=== PATIENT | male | born 1935 | race Caucasian/White ===

== ENCOUNTER 2017-04-05 11:41 | Inpatient (IN) ==
[2017-04-05] MEDS ORDERED: SODIUM CHLORIDE 0.9% 500 ML IV STA (12:10)
--- NOTE | 2017-04-05 12:34 | Emergency Department Note ---
Ruma Quintanilla Hilary, am scribing for, and in the presence of, Chavo Washington MD 12: 21. Padmini Quintanilla James D, MD, personally performed the services described in this documentation, ascribed by Davina Hendrix in my presence, and it is both accurate and complete 232 . Arrival - Arrival Chief Complaint: Weakness Stated Complaint: weakness ED Nursing Triage Note: Brought in per EMS from home with c/o generalized weakness onset this am. +nausea/voimiting. Vomiting x 3 this am. +productive cough with clear sputum. Denies pain. Mode of Arrival: Stretcher Limitations: No Limitations Source: Patient, Significant other (), RN Notes Reviewed Time Seen by Provider: 04/05/17 12:02 - History of Present Illness HPI Narrative: Pt is a 82 y/o white male brought into the ED via EMS with c/o weakness which onset this AM. Pts reports that he woke up in the morning around 0200 with chills and vomiting and when he woke up for the day he felt severely weak and hot. Pt confirms SOB and weakness but denies dysuria. No other complaints or problems stated in the ED. Onset (ago): hour(s) Consistency: constant Severity: severe Severity scale (1-10): 3 Allergies/Adverse Reactions: Allergies Allergy/AdvReac Type Severity Reaction Status Date / Time morphine Allergy Severe Nausea Verified 04/05/17 12:15 pseudoephedrine Allergy Severe RASH Verified 04/05/17 12:15 [From Sudafed] loratadine [From Claritin] Allergy Unknown/Unable Verified 04/05/17 12:15 to obtain sulfur dioxide Allergy Unknown/Unable Verified 04/05/17 12:15 to obtain Home Medications: Home Medications Medication Instructions Recorded Confirmed Type Acetaminophen Tab [Tylenol Tab] 325 mg PO BEDTIME 04/21/15 03/06/17 History Insulin Regular [HumuLIN R] 0 unit SUBCUT DIRECTED PRN 04/21/15 03/06/17 History Magnesium Oxide 400 mg PO DAILY 04/21/15 03/06/17 History Montelukast Tab [Singulair Tab] 10 mg PO BEDTIME 04/21/15 03/06/17 History Multivitamin [Multivitamins] 1 each PO DAILY W/LUNCH 04/21/15 03/06/17 History Polyethylene Glycol 3350 17 gm PO AC BREAKFAST 04/21/15 03/06/17 History Rosuvastatin [Crestor] 20 mg PO PC SUPPER 04/21/15 03/06/17 History Thyroid,Pork [[place] Thyroid] 90 mg PO AC BREAKFAST 04/21/15 03/06/17 History Lubiprostone [Amitiza] 8 mcg PO BID 05/28/15 03/06/17 History Ondansetron Tab [Zofran Tab] 4 mg PO BID PRN #60 tablet 09/24/15 03/06/17 Rx Diclofenac 1% Gel [Voltaren 1% Gel] 1 unit TOP QID PRN #1 gel 10/18/15 03/06/17 Rx Spironolactone [Aldactone] 50 mg PO DAILY tablet 10/18/15 03/06/17 Rx Aspirin EC Tab 81 mg PO PC SUPPER tablet 07/29/16 03/06/17 Rx Calcium (Carbonate) [Caltrate 600] 600 mg PO DAILY W/LUNCH tablet 07/29/1604/17 Rx Carvedilol [Coreg] 12.5 mg PO BID tablet 07/29/16 03/06/17 Rx Fludrocortisone [Florinef] 0.2 mg PO BID tablet 07/29/16 03/06/17 Rx Gabapentin Cap/Tab [Neurontin 200 mg PO TID capsule 07/29/16 03/06/17 Rx Cap/Tab] Imipramine [Tofranil] 10 mg PO BEDTIME tablet 07/29/16 03/06/17 Rx Lisinopril [Prinivil] 5 mg PO DAILY tablet 07/29/16 03/06/17 Rx Metformin HCl 250 mg PO BID 02/05/17 03/06/17 History Sitagliptin Phosphate [Januvia] 50 mg PO DAILY 02/05/17 03/06/17 History Alendronate Sodium 35 mg PO Q7D 02/08/17 03/06/17 History Amiodarone Tab [Cordarone Tab] 200 mg PO BID #70 tablet 02/09/17 03/06/17 Rx Digoxin Tab [Lanoxin Tab] 0.0625 mg PO DAILY@1300 #30 tablet 02/09/17 03/06/17 Rx Methenamine Hippurate [Hiprex] 1 gm PO BID 02/11/17 03/06/17 History Acetaminophen with Codeine 1 each PO Q6H PRN 03/06/17 03/06/17 History [Acetaminophen-Cod #3 Tablet] Albuterol Inhaler [Proventil 2 puff INH Q4H PRN 03/06/17 03/06/17 History Inhaler] Budesonide/Formoterol 80-4.5 2 puff INH BID PRN 03/06/17 03/06/17 History [Symbicort 80-4.5] Cholecalciferol (Vitamin D3) 2,000 unit PO DAILY 03/06/17 03/06/17 History [Vitamin D3] Cyanocobalamin (Vitamin B-12) 3 ml IJ Q7D 03/06/17 03/06/17 History [Cyanocobalamin Injection] Fexofenadine [Bibi] 180 mg PO BEDTIME PRN 03/06/17 03/06/17 History Fluticasone 50 Mcg Nasal [place] 1 spray BOTH NARES BID PRN 03/06/17 03/06/17 History [Flonase Nasal [place]] Folic Acid Tab 1 mg PO DAILY 03/06/17 03/06/17 History Furosemide Tab [Lasix Tab] 40 mg PO DAILY PRN 03/06/17 03/06/17 History Ipratropium 0.06% Nasal [place] 2 spray BOTH NARES TID PRN 03/06/17 03/06/17 History [Atrovent 0.06% Nasal [place]] LORazepam TAB [Ativan Tab] 0.5 mg PO DAILY PRN 03/06/17 03/06/17 History Mexiletine [Mexitil] 200 mg PO BID PRN 03/06/17 03/06/17 History Mupirocin Calcium [Bactroban 2% 1 applic TOP TID PRN 03/06/17 03/06/17 History Cream] [place]-3 Fatty Acids [Maxepa] 1,000 mg PO DAILY 03/06/17 03/06/17 History Omeprazole 20 mg PO DAILY 03/06/17 03/06/17 History Potassium Chloride 10 meq PO BID 03/06/17 03/06/17 History Simethicone [Phazyme] 180 mg PO DAILY PRN 03/06/17 03/06/17 History Sodium Chl/Potassium Chl Tab 2 tablet PO BID 03/06/17 03/06/17 History [Thermotabs] metOLazone [Zaroxolyn] 2.5 mg PO DAILY PRN 03/06/17 03/06/17 History Review of System - Review of System 12 point system: reviewed and no additional remarkable complaints except as stated - Review of System Constitutional: Present: chills, fever, weakness Respiratory: Present: respiratory distress (SOB) Gastrointestinal: Present: nausea, vomiting Genitourinary male: Absent: dysuria 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), Vertigo No history of: Brain Aneurysm, Cerebral Hemorrhage, Cerebrovascular Accident , Cerebral Palsy, Dementia, Migraine, Seizures, TIA HEENT: No history of: Ear Problem, Eye Problem, Dental Problems, Glaucoma, Oral Cancer, HEENT Problems Endocrine: History of: Diabetes Mellitus (IDDM), Diabetes Mellitus (NIDDM), Dyslipidemia, Thyroid Disorder Rheumatology: History of;: Rheumatoid Arthritis No history of;: Fibromyalgia, Psoriasis, Sjogrens, Systemic Lupus Erythematosus Respiratory: History of: COPD, Obstructive Sleep Apnea, Pneumonia (Aug 2015), Respiratory Problems No history of: Asthma, Bronchitis, Pulmonary Embolism, Pulmonary Hypertension Renal: History of: Renal Failure (Chronic renal insufficiency), Renal Problems ( cyst on left kidney followed by Dr. Bob Nunez) Genitourinary: History of: Bladder Problem (residual (I&O cath 2x daily)), Prostate Problems (History of prostate cancer, this was surgically treated.) Gastrointestinal: History of: GERD, GI Problems ("ilia colon", burgess's esophagus, dysphagia) No history of: Bowel Obstruction, Gastrointestinal Bleed Musculoskeletal: History of: Back/Neck Problems (chronic back pain) No history of: Amputation Hematology: No history of: Blood Transfusion Reaction Other: History of: Cancer (prostate) No history of: Anesthesia Reactions, Malignant Hyperthermia, MRSA, Vancomycin -Resistant Enterococci, Skin Problems, Miscellaneous Medical Problems - Surgical History Cardiac Surgeries: Sugical HX of: Cardiac Catheterization (January 2070), Cardiac Surgery (pacemaker/aicd), Internal Defibrillator Thoracic Surgeries: Patient denies;: Organ Transplant, Lobectomy Neurologic Surgeries: Patient denies: Brain Aneurysm, Cerebral Hemorrhage, Neurologic Surgery HEENT Surgeries: Surgical HX of: Eye Surgery (cataracts, eyelids lifted) Patient denies: Tonsilectomy & Adenoidectomy Abdominal Surgeries: Surgical HX of: Abdominal Surgery, Appendectomy, Cholecystectomy (03/2014), Colonoscopy, EGD (Burgess's) Reproductive Surgeries: Surgical HX of;: Prostate Surgery (cryo "freezing" of prostate-2012) Orthopedic Surgeries: Surgical HX of;: Orthopedic Surgery (ORIF Left ankle, right ankle), Total Knee Replacement (left) - Family History Family History: Reports;: Family Cancer (father-colon, brother-colon, sister- colon), Family Heart Disease, Family Hypertension, Family Stroke - Social History Smoking Status: Unknown if ever smoked Frequency of Alcohol Use: None Type of Drug Use: None Exam Physical Examination: GENERAL: This is a well-nourished, well-developed in no apparent distress. VITAL SIGNS: Temperature: 99.1 Pulse: 80 Respiratory: 18 Blood Pressure : 113/55 O2Sat: 96 HEENT: Head is normocephalic and atraumatic. Pupils are equally round and reactive to light. Extraocular movement are intact. Oropharynx is benign with moist mucous membranes. NECK: Neck is soft and supple without tenderness. There are no masses. There is no lymphadenopathy. LUNGS: Lungs are clear to auscultation bilaterally. Chest rises symmetrically. There is no chest wall tenderness. CV: Heart is regular rate and rhythm without rubs, or gallops. 2/6 LULI LSB ABDOMEN: Abdomen is soft, epigastric tenderness to palpation. There are no abnormal masses palpated. There is no organomegaly. Bowel sounds are present and active. SKIN: Skin is warm and dry. No rash. EXTREMITIES: Patient has full range of motion without tenderness. There is 1+ pedal edema. NEUROLOGIC: Awake, alert, and oriented x4. Cranial nerves II through XII are grossly intact. There are no motorsensory deficits. PSYCHIATRIC: Normal affect. Normal mood. Vital Signs: Vital Signs Temperature 99.1 F 04/05/17 11:41 Pulse Rate 80 04/05/17 11:41 Respiratory Rate 18 04/05/17 11:41 Blood Pressure 113/55 04/05/17 11:41 O2 Sat by Pulse Oximetry 96 04/05/17 11:41 Course - Consultations Consultation #1: Discussed with hospitalist. Patient will be admitted to their service. Time: 14:06 Results - Labs CBC & BMP: 04/05/17 13:10 Lab Results: I have reviewed the patients labs - Diagnostic Findings Procedure: Chest x-ray: image reviewed by me (Increased pulmonary markings bilaterally.) Disposition Clinical Impression: Fever, Chronic inflammatory demyelinating polyneuropathy, Pneumonia Case discussed with: patient, patient's family Disposition: Still a Patient Condition: Guarded Time of Disposition: 13:22
--- NOTE | 2017-04-05 12:46 | XRay Report ---
XR chest 1V portable Indication: SOB/fever Comparison: Chest x-ray dated February 11, 2017 Technique: Single frontal view of the chest. Findings: Continued cardiomegaly. Cardiac pacemaker apparatus again noted. There is mild left basilar atelectasis/consolidation suspicious for pneumonia. There is mild elevation of the left hemidiaphragm. Chronic change of the lungs present. Visualized osseous and surrounding soft tissue structures appear grossly unchanged. IMPRESSION: As above. PROCEDURE INTERPRETED AT [facility] DEPARTMENT OF RADIOLOGY Final Report Signed by: Dr Vamshi Pascual
[2017-04-05] MEDS ORDERED: PIPERACILLIN/TAZOBACTAM 3,375 MG in SODIUM CHLORIDE 0.9% 100 ML IV STA (13:26)
[2017-04-05] MEDS ORDERED: ACETAMINOPHEN 500 MG TABLET ONE (13:32)
[2017-04-05] MEDS ORDERED: ACETAMINOPHEN 500 MG TABLET PO STA (13:33)
[2017-04-05 13:36] LABS: Basophils % 0.1 % (0.0-0.8); Hematocrit 39.2 VOL% (42.0-52.0); Hemoglobin 12.6 GM/DL (14.0-18.0); Immature Granulocytes % 0.7 %; Immature Granulocytes Absolute 0.16 #; Lymphocytes # 0.3 10*3/uL (1.4-4.0); Lymphocytes % 1.2 % (21.2-54.2); Mean Corpuscular HGB Conc 32.1 GM/DL (32-36); Mean Corpuscular Hemoglobin 31 PG (27-34); Mean Corpuscular Volume 97.5 FL (87-102); Monocytes # 0.9 10*3/uL (0.11-0.8); Neutrophils # 21.7 10*3/uL (1.4-7.4); Platelet Count 220 T/CUMM (130-400); Red Blood Count 4.02 MC/CUMM (3.8-5.5); Red Cell Distribution Width 13.8 % (9.3-17.3); White Blood Count 23.1 T/CUMM (4-12)
[2017-04-05] MEDS ORDERED: PIPERACILLIN/TAZOBACTAM 3,375 MG VIAL IV ONE (13:39)
[2017-04-05 13:46] LABS: INR 1.1; PT Patient Result 11.9 SECS
[2017-04-05 13:58] LABS: Band Neutrophils 3 % (0-10); Platelet Estimate Normal; Segmented Neutrophils 94 % (50-85); Total Cells Counted 100
[2017-04-05 14:13] LABS: Albumin 3.3 G/DL (3.4-5.0); Bilirubin,Total 0.6 MG/DL (0.2-1.0); Osmolality,Calculated 278.8 MOS/KG (273-304); Potassium 4.9 MMOL/L (3.5-5.1); Total Protein 6.7 G/DL (6.4-8.3)
[2017-04-05 14:18] LABS: Apearance,Urine Slightly Hazy (Clear); Bilirubin,Urine Negative (Negative); Blood, Urine Negative (Negative); Glucose,Urine (UA) Negative (Negative); Hyaline Casts,Urine 1 /LPF (0-3); Ketones,Urine Negative (Negative); Mucus,Urine Occasional /LPF (Occasional); Nitrite,Urine Negative (Negative); Protein,Urine 30 MG/DL; RBC,Urine 1 /HPF (0-4); Urine Color Yellow (Yellow); Urine Specific Gravity 1.012 (1.001-1.035); Urine Urobilinogen < 2.0 EU/DL (0.2-1.0); WBC,Urine 57 /HPF (0-6)
[2017-04-05] MEDS ORDERED: SODIUM CHLORIDE 0.9% 1,000 ML IV STA (15:05)
--- NOTE | 2017-04-05 15:53 | Hospitalist History & Physical ---
Assessment and Plan - Time spent with patient Time spent with patient: Greater than 30 minutes (1) Pneumonia Status: Acute Assessment and plan: Chest x-ray reveals mild left basilar atelectasis/consolidation suspicious for pneumonia. He does have mild elevation of the left hemidiaphragm with chronic change of the lungs present. White blood count is 23.1. Patient has been started on Zosyn in ED. We will continue this upon transfer to the floor. We will also add duo nebs. Current Visit: Yes (2) Cardiomyopathy Status: Acute Assessment and plan: Patient is followed by Dr. Petar Engle, cardiology. Cardiology consultation may be warranted during his stay. Current Visit: No (3) Dyslipidemia Status: Chronic Current Visit: No (4) Fever Status: Acute Assessment and plan: Patient had a temp of 101 on admission. Temperature is since decreased to below 100 with Tylenol. Current Visit: Yes (5) Chronic inflammatory demyelinating polyneuropathy Status: Acute Current Visit: Yes History of Present Illness Chief complaint: Shortness of breath, weakness History of present illness: Mr. Ahumada is a 82 year old male with a past medical history significant for congestive heart failure, atrial fibrillation, hypertension, chronic inflammatory demyelinating polyneuropathy who presents to the ED with complaints of increasing shortness of breath and weakness for the past 3 days. Patient's is at bedside and provided much of the history. notes that patient has been wheezing and complaining of shortness of breath with associated cough productive of white frothy sputum the last 3 days. Patient is followed by Dr. Kamara and his nurse practitioner VENKAT Matthew last seen in the office on Wednesday. Patient notes he was given steroids in the office with the hope that the wheezing was improved. On admission, patient has fever with temperature 101, is dyspneic, and weak. He admits headache and blurry vision, nausea and vomiting, however he denies chest pain, abdominal pain, syncopal episodes. Lab work on admission reveals white count of 23.1 hemoglobin 12.6 hematocrit 39.2 sodium 137 potassium 4.9 chloride 97 BUN 24 creatinine 1.70 glucose 133 AST 80 ALT 111. Urinalysis does reveal large leukocytes. Patient is followed by Dr. Engle for his congestive heart failure and atrial fibrillation. He is listed as a full code. Case has been discussed with Dr. Ede Franklin the patient will be admitted to hospital medicine service for further evaluation and treatment. Home Medications Medication Instructions Recorded Confirmed Type Acetaminophen Tab [Tylenol Tab] 325 mg PO DAILY PRN 04/21/15 04/05/17 History Insulin Regular [HumuLIN R] See Protocol SUBCUT DIRECTED PRN 04/21/15 History Magnesium Oxide 400 mg PO DAILY 04/21/15 04/05/17 History Montelukast Tab [Singulair Tab] 10 mg PO DAILY 04/21/15 04/05/17 History Multivitamin [Multivitamins] 1 each PO DAILY W/LUNCH 04/21/15 04/05/17 History Rosuvastatin [Crestor] 20 mg PO DAILY 04/21/15 04/05/17 History Lubiprostone [Amitiza] 8 mcg PO BID 05/28/15 04/05/17 History Diclofenac 1% Gel [Voltaren 1% Gel] 1 unit TOP QID PRN #1 gel 10/18/15 04/05/17 Rx Spironolactone [Aldactone] 50 mg PO DAILY tablet 10/18/15 04/05/17 Rx Fludrocortisone [Florinef] 0.2 mg PO BID tablet 07/29/16 04/05/17 Rx Imipramine [Tofranil] 10 mg PO BEDTIME tablet 07/29/16 04/05/17 Rx Lisinopril [Prinivil] 5 mg PO DAILY tablet 07/29/16 04/05/17 Rx Sitagliptin Phosphate [Januvia] 50 mg PO DAILY 02/05/17 04/05/17 History Alendronate Sodium 35 mg PO SA 02/08/17 04/05/17 History Methenamine Hippurate [Hiprex] 1 gm PO BID 02/11/17 04/05/17 History Albuterol Inhaler [Proventil 2 puff INH Q4H PRN 03/06/17 04/05/17 History Inhaler] Budesonide/Formoterol 80-4.5 2 puff INH BID PRN 03/06/17 04/05/17 History [Symbicort 80-4.5] Cholecalciferol (Vitamin D3) 2,000 unit PO DAILY 03/06/17 04/05/17 History [Vitamin D3] Cyanocobalamin (Vitamin B-12) 3 ml IJ SA 03/06/17 04/05/17 History [Cyanocobalamin Injection] Fexofenadine [Bibi] 180 mg PO DAILY PRN 03/06/17 04/05/17 History Fluticasone 50 Mcg Nasal [place] 1 spray BOTH NARES BID PRN 03/06/17 04/05/17 History [Flonase Nasal [place]] Folic Acid Tab 1 mg PO DAILY 03/06/17 04/05/17 History LORazepam TAB [Ativan Tab] 0.5 mg PO DAILY 03/06/17 04/05/17 History Mexiletine [Mexitil] 200 mg PO BID 03/06/17 04/05/17 History [place]-3 Fatty Acids [Maxepa] 1,000 mg PO DAILY 03/06/17 04/05/17 History Omeprazole 20 mg PO DAILY 03/06/17 04/05/17 History Potassium Chloride 10 meq PO BID 03/06/17 04/05/17 History Simethicone [Phazyme] 180 mg PO DAILY PRN 03/06/17 04/05/17 History metOLazone [Zaroxolyn] 2.5 mg PO DAILY PRN 03/06/17 04/05/17 History Amiodarone Tab [Cordarone Tab] 200 mg PO DAILY 04/05/17 04/05/17 History Aspirin EC Tab 81 mg PO DAILY 04/05/17 04/05/17 History Calcium (Carbonate) [Caltrate 600] 600 mg PO DAILY 04/05/17 04/05/17 History Carvedilol [Coreg] 6.25 mg PO BID 04/05/17 04/05/17 History Digoxin Tab [Lanoxin Tab] 0.0625 mg PO DAILY 04/05/17 04/05/17 History Gabapentin Cap/Tab [Neurontin 200 mg PO BID 04/05/17 04/05/17 History Cap/Tab] Polyethylene Glycol Powder 17 gm PO DAILY 04/05/17 04/05/17 History [Miralax] Sodium Chl/Potassium Chl Tab 2 tablet PO BID 04/05/17 04/05/17 History [Thermotabs] Thyroid,Pork [[place] Thyroid] 90 mg PO DAILY 04/05/17 04/05/17 History cycloSPORINE OPH EMUL [Restasis] 0.05 drop BOTH EYES BID 04/05/17 04/05/17 History Allergies Allergy/AdvReac Type Severity Reaction Status Date / Time morphine Allergy Severe Nausea Verified 04/05/17 12:15 pseudoephedrine Allergy Severe RASH Verified 04/05/17 12:15 [From Sudafed] loratadine [From Claritin] Allergy Unknown/Unable Verified 04/05/17 12:15 to obtain sulfur dioxide Allergy Unknown/Unable Verified 04/05/17 12:15 to obtain 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), Vertigo No history of: Brain Aneurysm, Cerebral Hemorrhage, Cerebrovascular Accident , Cerebral Palsy, Dementia, Migraine, Seizures, TIA HEENT: No history of: Ear Problem, Eye Problem, Dental Problems, Glaucoma, Oral Cancer, HEENT Problems Endocrine: History of: Diabetes Mellitus (IDDM), Diabetes Mellitus (NIDDM), Dyslipidemia, Thyroid Disorder Rheumatology: History of;: Rheumatoid Arthritis No history of;: Fibromyalgia, Psoriasis, Sjogrens, Systemic Lupus Erythematosus Respiratory: History of: COPD, Obstructive Sleep Apnea, Pneumonia (Aug 2015), Respiratory Problems No history of: Asthma, Bronchitis, Pulmonary Embolism, Pulmonary Hypertension Renal: History of: Renal Failure (Chronic renal insufficiency), Renal Problems ( cyst on left kidney followed by Dr. Bob Nunez) Genitourinary: History of: Bladder Problem (residual (I&O cath 2x daily)), Prostate Problems (History of prostate cancer, this was surgically treated.) Gastrointestinal: History of: GERD, GI Problems ("ilia colon", burgess's esophagus, dysphagia) No history of: Bowel Obstruction, Gastrointestinal Bleed Musculoskeletal: History of: Back/Neck Problems (chronic back pain) No history of: Amputation Hematology: No history of: Blood Transfusion Reaction Other: History of: Cancer (prostate) No history of: Anesthesia Reactions, Malignant Hyperthermia, MRSA, Vancomycin -Resistant Enterococci, Skin Problems, Miscellaneous Medical Problems - Surgical History Cardiac Surgeries: Sugical HX of: Cardiac Catheterization (January 2070), Cardiac Surgery (pacemaker/aicd), Internal Defibrillator Thoracic Surgeries: Patient denies;: Organ Transplant, Lobectomy Neurologic Surgeries: Patient denies: Brain Aneurysm, Cerebral Hemorrhage, Neurologic Surgery HEENT Surgeries: Surgical HX of: Eye Surgery (cataracts, eyelids lifted) Patient denies: Tonsilectomy & Adenoidectomy Abdominal Surgeries: Surgical HX of: Abdominal Surgery, Appendectomy, Cholecystectomy (03/2014), Colonoscopy, EGD (B[facility]ess's) Reproductive Surgeries: Surgical HX of;: Prostate Surgery (cryo "freezing" of prostate-2012) Orthopedic Surgeries: Surgical HX of;: Orthopedic Surgery (ORIF Left ankle, right ankle), Total Knee Replacement (left) - Family History Family History: Reports;: Family Cancer (father-colon, brother-colon, sister- colon), Family Heart Disease, Family Hypertension, Family Stroke - Social History Smoking Status: Unknown if ever smoked Frequency of Alcohol Use: None Type of Drug Use: None Marital Status: Lives With:: Spouse Functional capacity: uses cane/walker - Constitutional Constitutional: Present: fever(s), headache(s), weakness. Absent: frequent falls - EENT Eyes: Present: blurry vision. Absent: loss of vision Nose, mouth and throat: Absent: neck pain, vertigo - Cardiovascular Cardiovascular: Present: dyspnea, dyspnea on exertion. Absent: chest pain at rest, edema, radiating jaw, neck or arm pain - Respiratory Respiratory: Present: cough, dyspnea, wheezing - Gastrointestinal Gastrointestinal: Present: nausea, vomiting. Absent: cramping, diarrhea - Genitourinary Genitourinary: Absent: dysuria, hematuria - Neurological Neurological: Absent: abnormal gait, abnormal speech, confusion, syncope - Psychiatric Psychiatric: Absent: anxiety, depression - Endocrine Endocrine: Present: cold intolerance, fatigue. Absent: heat intolerance - Hematologic/Lymphatic Hematologic/Lymphatic: Absent: easy bleeding, easy bruising Exam - Constitutional Vitals: Period Temp Pulse Resp BP Sys/[place] Pulse Ox Last 24 Hr 99.1 F-99.1 F 80-80 18-18 113-113/55-55 96 General appearance: normal weight, no acute distress - Head Head exam: Present: normal inspection, normocephalic, atraumatic - Eye Eye exam: Present: EOMI Pupils: Present: CAMELIA - ENT ENT exam: Present: normal exam, normal external ear exam - Neck Neck exam: Absent: lymphadenopathy, meningismus, tenderness - Respiratory Respiratory exam: Present: decreased breath sounds - Cardiovascular Cardiovascular exam: Present: regular rate and rhythm. Absent: carotid bruit, gallop, rubs - GI/Abdominal GI/Abdominal exam: Present: soft. Absent: ascites, distended, guarding - Neurological Exam Neurological exam: Present: alert, oriented X3, CN II-XII intact - Psychiatric Psychiatric exam: Present: normal affect, normal mood - Skin Skin exam: Present: normal color, warm, dry. Absent: erythema Results - Labs CBC & BMP: 04/05/17 13:10 04/05/17 13:10 Lab Results: I have reviewed the past 24 hour labs - Diagnostic Findings Procedure: Chest x-ray: image reviewed by me, report reviewed by me
[2017-04-05] MEDS ORDERED: ONDANSETRON 4 MG/2 ML VIAL IV PRN (16:49)
[2017-04-05] MEDS ORDERED: ALBUTEROL/IPRATROPIUM 3 ML NEB RESP TX PRN (16:49)
[2017-04-05] MEDS ORDERED: LACTULOSE 20 GM/30 ML UDCUP PO PRN (16:49)
[2017-04-05] MEDS ORDERED: ZALEPLON 5 MG CAPSULE PO PRN (20:38)
[2017-04-05] MEDS ORDERED: GLUCAGON 1 MG VIAL IM PRN (20:38)
[2017-04-05] MEDS ORDERED: DEXTROSE 50% 25 GM/50 ML VIAL IV PRN (20:38)
[2017-04-05] MEDS ORDERED: FLUTICASONE 50 MCG NASAL SPRAY 16 GM BOTTLE BOTH NARES PRN (21:14)
[2017-04-05] MEDS ORDERED: ACETAMINOPHEN 325 MG TABLET PO PRN (21:14)
[2017-04-05] MEDS ORDERED: DICLOFENAC 1% GEL 100 GM TUBE TOP PRN (21:14)
[2017-04-05] MEDS: PIPERACILLIN/TAZOBACTAM 3,375 MG in SODIUM CHLORIDE 0.9% 100 ML IV SCH (22:56)
[2017-04-05] MEDS: ENOXAPARIN 40 MG/0.4 ML SYRINGE SUBCUT SCH (22:56)
[2017-04-05] MEDS: guaiFENesin/DM ER 600-30 MG TABLET PO PRN (22:57)
[2017-04-05] MEDS: SODIUM CHLORIDE 0.9% 1,000 ML IV SCH (22:57)
[2017-04-06] MEDS: ACETAMINOPHEN 325 MG TABLET PO PRN ×3 (01:21→21:53)
[2017-04-06] MEDS: PIPERACILLIN/TAZOBACTAM 3,375 MG in SODIUM CHLORIDE 0.9% 100 ML IV SCH ×3 (05:00→21:44)
[2017-04-06 06:12] LABS: Basophils % 0.2 % (0.0-0.8); Eosinophils # 0.1 10*3/uL (0.0-0.87); Eosinophils % 0.7 % (0.00-10.9); Hematocrit 33.5 VOL% (42.0-52.0); Immature Granulocytes % 0.5 %; Immature Granulocytes Absolute 0.05 #; Lymphocytes # 0.3 10*3/uL (1.4-4.0); Lymphocytes % 2.8 % (21.2-54.2); Mean Corpuscular HGB Conc 31.6 GM/DL (32-36); Mean Corpuscular Hemoglobin 31 PG (27-34); Mean Corpuscular Volume 97.4 FL (87-102); Mean Platelet Volume 10.6 FL (9.6-12.0); Monocytes # 0.5 10*3/uL (0.11-0.8); Monocytes % 4.6 % (1.7-12.7); Neutrophils # 9.6 10*3/uL (1.4-7.4); Neutrophils % 91.2 % (38.7-73.9); Platelet Count 181 T/CUMM (130-400); Red Blood Count 3.44 MC/CUMM (3.8-5.5); Red Cell Distribution Width 13.9 % (9.3-17.3)
[2017-04-06 06:30] LABS: Hemoglobin 10.6 GM/DL (14.0-18.0); White Blood Count 10.6 T/CUMM (4-12)
[2017-04-06 06:38] LABS: Band Neutrophils 1 % (0-10); Hypochromasia 1+; Lymphocytes 4 % (20-55); Platelet Estimate Normal; Segmented Neutrophils 93 % (50-85); Total Cells Counted 100
[2017-04-06 06:39] LABS: Giant Platelets Few; Ovalocytes Slight
--- NOTE | 2017-04-06 07:11 | Hospitalist Progress Note ---
Assessment and Plan (1) Hypotonic neurogenic bladder Status: Chronic Assessment and plan: History of treated prostate cancer with requirement for and out bladder catheterization probable active urinary tract infection as source for fever. Current Visit: No (2) Cardiomyopathy Status: Chronic Assessment and plan: Nonischemic cardiomyopathy associated with ventricular arrhythmias and atrial fibrillation with intact pacing device and ICD. Coronary angiography repeated in January without development of epicardial coronary disease. Recent requirement for reduction medication due to decreased systolic blood pressure. Some indication of persisting volume contraction at this admission apparent use of corticosteriods previously. Current Visit: No (3) Adrenal insufficiency Status: Chronic Assessment and plan: Records suggest that this was associated with use of corticosteriod therapy for chronic inflammatory demyelinating neuropathy-possible source for recent volume related problems. Current Visit: No Hospitalist: Subjective Interval history: 82-year-old male with history of nonischemic cardiomyopathy, with cardiac catheterization done for pleomorphic ventricular tachycardia in January confirming reduced LVEF and non-critical coronary artery lesions. He has a chronic pacemaker with defibrillator in place with underlying complex ventricular arrhythmias actively treated with amiodarone and mexiletine (January 2017). He has recently been having difficulty with volume contraction with active treatment with reduction in medical therapy as both an outpatient and inpatient. Late last year he had been hospitalized with problems with volume deficits. He also has a history of a chronic inflammatory demyelinating neuropathy and previous prostate cancer with neurogenic bladder requiring in and out bladder catheterizations. He apparently had developed some adrenal suppression while on steriods and records indicate that he is using Fluonef. He presented with acute febrile illness with elevated white blood cell count, pyuria and a rise in his creatinine to 1.7 from a level of 1.1 in March of this year. With introduction of antibiotic therapy the patient has defervesced and current white count has fallen to normal range. Systolic systolic blood pressure continues low however his perfusion is excellent. It appears that was on prednisolone in July. Exam - Constitutional Vitals: Period Temp Pulse Resp BP Sys/Marroquin Pulse Ox Last 24 Hr 98.4 F-100.6 F 60-80 16-22 83-114/39-61 96-99 General appearance: over weight - Respiratory Respiratory exam: Present: clear to auscultation bilaterally. Absent: rales, rhonchi, wheezes - Cardiovascular Cardiovascular exam: Present: regular rate and rhythm, systolic murmur (2/6 LLSB ) - GI/Abdominal GI/Abdominal exam: Present: normal bowel sounds. Absent: organomegaly, tenderness - Extremities Exam Extremities exam: Absent: edema - Neurological Exam Neurological exam: Present: alert, oriented X3 Results - Labs CBC & BMP: 04/06/17 04:56 04/06/17 04:56 - Impressions Monitor strips show regular rhythm consistent with pacemaker brief periods of wide-complex intrinsic rhythm is present. - Diagnostic Findings Procedure: Chest x-ray: image reviewed by me (Pacing device with ICD in place elevated left hemidiaphragm prominent hilum bilaterally)
[2017-04-06 07:36] LABS: Osmolality,Calculated 282.8 MOS/KG (273-304); Potassium 4.4 MMOL/L (3.5-5.1)
--- NOTE | 2017-04-06 07:54 | XRay Report ---
XR chest 2V Indication: SOB Comparison: Chest x-ray dated April 05, 2017 Technique: Frontal and lateral views of the chest. Findings: Continued cardiomegaly. Cardiac pacemaker apparatus again noted Interval development of patchy opacification within the lateral aspect of the mid lung bilaterally suspicious for pneumonia. Visualized osseous and surrounding soft tissue structures appear grossly unchanged. Compression deformity of a lower thoracic vertebral body with vertebroplasty change. IMPRESSION: As above. PROCEDURE INTERPRETED AT [facility] DEPARTMENT OF RADIOLOGY Final Report Signed by: Dr Vamshi Pascual
[2017-04-06] MEDS: CHOLECALCIFEROL 1,000 UNIT TABLET PO SCH (08:26)
[2017-04-06] MEDS: FLUDROCORTISONE 0.1 MG TABLET PO SCH ×2 (08:26→21:47)
[2017-04-06] MEDS: METHENAMINE HIPPURATE 1 GM TABLET PO SCH ×2 (08:27→21:47)
[2017-04-06] MEDS: ROSUVASTATIN 20 MG TABLET PO SCH (08:27)
[2017-04-06] MEDS: CARVEDILOL 6.25 MG TABLET PO SCH ×2 (08:28→21:47)
[2017-04-06] MEDS: CALCIUM (CARBONATE) 600 MG TABLET PO SCH (08:28)
[2017-04-06] MEDS: FOLIC ACID 1 MG TABLET PO SCH (08:28)
[2017-04-06] MEDS: OMEGA 3 ACID ETHYL ESTERS 1 GM CAPSULE PO SCH (08:29)
[2017-04-06] MEDS: AMIODARONE 200 MG TABLET PO SCH (08:29)
[2017-04-06] MEDS: LORazepam 0.5 MG TABLET PO SCH (08:29)
[2017-04-06] MEDS: FEXOFENADINE 180 MG TABLET PO PRN (08:29)
[2017-04-06] MEDS: MONTELUKAST 10 MG TABLET PO SCH (08:29)
[2017-04-06] MEDS: MAGNESIUM OXIDE 400 MG TABLET PO SCH (08:30)
[2017-04-06] MEDS: PANTOPRAZOLE 40 MG TABLET PO SCH (08:30)
[2017-04-06] MEDS: MEXILETINE 200 MG CAPSULE PO SCH ×2 (08:30→21:48)
[2017-04-06] MEDS: ASPIRIN EC 81 MG TABLET PO SCH (08:30)
[2017-04-06] MEDS: guaiFENesin/DM ER 600-30 MG TABLET PO PRN (08:30)
[2017-04-06] MEDS: POTASSIUM CHLORIDE 10 MEQ TABLET PO SCH ×2 (08:30→21:47)
[2017-04-06] MEDS: POLYETHYLENE GLYCOL POWDER 17 GM PACK PO SCH (08:31)
[2017-04-06] MEDS: DOCUSATE SODIUM 100 MG CAPSULE PO PRN (08:31)
[2017-04-06] MEDS: MUPIROCIN 2% OINT 22 GM TUBE TOP SCH ×3 (08:32→21:46)
[2017-04-06] MEDS: cycloSPORINE OPH EMUL 1 VIAL BOTH EYES SCH ×2 (08:32→21:46)
[2017-04-06] MEDS ORDERED: PANTOPRAZOLE 40 MG TABLET PO SCH (09:00)
[2017-04-06] MEDS: INSULIN REGULAR 100 UNIT/ML SUBCUT SCH ×2 (10:35→18:48)
--- NOTE | 2017-04-06 11:02 | Pulmonology Consult Note ---
History of Present Illness Chief complaint: Pneumonia History of present illness: Norbert Olivas, ANP-BC, GNP-BC, acting as scribe for Dr. Christian Lino Mr. Ahumada is an 82-year-old white male from [place], [place] who we've been asked to see in pulmonary consultation for evaluation and treatment. The request for consultation was made by Dr. Franklin. He presented to [facility] yesterday with complaints of generalized weakness that began yesterday morning, nausea/vomiting, cough with clear sputum, and chills. On evaluation, the patient was found to have an acute pneumonia and was admitted to the hospitalist service for further evaluation and treatment. Patient was seen today along with his . The patient was in his usual state of health until early Wednesday morning. On Wednesday he had been to [place] for checkup with Dr. Margie Mendesicks was in his usual state of health at that time. Throughout the evening he began having hard chills per his . Over the course of the next several hours patient developed nausea and vomiting with fever. He denies any significant increased shortness of breath, and reports that his sputum has remained clear and "frothy". He denies any cardiac angina or palpitations. There is no reported solid dysphagia or reflux. No TIA symptoms or syncope. No bleeding from any site. No change in bowel or bladder habits. All other systems were reviewed and were noncontributory. Allergies: Claritin-D. Morphine makes him "sick". Medications: See list. Past medical history: [facility] hospitalization 02/11/2017 through 02/13/2017 under the care of the pocket creaser. He was discharged home in good condition, but for the course of the day or so he developed acute dehydration. This was corrected with fluids and he was discharged home improved. [facility] hospitalization for 02/04/2017 through 02/09/2017 under the care of the cardiologists. He had been receiving outpatient [facility] when he "blacked out". He was found to have polymorphic ventricular tachycardia requiring ICD shocks multiplications. Cardiac cath during that admission by Dr. Reddy showed moderately severe cardiomyopathy , LVEF 25-30%, 3+ LV enlargement, intermediate disease of the diagonal, mild disease in the other vessels, and moderate elevation of LVEDP at 20 mmHG. [facility] hospitalization 07/28/2016 through 07/29/2016 under the care of the hospitalist. During that admission he was admitted with tachycardia and an acute urinary tract infection. [facility] hospitalization 10/12/15 through 10/18/15 under the care of Dr. Lino. He was treated for acute severe low back pain that had been refractory to OP tx, severe hyponatremia that had been refractory to OP tx, severe hypokalemia that had been refractory to OP tx, and systolic CHF. [facility] hospitalization 09/17/15 through 09/24/15 under the care of Dr. Lino. During that admission he was treated for acute hyponatremia secondary to a newly diagnosed relative adrenal insufficiency, hypokalemia and hypomagnesemia. [facility] hospitalization 08/30/15 through 09/09/15 under the care of Dr. Lino. During that hospitalization he was treated for acute, severe hyponatremia felt most likely secondary to over-diuresis, an acute UTI secondary to Enterococcus faecalis, acute on chronic systolic CHF, and hypomagnesemia. [facility] hospitalization 06/25/2015 through 2014 under the care of the hospitalist for shortness or breath and WHITE. Coronary arteriogram was performed and there was no evidence of acute stenosis. His shortness of breath improved over the course of 2 days. He was hospitalized at [facility] 03/11/2013 through 03/16/2013 for acute cholecystitis requiring laparoscopic cholecystectomy with intraoperative cholangiogram. The patient also had acute pyelonephritis secondary to Citrobacter. He had acute renal failure which resolved. He had cardiac arrhythmia treated with amiodarone. He has history of hypothyroidism, degenerative joint disease. He was hospitalized at [facility] 06/23/2012 through 07/08/2012 with acute pyelonephritis with symptoms of sepsis secondary to methicillin-resistant staph aureus. Recent Cryosurgery of the prostate. Hyponatremia. Acute ventricular tachycardia. History of cardiomyopathy. Diabetes mellitus. Nonischemic cardiomyopathy. Hyperlipidemia. Obstructive sleep apnea. History of demyelinating polyneuropathy (CIDP). Burgess's esophagitis. Gastric esophageal reflux disease. COPD. Neck: Followed by Dr. Brandt Cueva. Allergic sinusitis. Cardiac arrhythmia treated with Pacerone in the past. Dr. 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 Prior to that he was treated by Dr. Iván Parsons Junior and more recently by Dr. Abernathy in [place], [place]. 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 He was originally diagnosed by Dr. Harris at [facility]. He was originally treated with immunoglobulin but over time he became allergic to it and Dr. Harris told him he would need to be treated with steroids from that point on. The patient has a history of cardiopathy with no obstructive coronary artery disease. This followed Dr. Dilshad Engle. The summer of 2010 he had pacemaker wires removed by Dr. Ledezma at the [facility] and at that time leads were replaced and a new defibrillator was put in. He said the surgery required 6 hours. He has followed up with Dr. Ledezma and he is planning to have this defibrillator followed here. In either 2009 are 2010 the patient had a thoracic compression fracture treated by Dr. Kaiden Mckenna with kyphoplasty and he has done well since that time. The patient had a hospitalization 06/25/2015 for dyspnea on exertion and shortness of breath which responded to vigorous diuresis. Family history: Father, brother, and sister had diabetes. Brother had a heart attack and required heart surgery. Father and brother had colon cancer. Social history: The patient is . His is present. He denies alcohol and tobacco. He has a BS 4 year college degree. He is retired from retail management. Surgical history: Laparoscopic cholecystectomy [address] Mckinnon, III. carpal tunnel surgery 1995. Knee replacement 2004. First defibrillator was placed in December 2002. Surgery in 2010 at [facility] for lead wires to be replaced in the defibrillator put in. Past procedures: Cardiac catheterization for [address] Red[address]. See above. EGD by Dr. Cueva showed specialized columnar epithelium of Burgess's esophagitis without dysplasia. Mammogram doen 03/18/16 fow right breast tenderness and suspected gynecomastia was a [id number] 2. There was a mild degree of right unilateral gynecomastia. This will be repeated in one year. E scope done 04/09/[address] Cueva showed hiatal hernia, Burgess's esophagus, and esophageal stricture. 2-D echocardiogram done 12/01/[address] Engle showed mildly reduced left ventricular systolic function. Mild concentric left the jugular hypertrophy with diastolic dysfunction. Mild left atrial enlargement. Mild aortic sclerosis with mild aortic insufficiency. Mild mitral regurgitation. Trace tricuspid regurgitation. Echocardiogram done 05/13/2012 showed left ventricular ejection fraction 40% with mild concentric left ventricular hypertrophy with diastolic dysfunction. There is mild left atrial enlargement, mild aortic valve sclerosis, and mild aortic valve insufficiency with mild mitral regurgitation and a trace of tricuspid regurgitation. Pulmonary function test on 09/13/[address] Lino showed #1 pulse ox 96% on room air #2 no obstructive disease #3 small positive response to inhaled bronchodilators number for mild restrictive disease #5 moderate decrease in maximum voluntary ventilation #6 DLCO 71%, DLCO/ VA 109, FVC 08/12/2012 was 2.51 L and on 09/13/2014 was 3.09 L. Chest x-ray. 04/05/2017. My interpretation. Cardiomegaly. There is dense calcification of the right hilum which is stable. There are increased markings of the bilateral bases which is stable on comparison to films done at [facility]. There is a probable acute pneumonia in the lateral aspect of the right midlung. Laboratory: White count admission was 23,100 but is fallen to 10,600 with 91.2% segs, 2.8% lymphs, 4.6% monos; H&H 10.6/33.5 with low to low normal indices and normal red blood cell distribution with; platelet count 191,000; INR 1.1; creatinine has improved to 1.60, BUN 28, sodium 137, potassium 4.4, lactic acid 1.6; calcium 8.0, albumin 3.3, total protein 6.7, globulins 3.4; liver function tests show an AST of 80, ALT 111, and alkaline phosphate 78; urinalysis shows large leukocytes with 57 WBCs per high-power field. Urine cultures pending. Home Medications Medication Instructions Recorded Confirmed Type Acetaminophen Tab [Tylenol Tab] 325 mg PO DAILY PRN 04/21/15 04/05/17 History Insulin Regular [HumuLIN R] See Protocol SUBCUT DIRECTED PRN 04/21/15 History Magnesium Oxide 400 mg PO DAILY 04/21/15 04/05/17 History Montelukast Tab [Singulair Tab] 10 mg PO DAILY 04/21/15 04/05/17 History Multivitamin [Multivitamins] 1 each PO DAILY W/LUNCH 04/21/15 04/05/17 History Rosuvastatin [Crestor] 20 mg PO DAILY 04/21/15 04/05/17 History Lubiprostone [Amitiza] 8 mcg PO BID 05/28/15 04/05/17 History Diclofenac 1% Gel [Voltaren 1% Gel] 1 unit TOP QID PRN #1 gel 10/18/15 04/05/17 Rx Spironolactone [Aldactone] 50 mg PO DAILY tablet 10/18/15 04/05/17 Rx Fludrocortisone [Florinef] 0.2 mg PO BID tablet 07/29/16 04/05/17 Rx Imipramine [Tofranil] 10 mg PO BEDTIME tablet 07/29/16 04/05/17 Rx Lisinopril [Prinivil] 5 mg PO DAILY tablet 07/29/16 04/05/17 Rx Sitagliptin Phosphate [Januvia] 50 mg PO DAILY 02/05/17 04/05/17 History Alendronate Sodium 35 mg PO SA 02/08/17 04/05/17 History Methenamine Hippurate [Hiprex] 1 gm PO BID 02/11/17 04/05/17 History Albuterol Inhaler [Proventil 2 puff INH Q4H PRN 03/06/17 04/05/17 History Inhaler] Budesonide/Formoterol 80-4.5 2 puff INH BID PRN 03/06/17 04/05/17 History [Symbicort 80-4.5] Cholecalciferol (Vitamin D3) 2,000 unit PO DAILY 03/06/17 04/05/17 History [Vitamin D3] Cyanocobalamin (Vitamin B-12) 3 ml IJ SA 03/06/17 04/05/17 History [Cyanocobalamin Injection] Fexofenadine [Bibi] 180 mg PO DAILY PRN 03/06/17 04/05/17 History Fluticasone 50 Mcg Nasal Rawlings 1 spray BOTH NARES BID PRN 03/06/17 04/05/17 History [Flonase Nasal Rawlings] Folic Acid Tab 1 mg PO DAILY 03/06/17 04/05/17 History LORazepam TAB [Ativan Tab] 0.5 mg PO DAILY 03/06/17 04/05/17 History Mexiletine [Mexitil] 200 mg PO BID 03/06/17 04/05/17 History Talent-3 Fatty Acids [Maxepa] 1,000 mg PO DAILY 03/06/17 04/05/17 History Omeprazole 20 mg PO DAILY 03/06/17 04/05/17 History Potassium Chloride 10 meq PO BID 03/06/17 04/05/17 History Simethicone [Phazyme] 180 mg PO DAILY PRN 03/06/17 04/05/17 History metOLazone [Zaroxolyn] 2.5 mg PO DAILY PRN 03/06/17 04/05/17 History Amiodarone Tab [Cordarone Tab] 200 mg PO DAILY 04/05/17 04/05/17 History Aspirin EC Tab 81 mg PO DAILY 04/05/17 04/05/17 History Calcium (Carbonate) [Caltrate 600] 600 mg PO DAILY 04/05/17 04/05/17 History Carvedilol [Coreg] 6.25 mg PO BID 04/05/17 04/05/17 History Digoxin Tab [Lanoxin Tab] 0.0625 mg PO DAILY 04/05/17 04/05/17 History Furosemide Tab [Lasix Tab] 40 mg PO DAILY PRN 04/05/17 04/05/17 History Gabapentin Cap/Tab [Neurontin 200 mg PO TID 04/05/17 04/05/17 History Cap/Tab] Insulin Regular [HumuLIN R] See Protocol SUBCUT ACHS PRN 04/05/17 04/05/17 History Mupirocin Calcium [Bactroban 2% 1 applic TOP TID 04/05/17 04/05/17 History Cream] Polyethylene Glycol Powder 17 gm PO DAILY 04/05/17 04/05/17 History [Miralax] Sodium Chl/Potassium Chl Tab 2 tablet PO BID 04/05/17 04/05/17 History [Thermotabs] Thyroid,Pork [[place] Thyroid] 90 mg PO DAILY 04/05/17 04/05/17 History cycloSPORINE OPH EMUL [Restasis] 0.05 drop BOTH EYES BID 04/05/17 04/05/17 History Allergies Allergy/AdvReac Type Severity Reaction Status Date / Time morphine Allergy Severe Nausea Verified 04/05/17 12:15 pseudoephedrine Allergy Severe RASH Verified 04/05/17 12:15 [From Sudafed] loratadine [From Claritin] Allergy Unknown/Unable Verified 04/05/17 12:15 to obtain sulfur dioxide Allergy Unknown/Unable Verified 04/05/17 12:15 to obtain Exam (Pulmonay) H&P - Constitutional Vitals: Period Temp Pulse Resp BP Sys/Marroquin Pulse Ox Last 24 Hr 96.7 F-100.6 F 60-80 16-22 83-114/39-61 94-99 Exam: Psych: Oriented x 3; a pleasant and cooperative patient who is acutely and chronically ill-appearing HEENT: Pupils, irises, sclera, conjunctiva, and eyelids are normal. The face is symmetrical without rash or masses. Lips, tongue, buccal mucosa, soft and hard palates, and pharynx are WNL; ears and external auditory canals are normal Neck: Symmetrical, slightly kyphotic with no masses. Thyroid was not palpated. Lymphatics: No submandibular, cervical, or supraclavicular adenopathy Chest: Symmetrical without appreciable wheeze, rhonchi or rales CV: Regular without murmur, rub, or gallop Arterial: Carotids are slightly decreased and traverse behind the sternocleidomastoid muscle. I hear no bruit. Upper extremity pulses are palpable. Posterior tibial pulses are faintly palpable. Venous: Exam of the neck and upper extremities is normal. The patient has some evidence of chronic venous insufficiency in his lower extremities. Abd: Abdomen is obese with no appreciable organomegaly, masses, tenderness, or bruit; Bowel sounds are positive x 4; The aorta could not be palpated /Rectal: Deferred Extremities: No clubbing, cyanosis, edema, or obvious DVT Skin: No cancerous or infectious lesions of the exposed, examined skin; the perineal area was not examined M/S: Age appropriate loss of the normal curvature of the cervical, thoracic, and lumbar spine Neurological: Cranial nerves are intact with some decreased hearing acuity bilaterally, Long tract motor function is intact; Sensory exam was not done; gait was not tested. The remainder of the exam was noncontributory. Impression: #1: Probable acute right middle lung infiltrate compatible with pneumonia #2: Acute urinary tract infection #3: Chronic renal failure; under the care of Dr. Franklin. Note, the patient has been on fluid restriction since October [address] Franklin and done very well. #4: COPD. Asthma. #5: Insulin dependent diabetes mellitus. #6: History of demyelinating polyneuropathy (CIDP); now under the care of Dr. Margie Madera #7: Obstructive sleep apnea #8: Hyperlipidemia #9: Burgess's esophagitis #10: Gastro-esophageal reflux disease #11: June 2015 hospitalization secondary to nonischemic cardiomyopathy and acute on chronic systolic congestive heart failure #12: History of prostate cancer #13: History of ischemic cardiomyopathy; under the care of Dr. Dilshad Engle #14: History of cardiac arrhythmias including acute ventricular tachycardia during June-July 2012 hospitalization and more recently January 2017 hospitalization #15: History of megacolon followed by Dr. Brandt Cueva #16: Cardiac pacemaker #17: See past history Plan: #1: Agree with Zosyn, but will add Levaquin 250 mg daily #2: Sputum for Gram stain, culture and sensitivity #3: Check cold agglutinins and Legionella #4: Follow-up urine culture when available #5: See orders We appreciate this consult and will follow along with you. 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), Vertigo No history of: Brain Aneurysm, Cerebral Hemorrhage, Cerebrovascular Accident , Cerebral Palsy, Dementia, Migraine, Seizures, TIA HEENT: No history of: Ear Problem, Eye Problem, Dental Problems, Glaucoma, Oral Cancer, HEENT Problems Endocrine: History of: Diabetes Mellitus (IDDM), Diabetes Mellitus (NIDDM), Dyslipidemia, Thyroid Disorder Rheumatology: History of;: Rheumatoid Arthritis No history of;: Fibromyalgia, Psoriasis, Sjogrens, Systemic Lupus Erythematosus Respiratory: History of: COPD, Obstructive Sleep Apnea, Pneumonia (Aug 2015), Respiratory Problems No history of: Asthma, Bronchitis, Pulmonary Embolism, Pulmonary Hypertension Renal: History of: Renal Failure (Chronic renal insufficiency), Renal Problems ( cyst on left kidney followed by Dr. Bob Nunez) Genitourinary: History of: Bladder Problem (residual (I&O cath 2x daily)), Prostate Problems (History of prostate cancer, this was surgically treated.) Gastrointestinal: History of: GERD, GI Problems ("ilia colon", burgess's esophagus, dysphagia) No history of: Bowel Obstruction, Gastrointestinal Bleed Musculoskeletal: History of: Back/Neck Problems (chronic back pain) No history of: Amputation Hematology: No history of: Blood Transfusion Reaction Other: History of: Cancer (prostate) No history of: Anesthesia Reactions, Malignant Hyperthermia, MRSA, Vancomycin -Resistant Enterococci, Skin Problems, Miscellaneous Medical Problems - Surgical History Cardiac Surgeries: Sugical HX of: Cardiac Catheterization (January 2070), Cardiac Surgery (pacemaker/aicd), Internal Defibrillator Thoracic Surgeries: Patient denies;: Organ Transplant, Lobectomy Neurologic Surgeries: Patient denies: Brain Aneurysm, Cerebral Hemorrhage, Neurologic Surgery HEENT Surgeries: Surgical HX of: Eye Surgery (cataracts, eyelids lifted) Patient denies: Tonsilectomy & Adenoidectomy Abdominal Surgeries: Surgical HX of: Abdominal Surgery, Appendectomy, Cholecystectomy (03/2014), Colonoscopy, EGD (Burgess's) Reproductive Surgeries: Surgical HX of;: Prostate Surgery (cryo "freezing" of prostate-2012) Orthopedic Surgeries: Surgical HX of;: Orthopedic Surgery (ORIF Left ankle, right ankle), Total Knee Replacement (left) - Family History Family History: Reports;: Family Cancer (father-colon, brother-colon, sister- colon), Family Heart Disease, Family Hypertension, Family Stroke - Social History Smoking Status: Unknown if ever smoked Frequency of Alcohol Use: None Type of Drug Use: None Results - Labs CBC & BMP: 04/06/17 04:56 04/06/17 04:56
[2017-04-06] MEDS: SODIUM CHLORIDE 0.9% 1,000 ML IV SCH ×2 (11:31→18:48)
[2017-04-06] MEDS: LEVOFLOXACIN INJ 250 MG in PREMIX 1 EACH IV SCH (11:32)
[2017-04-06] MEDS: HYDROCORTISONE 100 MG VIAL IV SCH ×2 (11:33→21:32)
[2017-04-06] MEDS: DIGOXIN 0.125 MG TABLET PO SCH (13:05)
[2017-04-06] MEDS: MULTIVITAMIN (CENTRUM) TABLET PO SCH (13:05)
[2017-04-06] MEDS: ENOXAPARIN 40 MG/0.4 ML SYRINGE SUBCUT SCH (21:52)
[2017-04-07] MEDS: SODIUM CHLORIDE 0.9% 1,000 ML IV SCH (04:20)
[2017-04-07] MEDS: HYDROCORTISONE 100 MG VIAL IV SCH (04:22)
[2017-04-07] MEDS: PIPERACILLIN/TAZOBACTAM 3,375 MG in SODIUM CHLORIDE 0.9% 100 ML IV SCH ×3 (06:20→22:18)
--- NOTE | 2017-04-07 07:00 | Hospitalist Progress Note ---
Assessment and Plan (1) Hypotonic neurogenic bladder Status: Chronic Assessment and plan: History of treated prostate cancer with requirement for and out bladder catheterization probable active urinary tract infection as source for fever with culture of urine blood positive for gram-negative judith Current Visit: No (2) Cardiomyopathy Status: Chronic Assessment and plan: Nonischemic cardiomyopathy associated with ventricular arrhythmias and atrial fibrillation with intact pacing device and ICD. Coronary angiography repeated in January without development of epicardial coronary disease. Recent requirement for reduction medication due to decreased systolic blood pressure. Some indication of persisting volume contraction at this admission. Current Visit: No (3) Adrenal insufficiency Status: Chronic Assessment and plan: Records suggest that this was associated with use of corticosteriod therapy for chronic inflammatory demyelinating neuropathy-possible source for recent volume related problems. Current Visit: No Hospitalist: Subjective Interval history: 82-year-old male with history of nonischemic cardiomyopathy confirmed by cardiac catheterization performed after an episode of pleomorphic ventricular tachycardia in January showing continued reduced ejection fraction noncritical coronary artery disease. He has chronic pacemaker with defibrillator in place on amiodarone and mexiletine for control of complex ventricular arrhythmias. The patient has a history of chronic inflammatory demyelinating neuropathy for which she was treated for corticosteroids. It is unclear from the record and the patient's exactly when he came off of this medication. She does describe electrolyte problems that led to initiation of Florinef late last year. He is socially had to have his medications reduced progressively due to hypotension. He has a history of prostate cancer and has a hypotonic neurogenic bladder with twice daily in and out bladder catheterization performed at home. He presented with an acute febrile illness associated with pyuria and a rise in his creatinine level. He is currently growing a gram-negative judith in his urine and in his bloodstream. He is received IV fluids but also yesterday was placed on hydrocortisone for possible stress associated renal insufficiency. Blood pressure has responded. He is remained afebrile. Exam - Constitutional Vitals: Period Temp Pulse Resp BP Sys/Marroquin Pulse Ox Last 24 Hr 97.6 F-98.6 F 69-93 18-20 98-112/56-64 90-94 General appearance: over weight - Respiratory Respiratory exam: Present: clear to auscultation bilaterally. Absent: rales, rhonchi, wheezes - Cardiovascular Cardiovascular exam: Present: regular rate and rhythm - GI/Abdominal GI/Abdominal exam: Present: normal bowel sounds. Absent: distended, tenderness - Extremities Exam Extremities exam: Absent: edema - Neurological Exam Neurological exam: Present: alert, oriented X3 Results - Labs CBC & BMP: 04/06/17 04:56 04/06/17 04:56 - Impressions Monitor strips show alternating paced and intrinsic activity. He appears to have underlying atrial fibrillation with interventricular conduction delay. - Diagnostic Findings Procedure: Chest x-ray: image reviewed by me (Repeat chest x-ray continues to show bilateral hilar enlargement cardiomegaly coarsening of lung markings. Left hemidiaphragm is more clearly delineated than previous)
[2017-04-07 07:32] LABS: Calcium 7.9 MG/DL (8.5-10.1); Osmolality,Calculated 284.5 MOS/KG (273-304); Potassium 4.1 MMOL/L (3.5-5.1)
--- NOTE | 2017-04-07 07:42 | XRay Report ---
Referring Physician: Norbert Olivas Exam: XR chest 1V portable Date: April 07, 2017 at 5:03 AM Reason: Pneumonia Comparison: Chest 2 views April 06, 2017 Findings: The cardiac silhouette is again enlarged, and a cardiac pacing device is in place. The interstitial markings are slightly prominent bilaterally, and there may be mild opacities within the peripheral aspect of the left midlung zone. This could represent mild pulmonary edema or pneumonia. No pneumothorax is identified. The osseous structures appear stable. Impression: The interstitial markings are slightly prominent bilaterally, and there may be mild opacities within the peripheral aspect of the left midlung zone. There is improved aeration of the right lung since the previous study. This could represent mild pulmonary edema or pneumonia. PROCEDURE INTERPRETED AT [facility] DEPARTMENT OF RADIOLOGY Final Report Signed by: Dr. Sadie Rodriguez
[2017-04-07] MEDS: INSULIN REGULAR 100 UNIT/ML SUBCUT SCH ×2 (07:46→16:10)
[2017-04-07] MEDS: MUPIROCIN 2% OINT 22 GM TUBE TOP SCH ×3 (08:34→20:49)
[2017-04-07] MEDS: MAGNESIUM OXIDE 400 MG TABLET PO SCH (08:35)
[2017-04-07] MEDS: LORazepam 0.5 MG TABLET PO SCH (08:35)
[2017-04-07] MEDS: FEXOFENADINE 180 MG TABLET PO PRN (08:35)
[2017-04-07] MEDS: CALCIUM (CARBONATE) 600 MG TABLET PO SCH (08:35)
[2017-04-07] MEDS: MONTELUKAST 10 MG TABLET PO SCH (08:35)
[2017-04-07] MEDS: CHOLECALCIFEROL 1,000 UNIT TABLET PO SCH (08:36)
[2017-04-07] MEDS: OMEGA 3 ACID ETHYL ESTERS 1 GM CAPSULE PO SCH (08:36)
[2017-04-07] MEDS: PANTOPRAZOLE 40 MG TABLET PO SCH (08:36)
[2017-04-07] MEDS: POTASSIUM CHLORIDE 10 MEQ TABLET PO SCH (08:36)
[2017-04-07] MEDS: AMIODARONE 200 MG TABLET PO SCH (08:36)
[2017-04-07] MEDS: MEXILETINE 200 MG CAPSULE PO SCH ×2 (08:36→20:40)
[2017-04-07] MEDS: guaiFENesin/DM ER 600-30 MG TABLET PO PRN (08:36)
[2017-04-07] MEDS: ROSUVASTATIN 20 MG TABLET PO SCH (08:36)
[2017-04-07] MEDS: FLUDROCORTISONE 0.1 MG TABLET PO SCH ×2 (08:36→20:40)
[2017-04-07] MEDS: ASPIRIN EC 81 MG TABLET PO SCH (08:36)
[2017-04-07] MEDS: METHENAMINE HIPPURATE 1 GM TABLET PO SCH ×2 (08:36→20:40)
[2017-04-07] MEDS: FOLIC ACID 1 MG TABLET PO SCH (08:36)
[2017-04-07] MEDS: CARVEDILOL 6.25 MG TABLET PO SCH ×2 (08:36→20:40)
[2017-04-07] MEDS: cycloSPORINE OPH EMUL 1 VIAL BOTH EYES SCH ×2 (08:42→20:41)
[2017-04-07] MEDS: POLYETHYLENE GLYCOL POWDER 17 GM PACK PO SCH (08:42)
[2017-04-07] MEDS: HYDROCORTISONE 10 MG TABLET PO SCH ×2 (08:47→20:40)
[2017-04-07] MEDS ORDERED: SIMETHICONE CHEW 80 MG TABLET PO PRN (10:24)
[2017-04-07] MEDS: THYROID 60 MG TABLET PO SCH (10:39)
[2017-04-07] MEDS: LUBIPROSTONE 8 MCG CAPSULE PO SCH ×2 (10:39→20:40)
[2017-04-07] MEDS: LISINOPRIL 5 MG TABLET PO SCH (10:39)
[2017-04-07] MEDS: LEVOFLOXACIN INJ 250 MG in PREMIX 1 EACH IV SCH (10:40)
--- NOTE | 2017-04-07 11:03 | Pulmonology Progress Note ---
Pulmonary - PN: Subj Interval history: This is a 82-year-old white male. He is been a patient of mine for several years. I saw him in pulmonary consultation on 04/06/2017. My impressions were. #1: Probable acute right middle lung infiltrate compatible with pneumonia #2: Acute urinary tract infection #3: Chronic renal failure; under the care of Dr. Franklin. Note, the patient has been on fluid restriction since October [address] Franklin and done very well. #4: COPD. Asthma. #5: Insulin dependent diabetes mellitus. #6: History of demyelinating polyneuropathy (CIDP); now under the care of Dr. Margie Madera #7: Obstructive sleep apnea #8: Hyperlipidemia #9: Cheung's esophagitis #10: Gastro-esophageal reflux disease #11: June 2015 hospitalization secondary to nonischemic cardiomyopathy and acute on chronic systolic congestive heart failure #12: History of prostate cancer #13: History of ischemic cardiomyopathy; under the care of Dr. Dilshad Engle #14: History of cardiac arrhythmias including acute ventricular tachycardia during June-July 2012 hospitalization and more recently January 2017 hospitalization #15: History of megacolon followed by Dr. Brandt Cueva #16: Cardiac pacemaker #17: See past history 04/07/2017. Patient had a cough and his sputum was mainly clear. His chest x- ray showed changes in the right perihilar area which appear to be improved today. As far as his chest x-ray is concerned this was probable pneumonia. His urine cultures and his blood cultures have grown E. coli. He appears to have had pyelonephritis with sepsis. White blood cell count is dropped from 23, 000 10,600. Electrolytes are normal. Creatinine is dropped from 1.70-1.20 with a BUN of 25. Clinically the patient is markedly better. He was seen along with his . Some of his home medicines were not restarted and these have been reviewed and restarted today.. Presently the following medicines are on hold, Prinivil, Lasix, Aldactone. These are managed by Dr. Ede Cortes who is the patient's sled maker. Physical exam. Vital signs. See below Psychiatric oriented 3 Neurologic. Cranial nerves are intact long track motor functions intact Face. Symmetrical. Lips and tongue are normal. Neck. Symmetrical no meningismus. Lymphatics. No submandibular cervical supraclavicular or epitrochlear adenopathy. Chest. Loose large airway congestion Heart. No gallop Abdomen. Nontender. Positive bowel sounds Lower extremities. Nothing to suggest deep venous thrombophlebitis The remainder the physical exam is noncontributory and negative. Plan: 04/06/2017 #1: Agree with Zosyn, but will add Levaquin 250 mg daily #2: Sputum for Gram stain, culture and sensitivity #3: Check cold agglutinins and Legionella #4: Follow-up urine culture when available #5: See orders 04/07/2017. 1. See today's note above Exam (Progress Note) - Constitutional Vitals: Period Temp Pulse Resp BP Sys/Marroquin Pulse Ox Last 24 Hr 97.1 F-98.6 F 69-93 18-20 98-137/56-80 90-94 Results - Labs CBC & BMP: 04/06/17 04:56 04/07/17 06:36
[2017-04-07] MEDS: MULTIVITAMIN (CENTRUM) TABLET PO SCH (12:30)
[2017-04-07] MEDS: DIGOXIN 0.125 MG TABLET PO SCH (12:31)
[2017-04-07] MEDS ORDERED: SPIRONOLACTONE/HCTZ 25-25 MG TABLET PO SCH (16:00)
[2017-04-07] MEDS: hydroCHLOROthiazide 25 MG TABLET PO SCH (16:10)
[2017-04-07] MEDS: SPIRONOLACTONE 25 MG TABLET PO SCH (16:10)
[2017-04-07] MEDS: ENOXAPARIN 40 MG/0.4 ML SYRINGE SUBCUT SCH (20:40)
[2017-04-08] MEDS: PIPERACILLIN/TAZOBACTAM 3,375 MG in SODIUM CHLORIDE 0.9% 100 ML IV SCH ×3 (06:13→22:07)
--- NOTE | 2017-04-08 06:47 | Hospitalist Progress Note ---
Assessment and Plan (1) Hypotonic neurogenic bladder Status: Chronic Assessment and plan: History of treated prostate cancer with requirement for and out bladder catheterization presentation with bacteremic E. coli urinary tract infection broadly sensitive to antibiotics. Current Visit: No (2) Cardiomyopathy Status: Chronic Assessment and plan: Nonischemic cardiomyopathy associated with ventricular arrhythmias and atrial fibrillation with intact pacing device and ICD. Coronary angiography repeated in January without development of epicardial coronary disease. Recent requirement for reduction medication due to decreased systolic blood pressure. Some indication of persisting volume contraction at this admission which has resolved with reduction in medications and course of IV fluids. Current Visit: No (3) Adrenal insufficiency Status: Chronic Assessment and plan: Records suggest that this was associated with use of corticosteriod therapy for chronic inflammatory demyelinating neuropathy-possible source for recent volume related problems. He has been converted to oral corticosteroids and he said he moves further out from his acute presentation this may be able to be gradually tapered to discontinuance. Current Visit: No Hospitalist: Subjective Interval history: 82-year-old white male with cath documented (January) long-standing nonischemic cardiomyopathy with complex ventricular arrhythmias atrial fibrillation with ICD pacing unit in place, had presented with an acute febrile illness. Subsequent blood cultures have returned positive for gram-negative judith with urine showing E. coli broadly sensitive. Today is his third day of IV antibiotics. Patient recently has had increasing difficulties associated with medications for his heart disease and hypotension. Of concern is a history of chronic inflammatory demyelinating polyneuropathy with history of treatment with corticosteroids. Last year to support his blood pressure he was placed on Florinef. In addition to antibiotic coverage on admission the patient received IV fluids and stress dose corticosteroids. His creatinine level normalized blood pressure has been progressively rise and we have begun cautious reintroduction of diuretics. He continues to be afebrile. He is seen by pulmonary with a history of obstructive sleep apnea on active CPAP treatment. We will need to consider the possibility of converting to an oral antibiotic to complete a 10-14 day course for bacteremic urinary tract infection. Exam - Constitutional Vitals: Period Temp Pulse Resp BP Sys/Marroquin Pulse Ox Last 24 Hr 97.1 F-98.0 F 20-74 18-20 103-137/58-80 89-95 General appearance: over weight - Respiratory Respiratory exam: Present: clear to auscultation bilaterally. Absent: rales, rhonchi, wheezes - Cardiovascular Cardiovascular exam: Present: irregular rhythm (Isolated ventricular premature depolarizations) - GI/Abdominal GI/Abdominal exam: Present: normal bowel sounds. Absent: tenderness - Extremities Exam Extremities exam: Absent: edema - Neurological Exam Neurological exam: Present: alert, oriented X3 Results - Labs CBC & BMP: 04/06/17 04:56 04/08/17 06:35 Labs: Digoxin 0.7
[2017-04-08] MEDS: INSULIN REGULAR 100 UNIT/ML SUBCUT SCH ×2 (07:43→15:31)
[2017-04-08 08:02] LABS: Calcium 8.2 MG/DL (8.5-10.1); Osmolality,Calculated 282.5 MOS/KG (273-304); Potassium 3.5 MMOL/L (3.5-5.1)
[2017-04-08] MEDS: METHENAMINE HIPPURATE 1 GM TABLET PO SCH ×2 (08:20→21:14)
[2017-04-08] MEDS: hydroCHLOROthiazide 25 MG TABLET PO SCH ×2 (08:20→15:32)
[2017-04-08] MEDS: FEXOFENADINE 180 MG TABLET PO PRN (08:20)
[2017-04-08] MEDS: MONTELUKAST 10 MG TABLET PO SCH (08:20)
[2017-04-08] MEDS: OMEGA 3 ACID ETHYL ESTERS 1 GM CAPSULE PO SCH (08:20)
[2017-04-08] MEDS: THYROID 60 MG TABLET PO SCH (08:20)
[2017-04-08] MEDS: guaiFENesin/DM ER 600-30 MG TABLET PO PRN (08:20)
[2017-04-08] MEDS: MAGNESIUM OXIDE 400 MG TABLET PO SCH (08:20)
[2017-04-08] MEDS: PANTOPRAZOLE 40 MG TABLET PO SCH (08:20)
[2017-04-08] MEDS: ASPIRIN EC 81 MG TABLET PO SCH (08:21)
[2017-04-08] MEDS: LISINOPRIL 5 MG TABLET PO SCH (08:21)
[2017-04-08] MEDS: HYDROCORTISONE 10 MG TABLET PO SCH ×2 (08:21→21:15)
[2017-04-08] MEDS: LUBIPROSTONE 8 MCG CAPSULE PO SCH ×2 (08:21→22:08)
[2017-04-08] MEDS: CARVEDILOL 6.25 MG TABLET PO SCH ×2 (08:21→21:15)
[2017-04-08] MEDS: ROSUVASTATIN 20 MG TABLET PO SCH (08:21)
[2017-04-08] MEDS: SPIRONOLACTONE 25 MG TABLET PO SCH ×2 (08:21→15:32)
[2017-04-08] MEDS: FOLIC ACID 1 MG TABLET PO SCH (08:21)
[2017-04-08] MEDS: CHOLECALCIFEROL 1,000 UNIT TABLET PO SCH (08:21)
[2017-04-08] MEDS: MEXILETINE 200 MG CAPSULE PO SCH ×2 (08:21→21:14)
[2017-04-08] MEDS: MUPIROCIN 2% OINT 22 GM TUBE TOP SCH ×3 (08:22→21:15)
[2017-04-08] MEDS: FLUDROCORTISONE 0.1 MG TABLET PO SCH ×2 (08:22→21:15)
[2017-04-08] MEDS: CALCIUM (CARBONATE) 600 MG TABLET PO SCH (08:22)
[2017-04-08] MEDS: AMIODARONE 200 MG TABLET PO SCH (08:22)
[2017-04-08] MEDS: LORazepam 0.5 MG TABLET PO SCH (08:22)
[2017-04-08] MEDS: cycloSPORINE OPH EMUL 1 VIAL BOTH EYES SCH ×2 (08:22→21:15)
[2017-04-08] MEDS: POLYETHYLENE GLYCOL POWDER 17 GM PACK PO SCH (08:23)
--- NOTE | 2017-04-08 10:16 | Pulmonology Progress Note ---
Pulmonary - PN: Subj Interval history: This is a 82-year-old white male. He is been a patient of mine for several years. I saw him in pulmonary consultation on 04/06/2017. My impressions were. #1: Probable acute right middle lung infiltrate compatible with pneumonia #2: Acute urinary tract infection #3: Chronic renal failure; under the care of Dr. Franklin. Note, the patient has been on fluid restriction since October [address] Franklin and done very well. #4: COPD. Asthma. #5: Insulin dependent diabetes mellitus. #6: History of demyelinating polyneuropathy (CIDP); now under the care of Dr. Margie Madera #7: Obstructive sleep apnea #8: Hyperlipidemia #9: Cheung's esophagitis #10: Gastro-esophageal reflux disease #11: June 2015 hospitalization secondary to nonischemic cardiomyopathy and acute on chronic systolic congestive heart failure #12: History of prostate cancer #13: History of ischemic cardiomyopathy; under the care of Dr. Dilshad Engle #14: History of cardiac arrhythmias including acute ventricular tachycardia during June-July 2012 hospitalization and more recently January 2017 hospitalization #15: History of megacolon followed by Dr. Brandt Cueva #16: Cardiac pacemaker #17: See past history 04/07/2017. Patient had a cough and his sputum was mainly clear. His chest x- ray showed changes in the right perihilar area which appear to be improved today. As far as his chest x-ray is concerned this was probable pneumonia. His urine cultures and his blood cultures have grown E. coli. He appears to have had pyelonephritis with sepsis. White blood cell count is dropped from 23, 000 10,600. Electrolytes are normal. Creatinine is dropped from 1.70-1.20 with a BUN of 25. Clinically the patient is markedly better. He was seen along with his . Some of his home medicines were not restarted and these have been reviewed and restarted today.. Presently the following medicines are on hold, Prinivil, Lasix, Aldactone. These are managed by Dr. Ede Cortes who is the patient's resident care technician. 04/08/2017. Patient's chest is clear. He had what appeared to be a right perihilar infiltrate at the time of admission. His cultures did not grow grow. His sputum was clear. This area has resolved and could have been secondary to retention of his secretions. Patient had pyelonephritis with E. coli sepsis and he was profoundly ill at the time of admission. He is beginning to feel better. Sensitivities are noted so they will be medicines she can go home on such as Cipro or Levaquin. He should be able to take a full dose his creatinine is fallen from 1.7-1.1. I would recommend that he be treated for at least 7 days after discharge. Infection came from his skin. He has to catheterize himself. I have discussed the medicines with the patient and his and I have told him to continue his home medicines. He has a follow-up visit in my office. Physical exam. Vital signs. See below Psychiatric oriented 3 Neurologic. Cranial nerves are intact long track motor functions intact Face. Symmetrical. Lips and tongue are normal. Neck. Symmetrical no meningismus. Lymphatics. No submandibular cervical supraclavicular or epitrochlear adenopathy. Chest. Loose large airway congestion Heart. No gallop Abdomen. Nontender. Positive bowel sounds Lower extremities. Nothing to suggest deep venous thrombophlebitis The remainder the physical exam is noncontributory and negative. Plan: 04/06/2017 #1: Agree with Zosyn, but will add Levaquin 250 mg daily #2: Sputum for Gram stain, culture and sensitivity #3: Check cold agglutinins and Legionella #4: Follow-up urine culture when available #5: See orders 04/07/2017. 1. See today's note above 04/08/2017. 1. See today's note above. 2. Significantly improved and could be ready for discharge tomorrow or the next day. Continue IV antibiotics until the time of discharge Exam (Progress Note) - Constitutional Vitals: Period Temp Pulse Resp BP Sys/Marroquin Pulse Ox Last 24 Hr 97.3 F-98.0 F 20-74 18-20 103-131/58-74 89-95 Results - Labs CBC & BMP: 04/06/17 04:56 04/08/17 06:35
[2017-04-08] MEDS: LEVOFLOXACIN INJ 250 MG in PREMIX 1 EACH IV SCH (11:07)
[2017-04-08] MEDS: MULTIVITAMIN (CENTRUM) TABLET PO SCH (11:07)
[2017-04-08] MEDS: DIGOXIN 0.125 MG TABLET PO SCH (13:06)
[2017-04-08] MEDS: ENOXAPARIN 40 MG/0.4 ML SYRINGE SUBCUT SCH (21:14)
[2017-04-09] MEDS: PIPERACILLIN/TAZOBACTAM 3,375 MG in SODIUM CHLORIDE 0.9% 100 ML IV SCH ×2 (06:06→14:06)
[2017-04-09] MEDS: ASPIRIN EC 81 MG TABLET PO SCH (09:32)
[2017-04-09] MEDS: HYDROCORTISONE 10 MG TABLET PO SCH (09:33)
[2017-04-09] MEDS: hydroCHLOROthiazide 25 MG TABLET PO SCH (09:34)
[2017-04-09] MEDS: SPIRONOLACTONE 25 MG TABLET PO SCH (09:34)
[2017-04-09] MEDS: MEXILETINE 200 MG CAPSULE PO SCH (09:34)
[2017-04-09] MEDS: LISINOPRIL 5 MG TABLET PO SCH (09:34)
[2017-04-09] MEDS: CALCIUM (CARBONATE) 600 MG TABLET PO SCH (09:34)
[2017-04-09] MEDS: OMEGA 3 ACID ETHYL ESTERS 1 GM CAPSULE PO SCH (09:34)
[2017-04-09] MEDS: DOCUSATE SODIUM 100 MG CAPSULE PO PRN (09:35)
[2017-04-09] MEDS: ROSUVASTATIN 20 MG TABLET PO SCH (09:35)
[2017-04-09] MEDS: AMIODARONE 200 MG TABLET PO SCH (09:35)
[2017-04-09] MEDS: METHENAMINE HIPPURATE 1 GM TABLET PO SCH (09:35)
[2017-04-09] MEDS: MONTELUKAST 10 MG TABLET PO SCH (09:35)
[2017-04-09] MEDS: MAGNESIUM OXIDE 400 MG TABLET PO SCH (09:35)
[2017-04-09] MEDS: LORazepam 0.5 MG TABLET PO SCH (09:35)
[2017-04-09] MEDS: FEXOFENADINE 180 MG TABLET PO PRN (09:36)
[2017-04-09] MEDS: MUPIROCIN 2% OINT 22 GM TUBE TOP SCH (09:36)
[2017-04-09] MEDS: THYROID 60 MG TABLET PO SCH (09:42)
[2017-04-09] MEDS: CHOLECALCIFEROL 1,000 UNIT TABLET PO SCH (09:43)
[2017-04-09] MEDS: FLUDROCORTISONE 0.1 MG TABLET PO SCH (09:43)
[2017-04-09] MEDS: CARVEDILOL 6.25 MG TABLET PO SCH (09:43)
[2017-04-09] MEDS: PANTOPRAZOLE 40 MG TABLET PO SCH (09:43)
[2017-04-09] MEDS: FOLIC ACID 1 MG TABLET PO SCH (09:43)
--- NOTE | 2017-04-09 11:29 | Pulmonology Progress Note ---
Pulmonary - PN: Subj Interval history: Norbert Olivas, ANP-BC, GNP-BC, acting as scribe for Dr. Christian Lino This is a 82-year-old white male. He is been a patient of Dr. Lino for several years. We saw him in initial pulmonary consultation on 04/06/2017. At that time, our impressions were: #1: Probable acute right middle lung infiltrate compatible with pneumonia #2: Acute urinary tract infection #3: Chronic renal failure; under the care of Dr. Franklin. Note, the patient has been on fluid restriction since October [address] Franklin and done very well. #4: COPD. Asthma. #5: Insulin dependent diabetes mellitus. #6: History of demyelinating polyneuropathy (CIDP); now under the care of Dr. Margie Madera #7: Obstructive sleep apnea #8: Hyperlipidemia #9: Cheung's esophagitis #10: Gastro-esophageal reflux disease #11: June 2015 hospitalization secondary to nonischemic cardiomyopathy and acute on chronic systolic congestive heart failure #12: History of prostate cancer #13: History of ischemic cardiomyopathy; under the care of Dr. Dilshad Engle #14: History of cardiac arrhythmias including acute ventricular tachycardia during June-July 2012 hospitalization and more recently January 2017 hospitalization #15: History of megacolon followed by Dr. Brandt Cueva #16: Cardiac pacemaker #17: See past history 04/07/2017. Patient had a cough and his sputum was mainly clear. His chest x- ray showed changes in the right perihilar area which appear to be improved today. As far as his chest x-ray is concerned this was probable pneumonia. His urine cultures and his blood cultures have grown E. coli. He appears to have had pyelonephritis with sepsis. White blood cell count is dropped from 23, 000 10,600. Electrolytes are normal. Creatinine is dropped from 1.70-1.20 with a BUN of 25. Clinically the patient is markedly better. He was seen along with his . Some of his home medicines were not restarted and these have been reviewed and restarted today.. Presently the following medicines are on hold: Prinivil, Lasix, Aldactone. These are managed by Dr. Ede Franklin who is the patient's chemistry technical officer. 04/08/2017. Patient's chest is clear. He had what appeared to be a right perihilar infiltrate at the time of admission. His cultures did not grow grow. His sputum was clear. This area has resolved and could have been secondary to retention of his secretions. Patient had pyelonephritis with E. coli sepsis and he was profoundly ill at the time of admission. He is beginning to feel better. Sensitivities are noted so they will be medicines she can go home on such as Cipro or Levaquin. He should be able to take a full dose his creatinine is fallen from 1.7-1.1. I would recommend that he be treated for at least 7 days after discharge. Infection came from his skin. He has to catheterize himself. I have discussed the medicines with the patient and his and I have told him to continue his home medicines. He has a follow-up visit in my office. 04/09/2017. Patient was seen today along with his and Linda Hillman RN. Patient is doing very well today. He certainly appears back to his baseline. He is hopeful for discharge home today. Blood cultures and urine cultures grew E. coli. Please see the 04/08/2017 note regarding recommended home antibiotics. Medications have been reviewed. We made no changes today. Labs been reviewed. No new labs were drawn today. Exam (Progress Note) - Constitutional Vitals: Period Temp Pulse Resp BP Sys/Marroquin Pulse Ox Last 24 Hr 96.2 F-98.1 F 69-76 18-21 106-126/63-78 92-95 Exam: Chest is clear Heart no gallop Abdomen is obese but nontender and nondistended; bowel sounds are positive 4 Extremities with nothing to suggest acute deep venous thrombus phlebitis Psychiatric oriented 3 Neurologic long-term motor function is intact Plan: Patient appears back to his baseline and is hopeful for discharge today. We will sign off. Please reconsult as needed. Results - Labs CBC & BMP: 04/06/17 04:56 04/08/17 06:35
[2017-04-09] MEDS: INSULIN REGULAR 100 UNIT/ML SUBCUT SCH (11:43)
[2017-04-09] MEDS: POLYETHYLENE GLYCOL POWDER 17 GM PACK PO SCH (11:44)
[2017-04-09] MEDS: cycloSPORINE OPH EMUL 1 VIAL BOTH EYES SCH (11:44)
[2017-04-09] MEDS: LUBIPROSTONE 8 MCG CAPSULE PO SCH (11:48)
[2017-04-09 12:25] VITALS: BP 119/70
[2017-04-09] MEDS ORDERED: LEVOFLOXACIN 750 MG TABLET PO SCH (13:30)
[2017-04-09] MEDS: MULTIVITAMIN (CENTRUM) TABLET PO SCH (14:06)
[2017-04-09] MEDS: DIGOXIN 0.125 MG TABLET PO SCH (14:06)
--- NOTE | 2017-04-09 14:46 | Discharge Summary ---
Hospital Course - Hospital Course Hospital Course: 82-year-old white male with cath documented (January) long-standing nonischemic cardiomyopathy with complex ventricular arrhythmias atrial fibrillation with ICD pacing unit in place, had presented with an acute febrile illness. Subsequent blood cultures have returned positive for gram-negative judith with urine showing E. coli broadly sensitive. Today is his fourh day of IV antibiotics. In addition to antibiotic coverage on admission the patient received IV fluids and stress dose corticosteroids. His creatinine level normalized blood pressure has been progressively rise and we have begun cautious reintroduction of diuretics. He continues to be afebrile. He is seen by pulmonary with a history of obstructive sleep apnea on active CPAP treatment. Pulmonary followed him while inpatient. He is now very eager to go home. He has reached maximal benefit of inpatient stay and will be discharged home on po antibiotics. - Time spent with patient Time with patient DS: Less than 30 minutes (25 min) Diagnosis - Discharge Diagnosis (1) COPD (chronic obstructive pulmonary disease) Status: Chronic (2) UTI (urinary tract infection) Status: Resolved (3) Pneumonia Status: Resolved Specialty Discharge - Follow Up or Referrals Discharge Plan - Discharge Data Disposition: Disch To Home/Self Care Condition at Discharge: Stable Discharge Diet: advance to your usual diet Activity: increase activity as tolerated Hygiene: no restrictions Weight Bearing at Discharge: weight bear as tolerated Driving: no restrictions Contact your physician if you experience:: fever over 101, Shortness of breath - Discharge Medications New Levofloxacin Tab [Levaquin Tab] 750 mg PO Q24H #10 tablet hydroCHLOROthiazide [Hydrochlorothiazide] 25 mg PO BID DIURETIC #30 tablet Continue Acetaminophen Tab [Tylenol Tab] 325 mg PO DAILY PRN PRN Reason: Pain Montelukast Tab [Singulair Tab] 10 mg PO DAILY Multivitamin [Multivitamins] 1 each PO DAILY W/LUNCH Magnesium Oxide 400 mg PO DAILY Insulin Regular [HumuLIN R] See Protocol SUBCUT DIRECTED PRN PRN Reason: STEROID USE Rosuvastatin [Crestor] 20 mg PO DAILY Lubiprostone [Amitiza] 8 mcg PO BID Spironolactone [Aldactone] 50 mg PO DAILY tablet Diclofenac 1% Gel [Voltaren 1% Gel] 1 unit TOP QID PRN #1 gel PRN Reason: pain Fludrocortisone [Florinef] 0.2 mg PO BID tablet Imipramine [Tofranil] 10 mg PO BEDTIME tablet Lisinopril [Prinivil] 5 mg PO DAILY tablet Albuterol Inhaler [Proventil Inhaler] 2 puff INH Q4H PRN PRN Reason: Shortness Of Breath/Wheezing Budesonide/Formoterol 80-4.5 [Symbicort 80-4.5] 2 puff INH BID PRN PRN Reason: Shortness Of Breath/Wheezing Cholecalciferol (Vitamin D3) [Vitamin D3] 2,000 unit PO DAILY Cyanocobalamin (Vitamin B-12) [Cyanocobalamin Injection] 3 ml IJ SA Fluticasone 50 Mcg Nasal [place] [Flonase Nasal [place]] 1 spray BOTH NARES BID PRN PRN Reason: Allergy Symptoms Folic Acid Tab 1 mg PO DAILY LORazepam TAB [Ativan Tab] 0.5 mg PO DAILY Mexiletine [Mexitil] 200 mg PO BID Omeprazole 20 mg PO DAILY Potassium Chloride 10 meq PO BID Simethicone [Phazyme] 180 mg PO DAILY PRN PRN Reason: FLATULENCE Polyethylene Glycol Powder [Miralax] 17 gm PO DAILY Gabapentin Cap/Tab [Neurontin Cap/Tab] 200 mg PO TID Thyroid,Pork [[place] Thyroid] 90 mg PO DAILY Carvedilol [Coreg] 6.25 mg PO BID Calcium (Carbonate) [Caltrate 600] 600 mg PO DAILY Aspirin EC Tab 81 mg PO DAILY Amiodarone Tab [Cordarone Tab] 200 mg PO DAILY Mupirocin Calcium [Bactroban 2% Cream] 1 applic TOP TID Sitagliptin Phosphate [Januvia] 50 mg PO DAILY Alendronate Sodium 35 mg PO SA Methenamine Hippurate [Hiprex] 1 gm PO BID Fexofenadine [Bibi] 180 mg PO DAILY PRN PRN Reason: Sinus Symptoms [place]-3 Fatty Acids [Maxepa] 1,000 mg PO DAILY Sodium Chl/Potassium Chl Tab [Thermotabs] 2 tablet PO BID cycloSPORINE OPH EMUL [Restasis] 0.05 drop BOTH EYES BID Digoxin Tab [Lanoxin Tab] 0.0625 mg PO DAILY Insulin Regular [HumuLIN R] See Protocol SUBCUT ACHS PRN PRN Reason: Glucose Management Discontinued Furosemide Tab [Lasix Tab] 40 mg PO DAILY PRN PRN Reason: Edema metOLazone [Zaroxolyn] 2.5 mg PO DAILY PRN PRN Reason: Edema - Follow Up or Referral - Forms/Instructions Instructions: Urinary Tract Infection in Men (DC), Sepsis (DC), Bacterial Pneumonia (DC) Exam - Constitutional Vitals: Period Temp Pulse Resp BP Sys/Marroquin Pulse Ox Last 24 Hr 96.2 F-98.1 F 69-75 18-21 106-126/63-78 93-95 General appearance: over weight - Head Head exam: Present: normocephalic, atraumatic - Eye Eye exam: Present: EOMI Pupils: Present: CAMELIA - ENT ENT exam: Present: normal exam - Neck Neck exam: Present: normal inspection - Respiratory Respiratory exam: Present: clear to auscultation bilaterally. Absent: wheezes - Cardiovascular Cardiovascular exam: Present: regular rate and rhythm - GI/Abdominal GI/Abdominal exam: Present: normal bowel sounds, soft. Absent: tenderness, rebound - Extremities Exam Extremities exam: Present: normal inspection - Back Exam Back exam: Present: normal inspection - Neurological Exam Neurological exam: Present: alert, oriented X3 - Psychiatric Psychiatric exam: Present: normal affect, normal mood - Skin Skin exam: Present: warm, intact Discharge Results Procedures and tests throughout hospitalization: Pending Orders 04/06/17 11:00 Legionella Ag, Urine Routine Sputum Culture and Gram Stain Routine 04/06/17 17:33 Blood Culture Routine Labs on day of discharge: Labs from last 24 hours 04/09/17 04/09/17 04/08/17 11:58 07:24 19:45 POC Glucose 181 H 120 H 153 H 04/08/17 16:09 POC Glucose 182 H Preliminary micro results at discharge 04/06/17 11:40 Blood Culture - Preliminary Blood No growth at 3 days 04/06/17 11:40 Blood Culture - Preliminary Blood No growth at 3 days 04/06/17 17:33 Blood Culture - Preliminary Blood No growth at 1 day DS: Provider Date of admission: 04/05/17 14:24 Primary care physician: . No PCP Attending physician on admission: Ede Franklin Jr., MD Consults: 04/05/17 20:41 Consult to Physical Therapy [CONS] Routine Reason for Physical Therapy: Weakness 04/05/17 20:48 Consult to Physician [CONS] Routine Comment: Pneumonia Consulting Provider: Christian Lino When should Consulting Provider be notified: In am Person Notified: Belinda Date Notified: 04/06/17 Time Notified: 09:49 Discharging clinician: Sae Dao MD
[2017-04-10] MEDS ORDERED: CYANOCOBALAMIN 1000 MCG/1 ML VIAL SUBCUT SCH (09:00)
--- NOTE | 2017-04-13 15:52 | Physician Query Form ---
CLICK EDIT DOCUMENT TO SELECT QUERY ANSWER --> OK --> SIGN Tish Mallory RN Clinical Plate Painter W) [phone] (f) [phone] [email or web address] PROVIDERS: Make your selection(s) from the choices in EACH section by typing an "x" and enter comments in the comment section. Please use your independent medical judgment in providing your response. This request does not imply that any particular answer is desired or expected. CLINICAL INDICATORS: (Providers should not edit this section) Pt. admitted with UTI. Based on documentation of "neurogenic bladder requiring in and out bladder catheterizations". Based on the above, could you clarify the appropriate diagnosis, if significant , that supports the above abnormalities and additional evaluation, monitoring, and/or treatment rendered: ( x) UTI due to in and out bladder catheterizations ( ) UTI not due to in and out bladder catheterizations ( ) Other, please specify: ( ) Clinically unable to determine COMMENTS: PLEASE ALSO DOCUMENT RESPONSE IN PROGRESS NOTES AND/OR DISCHARGE SUMMARY Use of terms such as suspected, likely, or probable (associated with a specific diagnosis that is being evaluated, monitored, or treated as if it exists) are acceptable and can be restated in the discharge summary if not ruled out. MTDD
== END 2017-04-09 16:00 | disposition home or self-care (01) | DRG 698 ==
LOC: EDBD → EDUNIT# → N.ED 11:41 → N.EDINP 14:21 → SUATTDRO 14:24 → N.5E 15:45
PROVIDERS: ADMIT Internal Medicine Nephrology; ATTEND Internal Medicine

== ENCOUNTER 2017-05-23 19:07 | Inpatient (IN) ==
[2017-05-23 20:00] LABS: Basophils % 0.2 % (0.0-0.8); Eosinophils # 0.2 10*3/uL (0.0-0.87); Eosinophils % 1.7 % (0.00-10.9); Hematocrit 39.6 VOL% (42.0-52.0); Hemoglobin 12.8 GM/DL (14.0-18.0); Immature Granulocytes % 0.4 %; Immature Granulocytes Absolute 0.04 #; Lymphocytes # 0.7 10*3/uL (1.4-4.0); Lymphocytes % 5.8 % (21.2-54.2); Mean Corpuscular HGB Conc 32.3 GM/DL (32-36); Mean Corpuscular Hemoglobin 30 PG (27-34); Mean Corpuscular Volume 91.9 FL (87-102); Mean Platelet Volume 10.7 FL (9.6-12.0); Monocytes # 1.2 10*3/uL (0.11-0.8); Neutrophils % 80.9 % (38.7-73.9); Platelet Count 256 T/CUMM (130-400); Red Blood Count 4.31 MC/CUMM (3.8-5.5); Red Cell Distribution Width 14.4 % (9.3-17.3); White Blood Count 11.2 T/CUMM (4-12)
[2017-05-23 20:08] LABS: INR 1.1; PT Patient Result 12.2 SECS; Partial Thromboplastin Time 30.2 SECS (0-40)
[2017-05-23 20:18] LABS: Alanine Aminotransferase 69 U/L (16-61); Albumin 3.1 G/DL (3.4-5.0); Alkaline Phosphatase 87 U/L (45-117); Amylase 41 U/L (25-115); Aspartate Amino Transferase 79 U/L (0-37); Blood Urea Nitrogen 25 MG/DL (7-18); Calcium 8.9 MG/DL (8.5-10.1); Glucose 145 MG/DL (74-106); Potassium 5.4 MMOL/L (3.5-5.1); Sodium 136 MMOL/L (136-145); Total Protein 6.5 G/DL (6.4-8.3); Troponin I Only < 0.015 NG/ML (0.00-0.045)
--- NOTE | 2017-05-23 20:27 | XRay Report ---
XR KUB Indication: Abdominal pain , decreased bowel movements Comparison: 28 May 2015 Findings: No free fluid or free air seen. Loops of large and small bowel are present with suggestion of colon redundancy. No abnormal calcifications are present. No other abnormality is identified. Impression: Prominent loops of large and small bowel with suggestion of a redundant colon. No other evidence of acute findings. PROCEDURE INTERPRETED AT [facility] DEPARTMENT OF RADIOLOGY Final Report Signed by: Dr. Asher Carbone
--- NOTE | 2017-05-23 20:30 | XRay Report ---
XR ribs BI w pa chest Indication: Pain after injury Findings: No evidence of fracture seen. No subpleural hematoma or pneumothorax is present. Impression: No evidence of rib abnormality demonstrated. PROCEDURE INTERPRETED AT [facility] DEPARTMENT OF RADIOLOGY Final Report Signed by: Dr. Asher Carbone
[2017-05-23] MEDS ORDERED: PROMETHAZINE 25 MG/1 ML VIAL IM STA (22:12)
[2017-05-23 22:19] LABS: Apearance,Urine Slightly Hazy (Clear); Bacteria,Urine Occasional /HPF (Few); Bilirubin,Urine Negative (Negative); Blood, Urine Negative (Negative); Glucose,Urine (UA) Negative (Negative); Ketones,Urine Negative (Negative); Mucus,Urine Occasional /LPF (Occasional); Nitrite,Urine Negative (Negative); Protein,Urine 30 MG/DL; RBC,Urine 6 /HPF (0-4); Squamous Epithelial Cell,Urine Occasional /HPF (0-10); Transitional Epi Cells,Urine Occasional /HPF (<1); Urine Color Yellow (Yellow); Urine Specific Gravity 1.017 (1.001-1.035); Urine Urobilinogen < 2.0 EU/DL (0.2-1.0); WBC,Urine 67 /HPF (0-6)
[2017-05-23] MEDS ORDERED: PROMETHAZINE 25 MG/1 ML VIAL ONE (22:40)
--- NOTE | 2017-05-24 00:47 | Emergency Department Note ---
Arrival - Arrival Chief Complaint: Abdominal / Flank Pain Stated Complaint: Nausea and vomiting ED Nursing Triage Note: Patient stated that he noticed three days ago that he is abdomen was hurting and his abdomen was becoming distended. The patient stated that he made an appointment with his primary care, but he began to have severe nausea and vomiting, and was not able to wait until tomorrow to see his PCP. Mode of Arrival: Stretcher Limitations: No Limitations Source: Patient, RN Notes Reviewed Time Seen by Provider: 05/23/17 19:27 - History of Present Illness HPI Narrative: The patient complains of nausea, vomiting and abdominal distention since yesterday. He has had some mild diffuse abdominal pain and mild coughing with clear sputum. He may have had some subjective fever. He has been in the hospital recently both for pneumonia and for UTI. He has a history of megacolon and problems with constipation. He has not been constipated recently and has had no diarrhea. He denies any dysuria. Allergies/Adverse Reactions: Allergies Allergy/AdvReac Type Severity Reaction Status Date / Time morphine Allergy Severe Nausea Verified 04/05/17 12:15 pseudoephedrine Allergy Severe RASH Verified 04/05/17 12:15 [From Sudafed] loratadine [From Claritin] Allergy Unknown/Unable Verified 04/05/17 12:15 to obtain sulfur dioxide Allergy Unknown/Unable Verified 04/05/17 12:15 to obtain Home Medications: Home Medications Medication Instructions Recorded Confirmed Type Acetaminophen Tab [Tylenol Tab] 325 mg PO DAILY PRN 04/21/15 05/23/17 History Magnesium Oxide 400 mg PO DAILY 04/21/15 05/23/17 History Montelukast Tab [Singulair Tab] 10 mg PO BEDTIME 04/21/15 05/23/17 History Multivitamin [Multivitamins] 1 each PO DAILY 04/21/15 05/23/17 History Rosuvastatin [Crestor] 20 mg PO BEDTIME 04/21/15 05/23/17 History Lubiprostone [Amitiza] 8 mcg PO BID 05/28/15 05/23/17 History Diclofenac 1% Gel [Voltaren 1% Gel] 1 unit TOP QID PRN #1 gel 10/18/15 05/23/17 Rx Spironolactone [Aldactone] 50 mg PO DAILY tablet 10/18/15 05/23/17 Rx Fludrocortisone [Florinef] 0.2 mg PO BID tablet 07/29/16 05/23/17 Rx Lisinopril [Prinivil] 5 mg PO DAILY tablet 07/29/16 05/23/17 Rx Sitagliptin Phosphate [Januvia] 50 mg PO DAILY 02/05/17 05/23/17 History Alendronate Sodium 35 mg PO SA 02/08/17 05/23/17 History Methenamine Hippurate [Hiprex] 1 gm PO BID 02/11/17 05/23/17 History Albuterol Inhaler [Proventil 2 puff INH Q4H PRN 03/06/17 05/23/17 History Inhaler] Budesonide/Formoterol 80-4.5 2 puff INH BID PRN 03/06/17 05/23/17 History [Symbicort 80-4.5] Cholecalciferol (Vitamin D3) 2,000 unit PO DAILY 03/06/17 05/23/17 History [Vitamin D3] Cyanocobalamin (Vitamin B-12) 3 ml IJ 03/06/17 05/23/17 History [Cyanocobalamin Injection] Fluticasone 50 Mcg Nasal [place] 1 spray BOTH NARES BID PRN 03/06/17 05/23/17 History [Flonase Nasal [place]] Folic Acid Tab 1 mg PO DAILY 03/06/17 05/23/17 History LORazepam TAB [Ativan Tab] 0.5 mg PO DAILY PRN 03/06/17 05/23/17 History Mexiletine [Mexitil] 200 mg PO BID 03/06/17 05/23/17 History [place]-3 Fatty Acids [Maxepa] 1,000 mg PO DAILY 03/06/17 05/23/17 History Omeprazole 20 mg PO DAILY 03/06/17 05/23/17 History Potassium Chloride 10 meq PO BID 03/06/17 05/23/17 History Simethicone [Phazyme] 180 mg PO DAILY PRN 03/06/17 05/23/17 History Amiodarone Tab [Cordarone Tab] 200 mg PO DAILY 04/05/17 05/23/17 History Calcium (Carbonate) [Caltrate 600] 1,500 mg PO DAILY 04/05/17 05/23/17 History Carvedilol [Coreg] 6.25 mg PO BID 04/05/17 05/23/17 History Digoxin Tab [Lanoxin Tab] 0.0625 mg PO DAILY 04/05/17 05/23/17 History Gabapentin Cap/Tab [Neurontin 200 mg PO TID 04/05/17 05/23/17 History Cap/Tab] Insulin Regular [HumuLIN R] See Protocol SUBCUT TID 04/05/17 05/23/17 History Mupirocin Calcium [Bactroban 2% 1 applic TOP TID 04/05/17 05/23/17 History Cream] Sodium Chl/Potassium Chl Tab 2 tablet PO BID 04/05/17 05/23/17 History [Thermotabs] Thyroid,Pork [[place] Thyroid] 90 mg PO DAILY 04/05/17 05/23/17 History cycloSPORINE OPH EMUL [Restasis] 0.05 drop BOTH EYES BID 04/05/17 05/23/17 History Aspirin Chew Tab 81 mg PO DAILY 05/23/17 05/23/17 History Fexofenadine [Bibi] 180 mg PO DAILY 05/23/17 05/23/17 History Imipramine [Tofranil] 10 mg PO DAILY 05/23/17 05/23/17 History Ipratropium 0.03% Nasal [place] 1 spray BOTH NARES DAILY PRN 05/23/17 05/23/17 History [Atrovent 0.03% Nasal [place]] Ondansetron Tab [Zofran Tab] 4 mg PO BID PRN 05/23/17 05/23/17 History Polyethylene Glycol Powder 15 gm PO DAILY 05/23/17 05/23/17 History [Miralax] metFORMIN [Glucophage] 250 mg PO BID 05/23/17 05/23/17 History metOLazone [Metolazone] 2.5 mg PO DAILY 05/23/17 05/23/17 History Review of System - Review of System 12 point system: reviewed and no additional remarkable complaints except as stated - Review of System Constitutional: Present: fever (Subjective), weakness Head/Ears/Nose/Throat: Absent: nasal drainage, sore throat Respiratory: Present: cough. Absent: respiratory distress Cardiovascular: Present: chest pain (With movement) Gastrointestinal: Present: abdominal pain, nausea, vomiting. 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), Vertigo No history of: Brain Aneurysm, Cerebral Hemorrhage, Cerebrovascular Accident , Cerebral Palsy, Dementia, Migraine, Seizures, TIA HEENT: No history of: Ear Problem, Eye Problem, Dental Problems, Glaucoma, Oral Cancer, HEENT Problems Endocrine: History of: Diabetes Mellitus (IDDM), Diabetes Mellitus (NIDDM), Dyslipidemia, Thyroid Disorder Rheumatology: History of;: Rheumatoid Arthritis No history of;: Fibromyalgia, Psoriasis, Sjogrens, Systemic Lupus Erythematosus Respiratory: History of: COPD, Obstructive Sleep Apnea, Pneumonia (Aug 2015), Respiratory Problems No history of: Asthma, Bronchitis, Pulmonary Embolism, Pulmonary Hypertension Renal: History of: Renal Failure (Chronic renal insufficiency), Renal Problems ( cyst on left kidney followed by Dr. Bob Nunez) Genitourinary: History of: Bladder Problem (residual (I&O cath 2x daily)), Prostate Problems (History of prostate cancer, this was surgically treated.) Gastrointestinal: History of: GERD, GI Problems ("ilia colon", burgess's esophagus, dysphagia) No history of: Bowel Obstruction, Gastrointestinal Bleed Musculoskeletal: History of: Back/Neck Problems (chronic back pain) No history of: Amputation Hematology: No history of: Blood Transfusion Reaction Other: History of: Cancer (prostate) No history of: Anesthesia Reactions, Malignant Hyperthermia, MRSA, Vancomycin -Resistant Enterococci, Skin Problems, Miscellaneous Medical Problems - Surgical History Cardiac Surgeries: Sugical HX of: Cardiac Catheterization (January 2070), Cardiac Surgery (pacemaker/aicd), Internal Defibrillator Thoracic Surgeries: Patient denies;: Organ Transplant, Lobectomy Neurologic Surgeries: Patient denies: Brain Aneurysm, Cerebral Hemorrhage, Neurologic Surgery HEENT Surgeries: Surgical HX of: Eye Surgery (cataracts, eyelids lifted) Patient denies: Tonsilectomy & Adenoidectomy Abdominal Surgeries: Surgical HX of: Abdominal Surgery, Appendectomy, Cholecystectomy (03/2014), Colonoscopy, EGD (Burgess's) Reproductive Surgeries: Surgical HX of;: Prostate Surgery (cryo "freezing" of prostate-2013) Orthopedic Surgeries: Surgical HX of;: Orthopedic Surgery (ORIF Left ankle, right ankle), Total Knee Replacement (left) - Family History Family History: Reports;: Family Cancer (father-colon, brother-colon, sister- colon), Family Heart Disease, Family Hypertension, Family Stroke - Social History Smoking Status: Unknown if ever smoked Exam Physical Examination: GENERAL: Alert. No acute distress. HEENT: Normocephalic and atraumatic. There is no nasal drainage. No pharyngeal erythema or exudate. NECK: Normal inspection. Supple. No lymphadenopathy or meningismus. LUNGS: No respiratory distress. Few rales bilaterally. HEART: Regular rate and rhythm. ABDOMEN: Obese, soft, moderately distended. Normal bowel sounds. Nontender. BACK: Normal inspection. SKIN: Color normal. Warm and dry. EXTREMITIES: Nontender. Normal range of motion. No pedal edema. NEUROLOGICAL/PSYCHIATRIC: Alert and oriented -3 with normal mood and affect. Cranial nerves normal. No motor or sensory deficit. Vital Signs: Vital Signs Temperature 97.8 F 05/23/17 19:16 Pulse Rate 74 05/23/17 19:16 Respiratory Rate 16 05/23/17 19:16 Blood Pressure 113/73 05/23/17 19:16 O2 Sat by Pulse Oximetry 88 L 05/23/17 19:11 Course Course Narrative: Note: The multiple negatives in the past medical history were not marked by me. They are the result of the triage process, past medical records or other unknown causes. Due to time constraints, these were not all reviewed with the patient and the backslashes were not removed from the chart. They should be ignored. - Reevaluation(s) Reevaluation #1: Patient has remained stable in the ER. He does not appear acutely uncomfortable. His oxygen saturation has remained 96% on 2 L. He is not coughing and does not appear to be short of breath. His CT of the abdomen showed a T9 fracture. He has fallen several times in the past months but he is really having no back pain at present and I do not believe that this fracture is very acute. Patient's urine does show a UTI and given his age and comorbidities I think it best to admit him. I have discussed the patient with the hospitalist who will see him and admit.. Time: 00:55 Results - Labs CBC & BMP: 05/23/17 19:13 05/23/17 19:13 Lab Results: I have reviewed the patients labs Labs: Laboratory Tests 05/23/17 05/23/17 05/23/17 19:13 19:13 21:58 INR 1.1 AST 79 H ALT 69 H Alkaline Phosphatase 87 Total Creatine Kinase 79 CK-MB (CK-2) 2.1 Troponin I < 0.015 Amylase 41 Lipase 156.0 Urine Leukocytes Large H Urine RBC 6 Urine WBC 67 Urine WBC Clumps Occasional Urine Bacteria Occasional Ur Culture Indicated? Results to follow - Impressions X-ray of the chest and ribs showed no acute fracture. KUB shows large loops of small and large bowel. No definite obstruction. CT of the abdomen shows findings compatible with constipation. Mild CHF. Enlargement of a splenic lesion and acute appearing T9 vertebral fracture it also shows mild nonspecific bilateral perinephric stranding. Disposition Clinical Impression: UTI (urinary tract infection), Megacolon, Elevated liver enzymes, Constipation , Vomiting Case discussed with: patient, patient's family Disposition: Still a Patient Condition: Stable Time of Disposition: 00:49
[2017-05-24] MEDS ORDERED: LACTULOSE 20 GM/30 ML UDCUP PO PRN (03:43)
[2017-05-24] MEDS ORDERED: BISACODYL 5 MG TABLET PO PRN (03:43)
[2017-05-24] MEDS ORDERED: traZODone 50 MG TABLET PO PRN (03:43)
[2017-05-24] MEDS ORDERED: ONDANSETRON 4 MG/2 ML VIAL IV PRN (03:43)
[2017-05-24] MEDS ORDERED: DEXTROSE 50% 25 GM/50 ML VIAL IV PRN (03:43)
[2017-05-24] MEDS ORDERED: PROMETHAZINE 25 MG TABLET PO PRN (03:43)
[2017-05-24] MEDS ORDERED: ACETAMINOPHEN 325 MG TABLET PO PRN (03:43)
[2017-05-24] MEDS ORDERED: guaiFENesin/DM ER 600-30 MG TABLET PO PRN (03:43)
[2017-05-24] MEDS ORDERED: GLUCAGON 1 MG VIAL IM PRN (03:43)
[2017-05-24] MEDS ORDERED: PROMETHAZINE 25 MG/1 ML VIAL IM PRN (03:43)
[2017-05-24] MEDS ORDERED: HYDROmorphone 2 MG/1 ML VIAL IV PRN (03:49)
[2017-05-24] MEDS ORDERED: FLUTICASONE 50 MCG NASAL SPRAY 16 GM BOTTLE BOTH NARES PRN (03:50)
[2017-05-24] MEDS ORDERED: ONDANSETRON 4 MG TABLET PO PRN (03:50)
[2017-05-24] MEDS ORDERED: DICLOFENAC 1% GEL 100 GM TUBE TOP PRN (03:50)
[2017-05-24] MEDS ORDERED: IPRATROPIUM 0.03% NASAL SPRAY 30 ML BOTTLE BOTH NARES PRN (03:50)
[2017-05-24] MEDS ORDERED: LORazepam 0.5 MG TABLET PO PRN (03:50)
[2017-05-24] MEDS ORDERED: SIMETHICONE CHEW 80 MG TABLET PO PRN (03:50)
--- NOTE | 2017-05-24 04:05 | Hospitalist History & Physical ---
Assessment and Plan (1) T9 vertebral fracture Status: Acute Assessment and plan: - likely due to recent fall - pain control - consult pain management in the AM for possible repair - will monitor Current Visit: Yes (2) Constipation Status: Acute Assessment and plan: - history of megacolon - Laxative ordered - will monitor Current Visit: Yes (3) Elevated liver enzymes Status: Acute Assessment and plan: - Chronic - will monitor Current Visit: Yes (4) UTI (urinary tract infection) Status: Acute Assessment and plan: - IV Levaquin - urine culture pending - will monitor Current Visit: Yes (5) Hypoxia Status: Acute Assessment and plan: - may be multifactorial including COPD and not taking deep breaths due to pain from fracture - oxygen - incentive spirometry - nebulizer treatments - Consult Dr. Lino (pulmonary) - will monitor Current Visit: Yes History of Present Illness Chief complaint: abdominal pain/distension History of present illness: Mr. Ahumada is a 82 year old male with a history of coronary artery disease, CHF , hypertension, pacemaker, diabetes, COPD, GERD, and hypothyroidism that presented to the ER for abdominal pain and distention. Patient reports the symptoms have been going on for about 3 days. Patient reports his last bowel movement was one day ago. Patient reports nausea vomiting unable to keep anything down. Patient reports that he fell 3 days ago and feels that that may have worsened his symptoms. Patient reports that it is difficult to turn or band with his back. Patient also reports a productive cough with clear sputum. Per patient, patient's skin has been sweaty and clammy. He denies chest pain in all the symptoms. Patient does not use home oxygen but he does use a CPAP. Patient's neurologist Dr. Kamara. Patient does have history of megacolon and constipation and sees Dr. Cueva for this. ER workup showed UTI, constipation, mild hyperkalemia and acute fracture of T9. Patient was also hypoxic in the ER in the upper 80's. Patient be admitted to hospitalist service for further management. Home Medications Medication Instructions Recorded Confirmed Type Acetaminophen Tab [Tylenol Tab] 325 mg PO DAILY PRN 04/21/15 05/23/17 History Magnesium Oxide 400 mg PO DAILY 04/21/15 05/23/17 History Montelukast Tab [Singulair Tab] 10 mg PO BEDTIME 04/21/15 05/23/17 History Multivitamin [Multivitamins] 1 each PO DAILY 04/21/15 05/23/17 History Rosuvastatin [Crestor] 20 mg PO BEDTIME 04/21/15 05/23/17 History Lubiprostone [Amitiza] 8 mcg PO BID 05/28/15 05/23/17 History Diclofenac 1% Gel [Voltaren 1% Gel] 1 unit TOP QID PRN #1 gel 10/18/15 05/23/17 Rx Spironolactone [Aldactone] 50 mg PO DAILY tablet 10/18/15 05/23/17 Rx Fludrocortisone [Florinef] 0.2 mg PO BID tablet 07/29/16 05/23/17 Rx Lisinopril [Prinivil] 5 mg PO DAILY tablet 07/29/16 05/23/17 Rx Sitagliptin Phosphate [Januvia] 50 mg PO DAILY 02/05/17 05/23/17 History Alendronate Sodium 35 mg PO SA 02/08/17 05/23/17 History Methenamine Hippurate [Hiprex] 1 gm PO BID 02/11/17 05/23/17 History Albuterol Inhaler [Proventil 2 puff INH Q4H PRN 03/06/17 05/23/17 History Inhaler] Budesonide/Formoterol 80-4.5 2 puff INH BID PRN 03/06/17 05/23/17 History [Symbicort 80-4.5] Cholecalciferol (Vitamin D3) 2,000 unit PO DAILY 03/06/17 05/23/17 History [Vitamin D3] Cyanocobalamin (Vitamin B-12) 3 ml IJ SA 03/06/17 05/23/17 History [Cyanocobalamin Injection] Fluticasone 50 Mcg Nasal [place] 1 spray BOTH NARES BID PRN 03/06/17 05/23/17 History [Flonase Nasal [place]] Folic Acid Tab 1 mg PO DAILY 03/06/17 05/23/17 History LORazepam TAB [Ativan Tab] 0.5 mg PO DAILY PRN 03/06/17 05/23/17 History Mexiletine [Mexitil] 200 mg PO BID 03/06/17 05/23/17 History Hugo-3 Fatty Acids [Maxepa] 1,000 mg PO DAILY 03/06/17 05/23/17 History Omeprazole 20 mg PO DAILY 03/06/17 05/23/17 History Potassium Chloride 10 meq PO BID 03/06/17 05/23/17 History Simethicone [Phazyme] 180 mg PO DAILY PRN 03/06/17 05/23/17 History Amiodarone Tab [Cordarone Tab] 200 mg PO DAILY 04/05/17 05/23/17 History Calcium (Carbonate) [Caltrate 600] 1,500 mg PO DAILY 04/05/17 05/23/17 History Carvedilol [Coreg] 6.25 mg PO BID 04/05/17 05/23/17 History Digoxin Tab [Lanoxin Tab] 0.0625 mg PO DAILY 04/05/17 05/23/17 History Gabapentin Cap/Tab [Neurontin 200 mg PO TID 04/05/17 05/23/17 History Cap/Tab] Insulin Regular [HumuLIN R] See Protocol SUBCUT TID 04/05/17 05/23/17 History Mupirocin Calcium [Bactroban 2% 1 applic TOP TID 04/05/17 05/23/17 History Cream] Sodium Chl/Potassium Chl Tab 2 tablet PO BID 04/05/17 05/23/17 History [Thermotabs] Thyroid,Pork [[place] Thyroid] 90 mg PO DAILY 04/05/17 05/23/17 History cycloSPORINE OPH EMUL [Restasis] 0.05 drop BOTH EYES BID 04/05/17 05/23/17 History Aspirin Chew Tab 81 mg PO DAILY 05/23/17 05/23/17 History Fexofenadine [Bibi] 180 mg PO DAILY 05/23/17 05/23/17 History Imipramine [Tofranil] 10 mg PO DAILY 05/23/17 05/23/17 History Ipratropium 0.03% Nasal [place] 1 spray BOTH NARES DAILY PRN 05/23/17 05/23/17 History [Atrovent 0.03% Nasal [place]] Ondansetron Tab [Zofran Tab] 4 mg PO BID PRN 05/23/17 05/23/17 History Polyethylene Glycol Powder 15 gm PO DAILY 05/23/17 05/23/17 History [Miralax] metFORMIN [Glucophage] 250 mg PO BID 05/23/17 05/23/17 History metOLazone [Metolazone] 2.5 mg PO DAILY 05/23/17 05/23/17 History Allergies Allergy/AdvReac Type Severity Reaction Status Date / Time morphine Allergy Severe Nausea Verified 04/05/17 12:15 pseudoephedrine Allergy Severe RASH Verified 04/05/17 12:15 [From Sudafed] loratadine [From Claritin] Allergy Unknown/Unable Verified 04/05/17 12:15 to obtain sulfur dioxide Allergy Unknown/Unable Verified 04/05/17 12:15 to obtain 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), Vertigo No history of: Brain Aneurysm, Cerebral Hemorrhage, Cerebrovascular Accident , Cerebral Palsy, Dementia, Migraine, Seizures, TIA HEENT: No history of: Ear Problem, Eye Problem, Dental Problems, Glaucoma, Oral Cancer, HEENT Problems Endocrine: History of: Diabetes Mellitus (IDDM), Diabetes Mellitus (NIDDM), Dyslipidemia, Thyroid Disorder Rheumatology: History of;: Rheumatoid Arthritis No history of;: Fibromyalgia, Psoriasis, Sjogrens, Systemic Lupus Erythematosus Respiratory: History of: COPD, Obstructive Sleep Apnea, Pneumonia (Aug 2015), Respiratory Problems No history of: Asthma, Bronchitis, Pulmonary Embolism, Pulmonary Hypertension Renal: History of: Renal Failure (Chronic renal insufficiency), Renal Problems ( cyst on left kidney followed by Dr. Bob Nnuez) Genitourinary: History of: Bladder Problem (residual (I&O cath 2x daily)), Prostate Problems (History of prostate cancer, this was surgically treated.) Gastrointestinal: History of: GERD, GI Problems ("ilia colon", burgess's esophagus, dysphagia) No history of: Bowel Obstruction, Gastrointestinal Bleed Musculoskeletal: History of: Back/Neck Problems (chronic back pain) No history of: Amputation Hematology: No history of: Blood Transfusion Reaction Other: History of: Cancer (prostate) No history of: Anesthesia Reactions, Malignant Hyperthermia, MRSA, Vancomycin -Resistant Enterococci, Skin Problems, Miscellaneous Medical Problems - Surgical History Cardiac Surgeries: Sugical HX of: Cardiac Catheterization (January 2070), Cardiac Surgery (pacemaker/aicd), Internal Defibrillator Thoracic Surgeries: Patient denies;: Organ Transplant, Lobectomy Neurologic Surgeries: Patient denies: Brain Aneurysm, Cerebral Hemorrhage, Neurologic Surgery HEENT Surgeries: Surgical HX of: Eye Surgery (cataracts, eyelids lifted) Patient denies: Tonsilectomy & Adenoidectomy Abdominal Surgeries: Surgical HX of: Abdominal Surgery, Appendectomy, Cholecystectomy (03/2014), Colonoscopy, EGD (Burgess's) Reproductive Surgeries: Surgical HX of;: Prostate Surgery (cryo "freezing" of prostate-2012) Orthopedic Surgeries: Surgical HX of;: Orthopedic Surgery (ORIF Left ankle, right ankle), Total Knee Replacement (left) - Family History Family History: Reports;: Family Cancer (father-colon, brother-colon, sister- colon), Family Heart Disease, Family Hypertension, Family Stroke - Social History Smoking Status: Unknown if ever smoked 12 point system: reviewed and no additional remarkable complaints except as stated Exam - Constitutional Vitals: Period Temp Pulse Resp BP Sys/Marroquin Pulse Ox Last 24 Hr 97.8 F-97.8 F 74-74 16-16 113-113/73-73 88-89 General appearance: no acute distress, over weight - Head Head exam: Present: normal inspection - Eye Eye exam: Present: EOMI - ENT ENT exam: Present: other (mild dry mucous membranes) - Neck Neck exam: Present: normal inspection - Respiratory Respiratory exam: Present: other (coarse breath sounds throughout) - Cardiovascular Cardiovascular exam: Present: regular rate and rhythm - GI/Abdominal GI/Abdominal exam: Present: distended (moderate), hypoactive bowel sounds, tenderness (mild diffuse tenderness) - Back Exam Back exam: Present: other (unable to evaluate; patient was in too much pain to sit up ) - Neurological Exam Neurological exam: Present: alert, oriented X3 - Psychiatric Psychiatric exam: Present: normal affect, normal mood - Skin Skin exam: Present: normal color, warm Results - Labs CBC & BMP: 05/23/17 19:13 05/23/17 19:13 - Diagnostic Findings Procedure: CT Abdomen and Pelvis: pending
[2017-05-24] MEDS ORDERED: BISACODYL 10 MG SUPP RECTAL PRN (04:17)
[2017-05-24] MEDS: SODIUM CHLORIDE 0.9% 1,000 ML IV SCH (04:37)
[2017-05-24] MEDS: LEVOFLOXACIN INJ 750 MG in PREMIX 1 EACH IV SCH (04:37)
[2017-05-24] MEDS: ALBUTEROL/IPRATROPIUM 3 ML NEB RESP TX SCH ×3 (07:05→19:19)
[2017-05-24] MEDS: INSULIN LISPRO 100 UNIT/ML SUBCUT SCH ×4 (07:52→21:03)
[2017-05-24] MEDS: MUPIROCIN 2% OINT 22 GM TUBE TOP SCH ×3 (08:14→21:01)
[2017-05-24] MEDS: FLUDROCORTISONE 0.1 MG TABLET PO SCH ×2 (08:16→21:00)
[2017-05-24] MEDS: THYROID 60 MG TABLET PO SCH (08:17)
[2017-05-24] MEDS: PANTOPRAZOLE 40 MG TABLET PO SCH (08:17)
[2017-05-24] MEDS: CARVEDILOL 6.25 MG TABLET PO SCH ×2 (08:17→21:01)
[2017-05-24] MEDS: AMIODARONE 200 MG TABLET PO SCH (08:18)
[2017-05-24] MEDS: DIGOXIN 0.125 MG TABLET PO SCH (08:18)
[2017-05-24] MEDS ORDERED: SPIRONOLACTONE 50 MG TABLET PO SCH (09:00)
[2017-05-24] MEDS ORDERED: NON-FORMULARY MEDICATION (Omeprazole [Omeprazole] 20 MG) PO SCH (09:00)
[2017-05-24] MEDS: FEXOFENADINE 180 MG TABLET PO SCH (09:04)
[2017-05-24] MEDS: ASPIRIN CHEW 81 MG TABLET PO SCH (09:04)
[2017-05-24] MEDS: CALCIUM (CARBONATE) 600 MG TABLET PO SCH (09:04)
[2017-05-24] MEDS: LUBIPROSTONE 8 MCG CAPSULE PO SCH ×2 (09:04→21:00)
[2017-05-24] MEDS: MULTIVITAMIN (CENTRUM) TABLET PO SCH (09:04)
[2017-05-24] MEDS: FOLIC ACID 1 MG TABLET PO SCH (09:05)
[2017-05-24] MEDS: MEXILETINE 200 MG CAPSULE PO SCH ×2 (09:05→21:01)
[2017-05-24] MEDS: OMEGA 3 ACID ETHYL ESTERS 1 GM CAPSULE PO SCH (09:05)
[2017-05-24] MEDS: METHENAMINE HIPPURATE 1 GM TABLET PO SCH ×2 (09:05→21:00)
[2017-05-24] MEDS: MAGNESIUM OXIDE 400 MG TABLET PO SCH (09:05)
[2017-05-24] MEDS: sitaGLIPtin 25 MG TABLET PO SCH (09:05)
[2017-05-24] MEDS: metFORMIN 500 MG TABLET PO SCH ×2 (09:05→21:02)
[2017-05-24] MEDS: metOLazone 2.5 MG TABLET PO SCH (09:06)
[2017-05-24] MEDS: GABAPENTIN 100 MG CAPSULE PO SCH ×3 (09:06→21:00)
[2017-05-24] MEDS: cycloSPORINE OPH EMUL 1 VIAL BOTH EYES SCH ×2 (09:06→21:05)
[2017-05-24] MEDS: POLYETHYLENE GLYCOL POWDER 17 GM PACK PO SCH (09:06)
[2017-05-24] MEDS: CHOLECALCIFEROL 1,000 UNIT TABLET PO SCH (09:06)
[2017-05-24] MEDS: IMIPRAMINE 10 MG TABLET PO SCH (09:06)
--- NOTE | 2017-05-24 09:21 | CT Report ---
CT abdomen pelvis w con Indication: Constipation, abdominal pain, abdominal distention, nausea vomiting Comparison: Abdomen radiograph 05/23/2017 CT abdomen pelvis 09/22/2012. Technique: CT of the abdomen and pelvis was performed following administration of intravenous contrast. Coronal and sagittal reformatted images were additionally created and submitted for review. The total DLP is 1353 mGy*cm. Dose reduction: This CT exam was performed using one or more of the following dose reduction techniques: Automated exposure control, automated adjustment of the mA and/or KV according to patient size, or use of iterative reconstruction technique. Findings: Multifocal posterior basilar dependent atelectatic changes are noted bilaterally. Lung bases are otherwise clear. There is no pleural or pericardial effusion. ABDOMEN: Liver/Gallbladder: No abnormal enhancing hepatic lesions. Cholecystectomy clips are noted. There is no significant intrahepatic biliary ductal dilatation. Common bile duct measures 8 mm, which is upper limits of normal. Portal vein is patent. Spleen: 6 cm hypodense lesion noted within the spleen is indeterminate but central density measurements are not definitely water density. Additionally, this lesion has increased from 1.3 cm on the 2012 study. Pancreas: No acute findings. Adrenals: Within normal limits in appearance. Kidneys: Both kidneys demonstrate multifocal primarily exophytic hypodense lesions. The largest lesion measures 4.2 cm at the lower pole left kidney, which is most compatible with a cyst and is essentially unchanged from prior. Delayed images demonstrate excretion of contrast from both kidneys, as expected. Bowel/mesentery: Small bowel is minimally dilated and diffusely fluid-filled suggesting a diffuse ileus, partial obstruction or small bowel infectious/inflammatory enteritis process. There is also diffuse stool throughout the colon which is mildly dilated suggesting fecal stasis/constipation. Appendix is normal. There is no mesenteric adenopathy. There is no free fluid/air. Retroperitoneum: No evidence of aortic aneurysm or significant retroperitoneal adenopathy. PELVIS: No free fluid. Bladder is mildly distended but otherwise within normal limits. Prostate is not enlarged. There is no adenopathy. BONES: Multilevel degenerative changes and generalized decreased trabeculation, consistent with osteopenia/osteoporosis. There are also vertebroplasty cement changes at L1 and T8. Acute fracture of the T9 vertebral body is also noted. Minimal displacement of fracture fragments is evident.. IMPRESSION: 1. No acute abnormality within the abdomen or pelvis to explain patient's symptoms. 2. Diffuse enlargement of the colon filled with stool suggesting fecal stasis/constipation. 3. Mild diffuse small bowel prominence which may represent ileus or partial obstruction versus infectious/inflammatory enteritis changes. 4. Hypodense lesion within the spleen now measures up to 6 cm and is indeterminate but may represent an enlarging cyst containing hemorrhagic or proteinaceous contents. Consider MRI imaging of the abdomen without and with contrast for further evaluation. 5. Acute fracture of T9 vertebral body. Preliminary report by virtual radiologic. 05/24/2017 8:28 AM PROCEDURE INTERPRETED AT [facility] DEPARTMENT OF RADIOLOGY Final Report Signed by: Kody Bashir
--- NOTE | 2017-05-24 10:10 | Pulmonology Consult Note ---
History of Present Illness Chief complaint: UTI, abd pain/distention, N/V History of present illness: Norbert Olivas, ANP-BC, GNP-BC, acting as scribe for Dr. Christian Lino Mr. Ahumada is an 82-year-old white male from [place], [place] who we've been asked to see in pulmonary consultation for evaluation and treatment. The request for consultation was made by Dr. Mcconnell. He presented to [place] [facility] late last night with complaints of nausea, vomiting , and abdominal distention. Upon evaluation, the patient was found to have an acute urinary tract infection and a T9 compression fracture. Given his advanced age, multiple comorbidities, and acute illness, it was felt in his best interest to hospitalize him for further evaluation and care. Patient was seen today along with his and Courtney Cueva RN. The patient was in his usual state of health until or Wednesday. There were apparently at their hairdressers and the patient fell. His reports that he fell backwards onto "a rock covered parking lot". Over the next day or so he developed acute nausea, vomiting, and abdominal distention. He complains of significant pain in the bilateral ribs and back. He can only lie flat. Whenever he turns from side to side his pain markedly increases. He denies flatus the past 2 days. He has had no bowel movement. He denies any significant increased shortness of breath. He denies any cardiac angina or palpitations. There is no reported solid dysphagia or reflux. No TIA symptoms or syncope. No bleeding from any site. No change in bowel or bladder habits other than as noted above. All other systems were reviewed and were noncontributory. Allergies: Claritin-D. Morphine makes him "sick". Medications: See list. Past medical history: [place] [facility] 04/05/2017 3 04/09/2017 under the care of the hospitalists. During that admission, he was treated for acute pyelonephritis sepsis secondary to E. coli. [facility] 2016 through 02/13/2017 under the care of the title officer. He was discharged home in good condition, but for the course of the day or so he developed acute dehydration. This was corrected with fluids and he was discharged home improved. [facility] hospitalization for 02/04/2017 through 02/09/2017 under the care of the cardiologists. He had been receiving outpatient [facility] when he "blacked out". He was found to have polymorphic ventricular tachycardia requiring ICD shocks multiplications. Cardiac cath during that admission by Dr. Reddy showed moderately severe cardiomyopathy, LVEF 25-30%, 3+ LV enlargement, intermediate disease of the diagonal, mild disease in the other vessels, and moderate elevation of LVEDP at 20 mmHG. [facility] 07/28/2016 through 07/29/2016 under the care of the hospitalist. During that admission he was admitted with tachycardia and an acute urinary tract infection. [facility] 10/12/15 through 10/18/15 under the care of Dr. Lino. He was treated for acute severe low back pain that had been refractory to OP tx, severe hyponatremia that had been refractory to OP tx, severe hypokalemia that had been refractory to OP tx, and systolic CHF. [facility] 09/17/15 through 09/24/15 under the care of Dr. Lino. During that admission he was treated for acute hyponatremia secondary to a newly diagnosed relative adrenal insufficiency, hypokalemia and hypomagnesemia. [facility] 08/30/15 through 09/09/15 under the care of Dr. Lino. During that hospitalization he was treated for acute, severe hyponatremia felt most likely secondary to over-diuresis, an acute UTI secondary to Enterococcus faecalis, acute on chronic systolic CHF, and hypomagnesemia. [facility] 06/25/2015 through 2014 under the care of the hospitalist for shortness or breath and WHITE. Coronary arteriogram was performed and there was no evidence of acute stenosis. His shortness of breath improved over the course of 2 days. He was hospitalized at [facility] 03/11/2013 through 03/16/2013 for acute cholecystitis requiring laparoscopic cholecystectomy with intraoperative cholangiogram. The patient also had acute pyelonephritis secondary to Citrobacter. He had acute renal failure which resolved. He had cardiac arrhythmia treated with amiodarone. He has history of hypothyroidism, degenerative joint disease. He was hospitalized at [facility] 06/23/2012 through 07/08/2012 with acute pyelonephritis with symptoms of sepsis secondary to methicillin-resistant staph aureus. Recent Cryosurgery of the prostate. Hyponatremia. Acute ventricular tachycardia. History of cardiomyopathy. Diabetes mellitus. Nonischemic cardiomyopathy. Hyperlipidemia. Obstructive sleep apnea. History of demyelinating polyneuropathy (CIDP). Burgess's esophagitis. Gastric esophageal reflux disease. COPD. Neck: Followed by Dr. Brandt Cueva. Allergic sinusitis. Cardiac arrhythmia treated with Pacerone in the past. Dr. 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 Prior to that he was treated by Dr. Iván Parsons Junior and more recently by Dr. Abernathy in [place], [place]. 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 He was originally diagnosed by Dr. Harris at [facility]. He was originally treated with immunoglobulin but over time he became allergic to it and Dr. Harris told him he would need to be treated with steroids from that point on. The patient has a history of cardiopathy with no obstructive coronary artery disease. This followed Dr. Dilshad Engle. The summer of 2010 he had pacemaker wires removed by Dr. Ledezma at the [facility] and at that time leads were replaced and a new defibrillator was put in. He said the surgery required 6 hours. He has followed up with Dr. Ledezma and he is planning to have this defibrillator followed here. In either 2009 are 2010 the patient had a thoracic compression fracture treated by Dr. Kaiden Mckenna with kyphoplasty and he has done well since that time. The patient had a hospitalization 06/25/2015 for dyspnea on exertion and shortness of breath which responded to vigorous diuresis. Family history: Father, brother, and sister had diabetes. Brother had a heart attack and required heart surgery. Father and brother had colon cancer. Social history: The patient is . His is present. He denies alcohol and tobacco. He has a BS 4 year college degree. He is retired from retail management. Surgical history: Laparoscopic cholecystectomy [address] Mckinnon, III. carpal tunnel surgery 1995. Knee replacement 2004. First defibrillator was placed in December 2002. Surgery in 2010 at [facility] for lead wires to be replaced in the defibrillator put in. Past procedures: Cardiac catheterization for [address] Red[address]. See above. EGD by Dr. Cueva showed specialized columnar epithelium of Burgess's esophagitis without dysplasia. Mammogram doen 03/18/16 fow right breast tenderness and suspected gynecomastia was a [id number] 2. There was a mild degree of right unilateral gynecomastia. This will be repeated in one year. E scope done 04/09/[address] Cueva showed hiatal hernia, Burgess's esophagus, and esophageal stricture. 2-D echocardiogram done 12/01/[address] Engle showed mildly reduced left ventricular systolic function. Mild concentric left the jugular hypertrophy with diastolic dysfunction. Mild left atrial enlargement. Mild aortic sclerosis with mild aortic insufficiency. Mild mitral regurgitation. Trace tricuspid regurgitation. Echocardiogram done 05/13/2012 showed left ventricular ejection fraction 40% with mild concentric left ventricular hypertrophy with diastolic dysfunction. There is mild left atrial enlargement, mild aortic valve sclerosis, and mild aortic valve insufficiency with mild mitral regurgitation and a trace of tricuspid regurgitation. Pulmonary function test on 09/13/[address] Lino showed #1 pulse ox 96% on room air #2 no obstructive disease #3 small positive response to inhaled bronchodilators number for mild restrictive disease #5 moderate decrease in maximum voluntary ventilation #6 DLCO 71%, DLCO/ VA 109, FVC 08/12/2012 was 2.51 L and on 09/13/2014 was 3.09 L. Chest x-ray. Done 05/23/2017. My interpretation. Cardiomegaly. There is dense calcification of the right hilum which is stable. There are increased markings of the bilateral bases which is stable on comparison to films done at [facility]. No rib abnormalities. KUB done 05/23/2017 showed prominent loops of large and small bowel with suggestion of a redundant colon. No other acute findings were noted. CT the abdomen and pelvis with contrast done 05/23/2017 showed no acute abnormality within the abdomen or pelvis. There is diffuse enlargement of the colon filled with stool suggesting fecal stasis/constipation. Mild diffuse small bowel prominence which was noted could represent ileus or partial obstruction versus infectious/inflammatory enteritis. Hypodense lesion within the spleen now measuring up to 6 cm and was indeterminate but could represent enlarging cysts containing hemorrhagic or proteinaceous contents. There is also an acute fracture of T9. Laboratory: On 05/23/2015, white count is 11,200 with 80.9% segs, 5.8% lymphs, 11.0% monos; H&H 12.8/39.6 with normal indices and normal red blood cell distribution with; platelet count 256,000; creatinine 1.00, BUN 25, sodium 136, potassium 5.4; calcium 8.9, albumin 3.1, total protein 6.5; total bilirubin 0.60 , AST 79, ALT 69, alkaline phosphatase 87; troponin less than 0.015; amylase and lipase are normal at 41 and 156.0 respectively; TSH 0.658; INR 1.1; urinalysis showed large leukocytes with 67 WBCs per high-power field and occasional bacteria. Urine cultures pending. Home Medications Medication Instructions Recorded Confirmed Type Acetaminophen Tab [Tylenol Tab] 325 mg PO DAILY PRN 04/21/15 05/24/17 History Magnesium Oxide 400 mg PO DAILY 04/21/15 05/24/17 History Montelukast Tab [Singulair Tab] 10 mg PO BEDTIME 04/21/15 05/24/17 History Multivitamin [Multivitamins] 1 each PO DAILY 04/21/15 05/24/17 History Rosuvastatin [Crestor] 20 mg PO BEDTIME 04/21/15 05/24/17 History Lubiprostone [Amitiza] 8 mcg PO BID PRN 05/28/15 05/23/17 History Diclofenac 1% Gel [Voltaren 1% Gel] 1 unit TOP QID PRN #1 gel 10/18/15 05/24/17 Rx Spironolactone [Aldactone] 50 mg PO DAILY tablet 10/18/15 05/24/17 Rx Fludrocortisone [Florinef] 0.2 mg PO BID tablet 07/29/16 05/24/17 Rx Lisinopril [Prinivil] 5 mg PO DAILY tablet 07/29/16 05/24/17 Rx Sitagliptin Phosphate [Januvia] 50 mg PO DAILY 02/05/17 05/24/17 History Alendronate Sodium 35 mg PO SA 02/08/17 05/24/17 History Methenamine Hippurate [Hiprex] 1 gm PO BID 02/11/17 05/24/17 History Albuterol Inhaler [Proventil 2 puff INH Q4H PRN 03/06/17 05/24/17 History Inhaler] Budesonide/Formoterol 80-4.5 2 puff INH BID PRN 03/06/17 05/24/17 History [Symbicort 80-4.5] Cholecalciferol (Vitamin D3) 2,000 unit PO DAILY 03/06/17 05/24/17 History [Vitamin D3] Cyanocobalamin (Vitamin B-12) 3 ml IJ SA 03/06/17 05/24/17 History [Cyanocobalamin Injection] Fluticasone 50 Mcg Nasal [place] 1 spray BOTH NARES BID PRN 03/06/17 05/24/17 History [Flonase Nasal [place]] Folic Acid Tab 1 mg PO DAILY 03/06/17 05/24/17 History LORazepam TAB [Ativan Tab] 0.5 mg PO DAILY PRN 03/06/17 05/24/17 History Mexiletine [Mexitil] 200 mg PO BID 03/06/17 05/23/17 History [place]-3 Fatty Acids [Maxepa] 1,000 mg PO DAILY 03/06/17 05/24/17 History Omeprazole 20 mg PO DAILY 03/06/17 05/24/17 History Potassium Chloride 10 meq PO BID 03/06/17 05/23/17 History Simethicone [Phazyme] 180 mg PO DAILY PRN 03/06/17 05/24/17 History Amiodarone Tab [Cordarone Tab] 200 mg PO DAILY 04/05/17 05/24/17 History Calcium (Carbonate) [Caltrate 600] 1,500 mg PO DAILY 04/05/17 05/24/17 History Carvedilol [Coreg] 6.25 mg PO BID 04/05/17 05/24/17 History Digoxin Tab [Lanoxin Tab] 0.0625 mg PO DAILY 04/05/17 05/24/17 History Gabapentin Cap/Tab [Neurontin 200 mg PO TID 04/05/17 05/24/17 History Cap/Tab] Insulin Regular [HumuLIN R] See Protocol SUBCUT TID 04/05/17 05/24/17 History Mupirocin Calcium [Bactroban 2% 1 applic TOP TID 04/05/17 05/24/17 History Cream] Sodium Chl/Potassium Chl Tab 2 tablet PO BID 04/05/17 05/24/17 History [Thermotabs] Thyroid,Pork [[place] Thyroid] 90 mg PO DAILY 04/05/17 05/24/17 History cycloSPORINE OPH EMUL [Restasis] 0.05 drop BOTH EYES BID 04/05/17 05/24/17 History Aspirin Chew Tab 81 mg PO DAILY 05/23/17 05/24/17 History Fexofenadine [Bibi] 180 mg PO DAILY 05/23/17 05/24/17 History Imipramine [Tofranil] 10 mg PO DAILY 05/23/17 05/24/17 History Ipratropium 0.03% Nasal [place] 1 spray BOTH NARES DAILY PRN 05/23/17 05/24/17 History [Atrovent 0.03% Nasal [place]] Ondansetron Tab [Zofran Tab] 4 mg PO BID PRN 05/23/17 05/24/17 History Polyethylene Glycol Powder 15 gm PO DAILY 05/23/17 05/24/17 History [Miralax] metFORMIN [Glucophage] 250 mg PO BID 05/23/17 05/24/17 History metOLazone [Metolazone] 2.5 mg PO DAILY 05/23/17 05/24/17 History cycloSPORINE OPH EMUL [Restasis] 1 drop BOTH EYES BID 05/24/17 05/24/17 History Allergies Allergy/AdvReac Type Severity Reaction Status Date / Time morphine Allergy Severe Nausea Verified 04/05/17 12:15 pseudoephedrine Allergy Severe RASH Verified 04/05/17 12:15 [From Sudafed] loratadine [From Claritin] Allergy Unknown/Unable Verified 04/05/17 12:15 to obtain sulfur dioxide Allergy Unknown/Unable Verified 04/05/17 12:15 to obtain Exam (Pulmon) H&P - Constitutional Vitals: Period Temp Pulse Resp BP Sys/Marroquin Pulse Ox Last 24 Hr 97.8 F-97.8 F 70-82 16-20 113-129/72-80 88-99 Exam: Psych: Oriented x 3; a pleasant and cooperative patient who is acutely and chronically ill-appearing HEENT: Pupils, irises, sclera, conjunctiva, and eyelids are normal. The face is symmetrical without rash or masses. Lips, tongue, buccal mucosa, soft and hard palates, and pharynx are WNL Neck: Symmetrical, slightly kyphotic with no masses. Thyroid was not palpated. Lymphatics: No submandibular, cervical, or supraclavicular adenopathy Chest: Symmetrical without appreciable wheeze, rhonchi or rales; there is significant tenderness with palpation of the short ribs bilaterally consistent with costochondritis CV: Regular without murmur, rub, or gallop Arterial: Carotids are slightly decreased and traverse behind the sternocleidomastoid muscle. I hear no bruit. Upper extremity pulses are palpable. Posterior tibial pulses are faintly palpable. Venous: Exam of the neck and upper extremities is normal. The patient has some evidence of chronic venous insufficiency in his lower extremities. Abd: Abdomen is obese with no appreciable organomegaly, masses, or bruit; Bowel sounds are decreased and rare; The aorta could not be palpated; there is significant tenderness with palpation over the abdomen; abdominal distention noted /Rectal: Deferred Extremities: No clubbing, cyanosis, edema, or obvious DVT Skin: No cancerous or infectious lesions of the exposed, examined skin; the perineal area was not examined M/S: Age appropriate loss of the normal curvature of the cervical, thoracic, and lumbar spine; acute T9 fracture noted on CT Neurological: Cranial nerves are intact with some decreased hearing acuity bilaterally, Long tract motor function is intact; Sensory exam was not done; gait was not tested. The remainder of the exam was noncontributory. Impression: #1: Acute T9 compression fracture status post fall #2: Acute urinary tract infection #3: Probable acute ileus. KUB pending. #4: Costochondritis #5: Chronic renal failure; under the care of Dr. Franklin. Note, the patient has been on fluid restriction since October [address] Franklin and done very well. #6: COPD. Asthma. #7: Insulin dependent diabetes mellitus. #8: History of demyelinating polyneuropathy (CIDP); now under the care of Dr. Margie Madera #9: Obstructive sleep apnea #10: Hyperlipidemia #11: Burgess's esophagitis #12: Gastro-esophageal reflux disease #13: June 2015 hospitalization secondary to nonischemic cardiomyopathy and acute on chronic systolic congestive heart failure #14: History of prostate cancer #15: History of ischemic cardiomyopathy; under the care of Dr. Dilshad Engle #16: History of cardiac arrhythmias including acute ventricular tachycardia during June-July 2012 hospitalization and more recently January 2017 hospitalization #17: History of megacolon followed by Dr. Brandt Cueva #18: Cardiac pacemaker #19: See past history Plan: #1: Agree with Levaquin, but will most likely require dose reduction secondary to history of CRF and recent contrasted CT. BMP/Mg+ today pending. #2: Portable KUB #3: Consult Dr. Mckenna for evaluation and treatment #4: Follow-up urine culture when available #5: Solumedrol 40mg IV Q12H #6: See orders We appreciate this consult and will follow along with you. 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), Vertigo No history of: Brain Aneurysm, Cerebral Hemorrhage, Cerebrovascular Accident , Cerebral Palsy, Dementia, Migraine, Seizures, TIA HEENT: No history of: Ear Problem, Eye Problem, Dental Problems, Glaucoma, Oral Cancer, HEENT Problems Endocrine: History of: Diabetes Mellitus (IDDM), Diabetes Mellitus (NIDDM), Dyslipidemia, Thyroid Disorder Rheumatology: History of;: Rheumatoid Arthritis No history of;: Fibromyalgia, Psoriasis, Sjogrens, Systemic Lupus Erythematosus Respiratory: History of: COPD, Obstructive Sleep Apnea, Pneumonia (Aug 2015), Respiratory Problems No history of: Asthma, Bronchitis, Pulmonary Embolism, Pulmonary Hypertension Renal: History of: Renal Failure (Chronic renal insufficiency), Renal Problems ( cyst on left kidney followed by Dr. Bob Nunez) Genitourinary: History of: Bladder Problem (residual (I&O cath 2x daily)), Prostate Problems (History of prostate cancer, this was surgically treated.) Gastrointestinal: History of: GERD, GI Problems ("ilia colon", burgess's esophagus, dysphagia) No history of: Bowel Obstruction, Gastrointestinal Bleed Musculoskeletal: History of: Back/Neck Problems (chronic back pain) No history of: Amputation Hematology: No history of: Blood Transfusion Reaction Other: History of: Cancer (prostate) No history of: Anesthesia Reactions, Malignant Hyperthermia, MRSA, Vancomycin -Resistant Enterococci, Skin Problems, Miscellaneous Medical Problems - Surgical History Cardiac Surgeries: Sugical HX of: Cardiac Catheterization (January 2070), Cardiac Surgery (pacemaker/aicd), Internal Defibrillator Thoracic Surgeries: Patient denies;: Organ Transplant, Lobectomy Neurologic Surgeries: Patient denies: Brain Aneurysm, Cerebral Hemorrhage, Neurologic Surgery HEENT Surgeries: Surgical HX of: Eye Surgery (cataracts, eyelids lifted) Patient denies: Tonsilectomy & Adenoidectomy Abdominal Surgeries: Surgical HX of: Abdominal Surgery, Appendectomy, Cholecystectomy (03/2014), Colonoscopy, EGD (Burgess's) Reproductive Surgeries: Surgical HX of;: Prostate Surgery (cryo "freezing" of prostate-2012) Orthopedic Surgeries: Surgical HX of;: Orthopedic Surgery (ORIF Left ankle, right ankle), Total Knee Replacement (left) - Family History Family History: Reports;: Family Cancer (father-colon, brother-colon, sister- colon), Family Heart Disease, Family Hypertension, Family Stroke - Social History Smoking Status: Unknown if ever smoked Results - Labs CBC & BMP: 05/23/17 19:13 05/23/17 19:13
[2017-05-24] MEDS ORDERED: KETOROLAC 15 MG/1 ML VIAL IV ONE (10:27)
[2017-05-24] MEDS: methylPREDNISolone SOD SUC 40 MG/1 ML VIAL IV SCH ×2 (10:46→22:24)
[2017-05-24 11:43] LABS: Calcium 8.9 MG/DL (8.5-10.1); Magnesium 2.1 MG/DL (1.8-2.4); Potassium 4.9 MMOL/L (3.5-5.1)
--- NOTE | 2017-05-24 11:47 | XRay Report ---
XR KUB Indication: Abdominal pain and distention Comparison: 23 May 2017 Findings: No free fluid or free air seen. Retained contrast is seen in the bladder and bowel. The colon does not appear as distended as yesterday. No abnormal calcifications are present. No other abnormality is identified. Impression: Improvement in colonic distention. No other significant changes. PROCEDURE INTERPRETED AT [facility] DEPARTMENT OF RADIOLOGY Final Report Signed by: Dr. Asher Carbone
[2017-05-24] MEDS: KETOROLAC 15 MG/1 ML VIAL IV SCH ×2 (14:15→21:12)
[2017-05-24] MEDS: DESITIN 4OZ/NYSTATIN 15 GRAM MIXTURE PASTE TOP SCH ×2 (14:24→21:11)
[2017-05-24] MEDS ORDERED: ceFAZolin 2,000 MG in PREMIX 1 EACH IV ONE (14:30)
--- NOTE | 2017-05-24 14:34 | Pain Management Consult Note ---
Assessment and Plan (1) Compression fracture of thoracic vertebra with delayed healing Problem details: Fall 3 days ago with T9 fracture Status: Acute Assessment and plan: 05/24/2017. The patient fell 3 days ago and now has a new T9 fracture on his studies. This is new to him. He has had a previous T8 kyphoplasty. He did extremely well with this procedure. Given the severity of his pain and inability to get out of bed or care for himself he is now candidate for kyphoplasty due to severity of his pain and loss of ability to perform basic activities of daily living. Every day that he does not move or ambulate he gets weaker and loses an opportunity to remain independent. We will plan on kyphoplasty tomorrow with MAC anesthesia. y Current Visit: No History of Present Illness Chief complaint: Mid back pain History of present illness: Mr. Ahumada is a 82 year old male with mid back pain that wraps on his torso. The pains that started after a fall 3 days ago. He fell backwards trying to get into a truck. The pain is severe and at this point cannot get out of bed without screaming in pain. His activities of daily living have diminished to not being able to care for himself at all. The pain is a throbbing stabbing discomfort much worse with movement. Home Medications Medication Instructions Recorded Confirmed Type Acetaminophen Tab [Tylenol Tab] 325 mg PO DAILY PRN 04/21/15 05/24/17 History Magnesium Oxide 400 mg PO DAILY 04/21/15 05/24/17 History Montelukast Tab [Singulair Tab] 10 mg PO BEDTIME 04/21/15 05/24/17 History Multivitamin [Multivitamins] 1 each PO DAILY 04/21/15 05/24/17 History Rosuvastatin [Crestor] 20 mg PO BEDTIME 04/21/15 05/24/17 History Lubiprostone [Amitiza] 8 mcg PO BID PRN 05/28/15 05/23/17 History Diclofenac 1% Gel [Voltaren 1% Gel] 1 unit TOP QID PRN #1 gel 10/18/15 05/24/17 Rx Spironolactone [Aldactone] 50 mg PO DAILY tablet 10/18/15 05/24/17 Rx Fludrocortisone [Florinef] 0.2 mg PO BID tablet 07/29/16 05/24/17 Rx Lisinopril [Prinivil] 5 mg PO DAILY tablet 07/29/16 05/24/17 Rx Sitagliptin Phosphate [Januvia] 50 mg PO DAILY 02/05/17 05/24/17 History Alendronate Sodium 35 mg PO SA 02/08/17 05/24/17 History Methenamine Hippurate [Hiprex] 1 gm PO BID 02/11/17 05/24/17 History Albuterol Inhaler [Proventil 2 puff INH Q4H PRN 03/06/17 05/24/17 History Inhaler] Budesonide/Formoterol 80-4.5 2 puff INH BID PRN 03/06/17 05/24/17 History [Symbicort 80-4.5] Cholecalciferol (Vitamin D3) 2,000 unit PO DAILY 03/06/17 05/24/17 History [Vitamin D3] Cyanocobalamin (Vitamin B-12) 3 ml IJ SA 03/06/17 05/24/17 History [Cyanocobalamin Injection] Fluticasone 50 Mcg Nasal [place] 1 spray BOTH NARES BID PRN 03/06/17 05/24/17 History [Flonase Nasal [place]] Folic Acid Tab 1 mg PO DAILY 03/06/17 05/24/17 History LORazepam TAB [Ativan Tab] 0.5 mg PO DAILY PRN 03/06/17 05/24/17 History Mexiletine [Mexitil] 200 mg PO BID 03/06/17 05/23/17 History [place]-3 Fatty Acids [Maxepa] 1,000 mg PO DAILY 03/06/17 05/24/17 History Omeprazole 20 mg PO DAILY 03/06/17 05/24/17 History Potassium Chloride 10 meq PO BID 03/06/17 05/23/17 History Simethicone [Phazyme] 180 mg PO DAILY PRN 03/06/17 05/24/17 History Amiodarone Tab [Cordarone Tab] 200 mg PO DAILY 04/05/17 05/24/17 History Calcium (Carbonate) [Caltrate 600] 1,500 mg PO DAILY 04/05/17 05/24/17 History Carvedilol [Coreg] 6.25 mg PO BID 04/05/17 05/24/17 History Digoxin Tab [Lanoxin Tab] 0.0625 mg PO DAILY 04/05/17 05/24/17 History Gabapentin Cap/Tab [Neurontin 200 mg PO TID 04/05/17 05/24/17 History Cap/Tab] Insulin Regular [HumuLIN R] See Protocol SUBCUT TID 04/05/17 05/24/17 History Mupirocin Calcium [Bactroban 2% 1 applic TOP TID 04/05/17 05/24/17 History Cream] Sodium Chl/Potassium Chl Tab 2 tablet PO BID 04/05/17 05/24/17 History [Thermotabs] Thyroid,Pork [[place] Thyroid] 90 mg PO DAILY 04/05/17 05/24/17 History cycloSPORINE OPH EMUL [Restasis] 0.05 drop BOTH EYES BID 04/05/17 05/24/17 History Aspirin Chew Tab 81 mg PO DAILY 05/23/17 05/24/17 History Fexofenadine [Bibi] 180 mg PO DAILY 05/23/17 05/24/17 History Imipramine [Tofranil] 10 mg PO DAILY 05/23/17 05/24/17 History Ipratropium 0.03% Nasal [place] 1 spray BOTH NARES DAILY PRN 05/23/17 05/24/17 History [Atrovent 0.03% Nasal [place]] Ondansetron Tab [Zofran Tab] 4 mg PO BID PRN 05/23/17 05/24/17 History Polyethylene Glycol Powder 15 gm PO DAILY 05/23/17 05/24/17 History [Miralax] metFORMIN [Glucophage] 250 mg PO BID 05/23/17 05/24/17 History metOLazone [Metolazone] 2.5 mg PO DAILY 05/23/17 05/24/17 History cycloSPORINE OPH EMUL [Restasis] 1 drop BOTH EYES BID 05/24/17 05/24/17 History Allergies Allergy/AdvReac Type Severity Reaction Status Date / Time morphine Allergy Severe Nausea Verified 04/05/17 12:15 pseudoephedrine Allergy Severe RASH Verified 04/05/17 12:15 [From Sudafed] loratadine [From Claritin] Allergy Unknown/Unable Verified 04/05/17 12:15 to obtain sulfur dioxide Allergy Unknown/Unable Verified 04/05/17 12:15 to obtain 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), Vertigo No history of: Brain Aneurysm, Cerebral Hemorrhage, Cerebrovascular Accident , Cerebral Palsy, Dementia, Migraine, Seizures, TIA HEENT: No history of: Ear Problem, Eye Problem, Dental Problems, Glaucoma, Oral Cancer, HEENT Problems Endocrine: History of: Diabetes Mellitus (IDDM), Diabetes Mellitus (NIDDM), Dyslipidemia, Thyroid Disorder Rheumatology: History of;: Rheumatoid Arthritis No history of;: Fibromyalgia, Psoriasis, Sjogrens, Systemic Lupus Erythematosus Respiratory: History of: COPD, Obstructive Sleep Apnea, Pneumonia (Aug 2015), Respiratory Problems No history of: Asthma, Bronchitis, Pulmonary Embolism, Pulmonary Hypertension Renal: History of: Renal Failure (Chronic renal insufficiency), Renal Problems ( cyst on left kidney followed by Dr. Bob Nunez) Genitourinary: History of: Bladder Problem (residual (I&O cath 2x daily)), Prostate Problems (History of prostate cancer, this was surgically treated.) Gastrointestinal: History of: GERD, GI Problems ("ilia colon", burgess's esophagus, dysphagia) No history of: Bowel Obstruction, Gastrointestinal Bleed Musculoskeletal: History of: Back/Neck Problems (chronic back pain) No history of: Amputation Hematology: No history of: Blood Transfusion Reaction Other: History of: Cancer (prostate) No history of: Anesthesia Reactions, Malignant Hyperthermia, MRSA, Vancomycin -Resistant Enterococci, Skin Problems, Miscellaneous Medical Problems - Surgical History Cardiac Surgeries: Sugical HX of: Cardiac Catheterization (January 2070), Cardiac Surgery (pacemaker/aicd), Internal Defibrillator Thoracic Surgeries: Patient denies;: Organ Transplant, Lobectomy Neurologic Surgeries: Patient denies: Brain Aneurysm, Cerebral Hemorrhage, Neurologic Surgery HEENT Surgeries: Surgical HX of: Eye Surgery (cataracts, eyelids lifted) Patient denies: Tonsilectomy & Adenoidectomy Abdominal Surgeries: Surgical HX of: Abdominal Surgery, Appendectomy, Cholecystectomy (03/2014), Colonoscopy, EGD (Burgess's) Reproductive Surgeries: Surgical HX of;: Prostate Surgery (cryo "freezing" of prostate-2013) Orthopedic Surgeries: Surgical HX of;: Orthopedic Surgery (ORIF Left ankle, right ankle), Total Knee Replacement (left) - Family History Family History: Reports;: Family Cancer (father-colon, brother-colon, sister- colon), Family Heart Disease, Family Hypertension, Family Stroke - Social History Smoking Status: Unknown if ever smoked - Constitutional Constitutional: Present: fatigue, weakness - Cardiovascular Cardiovascular: Present: dyspnea on exertion - Gastrointestinal Gastrointestinal: Present: constipation - Musculoskeletal Musculoskeletal: Present: back pain, muscle cramps Exam - Constitutional Vitals: Period Temp Pulse Resp BP Sys/Marroquin Pulse Ox Last 24 Hr 97.8 F-98.1 F 69-84 16-20 113-142/72-80 88-99 General appearance: mild distress, over weight - Neck Neck exam: Present: normal inspection - Respiratory Respiratory exam: Present: clear to auscultation bilaterally - Cardiovascular Cardiovascular exam: Present: irregular rhythm - GI/Abdominal GI/Abdominal exam: Present: normal bowel sounds - Back Exam Back exam: Present: vertebral tenderness - Neurological Exam Neurological exam: Present: alert, oriented X3 Results - Labs CBC & BMP: 05/23/17 19:13 05/24/17 06:29
--- NOTE | 2017-05-24 15:20 | General Surgery Consult Note ---
Assessment and Plan - Time spent with patient Time spent with patient: Greater than 30 minutes (1) Megacolon Status: Chronic Assessment and plan: I think that there is likely an element of ileus related to his vertebral compression fracture which he is certainly predisposed to with his history of previous colonic pseudoobstruction and chronic megacolon. I would manage this conservatively. I do not see evidence of intra-abdominal trauma or acute abdomen. Current Visit: Yes (2) Cyst of spleen Status: Acute Assessment and plan: The etiology of this is unclear. It has a benign appearance on CT scan and certainly does not appear to be traumatic. That is enlarged over time. I would not deal with this acutely. But it may need to be addressed in the future. He is not a good surgical candidate for splenectomy. Current Visit: Yes History of Present Illness Chief complaint: Compression fracture History of present illness: Mr. Ahumada is a 82 year old male Who fell about 3 days ago falling backwards and landing on his backside. He immediately had pain in his mid back as well as pain in his chest and abdomen and lower extremities. Since that time he says that he has had some increased abdominal distention and vague abdominal pain but this is not really worsened. He has had nausea. He has had some small bowel movements but feels like he is constipated. He has a long history of previous constipation and megacolon. He has been seen by Dr. Cueva for this. He does not know of any aggravating or alleviating factors. He had a CT scan showing large amount of stool filled colon as well as a cystic mass on his spleen which is enlarged in size. It does not appear acute. Home Medications Medication Instructions Recorded Confirmed Type Acetaminophen Tab [Tylenol Tab] 325 mg PO DAILY PRN 04/21/15 05/24/17 History Magnesium Oxide 400 mg PO DAILY 04/21/15 05/24/17 History Montelukast Tab [Singulair Tab] 10 mg PO BEDTIME 04/21/15 05/24/17 History Multivitamin [Multivitamins] 1 each PO DAILY 04/21/15 05/24/17 History Rosuvastatin [Crestor] 20 mg PO BEDTIME 04/21/15 05/24/17 History Lubiprostone [Amitiza] 8 mcg PO BID PRN 05/28/15 05/23/17 History Diclofenac 1% Gel [Voltaren 1% Gel] 1 unit TOP QID PRN #1 gel 10/18/15 05/24/17 Rx Spironolactone [Aldactone] 50 mg PO DAILY tablet 10/18/15 05/24/17 Rx Fludrocortisone [Florinef] 0.2 mg PO BID tablet 07/29/16 05/24/17 Rx Lisinopril [Prinivil] 5 mg PO DAILY tablet 07/29/16 05/24/17 Rx Sitagliptin Phosphate [Januvia] 50 mg PO DAILY 02/05/17 05/24/17 History Alendronate Sodium 35 mg PO SA 02/08/17 05/24/17 History Methenamine Hippurate [Hiprex] 1 gm PO BID 02/11/17 05/24/17 History Albuterol Inhaler [Proventil 2 puff INH Q4H PRN 03/06/17 05/24/17 History Inhaler] Budesonide/Formoterol 80-4.5 2 puff INH BID PRN 03/06/17 05/24/17 History [Symbicort 80-4.5] Cholecalciferol (Vitamin D3) 2,000 unit PO DAILY 03/06/17 05/24/17 History [Vitamin D3] Cyanocobalamin (Vitamin B-12) 3 ml IJ SA 03/06/17 05/24/17 History [Cyanocobalamin Injection] Fluticasone 50 Mcg Nasal [place] 1 spray BOTH NARES BID PRN 03/06/17 05/24/17 History [Flonase Nasal [place]] Folic Acid Tab 1 mg PO DAILY 03/06/17 05/24/17 History LORazepam TAB [Ativan Tab] 0.5 mg PO DAILY PRN 03/06/17 05/24/17 History Mexiletine [Mexitil] 200 mg PO BID 03/06/17 05/23/17 History [place]-3 Fatty Acids [Maxepa] 1,000 mg PO DAILY 03/06/17 05/24/17 History Omeprazole 20 mg PO DAILY 03/06/17 05/24/17 History Potassium Chloride 10 meq PO BID 03/06/17 05/23/17 History Simethicone [Phazyme] 180 mg PO DAILY PRN 03/06/17 05/24/17 History Amiodarone Tab [Cordarone Tab] 200 mg PO DAILY 04/05/17 05/24/17 History Calcium (Carbonate) [Caltrate 600] 1,500 mg PO DAILY 04/05/17 05/24/17 History Carvedilol [Coreg] 6.25 mg PO BID 04/05/17 05/24/17 History Digoxin Tab [Lanoxin Tab] 0.0625 mg PO DAILY 04/05/17 05/24/17 History Gabapentin Cap/Tab [Neurontin 200 mg PO TID 04/05/17 05/24/17 History Cap/Tab] Insulin Regular [HumuLIN R] See Protocol SUBCUT TID 04/05/17 05/24/17 History Mupirocin Calcium [Bactroban 2% 1 applic TOP TID 04/05/17 05/24/17 History Cream] Sodium Chl/Potassium Chl Tab 2 tablet PO BID 04/05/17 05/24/17 History [Thermotabs] Thyroid,Pork [[place] Thyroid] 90 mg PO DAILY 04/05/17 05/24/17 History cycloSPORINE OPH EMUL [Restasis] 0.05 drop BOTH EYES BID 04/05/17 05/24/17 History Aspirin Chew Tab 81 mg PO DAILY 05/23/17 05/24/17 History Fexofenadine [Bibi] 180 mg PO DAILY 05/23/17 05/24/17 History Imipramine [Tofranil] 10 mg PO DAILY 05/23/17 05/24/17 History Ipratropium 0.03% Nasal [place] 1 spray BOTH NARES DAILY PRN 05/23/17 05/24/17 History [Atrovent 0.03% Nasal [place]] Ondansetron Tab [Zofran Tab] 4 mg PO BID PRN 05/23/17 05/24/17 History Polyethylene Glycol Powder 15 gm PO DAILY 05/23/17 05/24/17 History [Miralax] metFORMIN [Glucophage] 250 mg PO BID 05/23/17 05/24/17 History metOLazone [Metolazone] 2.5 mg PO DAILY 05/23/17 05/24/17 History cycloSPORINE OPH EMUL [Restasis] 1 drop BOTH EYES BID 05/24/17 05/24/17 History Allergies Allergy/AdvReac Type Severity Reaction Status Date / Time morphine Allergy Severe Nausea Verified 04/05/17 12:15 pseudoephedrine Allergy Severe RASH Verified 04/05/17 12:15 [From Sudafed] loratadine [From Claritin] Allergy Unknown/Unable Verified 04/05/17 12:15 to obtain sulfur dioxide Allergy Unknown/Unable Verified 04/05/17 12:15 to obtain 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), Vertigo No history of: Brain Aneurysm, Cerebral Hemorrhage, Cerebrovascular Accident , Cerebral Palsy, Dementia, Migraine, Seizures, TIA HEENT: No history of: Ear Problem, Eye Problem, Dental Problems, Glaucoma, Oral Cancer, HEENT Problems Endocrine: History of: Diabetes Mellitus (IDDM), Diabetes Mellitus (NIDDM), Dyslipidemia, Thyroid Disorder Rheumatology: History of;: Rheumatoid Arthritis No history of;: Fibromyalgia, Psoriasis, Sjogrens, Systemic Lupus Erythematosus Respiratory: History of: COPD, Obstructive Sleep Apnea, Pneumonia (Aug 2015), Respiratory Problems No history of: Asthma, Bronchitis, Pulmonary Embolism, Pulmonary Hypertension Renal: History of: Renal Failure (Chronic renal insufficiency), Renal Problems ( cyst on left kidney followed by Dr. Bob Nunez) Genitourinary: History of: Bladder Problem (residual (I&O cath 2x daily)), Prostate Problems (History of prostate cancer, this was surgically treated.) Gastrointestinal: History of: GERD, GI Problems ("ilia colon", burgess's esophagus, dysphagia) No history of: Bowel Obstruction, Gastrointestinal Bleed Musculoskeletal: History of: Back/Neck Problems (chronic back pain) No history of: Amputation Hematology: No history of: Blood Transfusion Reaction Other: History of: Cancer (prostate) No history of: Anesthesia Reactions, Malignant Hyperthermia, MRSA, Vancomycin -Resistant Enterococci, Skin Problems, Miscellaneous Medical Problems - Surgical History Cardiac Surgeries: Sugical HX of: Cardiac Catheterization (January 2070), Cardiac Surgery (pacemaker/aicd), Internal Defibrillator Thoracic Surgeries: Patient denies;: Organ Transplant, Lobectomy Neurologic Surgeries: Patient denies: Brain Aneurysm, Cerebral Hemorrhage, Neurologic Surgery HEENT Surgeries: Surgical HX of: Eye Surgery (cataracts, eyelids lifted) Patient denies: Tonsilectomy & Adenoidectomy Abdominal Surgeries: Surgical HX of: Abdominal Surgery, Appendectomy, Cholecystectomy (03/2014), Colonoscopy, EGD (Burgess's) Reproductive Surgeries: Surgical HX of;: Prostate Surgery (cryo "freezing" of prostate-2012) Orthopedic Surgeries: Surgical HX of;: Orthopedic Surgery (ORIF Left ankle, right ankle), Total Knee Replacement (left) - Family History Family History: Reports;: Family Cancer (father-colon, brother-colon, sister- colon), Family Heart Disease, Family Hypertension, Family Stroke - Social History Smoking Status: Unknown if ever smoked - Constitutional Constitutional: Absent: anorexia, chills, fever(s) - EENT Nose, mouth and throat: Absent: dysphagia - Cardiovascular Cardiovascular: Present: chest pain at rest. Absent: chest pain with activity, syncope - Respiratory Respiratory: Present: dyspnea. Absent: cough, hemoptysis, dyspnea on exertion - Gastrointestinal Gastrointestinal: Present: abdominal pain, bloating, constipation, nausea. Absent: hematemesis, hematochezia, vomiting, jaundice - Genitourinary Genitourinary: Absent: dysuria, hematuria - Musculoskeletal Musculoskeletal: Present: back pain - Neurological Neurological: Absent: focal weakness, syncope - Endocrine Endocrine: Absent: polyuria Hematologic/Lymphatic: Absent: easy bleeding, easy bruising Exam - Constitutional Vitals: Period Temp Pulse Resp BP Sys/Marroquin Pulse Ox Last 24 Hr 97.8 F-98.1 F 69-84 16-20 113-142/72-80 88-99 General appearance: no acute distress - Head Head exam: Present: normocephalic - Eye Eye exam: Absent: scleral icterus Pupils: Present: CAMELIA - ENT Mouth exam: Present: normal voice - Neck Neck exam: Present: trachea midline. Absent: tenderness - Respiratory Respiratory exam: Present: clear to auscultation bilaterally, chest wall tenderness. Absent: accessory muscle use - Cardiovascular Cardiovascular exam: Present: RRR - GI/Abdominal GI/Abdominal exam: Present: distended, hypoactive bowel sounds, soft. Absent: guarding, mass, tenderness, rebound - Extremities Exam Extremities exam: Absent: edema - Neurological Exam Neurological exam: Present: alert, oriented X3. Absent: motor sensory deficit Speech: Present: normal - Skin Skin exam: Present: normal color Results - Labs CBC & BMP: 05/23/17 19:13 05/24/17 06:29 Lab Results: I have reviewed the past 24 hour labs - Diagnostic Findings Procedure: CT Abdomen and Pelvis: image reviewed by me, report reviewed by me
[2017-05-24] MEDS: MONTELUKAST 10 MG TABLET PO SCH (21:01)
[2017-05-24] MEDS: ROSUVASTATIN 20 MG TABLET PO SCH (21:01)
[2017-05-25] MEDS: ALBUTEROL/IPRATROPIUM 3 ML NEB RESP TX SCH ×4 (00:31→19:06)
[2017-05-25] MEDS: SODIUM CHLORIDE 0.9% 1,000 ML IV SCH ×2 (00:57→21:59)
[2017-05-25] MEDS: LEVOFLOXACIN INJ 750 MG in PREMIX 1 EACH IV SCH (03:32)
[2017-05-25 05:16] LABS: Basophils % 0.2 % (0.0-0.8); Hematocrit 34.6 VOL% (42.0-52.0); Hemoglobin 11.2 GM/DL (14.0-18.0); Immature Granulocytes % 0.7 %; Immature Granulocytes Absolute 0.04 #; Lymphocytes # 0.2 10*3/uL (1.4-4.0); Lymphocytes % 4.3 % (21.2-54.2); Mean Corpuscular HGB Conc 32.4 GM/DL (32-36); Mean Corpuscular Hemoglobin 30 PG (27-34); Mean Corpuscular Volume 91.1 FL (87-102); Mean Platelet Volume 10.4 FL (9.6-12.0); Monocytes # 0.1 10*3/uL (0.11-0.8); Monocytes % 2.2 % (1.7-12.7); Neutrophils # 5.2 10*3/uL (1.4-7.4); Neutrophils % 92.6 % (38.7-73.9); Platelet Count 256 T/CUMM (130-400); Red Cell Distribution Width 14.5 % (9.3-17.3); White Blood Count 5.6 T/CUMM (4-12)
[2017-05-25 05:44] LABS: Hypochromasia Slight; Lymphocytes 3 % (20-55); Ovalocytes Slight; Platelet Estimate Adequate; Segmented Neutrophils 96 % (50-85); Total Cells Counted 100
[2017-05-25 05:45] LABS: Calcium 8.5 MG/DL (8.5-10.1); Magnesium 2.4 MG/DL (1.8-2.4); Potassium 4.8 MMOL/L (3.5-5.1)
[2017-05-25] MEDS ORDERED: ceFAZolin 2,000 MG in PREMIX 1 EACH IV ONE (06:00)
--- NOTE | 2017-05-25 06:29 | EKG Report ---
Stationary ECG Study [facility] Test Date: 05/25/2017 4:21:55 AM Pat Name: JASWINDER DURAN Department: Room: 520 Gender: M Crop Picker: [email or web address] : [phone] Requested by: Kaiden Mckenna Order Number: [id number] Reading MD: LENNIE POST Intervals [place] Rate: 72 P: 999 IA: 0 QRS: 174 QRSD: 232 T: 71 QT: 504 QTc: 528 Interpretive Statements ELECTRONIC VENTRICULAR PACEMAKER ABNORMAL RHYTHM ECG Electronically Signed On 05-25-17 11:41:02 CDT by LENNIE POST [email or web address]
[2017-05-25] MEDS: INSULIN LISPRO 100 UNIT/ML SUBCUT SCH ×3 (07:11→17:13)
--- NOTE | 2017-05-25 07:20 | General Surgery Progress Note ---
Assessment and Plan (1) Megacolon Status: Chronic Assessment and plan: I think that there is likely an element of ileus related to his vertebral compression fracture which he is certainly predisposed to with his history of previous colonic pseudoobstruction and chronic megacolon. I would manage this conservatively. I do not see evidence of intra-abdominal trauma or acute abdomen. 05/25: He is having some flatus and feels better. Feels less distended. His abdomen is completely nontender. He is for treatment of his compression fracture today. Hopefully this will help with his GI function. Current Visit: Yes (2) Cyst of spleen Status: Acute Assessment and plan: The etiology of this is unclear. It has a benign appearance on CT scan and certainly does not appear to be traumatic. That is enlarged over time. I would not deal with this acutely. But it may need to be addressed in the future. He is not a good surgical candidate for splenectomy. Current Visit: Yes Subjective Patient reports: Present: feels better, pain is less, tolerating liquids well, flatus, no bowel movement. Absent: shortness of breath Exam - Constitutional Vitals: Period Temp Pulse Resp BP Sys/Marroquin Pulse Ox Last 24 Hr 97.3 F-98.5 F 69-84 17-20 110-142/61-78 89-99 General appearance: no acute distress - Respiratory Respiratory exam: Absent: accessory muscle use - GI/Abdominal GI/Abdominal exam: Present: soft. Absent: distended, guarding, tenderness, rebound Results - Labs CBC & BMP: 05/25/17 04:40 05/25/17 04:40 Lab Results: I have reviewed the past 24 hour labs
[2017-05-25] MEDS: AMIODARONE 200 MG TABLET PO SCH (08:01)
[2017-05-25] MEDS: CARVEDILOL 6.25 MG TABLET PO SCH ×2 (08:01→21:52)
[2017-05-25] MEDS: DIGOXIN 0.125 MG TABLET PO SCH (08:01)
[2017-05-25] MEDS: ASPIRIN CHEW 81 MG TABLET PO SCH (08:20)
[2017-05-25] MEDS: FEXOFENADINE 180 MG TABLET PO SCH (08:20)
[2017-05-25] MEDS: THYROID 60 MG TABLET PO SCH (08:20)
[2017-05-25] MEDS: LUBIPROSTONE 8 MCG CAPSULE PO SCH ×2 (08:20→21:51)
[2017-05-25] MEDS: GABAPENTIN 100 MG CAPSULE PO SCH ×3 (08:21→21:51)
[2017-05-25] MEDS: MUPIROCIN 2% OINT 22 GM TUBE TOP SCH ×3 (08:21→21:51)
[2017-05-25] MEDS: FLUDROCORTISONE 0.1 MG TABLET PO SCH ×2 (08:21→21:56)
[2017-05-25] MEDS: PANTOPRAZOLE 40 MG TABLET PO SCH (08:21)
[2017-05-25] MEDS: MULTIVITAMIN (CENTRUM) TABLET PO SCH (08:21)
[2017-05-25] MEDS: FOLIC ACID 1 MG TABLET PO SCH (08:21)
[2017-05-25] MEDS: CALCIUM (CARBONATE) 600 MG TABLET PO SCH (08:21)
[2017-05-25] MEDS: MEXILETINE 200 MG CAPSULE PO SCH ×2 (08:21→22:30)
[2017-05-25] MEDS: metFORMIN 500 MG TABLET PO SCH (08:21)
[2017-05-25] MEDS: MAGNESIUM OXIDE 400 MG TABLET PO SCH (08:21)
[2017-05-25] MEDS: OMEGA 3 ACID ETHYL ESTERS 1 GM CAPSULE PO SCH (08:21)
[2017-05-25] MEDS: sitaGLIPtin 25 MG TABLET PO SCH (08:21)
[2017-05-25] MEDS: METHENAMINE HIPPURATE 1 GM TABLET PO SCH ×2 (08:21→21:52)
[2017-05-25] MEDS: POLYETHYLENE GLYCOL POWDER 17 GM PACK PO SCH (08:21)
[2017-05-25] MEDS: CHOLECALCIFEROL 1,000 UNIT TABLET PO SCH (08:22)
[2017-05-25] MEDS: DESITIN 4OZ/NYSTATIN 15 GRAM MIXTURE PASTE TOP SCH ×2 (08:22→21:51)
[2017-05-25] MEDS: KETOROLAC 15 MG/1 ML VIAL IV SCH ×2 (08:22→14:03)
[2017-05-25] MEDS: IMIPRAMINE 10 MG TABLET PO SCH (08:22)
[2017-05-25] MEDS: cycloSPORINE OPH EMUL 1 VIAL BOTH EYES SCH (08:22)
[2017-05-25] MEDS: metOLazone 2.5 MG TABLET PO SCH (08:22)
--- NOTE | 2017-05-25 09:30 | Pulmonology Progress Note ---
Pulmonary - PN: Subj Interval history: Norbert Olivas, [facility] acting as scribe for Dr. Christian Lino Mr. Ahumada is an 82-year-old white male who we saw in initial pulmonary consultation on 05/25/2017. At that time, our impressions were: #1: Acute T9 compression fracture status post fall #2: Acute urinary tract infection #3: Probable acute ileus. KUB pending. #4: Costochondritis #5: Chronic renal failure; under the care of Dr. Franklin. Note, the patient has been on fluid restriction since October [address] Franklin and done very well. #6: COPD. Asthma. #7: Insulin dependent diabetes mellitus. #8: History of demyelinating polyneuropathy (CIDP); now under the care of Dr. 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 Dilshad Engle #16: History of cardiac arrhythmias including acute ventricular tachycardia during June-July 2012 hospitalization and more recently January 2017 hospitalization #17: History of megacolon followed by Dr. Brandt Cueva #18: Cardiac pacemaker #19: See past history 05/25/2017. Patient has been seen in pain management consultation by Dr. Mckenna. He is scheduled for kyphoplasty today. With regard to the slightly enlarged cyst on the patient's spleen, he has been seen in surgical consultation by Dr. Ino PASCUAL. His note has been reviewed and we wholeheartedly agree with his plans. This morning, the patient is obviously feeling better. KUB done yesterday showed gaseous distention. He reports flatus, but no bowel movement. On abdominal exam, the patient is less distended and nontender. Medications have been reviewed. We made no changes today. Labs been reviewed. White count is 5600 with 92.6% segs; H&H 11.2/34.6; platelet count 256,000; creatinine 1.10, BUN 30, electrolytes are normal Microbiology has been reviewed, however, there are no reported results. Urine culture is pending. Exam (Progress Note) - Constitutional Vitals: Period Temp Pulse Resp BP Sys/Marroquin Pulse Ox Last 24 Hr 97 F-98.5 F 69-78 18-20 110-139/61-78 89-99 Exam: Chest is clear Heart no gallop Abdomen... See above Lower extremities with nothing to suggest acute deep venous thrombophlebitis Psychiatric oriented 3 Neurologic long tract motor function is intact Plan: Agree with kyphoplasty today. Agree with Dr. Ino PASCUAL regarding the cyst on the patient's plan. Continue present treatment. See orders. Results - Labs CBC & BMP: 05/25/17 04:40 05/25/17 04:40
[2017-05-25] MEDS: methylPREDNISolone SOD SUC 40 MG/1 ML VIAL IV SCH ×2 (09:33→22:01)
--- NOTE | 2017-05-25 10:02 | Hospitalist Progress Note ---
Assessment and Plan (1) T9 vertebral fracture Status: Acute Assessment and plan: The patient is to have kyphoplasty by Dr. Mckenna today to reduce the pain associated with his compression fracture. This should have a good effect upon bowel function. Current Visit: Yes (2) Constipation Status: Acute Current Visit: Yes Hospitalist: Subjective Interval history: The patient is in improved spirits this morning. He is to have kyphoplasty later today. The patient did pass flatus and has less abdominal discomfort. Exam - Constitutional Vitals: Period Temp Pulse Resp BP Sys/Marroquin Pulse Ox Last 24 Hr 97 F-98.5 F 69-78 18-20 110-139/61-78 89-99 General appearance: mild distress - Respiratory Respiratory exam: Present: clear to auscultation bilaterally - Cardiovascular Cardiovascular exam: Present: regular rate and rhythm - GI/Abdominal GI/Abdominal exam: Present: hypoactive bowel sounds Results - Labs CBC & BMP: 05/25/17 04:40 05/25/17 04:40
[2017-05-25] MEDS ORDERED: ROPIVACAINE 0.5% 30 ML VIAL ONE (13:40)
[2017-05-25] MEDS ORDERED: TISSUE ADHESIVE 1 EACH APPLICATOR TOP ONE (14:22)
--- NOTE | 2017-05-25 14:29 | Operative Note ---
Date of procedure: 05/25/17 Pre-op diagnosis: Osteoporotic thoracic compression fracture Post-op diagnosis: same Procedure: Preoperative diagnosis: #1 chronic thoracic compression fracture acute T9 Postoperative diagnosis: Same Procedure: Kyphoplasty thoracic level T9 Anesthesia: MAC Estimated blood loss: Minimal Complications: None Findings: There is excellent distribution bone cement throughout the vertebral body. History of present illness: The patient fell several days ago and has severe mid back pain. Studies demonstrated acute fracture of T9 approximately 25-30% superior endplate fracture. Due to severity of his pain and inability to get up and walk or perform activities of daily living is a candidate for kyphoplasty at this level. Procedure note: The risk benefits and occasions of the procedure were explained the patient, including the option to do nothing all, he understood these wished to proceed. The patient was placed in the prone position on the fluoroscopy table, all pressure points padded, and his back was prepped with alcohol and ChloraPrep allowed to dry and sterilely draped. T9 was visualized under fluoroscopy and skin was raised above the pedicles of T9 bilaterally. Stab wounds made with 11 blade scalpel through the skin wheals and to the stab wounds were advanced the 11-gauge bone trochars. These were advanced from an oblique point of view under careful fluoroscopic control. These were advanced until they struck the posterior aspect of T9 bilaterally. Then using a bone mallet driven down to the posterior aspect of the pedicle of T9 bilaterally. The tips needles were advanced into the posterior aspect of the T9 vertebral body with special care to avoid the neural foramen pleura and nerve roots. I then advanced the biopsy probe into the body T9 to rule out other pathological causes of the fracture. I then placed the pump bone drill into the vertebral body of T9 this was a hand bone drill and advanced through the body of T9 under careful fluoroscopic control. Was doing this an cement tester assistant mixed the bone cement which was radiopaque methylmethacrylate. After adequate set up time using the bone filler syringe and long needle this was placed into the vertebral body T9 through the bone trochars. Prior to doing this I did place balloon bone tamps into the vertebral body of T9 which were inflated to approximately 100 100s-150 pounds per square inch. Each holding approximately 2 -3 cc of contrasted fluid. There is partial hinduism of the vertebral body height. I then injected the methyl methacrylate under careful fluoroscopic control. The patient received approximately 4-5 cc of the bone cement into the T9 vertebral body. There is excellent distribution throughout the body of T9. I then removed the bone trochars after the stylets have been replaced into them. Skin glue was used on the wounds and the wounds were sterilely dressed, the patient was taken recovery in satisfactory condition. Anesthesia: MAC Surgeon / Physician: Kaiden Mckenna Estimated blood loss: minimal Specimens: none sent Condition: stable Disposition: PACU Results - Labs CBC & BMP: 05/25/17 04:40 05/25/17 04:40 Discharge Plan - Discharge Data Condition at Discharge: Stable Activity: increase activity as tolerated (May walk with assistance) - Discharge Medications No Action Acetaminophen Tab [Tylenol Tab] 325 mg PO DAILY PRN PRN Reason: Pain Montelukast Tab [Singulair Tab] 10 mg PO BEDTIME Multivitamin [Multivitamins] 1 each PO DAILY Magnesium Oxide 400 mg PO DAILY Rosuvastatin [Crestor] 20 mg PO BEDTIME Lubiprostone [Amitiza] 8 mcg PO BID PRN PRN Reason: diabetes Spironolactone [Aldactone] 50 mg PO DAILY tablet Diclofenac 1% Gel [Voltaren 1% Gel] 1 unit TOP QID PRN #1 gel PRN Reason: pain Fludrocortisone [Florinef] 0.2 mg PO BID tablet Lisinopril [Prinivil] 5 mg PO DAILY tablet Albuterol Inhaler [Proventil Inhaler] 2 puff INH Q4H PRN PRN Reason: Shortness Of Breath/Wheezing Budesonide/Formoterol 80-4.5 [Symbicort 80-4.5] 2 puff INH BID PRN PRN Reason: Shortness Of Breath/Wheezing Cholecalciferol (Vitamin D3) [Vitamin D3] 2,000 unit PO DAILY Cyanocobalamin (Vitamin B-12) [Cyanocobalamin Injection] 3 ml IJ SA Fluticasone 50 Mcg Nasal [place] [Flonase Nasal [place]] 1 spray BOTH NARES BID PRN PRN Reason: Allergy Symptoms Folic Acid Tab 1 mg PO DAILY LORazepam TAB [Ativan Tab] 0.5 mg PO DAILY PRN PRN Reason: Anxiety Mexiletine [Mexitil] 200 mg PO BID Omeprazole 20 mg PO DAILY Potassium Chloride 10 meq PO BID Simethicone [Phazyme] 180 mg PO DAILY PRN PRN Reason: FLATULENCE Gabapentin Cap/Tab [Neurontin Cap/Tab] 200 mg PO TID Thyroid,Pork [[place] Thyroid] 90 mg PO DAILY Carvedilol [Coreg] 6.25 mg PO BID Calcium (Carbonate) [Caltrate 600] 1,500 mg PO DAILY Amiodarone Tab [Cordarone Tab] 200 mg PO DAILY Mupirocin Calcium [Bactroban 2% Cream] 1 applic TOP TID Aspirin Chew Tab 81 mg PO DAILY Fexofenadine [Bibi] 180 mg PO DAILY Ipratropium 0.03% Nasal [place] [Atrovent 0.03% Nasal [place]] 1 spray BOTH NARES DAILY PRN PRN Reason: Sinus Symptoms metFORMIN [Glucophage] 250 mg PO BID Polyethylene Glycol Powder [Miralax] 15 gm PO DAILY cycloSPORINE OPH EMUL [Restasis] 1 drop BOTH EYES BID Sitagliptin Phosphate [Januvia] 50 mg PO DAILY Alendronate Sodium 35 mg PO SA Methenamine Hippurate [Hiprex] 1 gm PO BID [place]-3 Fatty Acids [Maxepa] 1,000 mg PO DAILY Sodium Chl/Potassium Chl Tab [Thermotabs] 2 tablet PO BID cycloSPORINE OPH EMUL [Restasis] 0.05 drop BOTH EYES BID Digoxin Tab [Lanoxin Tab] 0.0625 mg PO DAILY Insulin Regular [HumuLIN R] See Protocol SUBCUT TID Imipramine [Tofranil] 10 mg PO DAILY metOLazone [Metolazone] 2.5 mg PO DAILY Ondansetron Tab [Zofran Tab] 4 mg PO BID PRN PRN Reason: Nausea - Follow Up or Referral - Forms/Instructions
--- NOTE | 2017-05-25 14:48 | Anesthesia Post-Op ---
Anesthesia Post OP - Post Ansesthetic Evaluation Patient seen in post op: Yes Resp: within normal limits CV: within normal limits Mental: within normal limits Temp: within normal limits [id number]: within normal limits Nausea and Vomiting: within normal limits Pain: within normal limits
[2017-05-25] MEDS ORDERED: fentaNYL 100 MCG/2 ML VIAL ONE (14:56)
[2017-05-25] MEDS ORDERED: MIDAZOLAM 2 MG/2 ML VIAL ONE (14:56)
[2017-05-25] MEDS ORDERED: KETAMINE 500 MG/10 ML VIAL ONE (14:56)
[2017-05-25] MEDS ORDERED: PROPOFOL 200 MG/20 ML VIAL IV ONE (14:57)
[2017-05-25] MEDS ORDERED: SODIUM CHLORIDE 0.9% 100 ML IV ONE (14:58)
[2017-05-25] MEDS: ROSUVASTATIN 20 MG TABLET PO SCH (21:51)
[2017-05-25] MEDS: DOCUSATE SODIUM 100 MG CAPSULE PO PRN (21:52)
[2017-05-25] MEDS: MONTELUKAST 10 MG TABLET PO SCH (21:52)
[2017-05-26] MEDS: metFORMIN 500 MG TABLET PO SCH ×2 (00:39→08:40)
[2017-05-26] MEDS: INSULIN LISPRO 100 UNIT/ML SUBCUT SCH ×3 (00:39→12:34)
[2017-05-26] MEDS: KETOROLAC 15 MG/1 ML VIAL IV SCH ×2 (00:40→08:45)
[2017-05-26] MEDS: cycloSPORINE OPH EMUL 1 VIAL BOTH EYES SCH ×2 (00:42→08:40)
[2017-05-26] MEDS: LEVOFLOXACIN INJ 750 MG in PREMIX 1 EACH IV SCH (03:57)
[2017-05-26] MEDS: ALBUTEROL/IPRATROPIUM 3 ML NEB RESP TX SCH ×2 (06:56)
[2017-05-26] MEDS ORDERED: MAGNESIUM HYDROXIDE SUSP 30 ML UDCUP PO PRN (08:10)
[2017-05-26] MEDS: THYROID 60 MG TABLET PO SCH (08:36)
[2017-05-26] MEDS: METHENAMINE HIPPURATE 1 GM TABLET PO SCH (08:37)
[2017-05-26] MEDS: IMIPRAMINE 10 MG TABLET PO SCH (08:37)
[2017-05-26] MEDS: CALCIUM (CARBONATE) 600 MG TABLET PO SCH (08:37)
[2017-05-26] MEDS: FLUDROCORTISONE 0.1 MG TABLET PO SCH (08:37)
[2017-05-26] MEDS: FEXOFENADINE 180 MG TABLET PO SCH (08:37)
[2017-05-26] MEDS: CARVEDILOL 6.25 MG TABLET PO SCH (08:38)
[2017-05-26] MEDS: LUBIPROSTONE 8 MCG CAPSULE PO SCH (08:38)
[2017-05-26] MEDS: CHOLECALCIFEROL 1,000 UNIT TABLET PO SCH (08:38)
[2017-05-26] MEDS: PANTOPRAZOLE 40 MG TABLET PO SCH (08:38)
[2017-05-26] MEDS: MULTIVITAMIN (CENTRUM) TABLET PO SCH (08:38)
[2017-05-26] MEDS: GABAPENTIN 100 MG CAPSULE PO SCH (08:38)
[2017-05-26] MEDS: MEXILETINE 200 MG CAPSULE PO SCH (08:39)
[2017-05-26] MEDS: FOLIC ACID 1 MG TABLET PO SCH (08:39)
[2017-05-26] MEDS: sitaGLIPtin 25 MG TABLET PO SCH (08:39)
[2017-05-26] MEDS: MAGNESIUM OXIDE 400 MG TABLET PO SCH (08:39)
[2017-05-26] MEDS: DIGOXIN 0.125 MG TABLET PO SCH (08:39)
[2017-05-26] MEDS: ASPIRIN CHEW 81 MG TABLET PO SCH (08:39)
[2017-05-26] MEDS: DESITIN 4OZ/NYSTATIN 15 GRAM MIXTURE PASTE TOP SCH (08:40)
[2017-05-26] MEDS: OMEGA 3 ACID ETHYL ESTERS 1 GM CAPSULE PO SCH (08:40)
[2017-05-26] MEDS: MUPIROCIN 2% OINT 22 GM TUBE TOP SCH (08:40)
[2017-05-26] MEDS: POLYETHYLENE GLYCOL POWDER 17 GM PACK PO SCH (08:40)
[2017-05-26] MEDS: AMIODARONE 200 MG TABLET PO SCH (08:40)
[2017-05-26] MEDS: metOLazone 2.5 MG TABLET PO SCH (08:45)
[2017-05-26] MEDS: DOCUSATE SODIUM 100 MG CAPSULE PO PRN (08:49)
--- NOTE | 2017-05-26 09:04 | Discharge Summary ---
Hospital Course - Hospital Course Hospital Course: The patient was admitted to the hospital with thoracic back pain with radiation into the abdomen causing abdominal discomfort and ileus. The patient was identified to have T9 compression fracture. The patient has prior T8 compression fracture. Dr. Kaiden Mckenna was consulted and kyphoplasty was performed on May 25. The patient returned to the room with good result and much less pain. The patient's usual bowel regimen was restarted and bowel function is improving. The patient had consultations with spinning bath patroller and general surgeon. The patient has returned to her usual level of function and is ready for discharge home and outpatient follow-up. On the date of discharge, chest is clear and abdomen soft. 32 minutes were required to prepare discharge, examine and evaluate as well as give patient education. MIPS: The patient is a previous smoker. I gave him 4 minutes tobacco avoidance education and encouragement to continue off smoking. - Time spent with patient Time with patient DS: Greater than 30 minutes Diagnosis - Discharge Diagnosis (1) T9 vertebral fracture Status: Resolved (2) Constipation Status: Chronic Discharge Plan - Discharge Data Disposition: Disch To Home/Self Care Condition at Discharge: Stable Discharge Diet: high fiber diet Activity: resume usual activities as tolerated - Discharge Medications Continue Acetaminophen Tab [Tylenol Tab] 325 mg PO DAILY PRN PRN Reason: Pain Montelukast Tab [Singulair Tab] 10 mg PO BEDTIME Multivitamin [Multivitamins] 1 each PO DAILY Magnesium Oxide 400 mg PO DAILY Rosuvastatin [Crestor] 20 mg PO BEDTIME Lubiprostone [Amitiza] 8 mcg PO BID PRN PRN Reason: diabetes Spironolactone [Aldactone] 50 mg PO DAILY tablet Diclofenac 1% Gel [Voltaren 1% Gel] 1 unit TOP QID PRN #1 gel PRN Reason: pain Fludrocortisone [Florinef] 0.2 mg PO BID tablet Lisinopril [Prinivil] 5 mg PO DAILY tablet Albuterol Inhaler [Proventil Inhaler] 2 puff INH Q4H PRN PRN Reason: Shortness Of Breath/Wheezing Budesonide/Formoterol 80-4.5 [Symbicort 80-4.5] 2 puff INH BID PRN PRN Reason: Shortness Of Breath/Wheezing Cholecalciferol (Vitamin D3) [Vitamin D3] 2,000 unit PO DAILY Cyanocobalamin (Vitamin B-12) [Cyanocobalamin Injection] 3 ml IJ SA Fluticasone 50 Mcg Nasal [place] [Flonase Nasal [place]] 1 spray BOTH NARES BID PRN PRN Reason: Allergy Symptoms Folic Acid Tab 1 mg PO DAILY LORazepam TAB [Ativan Tab] 0.5 mg PO DAILY PRN PRN Reason: Anxiety Mexiletine [Mexitil] 200 mg PO BID Omeprazole 20 mg PO DAILY Potassium Chloride 10 meq PO BID Simethicone [Phazyme] 180 mg PO DAILY PRN PRN Reason: FLATULENCE Gabapentin Cap/Tab [Neurontin Cap/Tab] 200 mg PO TID Thyroid,Pork [[place] Thyroid] 90 mg PO DAILY Carvedilol [Coreg] 6.25 mg PO BID Calcium (Carbonate) [Caltrate 600] 1,500 mg PO DAILY Amiodarone Tab [Cordarone Tab] 200 mg PO DAILY Mupirocin Calcium [Bactroban 2% Cream] 1 applic TOP TID Aspirin Chew Tab 81 mg PO DAILY Fexofenadine [Bibi] 180 mg PO DAILY Ipratropium 0.03% Nasal [place] [Atrovent 0.03% Nasal [place]] 1 spray BOTH NARES DAILY PRN PRN Reason: Sinus Symptoms metFORMIN [Glucophage] 250 mg PO BID Polyethylene Glycol Powder [Miralax] 15 gm PO DAILY cycloSPORINE OPH EMUL [Restasis] 1 drop BOTH EYES BID Sitagliptin Phosphate [Januvia] 50 mg PO DAILY Alendronate Sodium 35 mg PO SA Methenamine Hippurate [Hiprex] 1 gm PO BID [place]-3 Fatty Acids [Maxepa] 1,000 mg PO DAILY Sodium Chl/Potassium Chl Tab [Thermotabs] 2 tablet PO BID cycloSPORINE OPH EMUL [Restasis] 0.05 drop BOTH EYES BID Digoxin Tab [Lanoxin Tab] 0.0625 mg PO DAILY Insulin Regular [HumuLIN R] See Protocol SUBCUT TID Imipramine [Tofranil] 10 mg PO DAILY metOLazone [Metolazone] 2.5 mg PO DAILY Ondansetron Tab [Zofran Tab] 4 mg PO BID PRN PRN Reason: Nausea - Follow Up or Referral Follow Up: Christian Lino MD [Physician] - 1 Month - Forms/Instructions Exam - Constitutional Vitals: Period Temp Pulse Resp BP Sys/Marroquin Pulse Ox Last 24 Hr 96.6 F-98.7 F 62-76 16-22 106-126/62-74 90-100 Discharge Results Procedures and tests throughout hospitalization: Pending Orders 05/23/17 Urine Culture Routine Labs on day of discharge: Labs from last 24 hours 05/26/17 05/25/17 05/25/17 06:57 21:04 19:57 POC Glucose 258 H 190 H 200 H 05/25/17 11:29 POC Glucose 177 H Preliminary micro results at discharge 05/23/17 Unknown Urine Culture - Preliminary Urine,Voided Gram Negative Rods DS: Provider Date of admission: 05/24/17 09:44 Primary care physician: . No PCP Attending physician on admission: Ry Mcconnell MD Consults: 05/24/17 03:43 Consult to Physician [CONS] Routine Comment: Consulting Provider: Christian Lino Person Notified: KANDY Date Notified: 05/24/17 Time Notified: 08:53 05/24/17 09:43 Consult to Physician [CONS] Routine Comment: vertebral fx T8 Consulting Provider: Kaiden Mckenna 05/24/17 10:03 Consult to Physician [CONS] Routine Comment: comp. fx post fall; pain Consulting Provider: Kaiden Mckenna Person Notified: FARRAH Date Notified: 05/24/17 Time Notified: 10:13 05/24/17 10:30 Consult to Physician [CONS] Routine Comment: abn spleen on MRI; trauma; please follow along Consulting Provider: James Weiner Person Notified: Hamida Date Notified: 05/24/17 Time Notified: 11:25 05/24/17 14:30 Consult to Anesthesiology [CONS] Routine Consulting Provider: Reason for Anesthesiology: Pre-op Clearance Discharging clinician: Brandon Archer MD
--- NOTE | 2017-05-26 09:11 | General Surgery Progress Note ---
Assessment and Plan (1) Megacolon Status: Chronic Assessment and plan: I think that there is likely an element of ileus related to his vertebral compression fracture which he is certainly predisposed to with his history of previous colonic pseudoobstruction and chronic megacolon. I would manage this conservatively. I do not see evidence of intra-abdominal trauma or acute abdomen. 05/25: He is having some flatus and feels better. Feels less distended. His abdomen is completely nontender. He is for treatment of his compression fracture today. Hopefully this will help with his GI function. 05/26: He feels better. He is passing flatus a little bit of bowel movement. He is going to get back on his regular bowel regimen which consists of warm prune juice and milk of magnesia which they are giving him this morning. He feels better since the kyphoplasty. I do not see any need for acute surgical intervention. I agree with your medical management. I will be available if needed. Current Visit: Yes (2) Cyst of spleen Status: Acute Assessment and plan: The etiology of this is unclear. It has a benign appearance on CT scan and certainly does not appear to be traumatic. That is enlarged over time. I would not deal with this acutely. But it may need to be addressed in the future. He is not a good surgical candidate for splenectomy. Current Visit: Yes Subjective Patient reports: Present: feels better, flatus, bowel movement. Absent: still having pain, nausea, vomiting Exam - Constitutional Vitals: Period Temp Pulse Resp BP Sys/Marroquin Pulse Ox Last 24 Hr 96.6 F-98.7 F 62-76 16-22 106-126/62-74 90-100 General appearance: no acute distress - ENT Mouth exam: Present: normal voice - Respiratory Respiratory exam: Absent: accessory muscle use - GI/Abdominal GI/Abdominal exam: Present: soft. Absent: distended, guarding, tenderness, rebound Results - Labs CBC & BMP: 05/25/17 04:40 05/25/17 04:40 Lab Results: I have reviewed the past 24 hour labs Specialty Discharge - Follow Up or Referrals Follow up with: Christian Lino MD [Physician] - 1 Month
[2017-05-26] MEDS: methylPREDNISolone SOD SUC 40 MG/1 ML VIAL IV SCH (10:13)
--- NOTE | 2017-05-26 10:28 | Pulmonology Progress Note ---
Pulmonary - PN: Subj Interval history: Norbert Olivas, [facility]-, acting as scribe for Dr. Christian Lino Mr. Ahumada is an 82-year-old white male who we saw in initial pulmonary consultation on 05/25/2017. At that time, our impressions were: #1: Acute T9 compression fracture status post fall #2: Acute urinary tract infection #3: Probable acute ileus. KUB pending. #4: Costochondritis #5: Chronic renal failure; under the care of Dr. Franklin. Note, the patient has been on fluid restriction since October [address] Franklin and done very well. #6: COPD. Asthma. #7: Insulin dependent diabetes mellitus. #8: History of demyelinating polyneuropathy (CIDP); now under the care of Dr. 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 Dilshad Engle #16: History of cardiac arrhythmias including acute ventricular tachycardia during June-July 2012 hospitalization and more recently January 2017 hospitalization #17: History of megacolon followed by Dr. Brandt Cueva #18: Cardiac pacemaker #19: See past history 05/25/2017. Patient has been seen in pain management consultation by Dr. Mckenna. He is scheduled for kyphoplasty today. With regard to the slightly enlarged cyst on the patient's spleen, he has been seen in surgical consultation by Dr. Ino PASCUAL. His note has been reviewed and we wholeheartedly agree with his plans. This morning, the patient is obviously feeling better. KUB done yesterday showed gaseous distention. He reports flatus, but no bowel movement. On abdominal exam, the patient is less distended and nontender. 05/26/17. The patient was seen today along with his and Linda Hillman RN. The patient underwent kyphoplasty of T9 by Dr. Mckenna yesterday. There were no complications from this. The patient's back pain is markedly improved. He is passing flatus, but has had difficulty with his bowel movements. At home, he takes warm prune juice and milk of magnesia daily. This is been restarted. The patient has been on Levaquin since admission for an acute urinary tract infection. Urine cultures growing a gram-negative judith, but this is yet to be identified. Plans for discharge are noted, however, we would like for him to have at least one dose of IV Fortaz prior to discharge since the identification has not been reported. Note, he was on Cipro prior to this admission and had been off it for approximately 1 week. He is also on Hiprex prophylactically. Medications have been reviewed. Fortaz was started today. Labs been reviewed. No new labs drawn today. Microbiology has been reviewed, however, there are no reported final results. Urine culture is growing a gram-negative judith. Exam (Progress Note) - Constitutional Vitals: Period Temp Pulse Resp BP Sys/Marroquin Pulse Ox Last 24 Hr 96.6 F-98.7 F 62-76 16-22 106-126/62-74 90-100 Exam: Chest is clear Heart no gallop Abdomen... See above; nontender and nondistended with positive bowel sounds 4 Lower extremities with nothing to suggest acute deep venous thrombophlebitis Psychiatric oriented 3 Neurologic long tract motor function is intact Plan: Fortaz 1 g IV times at least one dose before he leaves. Follow-up urine culture when available. See orders. Results - Labs CBC & BMP: 05/25/17 04:40 05/25/17 04:40 Specialty Discharge - Follow Up or Referrals Follow up with: Kaiden Mckenna MD [Physician] - 1 Week Christian Lino MD [Physician] - 1 Month
[2017-05-26 12:00] VITALS: BP 128/69
--- NOTE | 2017-05-28 11:21 | Pathology Report from [facility] ---
[facility] ACCESSION # : [id number] PATIENT NAME : Jaswinder Duran ORDERING DR : MATTHEW MICHAEL MD CLINICAL HX: FX T9 POST-OP DX: Saem SPECIMEN INFO: T9 BX tissue GROSS DESCRIPTION: Received in formalin labeled JASWINDER DURAN are two light brown fragment of bone and tissue measuring 0.8 x 0.2 cm submitted in one cassette following decalcification. DIAGNOSIS FOR JASWINDER DURAN: T9 BIOPSY TISSUE: Cancellous bone and blood; no tumor seen. COLLECTED DATE: 05/26/2017 [facility] REPORT DATE: 05/27/2017 ELECTRONICALLY SIGNED BY: Isabela Flores M.D. 05/27/2017 - 9:59:13 [facility]
[2017-05-29] MEDS ORDERED: Alendronate Sodium [Alendronate Sodium] 35 MG Tablet PO SCH (03:50)
== END 2017-05-26 13:07 | disposition home or self-care (01) | DRG 478 ==
LOC: N.ED 19:07 → N.EDINP 19:07 → SUATTDRO 05-24 03:03 → N.5E 05-24 03:46
PROVIDERS: ADMIT Family Medicine; ATTEND Internal Medicine

== ENCOUNTER 2017-08-01 06:28 | Inpatient (IN) ==
[2017-08-01] MEDS ORDERED: SUMAtriptan 6 MG/0.5 ML VIAL SUBCUT STA (06:50)
[2017-08-01] MEDS ORDERED: METOCLOPRAMIDE 10 MG/2 ML VIAL IV STA (06:50)
--- NOTE | 2017-08-01 06:55 | Emergency Department Note ---
Arrival - Arrival Chief Complaint: Dizziness Stated Complaint: Near syncopy, chest discomfort ED Nursing Triage Note: C/O Dizziness and headache upon bending over- Pt states that he nearly passed out. Pt reports that when he made it back to the bed he started having chest pain that lasted approx 30 minutes and has since resolved. Pt was given 324mg ASA and 1 SL nitro by EMS. Pt reports that he still has a headache now. Pt reports that this has been going on "for a while" Denies seeking medical attention about dizziness until today. Mode of Arrival: Stretcher Limitations: No Limitations Source: Patient Time Seen by Provider: 08/01/17 06:50 - History of Present Illness HPI Narrative: This 82-year-old white male presents with a history of awakening to go to the bathroom this morning when he became very dizzy and nearly passed out after completing his business. Immediately after this, he had onset of left-sided chest tightness as well as a severe right headache which persists at this time. The patient denies nausea, vomiting, diaphoresis, or shortness of breath in association with this. He did receive an aspirin and nitro per EMS on their arrival at the scene. The patient reports that his chest pain has resolved but he still has persistence of the headache without associated complaints of photophobia, slurred speech, visual changes, or focal deficits. Currently he is alert and oriented 3 in no medical distress. Onset (ago): hour(s) (Patient presents 3 hours post onset of symptoms) Allergies/Adverse Reactions: Allergies Allergy/AdvReac Type Severity Reaction Status Date / Time morphine Allergy Severe Nausea Verified 04/05/17 12:15 pseudoephedrine Allergy Severe RASH Verified 04/05/17 12:15 [From Sudafed] loratadine [From Claritin] Allergy Unknown/Unable Verified 04/05/17 12:15 to obtain sulfur dioxide Allergy Unknown/Unable Verified 04/05/17 12:15 to obtain Home Medications: Home Medications Medication Instructions Recorded Confirmed Type Acetaminophen Tab [Tylenol Tab] 325 mg PO DAILY PRN 04/21/15 05/28/17 History Magnesium Oxide 400 mg PO BID 04/21/15 05/28/17 History Montelukast Tab [Singulair Tab] 10 mg PO BEDTIME 04/21/15 05/28/17 History Multivitamin [Multivitamins] 1 each PO DAILY 04/21/15 05/28/17 History Rosuvastatin [Crestor] 20 mg PO BEDTIME 04/21/15 05/28/17 History Lubiprostone [Amitiza] 8 mcg PO BID 05/28/15 05/28/17 History Diclofenac 1% Gel [Voltaren 1% Gel] 1 unit TOP QID PRN #1 gel 10/18/15 05/28/17 Rx Spironolactone [Aldactone] 50 mg PO DAILY tablet 10/18/15 05/28/17 Rx Lisinopril [Prinivil] 5 mg PO DAILY tablet 07/29/16 05/28/17 Rx Sitagliptin Phosphate [Januvia] 50 mg PO DAILY 02/05/17 05/28/17 History Alendronate Sodium 35 mg PO SA 02/08/17 05/28/17 History Methenamine Hippurate [Hiprex] 1 gm PO BID 02/11/17 05/28/17 History Albuterol Inhaler [Proventil 2 puff INH Q4H PRN 03/06/17 05/28/17 History Inhaler] Budesonide/Formoterol 80-4.5 2 puff INH BID PRN 03/06/17 05/28/17 History [Symbicort 80-4.5] Cholecalciferol (Vitamin D3) 2,000 unit PO DAILY 03/06/17 05/28/17 History [Vitamin D3] Cyanocobalamin (Vitamin B-12) 1 ml IM SA 03/06/17 05/28/17 History [Cyanocobalamin Injection] Fluticasone 50 Mcg Nasal [place] 1 spray BOTH NARES BID PRN 03/06/17 05/28/17 History [Flonase Nasal [place]] Folic Acid Tab 1 mg PO DAILY 03/06/17 05/28/17 History LORazepam TAB [Ativan Tab] 0.5 mg PO TID PRN 03/06/17 05/28/17 History Mexiletine [Mexitil] 200 mg PO BID 03/06/17 05/28/17 History [place]-3 Fatty Acids [Maxepa] 1,000 mg PO DAILY 03/06/17 05/28/17 History Omeprazole 20 mg PO DAILY 03/06/17 05/28/17 History Potassium Chloride 10 meq PO BID 03/06/17 05/28/17 History Simethicone [Phazyme] 180 mg PO DAILY PRN 03/06/17 06/15/17 History Amiodarone Tab [Cordarone Tab] 200 mg PO DAILY 04/05/17 05/28/17 History Calcium (Carbonate) [Caltrate 600] 600 mg PO DAILY 04/05/17 05/28/17 History Carvedilol [Coreg] 6.25 mg PO BID 04/05/17 05/28/17 History Digoxin Tab [Lanoxin Tab] 125 mcg PO DAILY 04/05/17 05/28/17 History Gabapentin Cap/Tab [Neurontin 200 mg PO TID 04/05/17 05/28/17 History Cap/Tab] Insulin Regular [HumuLIN R] See Protocol SUBCUT TID 04/05/17 05/28/17 History Mupirocin Calcium [Bactroban 2% 1 applic TOP TID 04/05/17 05/28/17 History Cream] Sodium Chl/Potassium Chl Tab 2 tablet PO BID 04/05/17 05/28/17 History [Thermotabs] Thyroid,Pork [[place] Thyroid] 90 mg PO DAILY 04/05/17 05/28/17 History Fexofenadine [Bibi] 180 mg PO DAILY 05/23/17 06/15/17 History Imipramine [Tofranil] 10 mg PO DAILY 05/23/17 05/28/17 History Ondansetron Tab [Zofran Tab] 4 mg PO BID PRN 05/23/17 05/28/17 History Polyethylene Glycol Powder 15 gm PO DAILY 05/23/17 05/28/17 History [Miralax] metFORMIN [Glucophage] 250 mg PO BID 05/23/17 05/28/17 History metOLazone [Metolazone] 2.5 mg PO DAILY 05/23/17 05/28/17 History cycloSPORINE OPH EMUL [Restasis] 1 drop BOTH EYES BID 05/24/17 05/28/17 History Acetamin/Codeine 300-30 Tab 1 tablet PO Q6H PRN 05/28/17 05/28/17 History [Tylenol/Codeine #3] Aspirin EC Tab 81 mg PO DAILY 05/28/17 05/28/17 History Fludrocortisone [Florinef] 2 tablet PO BID 05/28/17 05/28/17 History Furosemide Tab [Lasix Tab] 40 mg PO BID DIURETIC PRN 05/28/17 05/28/17 History Ipratropium 0.06% Nasal [place] 2 spray BOTH NARES TID 05/28/17 05/28/17 History [Atrovent 0.06% Nasal [place]] Tramadol HCl [Tramadol Tab] 50 mg PO Q6H PRN 05/28/17 05/28/17 History Review of System - Review of System 12 point system: reviewed and no additional remarkable complaints except as stated - Review of System Constitutional: Present: as per HPI Respiratory: Present: as per HPI Cardiovascular: Present: as per HPI Gastrointestinal: Present: as per HPI Neurological: Present: as per HPI Medical,Surgical,& Family Hx - Medical History Cardio: History of: Cardiac Dysrhythmia, Cerebrovascular Disease, CHF, CAD ( Mild nonobstructive CAD), Hypertension, Pacemaker (and defib), Cardiovascular Problems (gerd) No history of: [place] Psychological: No history of: Anxiety Disorders (ying), ADHD, Behavior Problems, Bipolar Disorder, Depression, Previous Suicide Attempt, Psychiatric/Substance Abuse Tx, Schizophrenia, Violent Behavior, Psychiatric Problems Neurology: History of: 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), Vertigo No history of: Brain Aneurysm, Cerebral Hemorrhage, Cerebrovascular Accident , Cerebral Palsy, Dementia, Migraine, Seizures, TIA HEENT: No history of: Ear Problem, Eye Problem, Dental Problems, Glaucoma, Oral Cancer, HEENT Problems Endocrine: History of: Diabetes Mellitus (IDDM), Diabetes Mellitus (NIDDM), Dyslipidemia, Thyroid Disorder Rheumatology: History of;: Rheumatoid Arthritis No history of;: Fibromyalgia, Psoriasis, Sjogrens, Systemic Lupus Erythematosus Respiratory: History of: COPD, Obstructive Sleep Apnea (uses cpap), Pneumonia ( Aug 2015), Respiratory Problems No history of: Asthma, Bronchitis, Pulmonary Embolism, Pulmonary Hypertension Renal: History of: Renal Failure (Chronic renal insufficiency), Renal Problems ( cyst on left kidney followed by Dr. Bob Nunez) Genitourinary: History of: Bladder Problem (residual (I&O cath 2x daily)), Prostate Problems (History of prostate cancer, this was surgically treated.) Gastrointestinal: History of: GERD, GI Problems ("ilia colon", burgess's esophagus, dysphagia) No history of: Bowel Obstruction, Gastrointestinal Bleed, Hepatitis, Liver Problems Musculoskeletal: History of: Back/Neck Problems (chronic back pain) No history of: Amputation Hematology: No history of: Blood Transfusion Reaction Other: History of: Cancer (prostate) No history of: Anesthesia Reactions, Malignant Hyperthermia, MRSA, Vancomycin -Resistant Enterococci, Skin Problems, Miscellaneous Medical Problems - Surgical History Cardiac Surgeries: Sugical HX of: Cardiac Catheterization (January 2017), Cardiac Surgery (pacemaker/aicd), Internal Defibrillator Patient Denies: Carotid Endarterectomy Thoracic Surgeries: Patient denies;: Organ Transplant, Lobectomy Neurologic Surgeries: Patient denies: Brain Aneurysm, Cerebral Hemorrhage, Neurologic Surgery HEENT Surgeries: Surgical HX of: Eye Surgery (cataracts, eyelids lifted) Patient denies: Carotid Endarterectomy, Tonsilectomy & Adenoidectomy Abdominal Surgeries: Surgical HX of: Abdominal Surgery, Cholecystectomy (03/2014) , Colonoscopy, EGD ([facility]) Patient denies: Appendectomy, Hernia Repair Reproductive Surgeries: Surgical HX of;: Prostate Surgery (cryo "freezing" of prostate-2012) Orthopedic Surgeries: Surgical HX of;: Orthopedic Surgery (ORIF Left ankle, right ankle), Total Knee Replacement (left) - Family History Family History: Reports;: Family Cancer (father-colon, brother-colon, sister- colon), Family Heart Disease, Family Hypertension, Family Stroke - Social History Smoking Status: Never smoker Frequency of Alcohol Use: None Type of Drug Use: None Exam Physical Examination: GENERAL: Well developed, well nourished elderly white male in no acute distress. HEENT: Normocephalic. No trauma. Moist mucous membranes. EOMI. PERRLA. ENT NML NECK: Supple. No adenopathy. CARDIAC: Regular. No murmurs. Heart rate 75 O2 sat 94% CHEST: Clear to auscultation. No respiratory distress. ABDOMEN: Soft. Nontender. Active bowel sounds. EXTREMITIES: No trauma. Normal ROM. No pedal edema. SKIN: No diaphoresis. No rash. NEURO: Alert. Oriented 3. Motor, sensory, vibratory intact. No focal deficits. Vital Signs: Vital Signs Temperature 98.3 F 08/01/17 06:28 Pulse Rate 70 08/01/17 08:15 Respiratory Rate 18 08/01/17 08:15 Blood Pressure 132/82 08/01/17 08:15 O2 Sat by Pulse Oximetry 99 08/01/17 08:15 Course - Reevaluation(s) Reevaluation #1: Discussed with patient need for admission for diuresis given the appearance of early decompensation of congestive failure. I also advised him of the negative results of the CT of his head and at this point time the patient says his headache is let up appreciably. - Consultations Consultation #1: Discussed with hospitalist service who will admit for further evaluation treatment. Results - Labs CBC & BMP: 08/01/17 07:09 08/01/17 07:09 Labs: I have reviewed the laboratory noted the mildly depressed hematocrit and normal cardiac's. I have also noted the greatly elevated BNP. - Impressions EKG: Electronically paced rhythm at 75 no further interpretation possible - Diagnostic Findings Procedure: Chest x-ray: image reviewed by me, report reviewed by me (Pacemaker overlying left chest wall noted. Normal cardiac silhouette with evidence of chronic venous hypertension and questionable left pleural effusion.) Disposition Clinical Impression: Congestive heart failure, Headache Case discussed with: patient, patient's family Disposition: Still a Patient Condition: Stable Time of Disposition: 09:10
[2017-08-01] MEDS ORDERED: SUMAtriptan 6 MG/0.5 ML VIAL SUBCUT ONE (07:09)
[2017-08-01] MEDS ORDERED: METOCLOPRAMIDE 10 MG/2 ML VIAL ONE (07:10)
[2017-08-01 07:20] LABS: Basophils % 0.6 % (0.0-0.8); Eosinophils # 0.2 10*3/uL (0.0-0.87); Eosinophils % 2.6 % (0.00-10.9); Hematocrit 36.5 VOL% (42.0-52.0); Hemoglobin 11.6 GM/DL (14.0-18.0); Immature Granulocytes % 0.1 %; Immature Granulocytes Absolute 0.01 #; Lymphocytes # 0.9 10*3/uL (1.4-4.0); Mean Corpuscular HGB Conc 31.8 GM/DL (32-36); Mean Corpuscular Hemoglobin 29 PG (27-34); Mean Corpuscular Volume 92.2 FL (87-102); Monocytes # 0.8 10*3/uL (0.11-0.8); Monocytes % 12.2 % (1.7-12.7); Neutrophils # 4.9 10*3/uL (1.4-7.4); Neutrophils % 71.5 % (38.7-73.9); Platelet Count 230 T/CUMM (130-400); Red Blood Count 3.96 MC/CUMM (3.8-5.5); Red Cell Distribution Width 15.3 % (9.3-17.3); White Blood Count 6.8 T/CUMM (4-12)
[2017-08-01 07:45] LABS: Alanine Aminotransferase 77 U/L (16-61); Alkaline Phosphatase 81 U/L (45-117); Aspartate Amino Transferase 52 U/L (0-37); Blood Urea Nitrogen 18 MG/DL (7-18); Calcium 9.2 MG/DL (8.5-10.1); Glucose 121 MG/DL (74-106); Osmolality,Calculated 275.8 MOS/KG (273-304); Potassium 4.9 MMOL/L (3.5-5.1); Sodium 137 MMOL/L (136-145); Total Protein 6.6 G/DL (6.4-8.3); Troponin I Only 0.024 NG/ML (0.00-0.045)
[2017-08-01 08:14] LABS: Apearance,Urine CLEAR (Clear); Bilirubin,Urine Negative (Negative); Blood, Urine Negative (Negative); Glucose,Urine (UA) Negative (Negative); Hyaline Casts,Urine 1 /LPF (0-3); Ketones,Urine Negative (Negative); Mucus,Urine Occasional /LPF (Occasional); Nitrite,Urine Negative (Negative); Protein,Urine Negative; Squamous Epithelial Cell,Urine Occasional /HPF (0-10); Urine Color Yellow (Yellow); Urine Specific Gravity 1.009 (1.001-1.035); Urine Urobilinogen < 2.0 EU/DL (0.2-1.0); WBC,Urine <1 /HPF (0-6)
--- NOTE | 2017-08-01 08:20 | CT Report ---
CT brain Indication: Vertigo Comparison: 06 Mar 2017 Technique: Axial CT imaging of the brain is performed without contrast with 3 mm increments. Findings: No evidence of hemorrhage, mass mass effect midline shift or acute infarct seen. There is moderate diffuse cerebral atrophy. There are faint areas of decreased density seen within the white matter likely related to chronic microvascular changes. Otherwise the brain parenchyma attenuation and differentiation appears within normal limits. The ventricles and cisterns are normal in caliber. No cranial or skull base abnormality is identified. Impression: No evidence of acute process or interval change. This CT exam was performed using one or more the following dose reduction techniques: Automated exposure control, adjustment of the MA and/or KV according to patient size, or use of iterative reconstruction technique. PROCEDURE INTERPRETED AT [facility] DEPARTMENT OF RADIOLOGY Final Report Signed by: Dr. Asher Carbone
[2017-08-01 08:21] LABS: INR 1.1
--- NOTE | 2017-08-01 08:59 | XRay Report ---
XR chest 1V portable Indication: Shortness of breath Comparison: 23 May 2017 Findings: The heart and mediastinum are stable in size and configuration. Pacemaker device is unchanged in position. The pulmonary vascularity is slightly increased with bilateral increased interstitial lung density. No other lung infiltrates, effusions, pneumothorax or other abnormality is demonstrated. Impression: Findings suggest mild cardiac decompensation. PROCEDURE INTERPRETED AT [facility] DEPARTMENT OF RADIOLOGY Final Report Signed by: Dr. Asher Carbone
--- NOTE | 2017-08-01 09:45 | Hospitalist History & Physical ---
Assessment and Plan - Time spent with patient Time spent with patient: Greater than 30 minutes (1) Acute on chronic systolic CHF (congestive heart failure) Status: Acute Assessment and plan: Chest x-ray shows mild cardiac decompensation. BNP 687. Patient does have moderate shortness of breath and 1+-2+ pitting edema in bilateral lower extremities. Admit to telemetry for observation and diuresis. Recheck BMP in a.m. Current Visit: No (2) Cardiomyopathy Status: Acute Assessment and plan: History of nonischemic cardiomyopathy. Patient is followed by Dr. Engle, cardiology. Current Visit: No (3) Elevated liver enzymes Status: Acute Assessment and plan: AST 52, ALT 77. This likely secondary to cardiac decompensation. Will diurese Current Visit: No (4) Frailty Status: Chronic Current Visit: No (5) Physical deconditioning Status: Chronic Current Visit: No History of Present Illness Chief complaint: headache, SOB History of present illness: Mr. Ahumada is a 82 year old white male with a past medical history significant for hypertension, cardiomyopathy, congestive heart failure, obstructive sleep apnea who presented to the emergency room this morning with complaints of headache and shortness of breath having onset around 4 AM. Patient reports that after using the restroom this morning he experienced severe headache and a faint feeling with associated lower extremity weakness and "heaviness". Patient called EMS and was transported to the ER. On arrival to ER, the patient still reported headache which was relieved with Imitrex and started on oxygen which aided in the lower extremity weakness resolving. He is resting comfortably in bed and reports he is feeling much better. He still reports some shortness of breath. He denies chest pain, headache, blurry vision, pain with inspiration, abdominal tenderness, nausea or vomiting, numbness or tingling. Lab work is significant for WBC 6.8, hemoglobin 11.6, hematocrit 36.5 , sodium 137, potassium 4.9, BUN 18, creatinine 1.0, serum glucose 121. BNP 687 , AST 52, ALT 77. This case has been discussed with both Dr. Hightower, ER physician, and Dr. Cherry, admitting physician, and the patient will be admitted to the hospital medicine service for further evaluation and treatment. Patient is a full code. Home medications have been reviewed and reconciled. Home Medications Medication Instructions Recorded Confirmed Type Acetaminophen Tab [Tylenol Tab] 325 mg PO DAILY PRN 04/21/15 08/01/17 History Magnesium Oxide 400 mg PO BID 04/21/15 08/01/17 History Montelukast Tab [Singulair Tab] 10 mg PO BEDTIME 04/21/15 08/01/17 History Multivitamin [Multivitamins] 1 each PO DAILY 04/21/15 08/01/17 History Rosuvastatin [Crestor] 20 mg PO BEDTIME 04/21/15 08/01/17 History Lubiprostone [Amitiza] 8 mcg PO BID 05/28/15 08/01/17 History Diclofenac 1% Gel [Voltaren 1% Gel] 1 unit TOP QID PRN #1 gel 10/18/15 08/01/17 Rx Spironolactone [Aldactone] 50 mg PO DAILY tablet 10/18/15 08/01/17 Rx Lisinopril [Prinivil] 5 mg PO DAILY tablet 07/29/16 08/01/17 Rx Sitagliptin Phosphate [Januvia] 50 mg PO DAILY 02/05/17 08/01/17 History Alendronate Sodium 35 mg PO SA 02/08/17 08/01/17 History Methenamine Hippurate [Hiprex] 1 gm PO BID 02/11/17 08/01/17 History Albuterol Inhaler [Proventil 2 puff INH Q4H PRN 03/06/17 08/01/17 History Inhaler] Budesonide/Formoterol 80-4.5 2 puff INH BID PRN 03/06/17 08/01/17 History [Symbicort 80-4.5] Cholecalciferol (Vitamin D3) 2,000 unit PO DAILY 03/06/17 08/01/17 History [Vitamin D3] Cyanocobalamin (Vitamin B-12) 1 ml IM SA 03/06/17 08/01/17 History [Cyanocobalamin Injection] Fluticasone 50 Mcg Nasal [place] 1 spray BOTH NARES BID PRN 03/06/17 08/01/17 History [Flonase Nasal [place]] Folic Acid Tab 1 mg PO DAILY 03/06/17 08/01/17 History LORazepam TAB [Ativan Tab] 0.5 mg PO TID PRN 03/06/17 08/01/17 History Mexiletine [Mexitil] 200 mg PO BID 03/06/17 08/01/17 History [place]-3 Fatty Acids [Maxepa] 1,000 mg PO DAILY 03/06/17 08/01/17 History Omeprazole 20 mg PO DAILY 03/06/17 08/01/17 History Potassium Chloride 10 meq PO BID 03/06/17 08/01/17 History Simethicone [Phazyme] 180 mg PO DAILY PRN 03/06/17 08/01/17 History Amiodarone Tab [Cordarone Tab] 200 mg PO DAILY 04/05/17 08/01/17 History Calcium (Carbonate) [Caltrate 600] 600 mg PO DAILY 04/05/17 08/01/17 History Carvedilol [Coreg] 6.25 mg PO BID 04/05/17 08/01/17 History Digoxin Tab [Lanoxin Tab] 125 mcg PO DAILY 04/05/17 08/01/17 History Gabapentin Cap/Tab [Neurontin 200 mg PO TID 04/05/17 08/01/17 History Cap/Tab] Insulin Regular [HumuLIN R] See Protocol SUBCUT TID 04/05/17 08/01/17 History Mupirocin Calcium [Bactroban 2% 1 applic TOP TID 04/05/17 08/01/17 History Cream] Sodium Chl/Potassium Chl Tab 2 tablet PO BID 04/05/17 08/01/17 History [Thermotabs] Thyroid,Pork [[place] Thyroid] 90 mg PO DAILY 04/05/17 08/01/17 History Fexofenadine [Bibi] 180 mg PO DAILY 05/23/17 08/01/17 History Imipramine [Tofranil] 10 mg PO DAILY 05/23/17 08/01/17 History Ondansetron Tab [Zofran Tab] 4 mg PO BID PRN 05/23/17 08/01/17 History Polyethylene Glycol Powder 15 gm PO DAILY 05/23/17 08/01/17 History [Miralax] metFORMIN [Glucophage] 250 mg PO BID 05/23/17 08/01/17 History metOLazone [Metolazone] 2.5 mg PO DAILY 05/23/17 08/01/17 History cycloSPORINE OPH EMUL [Restasis] 1 drop BOTH EYES BID 05/24/17 08/01/17 History Acetamin/Codeine 300-30 Tab 1 tablet PO Q6H PRN 05/28/17 08/01/17 History [Tylenol/Codeine #3] Aspirin EC Tab 81 mg PO DAILY 05/28/17 08/01/17 History Fludrocortisone [Florinef] 2 tablet PO BID 05/28/17 08/01/17 History Furosemide Tab [Lasix Tab] 40 mg PO BID DIURETIC PRN 05/28/17 08/01/17 History Ipratropium 0.06% Nasal [place] 2 spray BOTH NARES TID 05/28/17 08/01/17 History [Atrovent 0.06% Nasal [place]] Tramadol HCl [Tramadol Tab] 50 mg PO Q6H PRN 05/28/17 08/01/17 History Allergies Allergy/AdvReac Type Severity Reaction Status Date / Time morphine Allergy Severe Nausea Verified 04/05/17 12:15 pseudoephedrine Allergy Severe RASH Verified 04/05/17 12:15 [From Sudafed] loratadine [From Claritin] Allergy Unknown/Unable Verified 04/05/17 12:15 to obtain sulfur dioxide Allergy Unknown/Unable Verified 04/05/17 12:15 to obtain Medical,Surgical,& Family Hx - Medical History Cardio: History of: Cardiac Dysrhythmia, Cerebrovascular Disease, CHF, CAD ( Mild nonobstructive CAD), Hypertension, Pacemaker (and defib), Cardiovascular Problems (gerd) No history of: [place] Psychological: No history of: Anxiety Disorders (ying), ADHD, Behavior Problems, Bipolar Disorder, Depression, Previous Suicide Attempt, Psychiatric/Substance Abuse Tx, Schizophrenia, Violent Behavior, Psychiatric Problems Neurology: History of: 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), Vertigo No history of: Brain Aneurysm, Cerebral Hemorrhage, Cerebrovascular Accident , Cerebral Palsy, Dementia, Migraine, Seizures, TIA HEENT: No history of: Ear Problem, Eye Problem, Dental Problems, Glaucoma, Oral Cancer, HEENT Problems Endocrine: History of: Diabetes Mellitus (IDDM), Diabetes Mellitus (NIDDM), Dyslipidemia, Thyroid Disorder Rheumatology: History of;: Rheumatoid Arthritis No history of;: Fibromyalgia, Psoriasis, Sjogrens, Systemic Lupus Erythematosus Respiratory: History of: COPD, Obstructive Sleep Apnea (uses cpap), Pneumonia ( Aug 2015), Respiratory Problems No history of: Asthma, Bronchitis, Pulmonary Embolism, Pulmonary Hypertension Renal: History of: Renal Failure (Chronic renal insufficiency), Renal Problems ( cyst on left kidney followed by Dr. Bob Nunez) Genitourinary: History of: Bladder Problem (residual (I&O cath 2x daily)), Prostate Problems (History of prostate cancer, this was surgically treated.) Gastrointestinal: History of: GERD, GI Problems ("ilia colon", burgess's esophagus, dysphagia) No history of: Bowel Obstruction, Gastrointestinal Bleed, Hepatitis, Liver Problems Musculoskeletal: History of: Back/Neck Problems (chronic back pain) No history of: Amputation Hematology: No history of: Blood Transfusion Reaction Other: History of: Cancer (prostate) No history of: Anesthesia Reactions, Malignant Hyperthermia, MRSA, Vancomycin -Resistant Enterococci, Skin Problems, Miscellaneous Medical Problems - Surgical History Cardiac Surgeries: Sugical HX of: Cardiac Catheterization (January 2017), Cardiac Surgery (pacemaker/aicd), Internal Defibrillator Patient Denies: Carotid Endarterectomy Thoracic Surgeries: Patient denies;: Organ Transplant, Lobectomy Neurologic Surgeries: Patient denies: Brain Aneurysm, Cerebral Hemorrhage, Neurologic Surgery HEENT Surgeries: Surgical HX of: Eye Surgery (cataracts, eyelids lifted) Patient denies: Carotid Endarterectomy, Tonsilectomy & Adenoidectomy Abdominal Surgeries: Surgical HX of: Abdominal Surgery, Cholecystectomy (03/2014) , Colonoscopy, EGD ([facility]) Patient denies: Appendectomy, Hernia Repair Reproductive Surgeries: Surgical HX of;: Prostate Surgery (cryo "freezing" of prostate-2012) Orthopedic Surgeries: Surgical HX of;: Orthopedic Surgery (ORIF Left ankle, right ankle), Total Knee Replacement (left) - Family History Family History: Reports;: Family Cancer (father-colon, brother-colon, sister- colon), Family Heart Disease, Family Hypertension, Family Stroke - Social History Smoking Status: Never smoker Frequency of Alcohol Use: None Type of Drug Use: None 12 point system: reviewed and no additional remarkable complaints except as stated Exam - Constitutional Vitals: Period Temp Pulse Resp BP Sys/[place] Pulse Ox Last 24 Hr 98.3 F-98.3 F 70-78 16-18 125-135/71-85 94-100 Exam: General appearance: normal weight, no acute distress - Head Head exam: Present: normocephalic, atraumatic - Eye Eye exam: Present: EOMI. Absent: conjunctival injection, nystagmus Pupils: Present: CAMELIA, normal accommodation - ENT ENT exam: Present: normal exam, normal external ear exam - Neck Neck exam: Present: normal inspection. Absent: lymphadenopathy, tenderness, thyromegaly - Respiratory Respiratory exam: Present: decreased breath sounds. Absent: rhonchi, wheezes - Cardiovascular Cardiovascular exam: Present: regular rate and rhythm. Absent: carotid bruit, gallop, rubs - GI/Abdominal GI/Abdominal exam: Present: normal bowel sounds, soft, nontender. Absent: ascites, distended, mass - Extremities Exam Extremities exam: Present: normal inspection, normal capillary refill, trace -1 + pitting edema - Back Exam Back exam: Absent: CVA tenderness (L), CVA tenderness (R) - Neurological Exam Neurological exam: Present: alert, oriented X3, CN II-XII intact, reflexes normal - Psychiatric Psychiatric exam: Present: normal affect, normal mood - Skin Skin exam: Present: normal color, warm, dry Results - Labs CBC & BMP: 08/01/17 07:09 08/01/17 07:09 Lab Results: I have reviewed the past 24 hour labs - EKG EKG results: interpreted by ERMD - Diagnostic Findings Procedure: Chest x-ray: image reviewed by me, report reviewed by me (Cardiac decompensation), CT: image reviewed by me, report reviewed by me (Head: Negative )
[2017-08-01] MEDS ORDERED: LACTULOSE 20 GM/30 ML UDCUP PO PRN (10:01)
[2017-08-01] MEDS ORDERED: MAGNESIUM SULF RIDER 2 GM in PREMIX 1 EACH IV PRN (10:01)
[2017-08-01] MEDS ORDERED: MAGNESIUM SULF RIDER 4 GM in PREMIX 1 EACH IV PRN (10:01)
[2017-08-01] MEDS ORDERED: ONDANSETRON 4 MG/2 ML VIAL IV PRN (10:01)
[2017-08-01] MEDS ORDERED: DOCUSATE SODIUM 100 MG CAPSULE PO PRN (10:01)
[2017-08-01] MEDS ORDERED: POTASSIUM CHLORIDE 20 MEQ TABLET PO PRN (10:01)
[2017-08-01] MEDS ORDERED: SIMETHICONE CHEW 80 MG TABLET PO PRN (10:07)
[2017-08-01] MEDS ORDERED: BUDESONIDE/FORMOTEROL 80-4.5 INHALER 6.9 GM INH PRN (10:07)
[2017-08-01] MEDS ORDERED: ONDANSETRON 4 MG TABLET PO PRN (10:07)
[2017-08-01] MEDS ORDERED: ACETAMINOPHEN/CODEINE 300-30 MG TABLET PO PRN (10:07)
[2017-08-01] MEDS ORDERED: FUROSEMIDE 40 MG TABLET PO PRN (10:07)
[2017-08-01] MEDS ORDERED: ACETAMINOPHEN 325 MG TABLET PO PRN (10:07)
[2017-08-01] MEDS ORDERED: LORazepam 0.5 MG TABLET PO PRN (10:07)
[2017-08-01] MEDS ORDERED: DICLOFENAC 1% GEL 100 GM TUBE TOP PRN (10:07)
[2017-08-01] MEDS ORDERED: traMADol 50 MG TABLET PO PRN (10:07)
[2017-08-01] MEDS ORDERED: POLYETHYLENE GLYCOL POWDER 255 GM BOTTLE PO SCH (10:30)
[2017-08-01] MEDS ORDERED: metFORMIN 500 MG TABLET PO SCH (10:30)
[2017-08-01] MEDS ORDERED: ALBUTEROL 2.5 MG/3 ML NEB RESP TX PRN (11:00)
[2017-08-01] MEDS: ASPIRIN EC 81 MG TABLET PO SCH (13:24)
[2017-08-01] MEDS: LUBIPROSTONE 8 MCG CAPSULE PO SCH ×2 (13:25→21:12)
[2017-08-01] MEDS: THYROID 60 MG TABLET PO SCH (13:25)
[2017-08-01] MEDS: MULTIVITAMIN (CENTRUM) TABLET PO SCH (13:26)
[2017-08-01] MEDS: FLUDROCORTISONE 0.1 MG TABLET PO SCH ×2 (13:26→21:12)
[2017-08-01] MEDS: MEXILETINE 200 MG CAPSULE PO SCH ×2 (13:26→21:12)
[2017-08-01] MEDS: sitaGLIPtin 25 MG TABLET PO SCH (13:27)
[2017-08-01] MEDS: CHOLECALCIFEROL 1,000 UNIT TABLET PO SCH (13:28)
[2017-08-01] MEDS: FEXOFENADINE 180 MG TABLET PO SCH (13:28)
[2017-08-01] MEDS: IMIPRAMINE 10 MG TABLET PO SCH (13:29)
[2017-08-01] MEDS: metOLazone 2.5 MG TABLET PO SCH (13:29)
[2017-08-01] MEDS: DIGOXIN 0.125 MG TABLET PO SCH (13:30)
[2017-08-01] MEDS: AMIODARONE 200 MG TABLET PO SCH (13:30)
[2017-08-01] MEDS: CARVEDILOL 6.25 MG TABLET PO SCH ×2 (13:30→21:13)
[2017-08-01] MEDS: METHENAMINE HIPPURATE 1 GM TABLET PO SCH ×2 (13:30→21:13)
[2017-08-01] MEDS: PANTOPRAZOLE 40 MG TABLET PO SCH (13:32)
[2017-08-01] MEDS: CALCIUM (CARBONATE) 600 MG TABLET PO SCH (13:32)
[2017-08-01] MEDS: FOLIC ACID 1 MG TABLET PO SCH (13:32)
[2017-08-01] MEDS: SPIRONOLACTONE 50 MG TABLET PO SCH (13:32)
[2017-08-01] MEDS: LISINOPRIL 5 MG TABLET PO SCH (13:33)
[2017-08-01] MEDS: cycloSPORINE OPH EMUL 1 VIAL BOTH EYES SCH ×2 (13:34→21:14)
[2017-08-01] MEDS: FLUTICASONE 50 MCG NASAL SPRAY 16 GM BOTTLE BOTH NARES PRN ×2 (13:36→21:13)
[2017-08-01] MEDS: MUPIROCIN 2% OINT 22 GM TUBE TOP SCH ×3 (13:38→21:13)
[2017-08-01] MEDS: POLYETHYLENE GLYCOL POWDER 17 GM PACK PO SCH (13:46)
[2017-08-01] MEDS: IPRATROPIUM 0.06% NASAL SPRAY 15 ML BOTTLE BOTH NARES SCH ×2 (14:30→21:13)
[2017-08-01] MEDS: GABAPENTIN 100 MG CAPSULE PO SCH ×2 (14:34→21:12)
[2017-08-01] MEDS: INSULIN REGULAR 100 UNIT/ML SUBCUT SCH ×2 (14:45→22:08)
[2017-08-01] MEDS ORDERED: FUROSEMIDE 40 MG/4 ML VIAL IV SCH (16:00)
--- NOTE | 2017-08-01 18:03 | Cardiology Consult Note ---
Assessment and Plan (1) Headache Status: Acute Assessment and plan: Etiology is not clear. I think this is the culprit to his present illness. I doubt that it is cardiac. Current Visit: Yes (2) Chest pain Status: Acute Assessment and plan: Probably noncardiac. We will watch his troponins but he had nonocclusive coronary disease earlier this year. Current Visit: No (3) Nonischemic cardiomyopathy Status: Chronic Assessment and plan: The patient does have a little pleural effusion and may be having some mild heart failure with slightly elevated BNP. Will check echocardiogram tomorrow. Current Visit: No (4) AICD (automatic cardioverter/defibrillator) present Status: Chronic Assessment and plan: Patient is 100% time with this. No recent defibrillator treatments. Current Visit: No (5) Physical debility Status: Chronic Assessment and plan: This is a chronic issue for this patient. This certainly exacerbates any other underlying medical issues. Current Visit: Yes History of Present Illness - Data of Consult Patient: new to practice Consult date: 08/01/17 Requesting Physician: Zuri Cherry - Consult Narrative Reason for consult: Cardiomyopathy with AICD and acute weakness History of present illness: Primary cat breeder: Dr. Dilshad Snell Mr. Ahumada is a 82 year old male who states about 4:00 this morning with the bathroom had a bowel movement and urinate. After being done in the bathroom he actually had gotten up and then bent over to garbage pick up man a piece of paper on the floor. On rising up he had a sudden headache and felt weak loss of strength in his legs. He already has weak legs. He used his walker to get him back to bed but he was quite weak in the process. He has sudden onset of a headache with this. He laid down the bed about 20 minutes she woke his because his headache was in crescendoing and was getting tingle all over. She states she checked his blood pressure was 123/67 heart rate was 70. He began tingling Oxycet all over feeling weak. He will a chest heaviness and felt a little short of breath and little nauseous. EMS was summoned and he apparently received aspirin and nitroglycerin in the embolus. This made him feel little better. I am not sure why his blood pressure was at that time. Immediately upon arrival here he states his chest pain essentially resolved and discomfort. He is evaluating the emergency room and admitted for further evaluation therapy. His lower acute left forearm reveals that his CBC is fairly unremarkable, his chemistries are unremarkable as well. His troponin is 0.024 with a BNP of 687. His TSH is slightly diminished at 0.245. CT of the head did not reveal any acute changes. In reviewing his old records his BNP is always elevated some. His chest x-ray this admission revealed some pleural effusion left side and this was not present last chest x-ray acting fine. It should be noted the patient was admitted previously was diuresed aggressively and developed dehydration was very symptomatic from this. The patient's past is significantly has a nonischemic cardiomyopathy. Earlier this year to catheterization with nonobstructive coronary disease. Also has a history of having AICD apparently paces almost all the time onall the time now. He has chronic lower extremity weakness. His general health is been poor deterioration. He has not had headaches like this before. He does still have orthostasis in balance issues that when he bends over and especially stands up he gets dizzy and almost passes out. The parents fallen previously because of this. There is no acute cardiac issues though that I can find in his history or presently. CC: Zuri Cherry MD - Home Medications and Allergies Home Medications: Home Medications Medication Instructions Recorded Confirmed Type Acetaminophen Tab [Tylenol Tab] 325 mg PO DAILY PRN 04/21/15 08/01/17 History Magnesium Oxide 400 mg PO BID 04/21/15 08/01/17 History Montelukast Tab [Singulair Tab] 10 mg PO BEDTIME 04/21/15 08/01/17 History Multivitamin [Multivitamins] 1 each PO DAILY 04/21/15 08/01/17 History Rosuvastatin [Crestor] 20 mg PO BEDTIME 04/21/15 08/01/17 History Lubiprostone [Amitiza] 8 mcg PO BID 05/28/15 08/01/17 History Diclofenac 1% Gel [Voltaren 1% Gel] 1 unit TOP QID PRN #1 gel 10/18/15 08/01/17 Rx Spironolactone [Aldactone] 50 mg PO DAILY tablet 10/18/15 08/01/17 Rx Lisinopril [Prinivil] 5 mg PO DAILY tablet 07/29/16 08/01/17 Rx Sitagliptin Phosphate [Januvia] 50 mg PO DAILY 02/05/17 08/01/17 History Alendronate Sodium 35 mg PO SA 02/08/17 08/01/17 History Methenamine Hippurate [Hiprex] 1 gm PO BID 02/11/17 08/01/17 History Albuterol Inhaler [Proventil 2 puff INH Q4H PRN 03/06/17 08/01/17 History Inhaler] Budesonide/Formoterol 80-4.5 2 puff INH BID PRN 03/06/17 08/01/17 History [Symbicort 80-4.5] Cholecalciferol (Vitamin D3) 2,000 unit PO DAILY 03/06/17 08/01/17 History [Vitamin D3] Cyanocobalamin (Vitamin B-12) 1 ml IM SA 03/06/17 08/01/17 History [Cyanocobalamin Injection] Fluticasone 50 Mcg Nasal [place] 1 spray BOTH NARES BID PRN 03/06/17 08/01/17 History [Flonase Nasal [place]] Folic Acid Tab 1 mg PO DAILY 03/06/17 08/01/17 History LORazepam TAB [Ativan Tab] 0.5 mg PO TID PRN 03/06/17 08/01/17 History Mexiletine [Mexitil] 200 mg PO BID 03/06/17 08/01/17 History [place]-3 Fatty Acids [Maxepa] 1,000 mg PO DAILY 03/06/17 08/01/17 History Omeprazole 20 mg PO DAILY 03/06/17 08/01/17 History Potassium Chloride 10 meq PO BID 03/06/17 08/01/17 History Simethicone [Phazyme] 180 mg PO DAILY PRN 03/06/17 08/01/17 History Amiodarone Tab [Cordarone Tab] 200 mg PO DAILY 04/05/17 08/01/17 History Calcium (Carbonate) [Caltrate 600] 600 mg PO DAILY 04/05/17 08/01/17 History Carvedilol [Coreg] 6.25 mg PO BID 04/05/17 08/01/17 History Digoxin Tab [Lanoxin Tab] 125 mcg PO DAILY 04/05/17 08/01/17 History Gabapentin Cap/Tab [Neurontin 200 mg PO TID 04/05/17 08/01/17 History Cap/Tab] Insulin Regular [HumuLIN R] See Protocol SUBCUT TID 04/05/17 08/01/17 History Mupirocin Calcium [Bactroban 2% 1 applic TOP TID 04/05/17 08/01/17 History Cream] Sodium Chl/Potassium Chl Tab 2 tablet PO BID 04/05/17 08/01/17 History [Thermotabs] Thyroid,Pork [[place] Thyroid] 90 mg PO DAILY 04/05/17 08/01/17 History Fexofenadine [Bibi] 180 mg PO DAILY 05/23/17 08/01/17 History Imipramine [Tofranil] 10 mg PO DAILY 05/23/17 08/01/17 History Ondansetron Tab [Zofran Tab] 4 mg PO BID PRN 05/23/17 08/01/17 History Polyethylene Glycol Powder 15 gm PO DAILY 05/23/17 08/01/17 History [Miralax] metOLazone [Metolazone] 2.5 mg PO DAILY 05/23/17 08/01/17 History cycloSPORINE OPH EMUL [Restasis] 1 drop BOTH EYES BID 05/24/17 08/01/17 History Acetamin/Codeine 300-30 Tab 1 tablet PO Q6H PRN 05/28/17 08/01/17 History [Tylenol/Codeine #3] Aspirin EC Tab 81 mg PO DAILY 05/28/17 08/01/17 History Fludrocortisone [Florinef] 2 tablet PO BID 05/28/17 08/01/17 History Furosemide Tab [Lasix Tab] 40 mg PO BID DIURETIC PRN 05/28/17 08/01/17 History Ipratropium 0.06% Nasal [place] 2 spray BOTH NARES TID 05/28/17 08/01/17 History [Atrovent 0.06% Nasal [place]] Tramadol HCl [Tramadol Tab] 50 mg PO Q6H PRN 05/28/17 08/01/17 History Allergies/Adverse Reactions: Allergies Allergy/AdvReac Type Severity Reaction Status Date / Time morphine Allergy Severe Nausea Verified 04/05/17 12:15 pseudoephedrine Allergy Severe RASH Verified 04/05/17 12:15 [From Sudafed] loratadine [From Claritin] Allergy Unknown/Unable Verified 04/05/17 12:15 to obtain sulfur dioxide Allergy Unknown/Unable Verified 04/05/17 12:15 to obtain Review of systems: Constitutional: Denies anorexia, chills, fatigue, fever, night sweats, weight gain, weight loss; chronically overweight. Eyes: Denies acute visual changes or loss of vision Ears: Denies acute decreased hearing, vertigo Nose, mouth and throat: Denies dysphagia, epistaxis, headaches, neck pain, tongue swelling, Neck: Denies thyromegaly or masses. No stiffness. Cardiovascular: as per HPI Respiratory: Denies cough, dyspnea, hemoptysis, wheezing; he does have some fatigability especially with exertion. Gastrointestinal: Denies abdominal pain, constipation, dyspepsia, dysphagia, hematemesis, hematochezia, melena, nausea, vomiting. 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 Genitourinary: Denies dysuria, hematuria, nocturia Musculoskeletal: Denies joint swelling, muscle weakness, myalgias; does have some arthritic symptomatology lower extremity weakness. Neurological: denies abnormal speech, confusion, convulsions, memory loss, syncope. Patient has had issues with dizziness. He has had headaches previously. Today's headache was quite severe compared to others. Psychiatric: Denies anxiety, confusion, depression Endocrine: Denies cold intolerance, fatigue, heat intolerance Hematologic/Lymphatic: Denies easy bleeding, easy bruising Dermatologic: Denies Rash, itching, shingles Medical,Surgical,& Family Hx - Medical History Cardio: History of: Cardiac Dysrhythmia, CHF, CAD (Mild nonobstructive CAD), Hypertension, Pacemaker (and defib), Cardiovascular Problems (gerd) No history of: Cerebrovascular Disease, Congenital Heart Disease, [place], PVD, Valvular Heart Disease Psychological: No history of: Anxiety Disorders, ADHD, Behavior Problems, Bipolar Disorder, Depression, Previous Suicide Attempt, Psychiatric/Substance Abuse Tx, Schizophrenia, Violent Behavior, Psychiatric Problems Neurology: History of: 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), Vertigo No history of: Brain Aneurysm, Cerebral Hemorrhage, Cerebrovascular Accident , Cerebral Palsy, Dementia, Migraine, Seizures, TIA HEENT: No history of: Ear Problem, Eye Problem, Dental Problems, Glaucoma, Oral Cancer, HEENT Problems Endocrine: History of: Diabetes Mellitus (IDDM), Diabetes Mellitus (NIDDM), Dyslipidemia, Thyroid Disorder Rheumatology: History of;: Rheumatoid Arthritis No history of;: Fibromyalgia, Psoriasis, Sjogrens, Systemic Lupus Erythematosus Respiratory: History of: Obstructive Sleep Apnea (uses cpap), Pneumonia (Aug 2015), Respiratory Problems No history of: Asthma, Bronchitis, COPD, Pulmonary Embolism, Pulmonary Hypertension Renal: History of: Renal Failure (Chronic renal insufficiency), Renal Problems ( cyst on left kidney followed by Dr. Bob Nunez) Genitourinary: History of: Bladder Problem (residual (I&O cath 2x daily)), Prostate Problems (History of prostate cancer, this was surgically treated.) Gastrointestinal: History of: GERD, GI Problems ("ilia colon", burgess's esophagus, dysphagia) No history of: Bowel Obstruction, Clostridium Difficile, Crohn's Disease, Diverticulitis/ Diverticulosis, Esophageal Varices, Gastrointestinal Bleed, Hemorrhoids, Hematochezia, Hepatitis, Liver Problems, Pancreatitis, Polyps, Ulcerative Colitis, Gastrointestinal Cancer Musculoskeletal: History of: Back/Neck Problems (chronic back pain) No history of: Amputation Hematology: No history of: Blood Transfusion Reaction Other: History of: Cancer (prostate) No history of: Anesthesia Reactions, Malignant Hyperthermia, MRSA, Vancomycin -Resistant Enterococci, Skin Problems, Miscellaneous Medical Problems - Surgical History Cardiac Surgeries: Sugical HX of: Cardiac Catheterization (January 2017), Cardiac Surgery (pacemaker/aicd), Internal Defibrillator Patient Denies: Femoral-Popliteal Bypass Graft, Carotid Endarterectomy, Vascular Access Devices Thoracic Surgeries: Patient denies;: Organ Transplant, Lobectomy Neurologic Surgeries: Patient denies: Brain Aneurysm, Cerebral Hemorrhage, Neurologic Surgery HEENT Surgeries: Surgical HX of: Eye Surgery (cataracts, eyelids lifted) Patient denies: Carotid Endarterectomy, Tonsilectomy & Adenoidectomy Abdominal Surgeries: Surgical HX of: Abdominal Surgery, Cholecystectomy (03/2014) , Colonoscopy, EGD (Burgess's) Patient denies: Appendectomy, Hernia Repair, Splenectomy Reproductive Surgeries: Surgical HX of;: Prostate Surgery (cryo "freezing" of prostate-2012) Orthopedic Surgeries: Surgical HX of;: Orthopedic Surgery (ORIF Left ankle, right ankle), Total Knee Replacement (left) - Family History Family History: Reports;: Family Cancer (father-colon, brother-colon, sister- colon), Family Heart Disease, Family Hypertension, Family Stroke - Social History Smoking Status: Never smoker Frequency of Alcohol Use: None Type of Drug Use: None Marital Status: Lives With:: Spouse Functional capacity: uses cane/walker Physical Examination Vital Signs Temp Pulse Resp BP Pulse Ox 98.3 F 72 16 125/71 94 L 08/01/17 06:28 08/01/17 06:28 08/01/17 06:28 08/01/17 06:28 08/01/17 06:28 Exam: General appearance: Obese man lying in bed watching television. He is in no distress. Head exam: normal inspection, atraumatic Eye exam: Pupils are equal and reactive. EOMI. There is no trauma. Ear exam: Anatomically normal. Normal auditory acuity to conversation. Oral exam: No significant oral lesions. Neck exam: normal inspection no JVD. No carotid bruit. Trachea is in midline. Respiratory exam: clear to auscultation bilaterally posteriorly and anteriorly with good air movement. No rales, rhonchi or wheezes. Cardiovascular exam: regular rate and rhythm, no murmur or gallop or rub. No precordial lift. No bruits over the major arteries. Chest wall/torso: Anatomically normal. No tenderness, deformity Peripheral Pulses: Radial pulses 2+ and 1+ foot pulses. GI/Abdominal exam: Obese with normal bowel sounds, soft and nontender, no abdominal bruits or pulsatile masses. Musculoskeletal/Extremities exam: normal inspection with trace ankle edema. No deformities or trauma. Neurological exam: alert, oriented X3. There is no gross neurologic deficits. Psychiatric exam: normal affect, normal mood. Cognitive function is grossly intact. Skin exam: normal color, warm. No rashes or other skin lesions. Result/EKG - Labs CBC & BMP: 08/01/17 07:09 08/01/17 07:09 Lab Results: I have reviewed the past 24 hour labs Labs: Laboratory Results - last 24 hr 08/01/17 08/01/17 08/01/17 07:09 07:09 07:09 WBC 6.8 RBC 3.96 Hgb 11.6 L Hct 36.5 L MCV 92.2 MCH 29 MCHC 31.8 L RDW 15.3 Plt Count 230 MPV 10.0 Neut % (Auto) 71.5 Lymph % (Auto) 13.0 L [place] % (Auto) 12.2 Eos % (Auto) 2.6 Baso % (Auto) 0.6 Neut # (Auto) 4.9 Lymph # (Auto) 0.9 L [place] # (Auto) 0.8 Eos # (Auto) 0.2 Baso # (Auto) 0.0 Immature Gran % 0.1 Nucleated RBC % 0.0 Immature Gran # 0.01 Nucleated RBCs # 0.00 Immature Plt Fraction 0.0 INR 1.1 PT Patient/Control Mix 12.0 Sodium 137 Potassium 4.9 Chloride 103 Carbon Dioxide 30 Anion Gap 8.9 BUN 18 Creatinine 1.10 GFR Calculation 73 BUN/Creatinine Ratio 16.00 Glucose 121 H POC Glucose Hemoglobin A1c Calculated Osmolality 275.8 Calcium 9.2 Total Bilirubin 0.40 AST 52 H ALT 77 H Alkaline Phosphatase 81 Total Creatine Kinase 39 CK-MB (CK-2) 1.5 Troponin I 0.024 B-Natriuretic Peptide Total Protein 6.6 Albumin 3.0 L Globulin 3.6 H Albumin/Globulin Ratio 0.8 L Free T4 TSH 3rd Generation Urine Color Urine Appearance Urine pH Ur Specific [place] Urine Protein Urine Glucose (UA) Urine Ketones Urine Blood Urine Nitrate Urine Bilirubin Urine Urobilinogen Urine Leukocytes Urine WBC Ur Squamous Epith Cells Hyaline Casts Urine Mucus Ur Culture Indicated? 08/01/17 08/01/17 08/01/17 07:09 07:09 07:09 WBC RBC Hgb Hct MCV MCH MCHC RDW Plt Count MPV Neut % (Auto) Lymph % (Auto) [place] % (Auto) Eos % (Auto) Baso % (Auto) Neut # (Auto) Lymph # (Auto) [place] # (Auto) Eos # (Auto) Baso # (Auto) Immature Gran % Nucleated RBC % Immature Gran # Nucleated RBCs # Immature Plt Fraction INR PT Patient/Control Mix Sodium Potassium Chloride Carbon Dioxide Anion Gap BUN Creatinine GFR Calculation BUN/Creatinine Ratio Glucose POC Glucose Hemoglobin A1c Calculated Osmolality Calcium Total Bilirubin AST ALT Alkaline Phosphatase Total Creatine Kinase CK-MB (CK-2) Troponin I B-Natriuretic Peptide 687 H Total Protein Albumin Globulin Albumin/Globulin Ratio Free T4 1.22 TSH 3rd Generation 0.245 L Urine Color Urine Appearance Urine pH Ur Specific [place] Urine Protein Urine Glucose (UA) Urine Ketones Urine Blood Urine Nitrate Urine Bilirubin Urine Urobilinogen Urine Leukocytes Urine WBC Ur Squamous Epith Cells Hyaline Casts Urine Mucus Ur Culture Indicated? 08/01/17 08/01/17 08/01/17 07:44 10:24 14:41 WBC RBC Hgb Hct MCV MCH MCHC RDW Plt Count MPV Neut % (Auto) Lymph % (Auto) [place] % (Auto) Eos % (Auto) Baso % (Auto) Neut # (Auto) Lymph # (Auto) [place] # (Auto) Eos # (Auto) Baso # (Auto) Immature Gran % Nucleated RBC % Immature Gran # Nucleated RBCs # Immature Plt Fraction INR PT Patient/Control Mix Sodium Potassium Chloride Carbon Dioxide Anion Gap BUN Creatinine GFR Calculation BUN/Creatinine Ratio Glucose POC Glucose 110 H Hemoglobin A1c 7.2 H Calculated Osmolality Calcium Total Bilirubin AST ALT Alkaline Phosphatase Total Creatine Kinase CK-MB (CK-2) Troponin I B-Natriuretic Peptide Total Protein Albumin Globulin Albumin/Globulin Ratio Free T4 TSH 3rd Generation Urine Color Yellow Urine Appearance Clear Urine pH 7.0 Ur Specific [place] 1.009 Urine Protein Negative Urine Glucose (UA) Negative Urine Ketones Negative Urine Blood Negative Urine Nitrate Negative Urine Bilirubin Negative Urine Urobilinogen < 2.0 H Urine Leukocytes Negative Urine WBC <1 Ur Squamous Epith Cells Occasional Hyaline Casts 1 Urine Mucus Occasional Ur Culture Indicated? Not indicated - Impressions Impressions: ECG appears to possibly atrial for ablation. I will see much mitral activity. He has electronic ventricular pacing. Compared to prior ECGs this appears about the same.
[2017-08-01] MEDS ORDERED: MONTELUKAST 10 MG TABLET PO SCH (21:00)
[2017-08-01] MEDS ORDERED: ROSUVASTATIN 20 MG TABLET PO SCH (21:00)
[2017-08-01] MEDS: POTASSIUM CHLORIDE 10 MEQ TABLET PO SCH (21:12)
[2017-08-01] MEDS: SODIUM CHLORIDE/POTASSIUM CHLORIDE TABLET PO SCH (21:12)
[2017-08-01] MEDS: MAGNESIUM OXIDE 400 MG TABLET PO SCH (21:12)
[2017-08-02 05:49] LABS: Basophils % 0.6 % (0.0-0.8); Eosinophils # 0.2 10*3/uL (0.0-0.87); Eosinophils % 2.3 % (0.00-10.9); Immature Granulocytes % 0.3 %; Immature Granulocytes Absolute 0.02 #; Lymphocytes # 0.9 10*3/uL (1.4-4.0); Lymphocytes % 12.6 % (21.2-54.2); Mean Corpuscular HGB Conc 31.6 GM/DL (32-36); Mean Corpuscular Hemoglobin 29 PG (27-34); Mean Corpuscular Volume 90.7 FL (87-102); Mean Platelet Volume 10.5 FL (9.6-12.0); Monocytes # 0.8 10*3/uL (0.11-0.8); Monocytes % 11.3 % (1.7-12.7); Neutrophils # 5.1 10*3/uL (1.4-7.4); Neutrophils % 72.9 % (38.7-73.9); Platelet Count 253 T/CUMM (130-400); Red Blood Count 4.19 MC/CUMM (3.8-5.5); Red Cell Distribution Width 15.1 % (9.3-17.3)
[2017-08-02 06:26] LABS: Albumin 2.9 G/DL (3.4-5.0); Bilirubin,Total 0.8 MG/DL (0.2-1.0); Calcium 9.1 MG/DL (8.5-10.1); Osmolality,Calculated 281.7 MOS/KG (273-304); Potassium 3.9 MMOL/L (3.5-5.1); Total Protein 6.1 G/DL (6.4-8.3)
--- NOTE | 2017-08-02 08:15 | XRay Report ---
History: Shortness of breath Date: 08/02/2017 Study: Chest x-ray AP portable Comparison exam: 08/01/2017 There is continued cardiomegaly. The mediastinal contours are unchanged. There is moderate aortic arch calcification. The pulmonary vasculature is not engorged. There is no obvious new or worsening infiltrate. There is some stable platelike scar in the left mid to lower lung. There is no new or worsening infiltrate. A left subclavian multiple lead pacemaker/defibrillator device is generally intact and unchanged. Osseous structures are unchanged. Impression: Cardiomegaly without overt CHF. Otherwise unchanged. No obvious interval worsening PROCEDURE INTERPRETED AT [facility] DEPARTMENT OF RADIOLOGY Final Report Signed by: Dr. Breanna Vincent
[2017-08-02] MEDS ORDERED: OMEGA 3 ACID ETHYL ESTERS 1 GM CAPSULE PO SCH (09:00)
[2017-08-02] MEDS ORDERED: NON-FORMULARY MEDICATION (Omeprazole [Omeprazole] 20 MG) PO SCH (09:00)
--- NOTE | 2017-08-02 09:47 | Discharge Summary ---
Hospital Course - Hospital Course Hospital Course: 82-year-old white male with history of hypertension, nonischemic cardiomyopathy , AICD, CHF, LETICIA admitted by the hospitalist on 08/01/2017 with migraine, headache, and syncope. Patient's migraine resolved with Imitrex. CT the head was negative and Dr. Pittman from cardiology was consulted. Patient had heart cath earlier this year with nonobstructive coronary artery disease and chronic lower extremity weakness. Patient was gently diuresed, he is afebrile and his vital signs are stable. Chest x-ray this morning shows cardiomegaly without CHF. Patient feels much better and he is ready to go home. Patient will need to follow-up with his nurse esthetician Dr. Engle and VENKAT Matthew in 1 week with labs and x-ray. Complete discharge instructions were given to the patient and his in the room. Care coordination, chart review, and completed discharge paperwork took approximately 35 minutes. - Time spent with patient Time with patient DS: Greater than 30 minutes Discharge Plan - Discharge Data Disposition: Disch To Home/Self Care Condition at Discharge: Stable Discharge Diet: heart healthy Activity: resume usual activities as tolerated Contact your physician if you experience:: Shortness of breath - Discharge Medications Continue Acetaminophen Tab [Tylenol Tab] 325 mg PO DAILY PRN PRN Reason: Pain Montelukast Tab [Singulair Tab] 10 mg PO BEDTIME Multivitamin [Multivitamins] 1 each PO DAILY Magnesium Oxide 400 mg PO BID Rosuvastatin [Crestor] 20 mg PO BEDTIME Lubiprostone [Amitiza] 8 mcg PO BID Spironolactone [Aldactone] 50 mg PO DAILY tablet Diclofenac 1% Gel [Voltaren 1% Gel] 1 unit TOP QID PRN #1 gel PRN Reason: pain Lisinopril [Prinivil] 5 mg PO DAILY tablet Albuterol Inhaler [Proventil Inhaler] 2 puff INH Q4H PRN PRN Reason: Shortness Of Breath/Wheezing Budesonide/Formoterol 80-4.5 [Symbicort 80-4.5] 2 puff INH BID PRN PRN Reason: Shortness Of Breath/Wheezing Cholecalciferol (Vitamin D3) [Vitamin D3] 2,000 unit PO DAILY Cyanocobalamin (Vitamin B-12) [Cyanocobalamin Injection] 1 ml IM SA Fluticasone 50 Mcg Nasal [place] [Flonase Nasal [place]] 1 spray BOTH NARES BID PRN PRN Reason: Allergy Symptoms Folic Acid Tab 1 mg PO DAILY LORazepam TAB [Ativan Tab] 0.5 mg PO TID PRN PRN Reason: Anxiety Mexiletine [Mexitil] 200 mg PO BID Omeprazole 20 mg PO DAILY Potassium Chloride 10 meq PO BID Simethicone [Phazyme] 180 mg PO DAILY PRN PRN Reason: FLATULENCE Gabapentin Cap/Tab [Neurontin Cap/Tab] 200 mg PO TID Thyroid,Pork [[place] Thyroid] 90 mg PO DAILY Carvedilol [Coreg] 6.25 mg PO BID Calcium (Carbonate) [Caltrate 600] 600 mg PO DAILY Amiodarone Tab [Cordarone Tab] 200 mg PO DAILY Mupirocin Calcium [Bactroban 2% Cream] 1 applic TOP TID Fexofenadine [Bibi] 180 mg PO DAILY Polyethylene Glycol Powder [Miralax] 15 gm PO DAILY cycloSPORINE OPH EMUL [Restasis] 1 drop BOTH EYES BID Ipratropium 0.06% Nasal [place] [Atrovent 0.06% Nasal [place]] 2 spray BOTH NARES TID Sitagliptin Phosphate [Januvia] 50 mg PO DAILY Alendronate Sodium 35 mg PO SA Methenamine Hippurate [Hiprex] 1 gm PO BID [place]-3 Fatty Acids [Maxepa] 1,000 mg PO DAILY Sodium Chl/Potassium Chl Tab [Thermotabs] 2 tablet PO BID Digoxin Tab [Lanoxin Tab] 125 mcg PO DAILY Insulin Regular [HumuLIN R] See Protocol SUBCUT TID Imipramine [Tofranil] 10 mg PO DAILY metOLazone [Metolazone] 2.5 mg PO DAILY Ondansetron Tab [Zofran Tab] 4 mg PO BID PRN PRN Reason: Nausea Tramadol HCl [Tramadol Tab] 50 mg PO Q6H PRN PRN Reason: Pain Acetamin/Codeine 300-30 Tab [Tylenol/Codeine #3] 1 tablet PO Q6H PRN PRN Reason: Pain Furosemide Tab [Lasix Tab] 40 mg PO BID DIURETIC PRN PRN Reason: Edema Fludrocortisone [Florinef] 2 tablet PO BID Aspirin EC Tab 81 mg PO DAILY - Follow Up or Referral Follow Up: Dilshad Engle MD [Physician] - (Keep follow-up appointment) Norbert Olivas CFNP [Advanced Practice Nurse] - 1 Week (With chest x-ray and BMP , BNP) - Forms/Instructions Exam - Constitutional Vitals: Period Temp Pulse Resp BP Sys/Marroquin Pulse Ox Last 24 Hr 98.1 F-98.6 F 69-88 16-20 100-133/58-79 92-97 Exam: 82-year-old white male, no acute distress, alert and oriented Chest clear CV regular rate and rhythm Abdomen soft and nontender Extremities no edema Discharge Results Procedures and tests throughout hospitalization: Pending Orders 08/03/17 04:00 Comp Blood Count Auto Diff IN AM Comprehensive Metabolic Panel IN AM Labs on day of discharge: Labs from last 24 hours 08/02/17 08/02/17 08/02/17 08:24 04:30 04:30 WBC RBC Hgb Hct MCV MCH MCHC RDW Plt Count MPV Neut % (Auto) Lymph % (Auto) [place] % (Auto) Eos % (Auto) Baso % (Auto) Neut # (Auto) Lymph # (Auto) [place] # (Auto) Eos # (Auto) Baso # (Auto) Immature Gran % Nucleated RBC % Immature Gran # Nucleated RBCs # Immature Plt Fraction Sodium 138 Potassium 3.9 Chloride 97 L Carbon Dioxide 30 Anion Gap 14.9 BUN 23 H Creatinine 1.10 GFR Calculation 73 BUN/Creatinine Ratio 20.00 Glucose 150 H POC Glucose 130 H Hemoglobin A1c Calculated Osmolality 281.7 Calcium 9.1 Total Bilirubin 0.80 AST 56 H ALT 82 H Alkaline Phosphatase 79 B-Natriuretic Peptide 929 H Total Protein 6.1 L Albumin 2.9 L Globulin 3.2 Albumin/Globulin Ratio 0.9 L Free T4 TSH 3rd Generation 08/02/17 08/01/17 08/01/17 04:30 21:53 14:41 WBC 7.0 RBC 4.19 Hgb 12.0 L Hct 38.0 L MCV 90.7 MCH 29 MCHC 31.6 L RDW 15.1 Plt Count 253 MPV 10.5 Neut % (Auto) 72.9 Lymph % (Auto) 12.6 L [place] % (Auto) 11.3 Eos % (Auto) 2.3 Baso % (Auto) 0.6 Neut # (Auto) 5.1 Lymph # (Auto) 0.9 L [place] # (Auto) 0.8 Eos # (Auto) 0.2 Baso # (Auto) 0.0 Immature Gran % 0.3 Nucleated RBC % 0.0 Immature Gran # 0.02 Nucleated RBCs # 0.00 Immature Plt Fraction 0.0 Sodium Potassium Chloride Carbon Dioxide Anion Gap BUN Creatinine GFR Calculation BUN/Creatinine Ratio Glucose POC Glucose 124 H 110 H Hemoglobin A1c Calculated Osmolality Calcium Total Bilirubin AST ALT Alkaline Phosphatase B-Natriuretic Peptide Total Protein Albumin Globulin Albumin/Globulin Ratio Free T4 TSH 3rd Generation 08/01/17 08/01/17 08/01/17 10:24 07:09 07:09 WBC RBC Hgb Hct MCV MCH MCHC RDW Plt Count MPV Neut % (Auto) Lymph % (Auto) [place] % (Auto) Eos % (Auto) Baso % (Auto) Neut # (Auto) Lymph # (Auto) [place] # (Auto) Eos # (Auto) Baso # (Auto) Immature Gran % Nucleated RBC % Immature Gran # Nucleated RBCs # Immature Plt Fraction Sodium Potassium Chloride Carbon Dioxide Anion Gap BUN Creatinine GFR Calculation BUN/Creatinine Ratio Glucose POC Glucose Hemoglobin A1c 7.2 H Calculated Osmolality Calcium Total Bilirubin AST ALT Alkaline Phosphatase B-Natriuretic Peptide Total Protein Albumin Globulin Albumin/Globulin Ratio Free T4 1.22 TSH 3rd Generation 0.245 L DS: Provider Date of admission: 08/01/17 09:10 Primary care physician: Christian Lino MD Attending physician on admission: Zuri Cherry MD Consults: 08/01/17 13:51 Consult to Physician [CONS] Routine Comment: Consulting Provider: Dilshad Engle Consult to Specialist Group: Cardiology When should Consulting Provider be notified: Now Person Notified: Dr. Pittman Date Notified: 08/01/17 Time Notified: 15:05 Discharging clinician: ASIF Aguilar Expected date of discharge: 08/02/17
--- NOTE | 2017-08-02 09:48 | Cardiology Progress Note ---
<Leonora Vasquez E - Last Filed: 08/02/17 09:40> Assessment and Plan - Time spent with patient Time spent with patient: Less than 30 minutes (1) Headache Status: Acute Assessment and plan: See plan of care listed below. (2) Chest pain Status: Acute Assessment and plan: See plan of care listed below. (3) Nonischemic cardiomyopathy Status: Chronic Assessment and plan: See plan of care listed below. (4) Status post implantation of automatic cardioverter/defibrillator (AICD) Status: Chronic Assessment and plan: See plan of care listed below. (5) Physical debility Status: Chronic Assessment and plan: See plan of care listed below. (6) CHF (congestive heart failure) Status: Chronic Assessment and plan: See plan of care listed below. Qualifiers: Congestive heart failure type: combined Congestive heart failure chronicity : acute on chronic Qualified Code(s): I50.43 - Acute on chronic combined systolic (congestive) and diastolic (congestive) heart failure Cardiology - PN: Subj Interval history: Exchange Underwriting Consultant: Dr. Engle SUMMARY: Mr. barber is an 82-year-old WDM who presented to the hospital with complaints of headache. He has a history of nonischemic cardiomyopathy, chronic systolic and diastolic CHF, mild nonobstructive CAD per heart cath earlier this year, hypertension, paroxysmal atrial fibrillation, obstructive sleep apnea AICD placement. He complained of some chest heaviness and shortness of breath and we were consulted to see him. His symptoms resolved prior to arrival. He was noted to have a BNP of 687 and upon review of prior records it always appears to be slightly elevated. AUGUST 02, 2017: Mr. Jones was seen this morning resting in the bed with his at the bedside in no acute distress. He has received IV Lasix for some mild acute CHF and has responded well. Chest x-ray this morning shows cardiomegaly without overt CHF. He has a few bibasilar crackles but is otherwise clear to auscultation. He continues to be Bi-V paced per monitor and storage bin tender. His vital signs and lab workup and stable. We will repeat a set of cardiac biomarkers this morning. He is to have a repeat echocardiogram done this morning. Last ejection fraction 30% in January. From a cardiac standpoint, he may be discharged home to follow-up with Dr. Engle in 2-3 weeks. REVIEW OF SYSTEMS: CARDIAC: Brief episode of chest tightness last night, none this morning. RESPIRATORY: No shortness of breath with O2 present. NEURO: No headache, blurry vision. IMPRESSION/PLAN: 1. HEADACHE: Resolved. Etiology is unclear. 2. CHEST PAIN: Likely noncardiac in nature. Cardiac biomarkers have been negative. Left heart cath for 717 revealed moderate nonobstructive coronary artery disease with ejection fraction 25-30%. 3. NONISCHEMIC CARDIOMYOPATHY: Echocardiogram pending. Last echo in January 2017 revealed EF 30% with grade 3 diastolic dysfunction. He has had a little pleural effusion and may be having some mild heart failure with a slightly elevated BNP. He has received several doses of IV Lasix and has diuresed well. 4. PRESENCE OF AICD: Patient is 100% time with this. No recent defibrillator treatments. No episodes of VT per monitor and storage bin tender. 5. PYSICAL DEBILITY: This is a chronic issue for this patient. This certainly exacerbates any other underlying medical issues. 6. ACUTE ON CHRONIC COMBINED SYSTOLIC AND DIASTOLIC CHF: Patient has a chronically elevated BNP. He has received additional doses of IV Lasix during hospitalization due to chest x-ray showing left pleural effusion on admission. Exam (Progress Note) - Constitutional Vitals: Period Temp Pulse Resp BP Sys/Marroquin Pulse Ox Last 24 Hr 98.1 F-98.6 F 69-88 16-20 100-133/58-79 92-97 Exam: General appearance: Appears well. Pleasant and cooperative. Overweight, no acute distress. Head exam: Present: normal inspection, normocephalic, atraumatic. Absent: hematoma, laceration Eye exam: Present: EOMI. Absent: conjunctival injection, nystagmus, periorbital swelling, scleral icterus, laceration to eyelids, jaundice Pupils: Present: PERRL. Absent: constricted, dilated, fixed, irregular, unequal ENT exam: Present: normal exam, normal external ear exam, mucous membranes moist. Neck exam: Present: normal inspection, midline trachea. Absent: masses, lymphadenopathy, tenderness, thyromegaly, carotid bruit Respiratory exam: Present: Few bibasilar crackles, otherwise clear to auscultation bilaterally. Absent: accessory muscle use, chest wall tenderness, rhonchi, wheezing. Cardiovascular exam: Present: regular rate and rhythm. Absent: gallop, JVD, rubs, murmur GI/Abdominal exam: Present: normal bowel sounds, soft. Absent: distended, firm , hernia, mass, tenderness. Extremities exam: Present: Poor Gait, No Clubbing, No Cyanosis, Upper Extr. Pulses 2+, Lower Extr. Pulses 2+, No edema. Capillary refill less than 3 seconds. Musculoskeletal: Present: No Fluid Collection, No Pain, Normal Range of Motion Back exam: Present: normal inspection. Absent: muscle spasm, vertebral tenderness Neurological exam: Present: awake, alert, oriented X3, Moves all extremities well without hemiparesis or paralysis. Grossly intact without resting or essential tremor Psychiatric exam: Present: normal affect, normal mood Skin exam: Present: normal color, warm, dry, intact. Absent: cyanosis, diaphoretic, rash, urticaria Result/EKG - Labs CBC & BMP: 08/02/17 04:30 08/02/17 04:30 Lab Results: I have reviewed the past 24 hour labs Labs: Laboratory Results - last 24 hr 08/01/17 08/01/17 08/01/17 07:09 07:09 10:24 WBC RBC Hgb Hct MCV MCH MCHC RDW Plt Count MPV Neut % (Auto) Lymph % (Auto) [place] % (Auto) Eos % (Auto) Baso % (Auto) Neut # (Auto) Lymph # (Auto) [place] # (Auto) Eos # (Auto) Baso # (Auto) Immature Gran % Nucleated RBC % Immature Gran # Nucleated RBCs # Immature Plt Fraction Sodium Potassium Chloride Carbon Dioxide Anion Gap BUN Creatinine GFR Calculation BUN/Creatinine Ratio Glucose POC Glucose Hemoglobin A1c 7.2 H Calculated Osmolality Calcium Total Bilirubin AST ALT Alkaline Phosphatase B-Natriuretic Peptide Total Protein Albumin Globulin Albumin/Globulin Ratio Free T4 1.22 TSH 3rd Generation 0.245 L 08/01/17 08/01/17 08/02/17 14:41 21:53 04:30 WBC 7.0 RBC 4.19 Hgb 12.0 L Hct 38.0 L MCV 90.7 MCH 29 MCHC 31.6 L RDW 15.1 Plt Count 253 MPV 10.5 Neut % (Auto) 72.9 Lymph % (Auto) 12.6 L [place] % (Auto) 11.3 Eos % (Auto) 2.3 Baso % (Auto) 0.6 Neut # (Auto) 5.1 Lymph # (Auto) 0.9 L [place] # (Auto) 0.8 Eos # (Auto) 0.2 Baso # (Auto) 0.0 Immature Gran % 0.3 Nucleated RBC % 0.0 Immature Gran # 0.02 Nucleated RBCs # 0.00 Immature Plt Fraction 0.0 Sodium Potassium Chloride Carbon Dioxide Anion Gap BUN Creatinine GFR Calculation BUN/Creatinine Ratio Glucose POC Glucose 110 H 124 H Hemoglobin A1c Calculated Osmolality Calcium Total Bilirubin AST ALT Alkaline Phosphatase B-Natriuretic Peptide Total Protein Albumin Globulin Albumin/Globulin Ratio Free T4 TSH 3rd Generation 08/02/17 08/02/17 08/02/17 04:30 04:30 08:24 WBC RBC Hgb Hct MCV MCH MCHC RDW Plt Count MPV Neut % (Auto) Lymph % (Auto) [place] % (Auto) Eos % (Auto) Baso % (Auto) Neut # (Auto) Lymph # (Auto) [place] # (Auto) Eos # (Auto) Baso # (Auto) Immature Gran % Nucleated RBC % Immature Gran # Nucleated RBCs # Immature Plt Fraction Sodium 138 Potassium 3.9 Chloride 97 L Carbon Dioxide 30 Anion Gap 14.9 BUN 23 H Creatinine 1.10 GFR Calculation 73 BUN/Creatinine Ratio 20.00 Glucose 150 H POC Glucose 130 H Hemoglobin A1c Calculated Osmolality 281.7 Calcium 9.1 Total Bilirubin 0.80 AST 56 H ALT 82 H Alkaline Phosphatase 79 B-Natriuretic Peptide 929 H Total Protein 6.1 L Albumin 2.9 L Globulin 3.2 Albumin/Globulin Ratio 0.9 L Free T4 TSH 3rd Generation - EKG EKG results: interpreted by me (Bi-V pacing) Specialty Discharge - Follow Up or Referrals Follow up with: Norbert Olivas CFNP [Advanced Practice Nurse] - 08/23/17 2:00 pm (With chest x- ray and BMP, BNP) Dilshad Engle MD [Physician] - 08/16/17 8:40 am (Keep follow-up appointment) <Kulwinder Stapleton - Last Filed: 08/02/17 20:07> Exam (Progress Note) - Constitutional Vitals: Period Temp Pulse Resp BP Sys/Marroquin Pulse Ox Last 24 Hr 98.1 F-98.5 F 69-88 16-20 100-129/61-71 92-97 Result/EKG - Labs CBC & BMP: 08/02/17 04:30 08/02/17 04:30 Labs: Laboratory Results - last 24 hr 08/01/17 08/02/17 08/02/17 21:53 04:30 04:30 WBC 7.0 RBC 4.19 Hgb 12.0 L Hct 38.0 L MCV 90.7 MCH 29 MCHC 31.6 L RDW 15.1 Plt Count 253 MPV 10.5 Neut % (Auto) 72.9 Lymph % (Auto) 12.6 L [place] % (Auto) 11.3 Eos % (Auto) 2.3 Baso % (Auto) 0.6 Neut # (Auto) 5.1 Lymph # (Auto) 0.9 L [place] # (Auto) 0.8 Eos # (Auto) 0.2 Baso # (Auto) 0.0 Immature Gran % 0.3 Nucleated RBC % 0.0 Immature Gran # 0.02 Nucleated RBCs # 0.00 Immature Plt Fraction 0.0 Sodium 138 Potassium 3.9 Chloride 97 L Carbon Dioxide 30 Anion Gap 14.9 BUN 23 H Creatinine 1.10 GFR Calculation 73 BUN/Creatinine Ratio 20.00 Glucose 150 H POC Glucose 124 H Calculated Osmolality 281.7 Calcium 9.1 Total Bilirubin 0.80 AST 56 H ALT 82 H Alkaline Phosphatase 79 B-Natriuretic Peptide Total Protein 6.1 L Albumin 2.9 L Globulin 3.2 Albumin/Globulin Ratio 0.9 L 08/02/17 08/02/17 04:30 08:24 WBC RBC Hgb Hct MCV MCH MCHC RDW Plt Count MPV Neut % (Auto) Lymph % (Auto) [place] % (Auto) Eos % (Auto) Baso % (Auto) Neut # (Auto) Lymph # (Auto) [place] # (Auto) Eos # (Auto) Baso # (Auto) Immature Gran % Nucleated RBC % Immature Gran # Nucleated RBCs # Immature Plt Fraction Sodium Potassium Chloride Carbon Dioxide Anion Gap BUN Creatinine GFR Calculation BUN/Creatinine Ratio Glucose POC Glucose 130 H Calculated Osmolality Calcium Total Bilirubin AST ALT Alkaline Phosphatase B-Natriuretic Peptide 929 H Total Protein Albumin Globulin Albumin/Globulin Ratio
[2017-08-02] MEDS: FLUDROCORTISONE 0.1 MG TABLET PO SCH (10:14)
[2017-08-02] MEDS: MULTIVITAMIN (CENTRUM) TABLET PO SCH (10:14)
[2017-08-02] MEDS: SPIRONOLACTONE 50 MG TABLET PO SCH (10:14)
[2017-08-02] MEDS: CHOLECALCIFEROL 1,000 UNIT TABLET PO SCH (10:14)
[2017-08-02] MEDS: DIGOXIN 0.125 MG TABLET PO SCH (10:15)
[2017-08-02] MEDS: ASPIRIN EC 81 MG TABLET PO SCH (10:15)
[2017-08-02] MEDS: IMIPRAMINE 10 MG TABLET PO SCH (10:15)
[2017-08-02] MEDS: CARVEDILOL 6.25 MG TABLET PO SCH (10:15)
[2017-08-02] MEDS: FEXOFENADINE 180 MG TABLET PO SCH (10:15)
[2017-08-02] MEDS: CALCIUM (CARBONATE) 600 MG TABLET PO SCH (10:15)
[2017-08-02] MEDS: GABAPENTIN 100 MG CAPSULE PO SCH (10:16)
[2017-08-02] MEDS: POTASSIUM CHLORIDE 10 MEQ TABLET PO SCH (10:17)
[2017-08-02] MEDS: metOLazone 2.5 MG TABLET PO SCH (10:17)
[2017-08-02] MEDS: AMIODARONE 200 MG TABLET PO SCH (10:17)
[2017-08-02] MEDS: FOLIC ACID 1 MG TABLET PO SCH (10:17)
[2017-08-02] MEDS: METHENAMINE HIPPURATE 1 GM TABLET PO SCH (10:18)
[2017-08-02] MEDS: PANTOPRAZOLE 40 MG TABLET PO SCH (10:18)
[2017-08-02] MEDS: MUPIROCIN 2% OINT 22 GM TUBE TOP SCH (10:27)
[2017-08-02] MEDS: IPRATROPIUM 0.06% NASAL SPRAY 15 ML BOTTLE BOTH NARES SCH (10:27)
[2017-08-02] MEDS: THYROID 60 MG TABLET PO SCH (10:40)
[2017-08-02] MEDS: sitaGLIPtin 25 MG TABLET PO SCH (10:40)
[2017-08-02] MEDS: LUBIPROSTONE 8 MCG CAPSULE PO SCH (10:40)
[2017-08-02] MEDS: POLYETHYLENE GLYCOL POWDER 17 GM PACK PO SCH (10:46)
[2017-08-02] MEDS: INSULIN REGULAR 100 UNIT/ML SUBCUT SCH (10:47)
[2017-08-02] MEDS: MEXILETINE 200 MG CAPSULE PO SCH (11:00)
[2017-08-02] MEDS: MAGNESIUM OXIDE 400 MG TABLET PO SCH (11:00)
[2017-08-02] MEDS: SODIUM CHLORIDE/POTASSIUM CHLORIDE TABLET PO SCH (11:01)
[2017-08-02] MEDS: cycloSPORINE OPH EMUL 1 VIAL BOTH EYES SCH (11:02)
[2017-08-02] MEDS: LISINOPRIL 5 MG TABLET PO SCH (11:02)
[2017-08-02] MEDS ORDERED: INFLUENZA VIRUS VACCINE 0.5 ML SYRINGE IM ONE (11:25)
[2017-08-02 11:51] VITALS: BP 108/67
--- NOTE | 2017-08-02 20:07 | Order Completion Report ---
See report scanned to EMR
--- NOTE | 2017-08-04 20:49 | Order Completion Report ---
See report scanned to EMR
[2017-08-07] MEDS ORDERED: Alendronate Sodium [Alendronate Sodium] 35 MG PO SCH (10:07)
[2017-08-07] MEDS ORDERED: CYANOCOBALAMIN 1000 MCG/1 ML VIAL IM SCH (10:07)
== END 2017-08-02 12:12 | disposition home or self-care (01) | DRG 312 ==
LOC: N.ED 06:28 → N.EDINP 09:10 → N.TELES 09:46
PROVIDERS: ADMIT Hospitalist; ATTEND Hospitalist

== ENCOUNTER 2017-10-30 19:51 | Inpatient (IN) ==
[2017-10-30] MEDS ORDERED: ONDANSETRON 4 MG/2 ML VIAL IV STA (20:29)
[2017-10-30] MEDS ORDERED: FUROSEMIDE 100 MG/10 ML VIAL IV STA (20:29)
[2017-10-30] MEDS ORDERED: SODIUM CHLORIDE 0.9% 500 ML IV STA (20:29)
[2017-10-30] MEDS ORDERED: methylPREDNISolone SOD SUC 125 MG/2 ML VIAL IV STA (20:29)
[2017-10-30] MEDS ORDERED: ALBUTEROL 2.5 MG/3 ML NEB RESP TX SCH (20:30)
[2017-10-30] MEDS ORDERED: FUROSEMIDE 20 MG/2 ML VIAL ONE (21:23)
[2017-10-30] MEDS ORDERED: methylPREDNISolone SOD SUC 125 MG/2 ML VIAL ONE (21:23)
[2017-10-30] MEDS ORDERED: ONDANSETRON 4 MG/2 ML VIAL ONE (21:23)
[2017-10-30] MEDS ORDERED: cefTRIAXone 1,000 MG in SODIUM CHLORIDE 0.9% 100 ML IV STA (21:32)
[2017-10-30 21:36] LABS: Basophils % 0.3 % (0.0-0.8); Eosinophils # 0.1 10*3/uL (0.0-0.87); Eosinophils % 1.6 % (0.00-10.9); Hematocrit 38.4 VOL% (42.0-52.0); Hemoglobin 12.3 GM/DL (14.0-18.0); Immature Granulocytes % 1.3 %; Lymphocytes # 0.8 10*3/uL (1.4-4.0); Lymphocytes % 11.1 % (21.2-54.2); Mean Corpuscular Hemoglobin 30 PG (27-34); Mean Corpuscular Volume 92.1 FL (87-102); Mean Platelet Volume 9.8 FL (9.6-12.0); Monocytes # 0.7 10*3/uL (0.11-0.8); Monocytes % 9.4 % (1.7-12.7); Neutrophils # 5.7 10*3/uL (1.4-7.4); Neutrophils % 76.3 % (38.7-73.9); Platelet Count 271 T/CUMM (130-400); Red Blood Count 4.17 MC/CUMM (3.8-5.5); Red Cell Distribution Width 16.2 % (9.3-17.3); White Blood Count 7.5 T/CUMM (4-12)
[2017-10-30 21:46] LABS: Alanine Aminotransferase 135 U/L (16-61); Alkaline Phosphatase 83 U/L (45-117); Aspartate Amino Transferase 70 U/L (0-37); Bilirubin,Total < 0.39 MG/DL (0.2-1.0); Blood Urea Nitrogen 26 MG/DL (7-18); Calcium 8.7 MG/DL (8.5-10.1); Glucose 115 MG/DL (74-106); Magnesium 2.1 MG/DL (1.8-2.4); Osmolality,Calculated 273.2 MOS/KG (273-304); Potassium 4.7 MMOL/L (3.5-5.1); Sodium 134 MMOL/L (136-145); Total Protein 6.3 G/DL (6.4-8.3); Troponin I Only 0.018 NG/ML (0.00-0.045)
[2017-10-30] MEDS ORDERED: cefTRIAXone 1,000 MG VIAL ONE (21:49)
[2017-10-30 22:25] LABS: Apearance,Urine CLEAR (Clear); Bilirubin,Urine Negative (Negative); Blood, Urine Negative (Negative); Glucose,Urine (UA) Negative (Negative); Granular Casts,Urine 2 /LPF (0-1); Hyaline Casts,Urine 2 /LPF (0-3); Ketones,Urine Negative (Negative); Nitrite,Urine Negative (Negative); Protein,Urine Negative; RBC,Urine 1 /HPF (0-4); Squamous Epithelial Cell,Urine Occasional /HPF (0-10); Urine Color Yellow (Yellow); Urine Specific Gravity 1.011 (1.001-1.035); Urine Urobilinogen < 2.0 EU/DL (0.2-1.0); WBC,Urine 12 /HPF (0-6)
[2017-10-31] MEDS ORDERED: DEXTROSE 50% 25 GM/50 ML VIAL IV PRN (00:26)
[2017-10-31] MEDS ORDERED: GLUCAGON 1 MG VIAL IM PRN (00:26)
[2017-10-31] MEDS ORDERED: ACETAMINOPHEN 325 MG TABLET PO PRN (00:35)
[2017-10-31] MEDS ORDERED: DICLOFENAC 1% GEL 100 GM TUBE TOP PRN (00:35)
[2017-10-31] MEDS ORDERED: BUDESONIDE/FORMOTEROL 80-4.5 INHALER 6.9 GM INH PRN (00:35)
[2017-10-31] MEDS ORDERED: FLUTICASONE 50 MCG NASAL SPRAY 16 GM BOTTLE BOTH NARES PRN (00:35)
[2017-10-31] MEDS ORDERED: IMIPRAMINE 10 MG TABLET PO PRN (00:35)
[2017-10-31] MEDS ORDERED: SIMETHICONE CHEW 80 MG TABLET PO PRN (00:35)
[2017-10-31] MEDS: ALBUTEROL/IPRATROPIUM 3 ML NEB RESP TX SCH ×4 (03:40→20:08)
[2017-10-31 04:59] LABS: Basophils % 0.1 % (0.0-0.8); Hematocrit 40.2 VOL% (42.0-52.0); Hemoglobin 12.7 GM/DL (14.0-18.0); Immature Granulocytes % 1.4 %; Immature Granulocytes Absolute 0.14 #; Lymphocytes # 0.4 10*3/uL (1.4-4.0); Lymphocytes % 4.1 % (21.2-54.2); Mean Corpuscular HGB Conc 31.6 GM/DL (32-36); Mean Corpuscular Hemoglobin 29 PG (27-34); Mean Corpuscular Volume 92.6 FL (87-102); Mean Platelet Volume 9.7 FL (9.6-12.0); Monocytes # 0.1 10*3/uL (0.11-0.8); Monocytes % 0.6 % (1.7-12.7); Neutrophils # 9.1 10*3/uL (1.4-7.4); Neutrophils % 93.8 % (38.7-73.9); Platelet Count 275 T/CUMM (130-400); Red Blood Count 4.34 MC/CUMM (3.8-5.5); Red Cell Distribution Width 16.5 % (9.3-17.3); White Blood Count 9.7 T/CUMM (4-12)
[2017-10-31] MEDS: PIPERACILLIN/TAZOBACTAM 3,375 MG in SODIUM CHLORIDE 0.9% 100 ML IV SCH ×3 (05:00→17:19)
[2017-10-31 05:43] LABS: Hypochromasia 1+; Lymphocytes 3 % (20-55); Segmented Neutrophils 96 % (50-85); Total Cells Counted 100
[2017-10-31 05:44] LABS: Microcytosis 1+; Platelet Estimate Normal
[2017-10-31 06:29] LABS: Calcium 9.2 MG/DL (8.5-10.1); Potassium 5.3 MMOL/L (3.5-5.1); Thyroid Stimulating Hormone 0.141 uIU/ml (0.358-3.74)
[2017-10-31] MEDS: methylPREDNISolone SOD SUC 40 MG/1 ML VIAL IV SCH ×2 (09:53→21:06)
[2017-10-31] MEDS: FUROSEMIDE 40 MG/4 ML VIAL IV SCH (09:54)
[2017-10-31] MEDS: INSULIN LISPRO 100 UNIT/ML SUBCUT SCH ×4 (09:54→21:07)
[2017-10-31] MEDS: MUPIROCIN 2% OINT 22 GM TUBE TOP SCH ×3 (09:55→21:07)
[2017-10-31] MEDS: GABAPENTIN 100 MG CAPSULE PO SCH ×3 (09:55→21:07)
[2017-10-31] MEDS: FLUDROCORTISONE 0.1 MG TABLET PO SCH ×2 (09:56→21:06)
[2017-10-31] MEDS: THYROID 60 MG TABLET PO SCH (09:56)
[2017-10-31] MEDS: guaiFENesin/DM ER 600-30 MG TABLET PO SCH ×2 (09:56→21:07)
[2017-10-31] MEDS: SODIUM CHLORIDE/POTASSIUM CHLORIDE TABLET PO SCH ×2 (09:57→21:06)
[2017-10-31] MEDS: MONTELUKAST 10 MG TABLET PO SCH (09:57)
[2017-10-31] MEDS: SPIRONOLACTONE 50 MG TABLET PO SCH (09:57)
[2017-10-31] MEDS: CARVEDILOL 6.25 MG TABLET PO SCH ×2 (09:57→21:07)
[2017-10-31] MEDS: FEXOFENADINE 180 MG TABLET PO SCH (09:57)
[2017-10-31] MEDS: AMIODARONE 200 MG TABLET PO SCH (09:57)
[2017-10-31] MEDS: MEXILETINE 200 MG CAPSULE PO SCH ×2 (09:57→21:07)
[2017-10-31] MEDS: LISINOPRIL 5 MG TABLET PO SCH (09:58)
[2017-10-31] MEDS: cycloSPORINE OPH EMUL 1 VIAL BOTH EYES SCH ×2 (09:58→21:08)
[2017-10-31] MEDS: MAGNESIUM OXIDE 400 MG TABLET PO SCH (09:58)
[2017-10-31] MEDS: sitaGLIPtin 25 MG TABLET PO SCH (09:58)
[2017-10-31] MEDS: PANTOPRAZOLE 40 MG TABLET PO SCH (09:58)
[2017-10-31] MEDS: DIGOXIN 0.125 MG TABLET PO SCH (09:58)
[2017-10-31] MEDS: MULTIVITAMIN (CENTRUM) TABLET PO SCH (09:58)
[2017-10-31] MEDS: CHOLECALCIFEROL 1,000 UNIT TABLET PO SCH (13:01)
[2017-10-31] MEDS: FOLIC ACID 1 MG TABLET PO SCH (13:02)
[2017-10-31] MEDS: CALCIUM (CARBONATE) 600 MG TABLET PO SCH (13:02)
[2017-10-31] MEDS ORDERED: metOLazone 2.5 MG TABLET PO SCH (21:00)
[2017-10-31] MEDS: ASPIRIN EC 81 MG TABLET PO SCH (21:06)
[2017-10-31] MEDS: OMEGA 3 ACID ETHYL ESTERS 1 GM CAPSULE PO SCH (21:06)
[2017-10-31] MEDS: ROSUVASTATIN 20 MG TABLET PO SCH (21:07)
[2017-11-01] MEDS: ALBUTEROL/IPRATROPIUM 3 ML NEB RESP TX SCH ×4 (01:08→21:12)
[2017-11-01] MEDS: PIPERACILLIN/TAZOBACTAM 3,375 MG in SODIUM CHLORIDE 0.9% 100 ML IV SCH ×3 (05:00→18:10)
[2017-11-01] MEDS: guaiFENesin/DM ER 600-30 MG TABLET PO SCH ×2 (09:21→21:44)
[2017-11-01] MEDS: MEXILETINE 200 MG CAPSULE PO SCH ×2 (09:21→21:44)
[2017-11-01] MEDS: AMIODARONE 200 MG TABLET PO SCH (09:22)
[2017-11-01] MEDS: THYROID 60 MG TABLET PO SCH (09:22)
[2017-11-01] MEDS: sitaGLIPtin 25 MG TABLET PO SCH (09:22)
[2017-11-01] MEDS: GABAPENTIN 100 MG CAPSULE PO SCH ×3 (09:23→21:44)
[2017-11-01] MEDS: MAGNESIUM OXIDE 400 MG TABLET PO SCH (09:25)
[2017-11-01] MEDS: PANTOPRAZOLE 40 MG TABLET PO SCH (09:25)
[2017-11-01] MEDS: FLUDROCORTISONE 0.1 MG TABLET PO SCH ×2 (09:25→21:44)
[2017-11-01] MEDS: MONTELUKAST 10 MG TABLET PO SCH (09:26)
[2017-11-01] MEDS: CARVEDILOL 6.25 MG TABLET PO SCH ×2 (09:26→21:45)
[2017-11-01] MEDS: DIGOXIN 0.125 MG TABLET PO SCH (09:26)
[2017-11-01] MEDS: FEXOFENADINE 180 MG TABLET PO SCH (09:26)
[2017-11-01] MEDS: SODIUM CHLORIDE/POTASSIUM CHLORIDE TABLET PO SCH ×2 (09:26→21:44)
[2017-11-01] MEDS: MULTIVITAMIN (CENTRUM) TABLET PO SCH (09:26)
[2017-11-01] MEDS: FUROSEMIDE 40 MG/4 ML VIAL IV SCH (09:27)
[2017-11-01] MEDS: MUPIROCIN 2% OINT 22 GM TUBE TOP SCH ×3 (09:27→21:46)
[2017-11-01] MEDS: INSULIN LISPRO 100 UNIT/ML SUBCUT SCH ×4 (09:27→21:45)
[2017-11-01] MEDS: LISINOPRIL 5 MG TABLET PO SCH (09:27)
[2017-11-01] MEDS: SPIRONOLACTONE 50 MG TABLET PO SCH (09:27)
[2017-11-01] MEDS: methylPREDNISolone SOD SUC 40 MG/1 ML VIAL IV SCH ×2 (09:30→21:43)
[2017-11-01] MEDS: cycloSPORINE OPH EMUL 1 VIAL BOTH EYES SCH ×2 (09:34→21:45)
[2017-11-01] MEDS: CALCIUM (CARBONATE) 600 MG TABLET PO SCH (11:20)
[2017-11-01] MEDS: CHOLECALCIFEROL 1,000 UNIT TABLET PO SCH (11:20)
[2017-11-01] MEDS: FOLIC ACID 1 MG TABLET PO SCH (11:20)
[2017-11-01] MEDS: LUBIPROSTONE 8 MCG CAPSULE PO SCH ×2 (14:10→21:45)
[2017-11-01] MEDS: POLYETHYLENE GLYCOL POWDER 17 GM PACK PO SCH (14:10)
[2017-11-01] MEDS: ASPIRIN EC 81 MG TABLET PO SCH (21:44)
[2017-11-01] MEDS: OMEGA 3 ACID ETHYL ESTERS 1 GM CAPSULE PO SCH (21:44)
[2017-11-01] MEDS: ROSUVASTATIN 20 MG TABLET PO SCH (21:45)
[2017-11-02] MEDS: ALBUTEROL/IPRATROPIUM 3 ML NEB RESP TX SCH ×4 (01:44→20:47)
[2017-11-02] MEDS: PIPERACILLIN/TAZOBACTAM 3,375 MG in SODIUM CHLORIDE 0.9% 100 ML IV SCH ×3 (02:40→18:33)
[2017-11-02 05:32] LABS: Hematocrit 37.6 VOL% (42.0-52.0); Hemoglobin 12.3 GM/DL (14.0-18.0); Immature Granulocytes % 0.9 %; Immature Granulocytes Absolute 0.11 #; Lymphocytes # 0.4 10*3/uL (1.4-4.0); Mean Corpuscular HGB Conc 32.7 GM/DL (32-36); Mean Corpuscular Hemoglobin 29 PG (27-34); Mean Platelet Volume 9.8 FL (9.6-12.0); Monocytes # 0.3 10*3/uL (0.11-0.8); Monocytes % 2.1 % (1.7-12.7); Neutrophils # 11.4 10*3/uL (1.4-7.4); Platelet Count 292 T/CUMM (130-400); Red Blood Count 4.18 MC/CUMM (3.8-5.5); Red Cell Distribution Width 17.2 % (9.3-17.3); White Blood Count 12.1 T/CUMM (4-12)
[2017-11-02 05:55] LABS: Hypochromasia 1+; Lymphocytes 5 % (20-55); Ovalocytes Slight; Platelet Estimate Adequate; Segmented Neutrophils 94 % (50-85); Total Cells Counted 100
[2017-11-02 05:56] LABS: Giant Platelets Few; Microcytosis 1+
[2017-11-02 06:05] LABS: Calcium 8.7 MG/DL (8.5-10.1); Potassium 3.8 MMOL/L (3.5-5.1)
[2017-11-02] MEDS: POLYETHYLENE GLYCOL POWDER 17 GM PACK PO SCH (09:21)
[2017-11-02] MEDS: methylPREDNISolone SOD SUC 40 MG/1 ML VIAL IV SCH ×2 (09:22→21:50)
[2017-11-02] MEDS: INSULIN LISPRO 100 UNIT/ML SUBCUT SCH ×4 (09:22→21:50)
[2017-11-02] MEDS: THYROID 60 MG TABLET PO SCH (09:24)
[2017-11-02] MEDS: PANTOPRAZOLE 40 MG TABLET PO SCH (09:24)
[2017-11-02] MEDS: SPIRONOLACTONE 25 MG TABLET PO SCH (09:24)
[2017-11-02] MEDS: MAGNESIUM OXIDE 400 MG TABLET PO SCH (09:24)
[2017-11-02] MEDS: LISINOPRIL 2.5 MG TABLET PO SCH (09:25)
[2017-11-02] MEDS: guaiFENesin/DM ER 600-30 MG TABLET PO SCH ×2 (09:25→21:50)
[2017-11-02] MEDS: MONTELUKAST 10 MG TABLET PO SCH (09:26)
[2017-11-02] MEDS: FEXOFENADINE 180 MG TABLET PO SCH (09:26)
[2017-11-02] MEDS: SODIUM CHLORIDE/POTASSIUM CHLORIDE TABLET PO SCH ×2 (09:26→21:49)
[2017-11-02] MEDS: CARVEDILOL 6.25 MG TABLET PO SCH ×2 (09:26→21:50)
[2017-11-02] MEDS: DIGOXIN 0.125 MG TABLET PO SCH (09:26)
[2017-11-02] MEDS: FLUDROCORTISONE 0.1 MG TABLET PO SCH ×2 (09:27→21:50)
[2017-11-02] MEDS: GABAPENTIN 100 MG CAPSULE PO SCH ×3 (09:27→21:49)
[2017-11-02] MEDS: MULTIVITAMIN (CENTRUM) TABLET PO SCH (09:27)
[2017-11-02] MEDS: LUBIPROSTONE 8 MCG CAPSULE PO SCH ×2 (09:28→21:50)
[2017-11-02] MEDS: AMIODARONE 200 MG TABLET PO SCH (09:28)
[2017-11-02] MEDS: cycloSPORINE OPH EMUL 1 VIAL BOTH EYES SCH ×2 (09:28→21:50)
[2017-11-02] MEDS: sitaGLIPtin 25 MG TABLET PO SCH (09:28)
[2017-11-02] MEDS: MEXILETINE 200 MG CAPSULE PO SCH ×2 (09:28→21:49)
[2017-11-02] MEDS: MUPIROCIN 2% OINT 22 GM TUBE TOP SCH ×3 (09:29→21:51)
[2017-11-02] MEDS: FUROSEMIDE 40 MG/4 ML VIAL IV SCH (09:29)
[2017-11-02] MEDS: CALCIUM (CARBONATE) 600 MG TABLET PO SCH (12:11)
[2017-11-02] MEDS: FOLIC ACID 1 MG TABLET PO SCH (12:11)
[2017-11-02] MEDS: CHOLECALCIFEROL 1,000 UNIT TABLET PO SCH (12:11)
[2017-11-02] MEDS ORDERED: AMIODARONE INJ 150 MG in DEXTROSE 5% 100 ML IV ONE (17:20)
[2017-11-02] MEDS ORDERED: AMIODARONE INJ 450 MG in DEXTROSE 5% 241 ML IV SCH (17:30)
[2017-11-02] MEDS: OMEGA 3 ACID ETHYL ESTERS 1 GM CAPSULE PO SCH (21:49)
[2017-11-02] MEDS: ASPIRIN EC 81 MG TABLET PO SCH (21:49)
[2017-11-02] MEDS: APIXABAN 2.5 MG TABLET PO SCH (21:49)
[2017-11-02] MEDS: ROSUVASTATIN 20 MG TABLET PO SCH (21:50)
[2017-11-02] MEDS: AMIODARONE INJ 450 MG in DEXTROSE 5% 241 ML IV SCH (23:35)
[2017-11-03] MEDS: ALBUTEROL/IPRATROPIUM 3 ML NEB RESP TX SCH ×4 (02:00→20:20)
[2017-11-03] MEDS: PIPERACILLIN/TAZOBACTAM 3,375 MG in SODIUM CHLORIDE 0.9% 100 ML IV SCH ×3 (03:15→17:59)
[2017-11-03 05:03] LABS: Basophils % 0.1 % (0.0-0.8); Hematocrit 36.5 VOL% (42.0-52.0); Hemoglobin 12.1 GM/DL (14.0-18.0); Immature Granulocytes % 0.7 %; Immature Granulocytes Absolute 0.08 #; Lymphocytes # 0.3 10*3/uL (1.4-4.0); Lymphocytes % 2.9 % (21.2-54.2); Mean Corpuscular HGB Conc 33.2 GM/DL (32-36); Mean Corpuscular Hemoglobin 30 PG (27-34); Mean Corpuscular Volume 89.7 FL (87-102); Mean Platelet Volume 9.7 FL (9.6-12.0); Monocytes # 0.3 10*3/uL (0.11-0.8); Monocytes % 2.9 % (1.7-12.7); Neutrophils # 10.1 10*3/uL (1.4-7.4); Neutrophils % 93.4 % (38.7-73.9); Platelet Count 278 T/CUMM (130-400); Red Blood Count 4.07 MC/CUMM (3.8-5.5); White Blood Count 10.8 T/CUMM (4-12)
[2017-11-03 05:24] LABS: Calcium 7.9 MG/DL (8.5-10.1); Osmolality,Calculated 292.1 MOS/KG (273-304); Potassium 3.3 MMOL/L (3.5-5.1)
[2017-11-03 05:45] LABS: Lymphocytes 5 % (20-55); Platelet Estimate Adequate; Segmented Neutrophils 92 % (50-85); Total Cells Counted 100
[2017-11-03] MEDS: INSULIN LISPRO 100 UNIT/ML SUBCUT SCH ×4 (10:22→21:33)
[2017-11-03] MEDS: methylPREDNISolone SOD SUC 40 MG/1 ML VIAL IV SCH ×2 (10:23→21:34)
[2017-11-03] MEDS: FUROSEMIDE 40 MG/4 ML VIAL IV SCH (10:23)
[2017-11-03] MEDS: MULTIVITAMIN (CENTRUM) TABLET PO SCH (10:24)
[2017-11-03] MEDS: FEXOFENADINE 180 MG TABLET PO SCH (10:24)
[2017-11-03] MEDS: metOLazone 2.5 MG TABLET PO SCH (10:24)
[2017-11-03] MEDS: SODIUM CHLORIDE/POTASSIUM CHLORIDE TABLET PO SCH ×2 (10:25→21:34)
[2017-11-03] MEDS: THYROID 60 MG TABLET PO SCH (10:25)
[2017-11-03] MEDS: DIGOXIN 0.125 MG TABLET PO SCH (10:25)
[2017-11-03] MEDS: LUBIPROSTONE 8 MCG CAPSULE PO SCH ×2 (10:25→21:35)
[2017-11-03] MEDS: PANTOPRAZOLE 40 MG TABLET PO SCH (10:26)
[2017-11-03] MEDS: FLUDROCORTISONE 0.1 MG TABLET PO SCH ×2 (10:26→21:35)
[2017-11-03] MEDS: GABAPENTIN 100 MG CAPSULE PO SCH ×3 (10:26→21:36)
[2017-11-03] MEDS: guaiFENesin/DM ER 600-30 MG TABLET PO SCH ×2 (10:26→21:35)
[2017-11-03] MEDS: CARVEDILOL 6.25 MG TABLET PO SCH ×2 (10:26→21:35)
[2017-11-03] MEDS: sitaGLIPtin 25 MG TABLET PO SCH (10:26)
[2017-11-03] MEDS: MEXILETINE 200 MG CAPSULE PO SCH ×2 (10:27→21:35)
[2017-11-03] MEDS: SPIRONOLACTONE 25 MG TABLET PO SCH (10:27)
[2017-11-03] MEDS: MAGNESIUM OXIDE 400 MG TABLET PO SCH (10:27)
[2017-11-03] MEDS: LISINOPRIL 2.5 MG TABLET PO SCH (10:27)
[2017-11-03] MEDS: MONTELUKAST 10 MG TABLET PO SCH (10:27)
[2017-11-03] MEDS: APIXABAN 2.5 MG TABLET PO SCH ×2 (10:28→21:35)
[2017-11-03] MEDS: POLYETHYLENE GLYCOL POWDER 17 GM PACK PO SCH (10:28)
[2017-11-03] MEDS: cycloSPORINE OPH EMUL 1 VIAL BOTH EYES SCH ×2 (10:46→21:36)
[2017-11-03] MEDS: MUPIROCIN 2% OINT 22 GM TUBE TOP SCH ×3 (10:48→20:20)
[2017-11-03] MEDS: CHOLECALCIFEROL 1,000 UNIT TABLET PO SCH (12:25)
[2017-11-03] MEDS: CALCIUM (CARBONATE) 600 MG TABLET PO SCH (12:25)
[2017-11-03] MEDS: FOLIC ACID 1 MG TABLET PO SCH (12:25)
[2017-11-03] MEDS: AMIODARONE INJ 450 MG in DEXTROSE 5% 241 ML IV SCH ×2 (18:24→18:40)
[2017-11-03] MEDS: LORazepam 0.5 MG TABLET PO PRN (21:35)
[2017-11-03] MEDS: ROSUVASTATIN 20 MG TABLET PO SCH (21:35)
[2017-11-03] MEDS: ASPIRIN EC 81 MG TABLET PO SCH (21:36)
[2017-11-03] MEDS: OMEGA 3 ACID ETHYL ESTERS 1 GM CAPSULE PO SCH (21:36)
[2017-11-04] MEDS: ALBUTEROL/IPRATROPIUM 3 ML NEB RESP TX SCH ×4 (01:15→21:45)
[2017-11-04] MEDS: PIPERACILLIN/TAZOBACTAM 3,375 MG in SODIUM CHLORIDE 0.9% 100 ML IV SCH ×3 (01:22→17:00)
[2017-11-04] MEDS: AMIODARONE INJ 450 MG in DEXTROSE 5% 241 ML IV SCH ×2 (05:47→14:10)
[2017-11-04] MEDS: methylPREDNISolone SOD SUC 40 MG/1 ML VIAL IV SCH (09:40)
[2017-11-04] MEDS: INSULIN LISPRO 100 UNIT/ML SUBCUT SCH ×4 (09:40→23:07)
[2017-11-04] MEDS: LISINOPRIL 2.5 MG TABLET PO SCH (09:41)
[2017-11-04] MEDS: FUROSEMIDE 40 MG/4 ML VIAL IV SCH (09:41)
[2017-11-04] MEDS: MULTIVITAMIN (CENTRUM) TABLET PO SCH (09:42)
[2017-11-04] MEDS: FEXOFENADINE 180 MG TABLET PO SCH (09:42)
[2017-11-04] MEDS: PANTOPRAZOLE 40 MG TABLET PO SCH (09:42)
[2017-11-04] MEDS: LUBIPROSTONE 8 MCG CAPSULE PO SCH ×2 (09:42→23:07)
[2017-11-04] MEDS: sitaGLIPtin 25 MG TABLET PO SCH (09:42)
[2017-11-04] MEDS: MEXILETINE 200 MG CAPSULE PO SCH ×2 (09:42→23:06)
[2017-11-04] MEDS: guaiFENesin/DM ER 600-30 MG TABLET PO SCH ×2 (09:42→23:05)
[2017-11-04] MEDS: APIXABAN 2.5 MG TABLET PO SCH ×2 (09:42→23:06)
[2017-11-04] MEDS: GABAPENTIN 100 MG CAPSULE PO SCH ×3 (09:42→23:06)
[2017-11-04] MEDS: DIGOXIN 0.125 MG TABLET PO SCH (09:43)
[2017-11-04] MEDS: THYROID 60 MG TABLET PO SCH (09:43)
[2017-11-04] MEDS: MONTELUKAST 10 MG TABLET PO SCH (09:43)
[2017-11-04] MEDS: SODIUM CHLORIDE/POTASSIUM CHLORIDE TABLET PO SCH ×2 (09:43→23:06)
[2017-11-04] MEDS: FLUDROCORTISONE 0.1 MG TABLET PO SCH ×2 (09:43→23:05)
[2017-11-04] MEDS: MAGNESIUM OXIDE 400 MG TABLET PO SCH (09:43)
[2017-11-04] MEDS: SPIRONOLACTONE 25 MG TABLET PO SCH (09:43)
[2017-11-04] MEDS: CARVEDILOL 6.25 MG TABLET PO SCH ×2 (09:44→23:11)
[2017-11-04] MEDS: POLYETHYLENE GLYCOL POWDER 17 GM PACK PO SCH (09:44)
[2017-11-04] MEDS: MUPIROCIN 2% OINT 22 GM TUBE TOP SCH ×3 (09:44→23:11)
[2017-11-04] MEDS: cycloSPORINE OPH EMUL 1 VIAL BOTH EYES SCH ×2 (09:44→23:11)
[2017-11-04] MEDS: CALCIUM (CARBONATE) 600 MG TABLET PO SCH (12:35)
[2017-11-04] MEDS: FOLIC ACID 1 MG TABLET PO SCH (12:36)
[2017-11-04] MEDS: CHOLECALCIFEROL 1,000 UNIT TABLET PO SCH (12:36)
[2017-11-04] MEDS: ASPIRIN EC 81 MG TABLET PO SCH (23:04)
[2017-11-04] MEDS: LORazepam 0.5 MG TABLET PO PRN (23:05)
[2017-11-04] MEDS: ROSUVASTATIN 20 MG TABLET PO SCH (23:06)
[2017-11-04] MEDS: OMEGA 3 ACID ETHYL ESTERS 1 GM CAPSULE PO SCH (23:07)
[2017-11-05] MEDS: ALBUTEROL/IPRATROPIUM 3 ML NEB RESP TX SCH ×4 (01:19→20:40)
[2017-11-05] MEDS: PIPERACILLIN/TAZOBACTAM 3,375 MG in SODIUM CHLORIDE 0.9% 100 ML IV SCH ×3 (04:46→23:06)
[2017-11-05] MEDS: AMIODARONE INJ 450 MG in DEXTROSE 5% 241 ML IV SCH (05:01)
[2017-11-05 05:05] LABS: Calcium 8.5 MG/DL (8.5-10.1); Magnesium 2.5 MG/DL (1.8-2.4); Osmolality,Calculated 292.5 MOS/KG (273-304); Potassium 2.9 MMOL/L (3.5-5.1)
[2017-11-05] MEDS: POTASSIUM CHLORIDE 20 MEQ TABLET PO PRN ×4 (09:03→23:04)
[2017-11-05] MEDS: FUROSEMIDE 40 MG/4 ML VIAL IV SCH (09:03)
[2017-11-05] MEDS: POLYETHYLENE GLYCOL POWDER 17 GM PACK PO SCH (09:03)
[2017-11-05] MEDS: FLUDROCORTISONE 0.1 MG TABLET PO SCH ×2 (09:04→23:05)
[2017-11-05] MEDS: MONTELUKAST 10 MG TABLET PO SCH (09:04)
[2017-11-05] MEDS: GABAPENTIN 100 MG CAPSULE PO SCH ×3 (09:05→23:05)
[2017-11-05] MEDS: FEXOFENADINE 180 MG TABLET PO SCH (09:05)
[2017-11-05] MEDS: SODIUM CHLORIDE/POTASSIUM CHLORIDE TABLET PO SCH ×2 (09:05→23:05)
[2017-11-05] MEDS: methylPREDNISolone 4 MG TABLET PO SCH (09:05)
[2017-11-05] MEDS: sitaGLIPtin 25 MG TABLET PO SCH (09:06)
[2017-11-05] MEDS: THYROID 60 MG TABLET PO SCH (09:06)
[2017-11-05] MEDS: LUBIPROSTONE 8 MCG CAPSULE PO SCH ×2 (09:06→23:06)
[2017-11-05] MEDS: MEXILETINE 200 MG CAPSULE PO SCH ×2 (09:06→23:05)
[2017-11-05] MEDS: APIXABAN 2.5 MG TABLET PO SCH ×2 (09:07→23:05)
[2017-11-05] MEDS: CARVEDILOL 6.25 MG TABLET PO SCH (09:07)
[2017-11-05] MEDS: SPIRONOLACTONE 25 MG TABLET PO SCH (09:07)
[2017-11-05] MEDS: metOLazone 2.5 MG TABLET PO SCH (09:07)
[2017-11-05] MEDS: PANTOPRAZOLE 40 MG TABLET PO SCH (09:07)
[2017-11-05] MEDS: guaiFENesin/DM ER 600-30 MG TABLET PO SCH ×2 (09:08→23:05)
[2017-11-05] MEDS: MULTIVITAMIN (CENTRUM) TABLET PO SCH (09:08)
[2017-11-05] MEDS: DIGOXIN 0.125 MG TABLET PO SCH (09:08)
[2017-11-05] MEDS: MAGNESIUM OXIDE 400 MG TABLET PO SCH (09:08)
[2017-11-05] MEDS: LISINOPRIL 2.5 MG TABLET PO SCH (09:09)
[2017-11-05] MEDS: cycloSPORINE OPH EMUL 1 VIAL BOTH EYES SCH ×2 (09:18→23:07)
[2017-11-05] MEDS: MUPIROCIN 2% OINT 22 GM TUBE TOP SCH ×3 (09:18→23:06)
[2017-11-05 11:46] LABS: Apearance,Urine CLEAR (Clear); Bilirubin,Urine Negative (Negative); Blood, Urine Negative (Negative); Glucose,Urine (UA) Negative (Negative); Ketones,Urine Negative (Negative); Nitrite,Urine Negative (Negative); Protein,Urine Negative; RBC,Urine <1 /HPF (0-4); Urine Color Straw (Yellow); Urine Urobilinogen < 2.0 EU/DL (0.2-1.0); WBC,Urine <1 /HPF (0-6)
[2017-11-05] MEDS: CALCIUM (CARBONATE) 600 MG TABLET PO SCH (12:30)
[2017-11-05] MEDS: CHOLECALCIFEROL 1,000 UNIT TABLET PO SCH (12:30)
[2017-11-05] MEDS: FOLIC ACID 1 MG TABLET PO SCH (12:31)
[2017-11-05] MEDS ORDERED: LEVOFLOXACIN 250 MG TABLET PO SCH (13:30)
[2017-11-05] MEDS: INSULIN LISPRO 100 UNIT/ML SUBCUT SCH ×3 (15:17→21:09)
[2017-11-05] MEDS: ROSUVASTATIN 20 MG TABLET PO SCH (23:05)
[2017-11-05] MEDS: OMEGA 3 ACID ETHYL ESTERS 1 GM CAPSULE PO SCH (23:05)
[2017-11-05] MEDS: LORazepam 0.5 MG TABLET PO PRN (23:05)
[2017-11-05] MEDS: ASPIRIN EC 81 MG TABLET PO SCH (23:05)
[2017-11-06] MEDS: ALBUTEROL/IPRATROPIUM 3 ML NEB RESP TX SCH ×4 (00:25→21:43)
[2017-11-06] MEDS ORDERED: NON-FORMULARY MEDICATION (Alendronate Sodium [Alendronate Sodium] 35 MG) PO SCH (00:35)
[2017-11-06 05:08] LABS: Basophils % 0.1 % (0.0-0.8); Eosinophils % 0.4 % (0.00-10.9); Hematocrit 38.7 VOL% (42.0-52.0); Hemoglobin 12.4 GM/DL (14.0-18.0); Immature Granulocytes % 0.6 %; Immature Granulocytes Absolute 0.06 #; Lymphocytes # 0.5 10*3/uL (1.4-4.0); Mean Corpuscular Hemoglobin 29 PG (27-34); Mean Corpuscular Volume 91.3 FL (87-102); Mean Platelet Volume 9.9 FL (9.6-12.0); Monocytes # 0.8 10*3/uL (0.11-0.8); Neutrophils # 8.8 10*3/uL (1.4-7.4); Neutrophils % 85.9 % (38.7-73.9); Platelet Count 290 T/CUMM (130-400); Red Blood Count 4.24 MC/CUMM (3.8-5.5); Red Cell Distribution Width 16.8 % (9.3-17.3); White Blood Count 10.2 T/CUMM (4-12)
[2017-11-06 05:46] LABS: Calcium 8.7 MG/DL (8.5-10.1); Osmolality,Calculated 288.8 MOS/KG (273-304); Potassium 3.6 MMOL/L (3.5-5.1)
[2017-11-06] MEDS: PIPERACILLIN/TAZOBACTAM 3,375 MG in SODIUM CHLORIDE 0.9% 100 ML IV SCH ×3 (05:55→22:02)
[2017-11-06] MEDS: INSULIN LISPRO 100 UNIT/ML SUBCUT SCH ×4 (09:46→19:59)
[2017-11-06] MEDS: POLYETHYLENE GLYCOL POWDER 17 GM PACK PO SCH (09:46)
[2017-11-06] MEDS: cycloSPORINE OPH EMUL 1 VIAL BOTH EYES SCH ×2 (09:48→22:00)
[2017-11-06] MEDS: PANTOPRAZOLE 40 MG TABLET PO SCH (09:50)
[2017-11-06] MEDS: DIGOXIN 0.125 MG TABLET PO SCH (09:50)
[2017-11-06] MEDS: FLUDROCORTISONE 0.1 MG TABLET PO SCH ×2 (09:50→22:00)
[2017-11-06] MEDS: MONTELUKAST 10 MG TABLET PO SCH (09:50)
[2017-11-06] MEDS: AMIODARONE 200 MG TABLET PO SCH ×2 (09:50→17:52)
[2017-11-06] MEDS: LISINOPRIL 2.5 MG TABLET PO SCH (09:51)
[2017-11-06] MEDS: FEXOFENADINE 180 MG TABLET PO SCH (09:51)
[2017-11-06] MEDS: MEXILETINE 200 MG CAPSULE PO SCH ×2 (09:52→22:01)
[2017-11-06] MEDS: APIXABAN 2.5 MG TABLET PO SCH ×2 (09:52→22:01)
[2017-11-06] MEDS: THYROID 60 MG TABLET PO SCH (09:52)
[2017-11-06] MEDS: methylPREDNISolone 4 MG TABLET PO SCH (09:52)
[2017-11-06] MEDS: SPIRONOLACTONE 25 MG TABLET PO SCH (09:53)
[2017-11-06] MEDS: sitaGLIPtin 25 MG TABLET PO SCH (09:53)
[2017-11-06] MEDS: MULTIVITAMIN (CENTRUM) TABLET PO SCH (09:53)
[2017-11-06] MEDS: LUBIPROSTONE 8 MCG CAPSULE PO SCH ×2 (09:53→22:00)
[2017-11-06] MEDS: guaiFENesin/DM ER 600-30 MG TABLET PO SCH ×2 (09:54→22:01)
[2017-11-06] MEDS: MAGNESIUM OXIDE 400 MG TABLET PO SCH (09:55)
[2017-11-06] MEDS: MUPIROCIN 2% OINT 22 GM TUBE TOP SCH ×3 (09:56→22:02)
[2017-11-06] MEDS: SODIUM CHLORIDE/POTASSIUM CHLORIDE TABLET PO SCH ×2 (09:58→22:01)
[2017-11-06] MEDS: FUROSEMIDE 40 MG/4 ML VIAL IV SCH (10:34)
[2017-11-06] MEDS: GABAPENTIN 100 MG CAPSULE PO SCH ×3 (10:39→22:01)
[2017-11-06] MEDS: CALCIUM (CARBONATE) 600 MG TABLET PO SCH (12:45)
[2017-11-06] MEDS: FOLIC ACID 1 MG TABLET PO SCH (12:45)
[2017-11-06] MEDS: CHOLECALCIFEROL 1,000 UNIT TABLET PO SCH (12:45)
[2017-11-06] MEDS: OMEGA 3 ACID ETHYL ESTERS 1 GM CAPSULE PO SCH (22:01)
[2017-11-06] MEDS: ROSUVASTATIN 20 MG TABLET PO SCH (22:01)
[2017-11-06] MEDS: LORazepam 0.5 MG TABLET PO PRN (22:01)
[2017-11-06] MEDS: ASPIRIN EC 81 MG TABLET PO SCH (22:02)
[2017-11-07] MEDS: ALBUTEROL/IPRATROPIUM 3 ML NEB RESP TX SCH ×4 (00:49→19:41)
[2017-11-07] MEDS: PIPERACILLIN/TAZOBACTAM 3,375 MG in SODIUM CHLORIDE 0.9% 100 ML IV SCH ×3 (05:59→21:14)
[2017-11-07] MEDS: INSULIN LISPRO 100 UNIT/ML SUBCUT SCH ×4 (07:47→21:12)
[2017-11-07] MEDS: FUROSEMIDE 40 MG/4 ML VIAL IV SCH (08:29)
[2017-11-07] MEDS: POLYETHYLENE GLYCOL POWDER 17 GM PACK PO SCH (09:09)
[2017-11-07] MEDS: THYROID 60 MG TABLET PO SCH (09:13)
[2017-11-07] MEDS: PANTOPRAZOLE 40 MG TABLET PO SCH (09:13)
[2017-11-07] MEDS: MULTIVITAMIN (CENTRUM) TABLET PO SCH (09:13)
[2017-11-07] MEDS: LUBIPROSTONE 8 MCG CAPSULE PO SCH ×2 (09:13→21:12)
[2017-11-07] MEDS: LISINOPRIL 2.5 MG TABLET PO SCH (09:13)
[2017-11-07] MEDS: SPIRONOLACTONE 25 MG TABLET PO SCH (09:14)
[2017-11-07] MEDS: sitaGLIPtin 25 MG TABLET PO SCH (09:14)
[2017-11-07] MEDS: AMIODARONE 200 MG TABLET PO SCH ×2 (09:14→16:16)
[2017-11-07] MEDS: guaiFENesin/DM ER 600-30 MG TABLET PO SCH ×2 (09:14→21:12)
[2017-11-07] MEDS: metOLazone 2.5 MG TABLET PO SCH (09:14)
[2017-11-07] MEDS: MAGNESIUM OXIDE 400 MG TABLET PO SCH (09:14)
[2017-11-07] MEDS: MONTELUKAST 10 MG TABLET PO SCH (09:14)
[2017-11-07] MEDS: APIXABAN 2.5 MG TABLET PO SCH ×2 (09:14→21:13)
[2017-11-07] MEDS: GABAPENTIN 100 MG CAPSULE PO SCH ×4 (09:14→21:12)
[2017-11-07] MEDS: methylPREDNISolone 4 MG TABLET PO SCH (09:14)
[2017-11-07] MEDS: MEXILETINE 200 MG CAPSULE PO SCH ×2 (09:14→21:11)
[2017-11-07] MEDS: SODIUM CHLORIDE/POTASSIUM CHLORIDE TABLET PO SCH ×2 (09:15→21:12)
[2017-11-07] MEDS: DIGOXIN 0.125 MG TABLET PO SCH (09:15)
[2017-11-07] MEDS: FLUDROCORTISONE 0.1 MG TABLET PO SCH ×2 (09:15→21:12)
[2017-11-07] MEDS: FEXOFENADINE 180 MG TABLET PO SCH (09:15)
[2017-11-07] MEDS: MUPIROCIN 2% OINT 22 GM TUBE TOP SCH ×4 (09:16→21:13)
[2017-11-07] MEDS: cycloSPORINE OPH EMUL 1 VIAL BOTH EYES SCH ×2 (09:16→21:12)
[2017-11-07] MEDS: CHOLECALCIFEROL 1,000 UNIT TABLET PO SCH (13:18)
[2017-11-07] MEDS: CALCIUM (CARBONATE) 600 MG TABLET PO SCH (13:19)
[2017-11-07] MEDS: FOLIC ACID 1 MG TABLET PO SCH (13:19)
[2017-11-07] MEDS: ROSUVASTATIN 20 MG TABLET PO SCH (21:12)
[2017-11-07] MEDS: OMEGA 3 ACID ETHYL ESTERS 1 GM CAPSULE PO SCH (21:12)
[2017-11-07] MEDS: ASPIRIN EC 81 MG TABLET PO SCH (21:13)
[2017-11-08] MEDS: ALBUTEROL/IPRATROPIUM 3 ML NEB RESP TX SCH ×4 (00:05→20:29)
[2017-11-08] MEDS: PIPERACILLIN/TAZOBACTAM 3,375 MG in SODIUM CHLORIDE 0.9% 100 ML IV SCH ×3 (05:18→22:15)
[2017-11-08] MEDS: INSULIN LISPRO 100 UNIT/ML SUBCUT SCH ×4 (09:16→22:02)
[2017-11-08] MEDS: guaiFENesin/DM ER 600-30 MG TABLET PO SCH ×2 (09:17→22:03)
[2017-11-08] MEDS: FEXOFENADINE 180 MG TABLET PO SCH (09:17)
[2017-11-08] MEDS: THYROID 60 MG TABLET PO SCH (09:17)
[2017-11-08] MEDS: MULTIVITAMIN (CENTRUM) TABLET PO SCH (09:17)
[2017-11-08] MEDS: sitaGLIPtin 25 MG TABLET PO SCH (09:17)
[2017-11-08] MEDS: MEXILETINE 200 MG CAPSULE PO SCH ×2 (09:17→22:04)
[2017-11-08] MEDS: methylPREDNISolone 4 MG TABLET PO SCH (09:18)
[2017-11-08] MEDS: SODIUM CHLORIDE/POTASSIUM CHLORIDE TABLET PO SCH ×2 (09:18→22:03)
[2017-11-08] MEDS: PANTOPRAZOLE 40 MG TABLET PO SCH (09:18)
[2017-11-08] MEDS: DIGOXIN 0.125 MG TABLET PO SCH (09:18)
[2017-11-08] MEDS: MONTELUKAST 10 MG TABLET PO SCH (09:18)
[2017-11-08] MEDS: LUBIPROSTONE 8 MCG CAPSULE PO SCH ×2 (09:18→22:05)
[2017-11-08] MEDS: APIXABAN 2.5 MG TABLET PO SCH ×2 (09:18→22:04)
[2017-11-08] MEDS: MAGNESIUM OXIDE 400 MG TABLET PO SCH (09:18)
[2017-11-08] MEDS: FLUDROCORTISONE 0.1 MG TABLET PO SCH ×2 (09:19→22:03)
[2017-11-08] MEDS: POLYETHYLENE GLYCOL POWDER 17 GM PACK PO SCH (09:19)
[2017-11-08] MEDS: MUPIROCIN 2% OINT 22 GM TUBE TOP SCH ×3 (09:19→22:05)
[2017-11-08] MEDS: FUROSEMIDE 40 MG/4 ML VIAL IV SCH (09:19)
[2017-11-08] MEDS: SPIRONOLACTONE 25 MG TABLET PO SCH (09:19)
[2017-11-08] MEDS: AMIODARONE 200 MG TABLET PO SCH ×2 (09:19→16:23)
[2017-11-08] MEDS: LISINOPRIL 2.5 MG TABLET PO SCH (09:20)
[2017-11-08] MEDS: cycloSPORINE OPH EMUL 1 VIAL BOTH EYES SCH ×2 (09:20→22:04)
[2017-11-08] MEDS: GABAPENTIN 100 MG CAPSULE PO SCH ×3 (09:20→22:04)
[2017-11-08] MEDS: CHOLECALCIFEROL 1,000 UNIT TABLET PO SCH (13:01)
[2017-11-08] MEDS: CALCIUM (CARBONATE) 600 MG TABLET PO SCH (13:01)
[2017-11-08] MEDS: FOLIC ACID 1 MG TABLET PO SCH (13:02)
[2017-11-08] MEDS ORDERED: SKIN HEALING OINT (AQUAPHOR) 50 GM TUBE TOP PRN (16:32)
[2017-11-08] MEDS: ZINC OXIDE PASTE 113 GM TUBE TOP PRN (18:05)
[2017-11-08] MEDS: OMEGA 3 ACID ETHYL ESTERS 1 GM CAPSULE PO SCH (22:03)
[2017-11-08] MEDS: ROSUVASTATIN 20 MG TABLET PO SCH (22:03)
[2017-11-08] MEDS: ASCORBIC ACID 500 MG TABLET PO SCH (22:04)
[2017-11-08] MEDS: ASPIRIN EC 81 MG TABLET PO SCH (22:05)
[2017-11-09] MEDS: ALBUTEROL/IPRATROPIUM 3 ML NEB RESP TX SCH ×4 (01:10→20:03)
[2017-11-09 04:26] LABS: Basophils % 0.2 % (0.0-0.8); Eosinophils # 0.1 10*3/uL (0.0-0.87); Eosinophils % 1.1 % (0.00-10.9); Hematocrit 37.4 VOL% (42.0-52.0); Hemoglobin 12.4 GM/DL (14.0-18.0); Immature Granulocytes Absolute 0.11 #; Lymphocytes # 0.7 10*3/uL (1.4-4.0); Lymphocytes % 6.4 % (21.2-54.2); Mean Corpuscular HGB Conc 33.2 GM/DL (32-36); Mean Corpuscular Hemoglobin 30 PG (27-34); Mean Corpuscular Volume 90.6 FL (87-102); Mean Platelet Volume 10.2 FL (9.6-12.0); Monocytes # 0.9 10*3/uL (0.11-0.8); Monocytes % 7.7 % (1.7-12.7); Neutrophils # 9.4 10*3/uL (1.4-7.4); Neutrophils % 83.6 % (38.7-73.9); Platelet Count 305 T/CUMM (130-400); Red Blood Count 4.13 MC/CUMM (3.8-5.5); Red Cell Distribution Width 16.3 % (9.3-17.3); White Blood Count 11.2 T/CUMM (4-12)
[2017-11-09 04:51] LABS: Calcium 8.9 MG/DL (8.5-10.1); Magnesium 2.2 MG/DL (1.8-2.4); Osmolality,Calculated 291.4 MOS/KG (273-304); Potassium 3.4 MMOL/L (3.5-5.1)
[2017-11-09] MEDS: PIPERACILLIN/TAZOBACTAM 3,375 MG in SODIUM CHLORIDE 0.9% 100 ML IV SCH ×3 (06:44→21:20)
[2017-11-09] MEDS: INSULIN LISPRO 100 UNIT/ML SUBCUT SCH ×4 (08:08→22:09)
[2017-11-09] MEDS: THYROID 60 MG TABLET PO SCH (09:00)
[2017-11-09] MEDS: sitaGLIPtin 25 MG TABLET PO SCH (09:01)
[2017-11-09] MEDS: MAGNESIUM OXIDE 400 MG TABLET PO SCH (09:01)
[2017-11-09] MEDS: FLUDROCORTISONE 0.1 MG TABLET PO SCH ×2 (09:01→21:19)
[2017-11-09] MEDS: methylPREDNISolone 4 MG TABLET PO SCH (09:01)
[2017-11-09] MEDS: guaiFENesin/DM ER 600-30 MG TABLET PO SCH ×2 (09:01→21:18)
[2017-11-09] MEDS: LUBIPROSTONE 8 MCG CAPSULE PO SCH ×2 (09:01→21:20)
[2017-11-09] MEDS: ASCORBIC ACID 500 MG TABLET PO SCH ×2 (09:02→21:20)
[2017-11-09] MEDS: POTASSIUM CHLORIDE 20 MEQ TABLET PO PRN ×3 (09:02→13:32)
[2017-11-09] MEDS: SODIUM CHLORIDE/POTASSIUM CHLORIDE TABLET PO SCH ×2 (09:02→21:19)
[2017-11-09] MEDS: MULTIVITAMIN (CENTRUM) TABLET PO SCH (09:02)
[2017-11-09] MEDS: SPIRONOLACTONE 25 MG TABLET PO SCH (09:02)
[2017-11-09] MEDS: GABAPENTIN 100 MG CAPSULE PO SCH ×3 (09:02→21:19)
[2017-11-09] MEDS: MEXILETINE 200 MG CAPSULE PO SCH ×2 (09:03→21:18)
[2017-11-09] MEDS: MUPIROCIN 2% OINT 22 GM TUBE TOP SCH ×3 (09:03→21:25)
[2017-11-09] MEDS: AMIODARONE 200 MG TABLET PO SCH ×2 (09:03→16:55)
[2017-11-09] MEDS: FEXOFENADINE 180 MG TABLET PO SCH (09:03)
[2017-11-09] MEDS: APIXABAN 2.5 MG TABLET PO SCH ×2 (09:03→21:19)
[2017-11-09] MEDS: PANTOPRAZOLE 40 MG TABLET PO SCH (09:03)
[2017-11-09] MEDS: DIGOXIN 0.125 MG TABLET PO SCH (09:03)
[2017-11-09] MEDS: POLYETHYLENE GLYCOL POWDER 17 GM PACK PO SCH (09:04)
[2017-11-09] MEDS: LISINOPRIL 2.5 MG TABLET PO SCH (09:04)
[2017-11-09] MEDS: MONTELUKAST 10 MG TABLET PO SCH (09:04)
[2017-11-09] MEDS: cycloSPORINE OPH EMUL 1 VIAL BOTH EYES SCH ×2 (09:04→21:20)
[2017-11-09] MEDS: FOLIC ACID 1 MG TABLET PO SCH (11:24)
[2017-11-09] MEDS: CHOLECALCIFEROL 1,000 UNIT TABLET PO SCH (11:24)
[2017-11-09] MEDS: CALCIUM (CARBONATE) 600 MG TABLET PO SCH (11:25)
[2017-11-09] MEDS: ZINC OXIDE PASTE 113 GM TUBE TOP PRN (19:00)
[2017-11-09] MEDS: ROSUVASTATIN 20 MG TABLET PO SCH (21:19)
[2017-11-09] MEDS: OMEGA 3 ACID ETHYL ESTERS 1 GM CAPSULE PO SCH (21:19)
[2017-11-09] MEDS: ASPIRIN EC 81 MG TABLET PO SCH (21:20)
[2017-11-10] MEDS: ALBUTEROL/IPRATROPIUM 3 ML NEB RESP TX SCH ×4 (01:46→20:22)
[2017-11-10] MEDS: PIPERACILLIN/TAZOBACTAM 3,375 MG in SODIUM CHLORIDE 0.9% 100 ML IV SCH ×3 (05:01→21:42)
[2017-11-10] MEDS: INSULIN LISPRO 100 UNIT/ML SUBCUT SCH ×4 (08:28→21:46)
[2017-11-10] MEDS: POLYETHYLENE GLYCOL POWDER 17 GM PACK PO SCH (09:38)
[2017-11-10] MEDS: ASCORBIC ACID 500 MG TABLET PO SCH ×2 (09:38→21:43)
[2017-11-10] MEDS: THYROID 60 MG TABLET PO SCH (09:39)
[2017-11-10] MEDS: FEXOFENADINE 180 MG TABLET PO SCH (09:39)
[2017-11-10] MEDS: MAGNESIUM OXIDE 400 MG TABLET PO SCH (09:39)
[2017-11-10] MEDS: SODIUM CHLORIDE/POTASSIUM CHLORIDE TABLET PO SCH ×2 (09:39→21:43)
[2017-11-10] MEDS: LISINOPRIL 2.5 MG TABLET PO SCH (09:40)
[2017-11-10] MEDS: DIGOXIN 0.125 MG TABLET PO SCH (09:40)
[2017-11-10] MEDS: LUBIPROSTONE 8 MCG CAPSULE PO SCH ×2 (09:40→21:44)
[2017-11-10] MEDS: guaiFENesin/DM ER 600-30 MG TABLET PO SCH ×2 (09:40→21:44)
[2017-11-10] MEDS: FLUDROCORTISONE 0.1 MG TABLET PO SCH ×2 (09:40→21:44)
[2017-11-10] MEDS: SPIRONOLACTONE 25 MG TABLET PO SCH (09:41)
[2017-11-10] MEDS: APIXABAN 2.5 MG TABLET PO SCH ×2 (09:41→21:44)
[2017-11-10] MEDS: MEXILETINE 200 MG CAPSULE PO SCH ×2 (09:41→21:44)
[2017-11-10] MEDS: sitaGLIPtin 25 MG TABLET PO SCH (09:41)
[2017-11-10] MEDS: GABAPENTIN 100 MG CAPSULE PO SCH ×3 (09:41→21:45)
[2017-11-10] MEDS: PANTOPRAZOLE 40 MG TABLET PO SCH (09:42)
[2017-11-10] MEDS: methylPREDNISolone 4 MG TABLET PO SCH (09:42)
[2017-11-10] MEDS: AMIODARONE 200 MG TABLET PO SCH ×2 (09:42→16:44)
[2017-11-10] MEDS: MONTELUKAST 10 MG TABLET PO SCH (09:42)
[2017-11-10] MEDS: MULTIVITAMIN (CENTRUM) TABLET PO SCH (09:42)
[2017-11-10] MEDS: MUPIROCIN 2% OINT 22 GM TUBE TOP SCH ×3 (09:43→21:46)
[2017-11-10] MEDS: cycloSPORINE OPH EMUL 1 VIAL BOTH EYES SCH ×2 (09:43→21:45)
[2017-11-10] MEDS: CHOLECALCIFEROL 1,000 UNIT TABLET PO SCH (12:21)
[2017-11-10] MEDS: CALCIUM (CARBONATE) 600 MG TABLET PO SCH (12:21)
[2017-11-10] MEDS: FOLIC ACID 1 MG TABLET PO SCH (12:21)
[2017-11-10 14:52] LABS: Calcium 8.7 MG/DL (8.5-10.1); Osmolality,Calculated 293.4 MOS/KG (273-304); Potassium 3.8 MMOL/L (3.5-5.1)
[2017-11-10] MEDS: ROSUVASTATIN 20 MG TABLET PO SCH (21:44)
[2017-11-10] MEDS: ASPIRIN EC 81 MG TABLET PO SCH (21:45)
[2017-11-10] MEDS: OMEGA 3 ACID ETHYL ESTERS 1 GM CAPSULE PO SCH (21:45)
[2017-11-11] MEDS: ALBUTEROL/IPRATROPIUM 3 ML NEB RESP TX SCH ×4 (01:43→20:27)
[2017-11-11] MEDS: PIPERACILLIN/TAZOBACTAM 3,375 MG in SODIUM CHLORIDE 0.9% 100 ML IV SCH ×3 (04:40→22:59)
[2017-11-11 06:31] LABS: Calcium 8.8 MG/DL (8.5-10.1); Osmolality,Calculated 286.5 MOS/KG (273-304); Potassium 3.5 MMOL/L (3.5-5.1)
[2017-11-11] MEDS: INSULIN LISPRO 100 UNIT/ML SUBCUT SCH ×4 (07:50→21:15)
[2017-11-11] MEDS: POLYETHYLENE GLYCOL POWDER 17 GM PACK PO SCH (08:45)
[2017-11-11] MEDS: FLUDROCORTISONE 0.1 MG TABLET PO SCH ×2 (08:48→21:15)
[2017-11-11] MEDS: SODIUM CHLORIDE/POTASSIUM CHLORIDE TABLET PO SCH ×2 (08:48→21:12)
[2017-11-11] MEDS: LISINOPRIL 2.5 MG TABLET PO SCH (08:48)
[2017-11-11] MEDS: MAGNESIUM OXIDE 400 MG TABLET PO SCH (08:48)
[2017-11-11] MEDS: SPIRONOLACTONE 25 MG TABLET PO SCH (08:48)
[2017-11-11] MEDS: DIGOXIN 0.125 MG TABLET PO SCH (08:49)
[2017-11-11] MEDS: AMIODARONE 200 MG TABLET PO SCH ×2 (08:49→16:32)
[2017-11-11] MEDS: THYROID 60 MG TABLET PO SCH (08:49)
[2017-11-11] MEDS: MONTELUKAST 10 MG TABLET PO SCH (08:49)
[2017-11-11] MEDS: GABAPENTIN 100 MG CAPSULE PO SCH ×3 (08:49→21:12)
[2017-11-11] MEDS: PANTOPRAZOLE 40 MG TABLET PO SCH (08:49)
[2017-11-11] MEDS: LUBIPROSTONE 8 MCG CAPSULE PO SCH ×2 (08:50→21:16)
[2017-11-11] MEDS: MULTIVITAMIN (CENTRUM) TABLET PO SCH (08:50)
[2017-11-11] MEDS: methylPREDNISolone 4 MG TABLET PO SCH (08:50)
[2017-11-11] MEDS: APIXABAN 2.5 MG TABLET PO SCH ×2 (08:50→21:25)
[2017-11-11] MEDS: sitaGLIPtin 25 MG TABLET PO SCH (08:50)
[2017-11-11] MEDS: FEXOFENADINE 180 MG TABLET PO SCH (08:50)
[2017-11-11] MEDS: ASCORBIC ACID 500 MG TABLET PO SCH ×2 (08:50→21:11)
[2017-11-11] MEDS: MEXILETINE 200 MG CAPSULE PO SCH ×2 (08:50→21:12)
[2017-11-11] MEDS: MUPIROCIN 2% OINT 22 GM TUBE TOP SCH ×3 (08:51→21:25)
[2017-11-11] MEDS: cycloSPORINE OPH EMUL 1 VIAL BOTH EYES SCH ×2 (08:51→21:12)
[2017-11-11] MEDS: guaiFENesin/DM ER 600-30 MG TABLET PO SCH ×2 (09:41→21:12)
[2017-11-11] MEDS: FOLIC ACID 1 MG TABLET PO SCH (11:58)
[2017-11-11] MEDS: CALCIUM (CARBONATE) 600 MG TABLET PO SCH (11:58)
[2017-11-11] MEDS: CHOLECALCIFEROL 1,000 UNIT TABLET PO SCH (11:58)
[2017-11-11] MEDS: OMEGA 3 ACID ETHYL ESTERS 1 GM CAPSULE PO SCH (21:12)
[2017-11-11] MEDS: ASPIRIN EC 81 MG TABLET PO SCH (21:16)
[2017-11-11] MEDS: ROSUVASTATIN 20 MG TABLET PO SCH (21:17)
[2017-11-12] MEDS: ALBUTEROL/IPRATROPIUM 3 ML NEB RESP TX SCH ×2 (01:16→07:45)
[2017-11-12] MEDS: INSULIN LISPRO 100 UNIT/ML SUBCUT SCH ×2 (08:25→12:22)
[2017-11-12 08:56] VITALS: BP 122/63
[2017-11-12] MEDS: FLUDROCORTISONE 0.1 MG TABLET PO SCH (09:23)
[2017-11-12] MEDS: SODIUM CHLORIDE/POTASSIUM CHLORIDE TABLET PO SCH (09:23)
[2017-11-12] MEDS: DIGOXIN 0.125 MG TABLET PO SCH (09:23)
[2017-11-12] MEDS: GABAPENTIN 100 MG CAPSULE PO SCH (09:23)
[2017-11-12] MEDS: MULTIVITAMIN (CENTRUM) TABLET PO SCH (09:23)
[2017-11-12] MEDS: THYROID 60 MG TABLET PO SCH (09:23)
[2017-11-12] MEDS: MONTELUKAST 10 MG TABLET PO SCH (09:23)
[2017-11-12] MEDS: guaiFENesin/DM ER 600-30 MG TABLET PO SCH (09:23)
[2017-11-12] MEDS: LUBIPROSTONE 8 MCG CAPSULE PO SCH (09:24)
[2017-11-12] MEDS: sitaGLIPtin 25 MG TABLET PO SCH (09:24)
[2017-11-12] MEDS: AMIODARONE 200 MG TABLET PO SCH (09:24)
[2017-11-12] MEDS: LISINOPRIL 2.5 MG TABLET PO SCH (09:24)
[2017-11-12] MEDS: ASCORBIC ACID 500 MG TABLET PO SCH (09:24)
[2017-11-12] MEDS: PANTOPRAZOLE 40 MG TABLET PO SCH (09:24)
[2017-11-12] MEDS: MEXILETINE 200 MG CAPSULE PO SCH (09:24)
[2017-11-12] MEDS: FEXOFENADINE 180 MG TABLET PO SCH (09:24)
[2017-11-12] MEDS: MAGNESIUM OXIDE 400 MG TABLET PO SCH (09:24)
[2017-11-12] MEDS: methylPREDNISolone 4 MG TABLET PO SCH (09:24)
[2017-11-12] MEDS: APIXABAN 2.5 MG TABLET PO SCH (09:25)
[2017-11-12] MEDS: MUPIROCIN 2% OINT 22 GM TUBE TOP SCH (09:25)
[2017-11-12] MEDS: POLYETHYLENE GLYCOL POWDER 17 GM PACK PO SCH (09:25)
[2017-11-12] MEDS: PIPERACILLIN/TAZOBACTAM 3,375 MG in SODIUM CHLORIDE 0.9% 100 ML IV SCH (09:25)
[2017-11-12] MEDS: cycloSPORINE OPH EMUL 1 VIAL BOTH EYES SCH (09:25)
[2017-11-12] MEDS: SPIRONOLACTONE 25 MG TABLET PO SCH (09:25)
== END 2017-11-12 12:20 | DRG 193 ==
LOC: EDUNIT# → EDBD → N.ED 19:51 → SUATTDRO 10-31 00:26 → N.EDINP 10-31 00:26 → N.TELEN 10-31 01:16
PROVIDERS: ADMIT Internal Medicine Geriatric Medicine

== ENCOUNTER 2017-11-28 13:27 | Inpatient (IN) ==
[2017-11-28 15:07] LABS: Lactic Acid 1.2 MMOL/L (0.4-2.0)
[2017-11-28 15:22] LABS: Albumin 2.7 G/DL (3.4-5.0); Bilirubin,Total 0.6 MG/DL (0.2-1.0); Calcium 8.8 MG/DL (8.5-10.1); Osmolality,Calculated 267.5 MOS/KG (273-304); Total Protein 5.8 G/DL (6.4-8.3)
[2017-11-28 15:45] LABS: Basophils % 0.3 % (0.0-0.8); Eosinophils % 0.6 % (0.00-10.9); Hematocrit 37.6 VOL% (42.0-52.0); Hemoglobin 12.2 GM/DL (14.0-18.0); Immature Granulocytes % 0.8 %; Immature Granulocytes Absolute 0.05 #; Lymphocytes # 0.5 10*3/uL (1.4-4.0); Lymphocytes % 7.5 % (21.2-54.2); Mean Corpuscular HGB Conc 32.4 GM/DL (32-36); Mean Corpuscular Hemoglobin 30 PG (27-34); Mean Corpuscular Volume 92.8 FL (87-102); Mean Platelet Volume 10.3 FL (9.6-12.0); Monocytes # 0.8 10*3/uL (0.11-0.8); Monocytes % 11.9 % (1.7-12.7); Neutrophils # 5.2 10*3/uL (1.4-7.4); Neutrophils % 78.9 % (38.7-73.9); Platelet Count 226 T/CUMM (130-400); Red Blood Count 4.05 MC/CUMM (3.8-5.5); Red Cell Distribution Width 17.2 % (9.3-17.3); White Blood Count 6.5 T/CUMM (4-12)
[2017-11-28 16:07] LABS: Band Neutrophils 3 % (0-10); Eosinophils 1 % (0-10); Lymphocytes 9 % (20-55); Platelet Estimate Adequate; Segmented Neutrophils 80 % (50-85); Total Cells Counted 100
[2017-11-28 16:09] LABS: Apearance,Urine CLOUDY (Clear); Bacteria,Urine Moderate /HPF (Few); Bilirubin,Urine Negative (Negative); Blood, Urine Small mg/dL (Negative); Glucose,Urine (UA) Negative (Negative); Ketones,Urine Negative (Negative); Mucus,Urine Occasional /LPF (Occasional); Nitrite,Urine Positive (Negative); Protein,Urine 30 MG/DL; RBC,Urine 28 /HPF (0-4); Squamous Epithelial Cell,Urine Occasional /HPF (0-10); Urine Specific Gravity 1.012 (1.001-1.035); WBC,Urine 631 /HPF (0-6)
[2017-11-28 16:12] LABS: Urine Color Dark Orange (Yellow)
[2017-11-28] MEDS ORDERED: cefTRIAXone 1,000 MG in SODIUM CHLORIDE 0.9% 100 ML IV STA (16:54)
[2017-11-28] MEDS ORDERED: cefTRIAXone 1,000 MG VIAL ONE (17:27)
[2017-11-28] MEDS ORDERED: GLUCAGON 1 MG VIAL IM PRN (17:28)
[2017-11-28] MEDS ORDERED: DOCUSATE SODIUM 100 MG CAPSULE PO PRN (17:28)
[2017-11-28] MEDS ORDERED: ONDANSETRON 4 MG/2 ML VIAL IV PRN (17:28)
[2017-11-28] MEDS ORDERED: diphenhydrAMINE CAP 25 MG CAPSULE PO PRN (17:28)
[2017-11-28] MEDS ORDERED: guaiFENesin/DM ER 600-30 MG TABLET PO PRN (17:28)
[2017-11-28] MEDS ORDERED: DEXTROSE 50% 25 GM/50 ML VIAL IV PRN (17:28)
[2017-11-28] MEDS ORDERED: SODIUM CHLORIDE 0.9% 1,000 ML IV SCH (17:30)
[2017-11-28] MEDS ORDERED: ALBUTEROL 2.5 MG/3 ML NEB RESP TX PRN (17:36)
[2017-11-28] MEDS ORDERED: FUROSEMIDE 40 MG/4 ML VIAL IV ONE (19:13)
[2017-11-28] MEDS ORDERED: FUROSEMIDE 40 MG/4 ML VIAL IV SCH (19:30)
[2017-11-28] MEDS ORDERED: LEVOFLOXACIN INJ 750 MG in PREMIX 1 EACH IV SCH (19:30)
[2017-11-28] MEDS: INSULIN LISPRO 100 UNIT/ML SUBCUT SCH (20:04)
[2017-11-28] MEDS: ALBUTEROL/IPRATROPIUM 3 ML NEB RESP TX SCH (20:04)
[2017-11-28] MEDS: AZTREONAM 2,000 MG in SYRINGE 1 EACH IV SCH (20:55)
[2017-11-28] MEDS ORDERED: ENOXAPARIN 40 MG/0.4 ML SYRINGE SUBCUT SCH (21:00)
[2017-11-29] MEDS: ALBUTEROL/IPRATROPIUM 3 ML NEB RESP TX SCH ×4 (01:45→19:45)
[2017-11-29] MEDS: AZTREONAM 2,000 MG in SYRINGE 1 EACH IV SCH ×2 (02:11→08:39)
[2017-11-29 04:47] LABS: Basophils % 0.1 % (0.0-0.8); Eosinophils % 0.1 % (0.00-10.9); Hematocrit 37.5 VOL% (42.0-52.0); Immature Granulocytes % 0.7 %; Immature Granulocytes Absolute 0.05 #; Lymphocytes # 0.6 10*3/uL (1.4-4.0); Lymphocytes % 7.7 % (21.2-54.2); Mean Corpuscular Hemoglobin 30 PG (27-34); Mean Corpuscular Volume 94.7 FL (87-102); Mean Platelet Volume 10.6 FL (9.6-12.0); Monocytes # 0.9 10*3/uL (0.11-0.8); Monocytes % 11.5 % (1.7-12.7); Neutrophils # 5.9 10*3/uL (1.4-7.4); Neutrophils % 79.9 % (38.7-73.9); Platelet Count 217 T/CUMM (130-400); Red Blood Count 3.96 MC/CUMM (3.8-5.5); Red Cell Distribution Width 17.1 % (9.3-17.3); White Blood Count 7.4 T/CUMM (4-12)
[2017-11-29 05:10] LABS: Band Neutrophils 7 % (0-10); Hypochromasia 1+; Lymphocytes 7 % (20-55); Segmented Neutrophils 77 % (50-85); Total Cells Counted 100
[2017-11-29 05:11] LABS: Microcytosis 1+; Ovalocytes Slight
[2017-11-29 05:32] LABS: Albumin 2.5 G/DL (3.4-5.0); Calcium 8.6 MG/DL (8.5-10.1); Magnesium 1.7 MG/DL (1.8-2.4); Osmolality,Calculated 269.5 MOS/KG (273-304); Total Protein 5.5 G/DL (6.4-8.3)
[2017-11-29] MEDS: INSULIN LISPRO 100 UNIT/ML SUBCUT SCH ×2 (08:44→16:53)
[2017-11-29] MEDS: FUROSEMIDE 40 MG/4 ML VIAL IV SCH ×2 (08:45→15:54)
[2017-11-29] MEDS: PANTOPRAZOLE 40 MG TABLET PO SCH (08:45)
[2017-11-29] MEDS ORDERED: LORazepam 0.5 MG TABLET PO PRN (10:53)
[2017-11-29] MEDS ORDERED: ZINC OXIDE PASTE 113 GM TUBE TOP PRN (10:53)
[2017-11-29] MEDS ORDERED: FLUTICASONE 50 MCG NASAL SPRAY 16 GM BOTTLE BOTH NARES PRN (10:53)
[2017-11-29] MEDS ORDERED: IPRATROPIUM 0.06% NASAL SPRAY 15 ML BOTTLE BOTH NARES PRN (10:53)
[2017-11-29] MEDS ORDERED: AZITHROMYCIN INJ 500 MG in SODIUM CHLORIDE 0.9% 250 ML IV SCH (12:00)
[2017-11-29] MEDS: FOLIC ACID 1 MG TABLET PO SCH (12:06)
[2017-11-29] MEDS: MAGNESIUM OXIDE 400 MG TABLET PO SCH (12:06)
[2017-11-29] MEDS: POLYETHYLENE GLYCOL POWDER 17 GM PACK PO SCH (13:17)
[2017-11-29] MEDS: ACETAMINOPHEN 325 MG TABLET PO PRN (13:21)
[2017-11-29] MEDS: MUPIROCIN 2% OINT 22 GM TUBE TOP SCH ×2 (15:50→20:57)
[2017-11-29] MEDS: GABAPENTIN 100 MG CAPSULE PO SCH ×2 (15:51→20:57)
[2017-11-29] MEDS: MEROPENEM 500 MG in SYRINGE 1 EACH IV SCH (17:51)
[2017-11-29] MEDS: IMIPRAMINE 10 MG TABLET PO SCH (20:57)
[2017-11-29] MEDS: ROSUVASTATIN 20 MG TABLET PO SCH (20:57)
[2017-11-29] MEDS: LUBIPROSTONE 8 MCG CAPSULE PO SCH (20:57)
[2017-11-29] MEDS: FLUDROCORTISONE 0.1 MG TABLET PO SCH (20:57)
[2017-11-29] MEDS: cycloSPORINE OPH EMUL 1 VIAL BOTH EYES SCH (20:57)
[2017-11-29] MEDS: APIXABAN 2.5 MG TABLET PO SCH (20:57)
[2017-11-29] MEDS: ASPIRIN EC 81 MG TABLET PO SCH (20:58)
[2017-11-29] MEDS: MEXILETINE 200 MG CAPSULE PO SCH (20:58)
[2017-11-29] MEDS: cefTAZidime 1,000 MG in SYRINGE 1 EACH IV SCH (20:58)
[2017-11-29] MEDS: CARVEDILOL 6.25 MG TABLET PO SCH (20:58)
[2017-11-29] MEDS: OMEGA 3 ACID ETHYL ESTERS 1 GM CAPSULE PO SCH (20:58)
[2017-11-29] MEDS: FEXOFENADINE 180 MG TABLET PO SCH (20:58)
[2017-11-29] MEDS: POTASSIUM CHLORIDE 10 MEQ TABLET PO SCH (20:58)
[2017-11-29] MEDS: SODIUM CHLORIDE/POTASSIUM CHLORIDE TABLET PO SCH (20:58)
[2017-11-29] MEDS: AMIODARONE 200 MG TABLET PO SCH (20:58)
[2017-11-29] MEDS: metOLazone 2.5 MG TABLET PO SCH (20:58)
[2017-11-29] MEDS: guaiFENesin/DM ER 600-30 MG TABLET PO SCH (20:58)
[2017-11-29] MEDS ORDERED: cefTRIAXone 1,000 MG in SYRINGE 1 EACH IV SCH (21:00)
[2017-11-29] MEDS: BUDESONIDE/FORMOTEROL 80-4.5 INHALER 6.9 GM INH PRN (21:08)
[2017-11-30] MEDS: cefTAZidime 1,000 MG in SYRINGE 1 EACH IV SCH ×3 (01:14→17:25)
[2017-11-30] MEDS: ALBUTEROL/IPRATROPIUM 3 ML NEB RESP TX SCH ×4 (01:16→19:36)
[2017-11-30] MEDS: MEROPENEM 500 MG in SYRINGE 1 EACH IV SCH ×3 (01:17→17:20)
[2017-11-30] MEDS: THYROID 60 MG TABLET PO SCH (06:09)
[2017-11-30] MEDS: INSULIN LISPRO 100 UNIT/ML SUBCUT SCH ×2 (09:21→17:08)
[2017-11-30] MEDS: FUROSEMIDE 40 MG/4 ML VIAL IV SCH ×2 (09:22→15:32)
[2017-11-30] MEDS: AMIODARONE 200 MG TABLET PO SCH ×2 (09:30→20:58)
[2017-11-30] MEDS: GABAPENTIN 100 MG CAPSULE PO SCH ×3 (09:30→20:58)
[2017-11-30] MEDS: POLYETHYLENE GLYCOL POWDER 17 GM PACK PO SCH (09:30)
[2017-11-30] MEDS: POTASSIUM CHLORIDE 10 MEQ TABLET PO SCH ×2 (09:30→20:58)
[2017-11-30] MEDS: cycloSPORINE OPH EMUL 1 VIAL BOTH EYES SCH ×2 (09:30→20:59)
[2017-11-30] MEDS: FLUDROCORTISONE 0.1 MG TABLET PO SCH ×2 (09:30→20:57)
[2017-11-30] MEDS: LISINOPRIL 2.5 MG TABLET PO SCH (09:30)
[2017-11-30] MEDS: LUBIPROSTONE 8 MCG CAPSULE PO SCH ×2 (09:31→20:58)
[2017-11-30] MEDS: guaiFENesin/DM ER 600-30 MG TABLET PO SCH ×2 (09:31→20:58)
[2017-11-30] MEDS: SODIUM CHLORIDE/POTASSIUM CHLORIDE TABLET PO SCH ×2 (09:31→20:58)
[2017-11-30] MEDS: MEXILETINE 200 MG CAPSULE PO SCH ×2 (09:31→20:58)
[2017-11-30] MEDS: PANTOPRAZOLE 40 MG TABLET PO SCH (09:32)
[2017-11-30] MEDS: MUPIROCIN 2% OINT 22 GM TUBE TOP SCH ×3 (09:33→20:59)
[2017-11-30] MEDS: BUDESONIDE/FORMOTEROL 80-4.5 INHALER 6.9 GM INH PRN (09:33)
[2017-11-30] MEDS: CARVEDILOL 6.25 MG TABLET PO SCH ×2 (09:33→20:58)
[2017-11-30] MEDS: APIXABAN 2.5 MG TABLET PO SCH ×2 (09:33→20:59)
[2017-11-30] MEDS: DIGOXIN 0.125 MG TABLET PO SCH (09:40)
[2017-11-30] MEDS: sitaGLIPtin 25 MG TABLET PO SCH (09:40)
[2017-11-30] MEDS: MONTELUKAST 10 MG TABLET PO SCH (09:41)
[2017-11-30] MEDS: SPIRONOLACTONE 50 MG TABLET PO SCH (09:41)
[2017-11-30] MEDS ORDERED: SKIN HEALING OINT (AQUAPHOR) 50 GM TUBE TOP PRN (10:42)
[2017-11-30] MEDS: MAGNESIUM OXIDE 400 MG TABLET PO SCH (11:45)
[2017-11-30] MEDS: FOLIC ACID 1 MG TABLET PO SCH (11:45)
[2017-11-30] MEDS: FEXOFENADINE 180 MG TABLET PO SCH (20:58)
[2017-11-30] MEDS: ROSUVASTATIN 20 MG TABLET PO SCH (20:58)
[2017-11-30] MEDS: OMEGA 3 ACID ETHYL ESTERS 1 GM CAPSULE PO SCH (20:58)
[2017-11-30] MEDS: ASPIRIN EC 81 MG TABLET PO SCH (20:59)
[2017-11-30] MEDS: metOLazone 2.5 MG TABLET PO SCH (20:59)
[2017-11-30] MEDS: IMIPRAMINE 10 MG TABLET PO SCH (21:01)
[2017-11-30] MEDS: ACETAMINOPHEN 325 MG TABLET PO PRN (22:16)
[2017-12-01] MEDS: ALBUTEROL/IPRATROPIUM 3 ML NEB RESP TX SCH ×2 (00:25→07:19)
[2017-12-01] MEDS: cefTAZidime 1,000 MG in SYRINGE 1 EACH IV SCH ×2 (02:11→10:28)
[2017-12-01] MEDS: MEROPENEM 500 MG in SYRINGE 1 EACH IV SCH ×2 (02:12→09:39)
[2017-12-01] MEDS: THYROID 60 MG TABLET PO SCH (06:42)
[2017-12-01] MEDS: INSULIN LISPRO 100 UNIT/ML SUBCUT SCH (09:11)
[2017-12-01] MEDS: SPIRONOLACTONE 50 MG TABLET PO SCH (09:36)
[2017-12-01] MEDS: FLUDROCORTISONE 0.1 MG TABLET PO SCH (09:36)
[2017-12-01] MEDS: GABAPENTIN 100 MG CAPSULE PO SCH (09:36)
[2017-12-01] MEDS: MEXILETINE 200 MG CAPSULE PO SCH (09:36)
[2017-12-01] MEDS: DIGOXIN 0.125 MG TABLET PO SCH (09:37)
[2017-12-01] MEDS: guaiFENesin/DM ER 600-30 MG TABLET PO SCH (09:37)
[2017-12-01] MEDS: SODIUM CHLORIDE/POTASSIUM CHLORIDE TABLET PO SCH (09:37)
[2017-12-01] MEDS: PANTOPRAZOLE 40 MG TABLET PO SCH (09:37)
[2017-12-01] MEDS: LISINOPRIL 2.5 MG TABLET PO SCH (09:37)
[2017-12-01] MEDS: sitaGLIPtin 25 MG TABLET PO SCH (09:37)
[2017-12-01] MEDS: CARVEDILOL 6.25 MG TABLET PO SCH (09:38)
[2017-12-01] MEDS: LUBIPROSTONE 8 MCG CAPSULE PO SCH (09:38)
[2017-12-01] MEDS: AMIODARONE 200 MG TABLET PO SCH (09:38)
[2017-12-01] MEDS: POTASSIUM CHLORIDE 10 MEQ TABLET PO SCH (09:38)
[2017-12-01] MEDS: FUROSEMIDE 40 MG/4 ML VIAL IV SCH ×2 (09:38→09:54)
[2017-12-01] MEDS: APIXABAN 2.5 MG TABLET PO SCH (09:38)
[2017-12-01] MEDS: MONTELUKAST 10 MG TABLET PO SCH (09:38)
[2017-12-01] MEDS: POLYETHYLENE GLYCOL POWDER 17 GM PACK PO SCH (09:43)
[2017-12-01] MEDS: cycloSPORINE OPH EMUL 1 VIAL BOTH EYES SCH (09:47)
[2017-12-01] MEDS: MUPIROCIN 2% OINT 22 GM TUBE TOP SCH (10:29)
[2017-12-01 11:47] VITALS: BP 109/52
[2017-12-01] MEDS: MAGNESIUM OXIDE 400 MG TABLET PO SCH (12:31)
[2017-12-01] MEDS: FOLIC ACID 1 MG TABLET PO SCH (12:32)
[2017-12-04] MEDS ORDERED: NON-FORMULARY MEDICATION (Alendronate Sodium [Alendronate Sodium] 35 MG) PO SCH (10:53)
== END 2017-12-01 13:05 | DRG 689 ==
LOC: EDBD → EDUNIT# → N.ED 13:27 → SUATTDRO 16:54 → N.EDINP 16:54 → N.TELEN 18:51
PROVIDERS: ADMIT Internal Medicine Geriatric Medicine; ATTEND Internal Medicine

== ENCOUNTER 2018-03-10 10:57 | Inpatient (IN) ==
[2018-03-10 13:30] LABS: Basophils % 0.2 % (0.0-0.8); Eosinophils # 0.1 10*3/uL (0.0-0.87); Eosinophils % 1.1 % (0.00-10.9); Hematocrit 34.8 VOL% (42.0-52.0); Hemoglobin 11.6 GM/DL (14.0-18.0); Immature Granulocytes % 0.6 %; Immature Granulocytes Absolute 0.05 #; Lymphocytes # 0.8 10*3/uL (1.4-4.0); Lymphocytes % 9.5 % (21.2-54.2); Mean Corpuscular HGB Conc 33.3 GM/DL (32-36); Mean Corpuscular Hemoglobin 31 PG (27-34); Mean Corpuscular Volume 94.1 FL (87-102); Monocytes # 0.7 10*3/uL (0.11-0.8); Monocytes % 7.9 % (1.7-12.7); Neutrophils # 7.1 10*3/uL (1.4-7.4); Neutrophils % 80.7 % (38.7-73.9); Platelet Count 276 T/CUMM (130-400); Red Cell Distribution Width 13.6 % (9.3-17.3); White Blood Count 8.9 T/CUMM (4-12)
[2018-03-10 13:31] LABS: Apearance,Urine CLEAR (Clear); Bilirubin,Urine Negative (Negative); Blood, Urine Negative (Negative); Glucose,Urine (UA) Negative (Negative); Hyaline Casts,Urine 4 /LPF (0-3); Ketones,Urine Negative (Negative); Nitrite,Urine Negative (Negative); Protein,Urine Negative; RBC,Urine 1 /HPF (0-4); Squamous Epithelial Cell,Urine Occasional /HPF (0-10); Urine Color Yellow (Yellow); Urine Specific Gravity 1.011 (1.001-1.035); Urine Urobilinogen < 2.0 EU/DL (0.2-1.0); WBC,Urine 55 /HPF (0-6)
[2018-03-10 13:37] LABS: Alanine Aminotransferase 58 U/L (16-61); Albumin 3.3 G/DL (3.4-5.0); Alkaline Phosphatase 60 U/L (45-117); Aspartate Amino Transferase 30 U/L (0-37); Bilirubin,Total < 0.39 MG/DL (0.2-1.0); Blood Urea Nitrogen 28 MG/DL (7-18); Glucose 150 MG/DL (74-106); Osmolality,Calculated 278.1 MOS/KG (273-304); Potassium 4.3 MMOL/L (3.5-5.1); Sodium 135 MMOL/L (136-145); Total Protein 6.4 G/DL (6.4-8.3)
[2018-03-10] MEDS ORDERED: cefTRIAXone 1,000 MG in SODIUM CHLORIDE 0.9% 100 ML IV STA (15:33)
[2018-03-10] MEDS ORDERED: SODIUM CHLORIDE 0.9% 100 ML IV ONE (15:57)
[2018-03-10] MEDS ORDERED: cefTRIAXone 1,000 MG VIAL ONE (16:03)
[2018-03-10] MEDS ORDERED: ONDANSETRON 4 MG/2 ML VIAL IV PRN (16:14)
[2018-03-10] MEDS ORDERED: IPRATROPIUM 0.03% NASAL SPRAY 30 ML BOTTLE BOTH NARES PRN (17:52)
[2018-03-10] MEDS ORDERED: ALBUTEROL 2.5 MG/3 ML NEB RESP TX PRN (17:52)
[2018-03-10] MEDS ORDERED: metOLazone 2.5 MG TABLET PO PRN (17:52)
[2018-03-10] MEDS: MEROPENEM 1,000 MG in SYRINGE 1 EACH IV SCH (18:19)
[2018-03-10] MEDS: SODIUM CHLORIDE 0.9% 1,000 ML IV SCH (18:19)
[2018-03-10] MEDS ORDERED: LORazepam 0.5 MG TABLET PO PRN (19:00)
[2018-03-10] MEDS: BUDESONIDE/FORMOTEROL 80-4.5 INHALER 6.9 GM INH SCH (22:09)
[2018-03-10] MEDS: GABAPENTIN 100 MG CAPSULE PO SCH (22:09)
[2018-03-10] MEDS: FLUTICASONE 50 MCG NASAL SPRAY 16 GM BOTTLE BOTH NARES SCH (22:09)
[2018-03-10] MEDS: OMEGA 3 ACID ETHYL ESTERS 1 GM CAPSULE PO SCH (22:10)
[2018-03-10] MEDS: MEXILETINE 200 MG CAPSULE PO SCH (22:10)
[2018-03-10] MEDS: IMIPRAMINE 10 MG TABLET PO SCH (22:10)
[2018-03-10] MEDS: SODIUM CHLORIDE/POTASSIUM CHLORIDE TABLET PO SCH (22:10)
[2018-03-10] MEDS: ASPIRIN EC 81 MG TABLET PO SCH (22:11)
[2018-03-10] MEDS: ROSUVASTATIN 20 MG TABLET PO SCH (22:11)
[2018-03-10] MEDS: FLUDROCORTISONE 0.1 MG TABLET PO SCH (22:11)
[2018-03-10] MEDS: APIXABAN 2.5 MG TABLET PO SCH (22:11)
[2018-03-10] MEDS: POTASSIUM CHLORIDE 10 MEQ TABLET PO SCH (22:12)
[2018-03-10] MEDS: cycloSPORINE OPH EMUL 1 VIAL BOTH EYES SCH (22:12)
[2018-03-10] MEDS: CARVEDILOL 6.25 MG TABLET PO SCH (22:12)
[2018-03-11] MEDS: MEROPENEM 1,000 MG in SYRINGE 1 EACH IV SCH ×3 (01:07→19:26)
[2018-03-11 06:00] LABS: Basophils % 0.4 % (0.0-0.8); Eosinophils # 0.2 10*3/uL (0.0-0.87); Eosinophils % 2.3 % (0.00-10.9); Hematocrit 31.7 VOL% (42.0-52.0); Hemoglobin 10.4 GM/DL (14.0-18.0); Immature Granulocytes % 0.6 %; Immature Granulocytes Absolute 0.05 #; Lymphocytes # 0.7 10*3/uL (1.4-4.0); Lymphocytes % 8.5 % (21.2-54.2); Mean Corpuscular HGB Conc 32.8 GM/DL (32-36); Mean Corpuscular Hemoglobin 31 PG (27-34); Mean Corpuscular Volume 94.9 FL (87-102); Monocytes # 0.7 10*3/uL (0.11-0.8); Monocytes % 8.5 % (1.7-12.7); Neutrophils # 6.4 10*3/uL (1.4-7.4); Neutrophils % 79.7 % (38.7-73.9); Platelet Count 244 T/CUMM (130-400); Red Blood Count 3.34 MC/CUMM (3.8-5.5); Red Cell Distribution Width 13.6 % (9.3-17.3); White Blood Count 8.1 T/CUMM (4-12)
[2018-03-11] MEDS: THYROID 60 MG TABLET PO SCH (06:10)
[2018-03-11 06:38] LABS: Calcium 8.6 MG/DL (8.5-10.1); Osmolality,Calculated 283.5 MOS/KG (273-304); Potassium 4.4 MMOL/L (3.5-5.1)
[2018-03-11] MEDS: POLYETHYLENE GLYCOL POWDER 17 GM PACK PO SCH (09:12)
[2018-03-11] MEDS: FLUTICASONE 50 MCG NASAL SPRAY 16 GM BOTTLE BOTH NARES SCH ×2 (09:14→21:09)
[2018-03-11] MEDS: cycloSPORINE OPH EMUL 1 VIAL BOTH EYES SCH ×2 (09:15→21:07)
[2018-03-11] MEDS: FLUDROCORTISONE 0.1 MG TABLET PO SCH ×2 (09:18→21:07)
[2018-03-11] MEDS: SODIUM CHLORIDE/POTASSIUM CHLORIDE TABLET PO SCH ×2 (09:18→21:07)
[2018-03-11] MEDS: DIGOXIN 0.125 MG TABLET PO SCH (09:18)
[2018-03-11] MEDS: APIXABAN 2.5 MG TABLET PO SCH ×2 (09:18→21:07)
[2018-03-11] MEDS: AMIODARONE 200 MG TABLET PO SCH (09:18)
[2018-03-11] MEDS: GABAPENTIN 100 MG CAPSULE PO SCH ×3 (09:18→21:07)
[2018-03-11] MEDS: SPIRONOLACTONE 50 MG TABLET PO SCH (09:19)
[2018-03-11] MEDS: CALCIUM (CARBONATE) 600 MG TABLET PO SCH (09:19)
[2018-03-11] MEDS: MONTELUKAST 10 MG TABLET PO SCH (09:19)
[2018-03-11] MEDS: MEXILETINE 200 MG CAPSULE PO SCH ×2 (09:20→21:07)
[2018-03-11] MEDS: CHOLECALCIFEROL 1,000 UNIT TABLET PO SCH (09:20)
[2018-03-11] MEDS: FEXOFENADINE 180 MG TABLET PO SCH (09:20)
[2018-03-11] MEDS: CARVEDILOL 6.25 MG TABLET PO SCH ×2 (09:20→19:26)
[2018-03-11] MEDS: FOLIC ACID 1 MG TABLET PO SCH (09:20)
[2018-03-11] MEDS: LISINOPRIL 5 MG TABLET PO SCH (09:20)
[2018-03-11] MEDS: PANTOPRAZOLE 40 MG TABLET PO SCH (09:20)
[2018-03-11] MEDS: POTASSIUM CHLORIDE 10 MEQ TABLET PO SCH ×2 (09:20→21:07)
[2018-03-11] MEDS ORDERED: GLUCAGON 1 MG VIAL IM PRN (09:35)
[2018-03-11] MEDS ORDERED: DEXTROSE 50% 25 GM/50 ML VIAL IV PRN (09:35)
[2018-03-11] MEDS: sitaGLIPtin 25 MG TABLET PO SCH ×2 (09:45→11:08)
[2018-03-11] MEDS: LUBIPROSTONE 8 MCG CAPSULE PO PRN (09:45)
[2018-03-11] MEDS ORDERED: ASPIRIN CHEW 81 MG TABLET PO ONE ×2 (11:42→11:46)
[2018-03-11] MEDS ORDERED: NITROGLYCERIN SL 0.4 MG TABLET SL ONE (11:42)
[2018-03-11] MEDS: NITROGLYCERIN SL 0.4 MG TABLET SL PRN (11:45)
[2018-03-11] MEDS: INSULIN LISPRO 100 UNIT/ML SUBCUT SCH ×3 (12:01→21:08)
[2018-03-11 12:02] LABS: Basophils % 0.4 % (0.0-0.8); Eosinophils # 0.2 10*3/uL (0.0-0.87); Eosinophils % 1.8 % (0.00-10.9); Hematocrit 34.5 VOL% (42.0-52.0); Hemoglobin 10.9 GM/DL (14.0-18.0); Immature Granulocytes % 0.6 %; Immature Granulocytes Absolute 0.06 #; Lymphocytes # 0.7 10*3/uL (1.4-4.0); Lymphocytes % 7.7 % (21.2-54.2); Mean Corpuscular HGB Conc 31.6 GM/DL (32-36); Mean Corpuscular Hemoglobin 31 PG (27-34); Mean Corpuscular Volume 97.7 FL (87-102); Mean Platelet Volume 9.8 FL (9.6-12.0); Monocytes # 0.9 10*3/uL (0.11-0.8); Monocytes % 9.1 % (1.7-12.7); Neutrophils # 7.8 10*3/uL (1.4-7.4); Neutrophils % 80.4 % (38.7-73.9); Platelet Count 257 T/CUMM (130-400); Red Blood Count 3.53 MC/CUMM (3.8-5.5); Red Cell Distribution Width 13.7 % (9.3-17.3); White Blood Count 9.7 T/CUMM (4-12)
[2018-03-11] MEDS: MAGNESIUM OXIDE 400 MG TABLET PO SCH ×2 (12:04→16:08)
[2018-03-11] MEDS: MULTIVITAMIN (INTRINSIC) CAPSULE PO SCH ×2 (12:04→16:08)
[2018-03-11 12:31] LABS: Alanine Aminotransferase 49 U/L (16-61); Albumin 3.1 G/DL (3.4-5.0); Alkaline Phosphatase 58 U/L (45-117); Aspartate Amino Transferase 26 U/L (0-37); Bilirubin,Total < 0.39 MG/DL (0.2-1.0); Blood Urea Nitrogen 21 MG/DL (7-18); Calcium 8.7 MG/DL (8.5-10.1); Glucose 153 MG/DL (74-106); Osmolality,Calculated 278.8 MOS/KG (273-304); Potassium 4.2 MMOL/L (3.5-5.1); Sodium 137 MMOL/L (136-145); Total Protein 6.2 G/DL (6.4-8.3); Troponin I Only 0.025 NG/ML (0.00-0.045)
[2018-03-11 17:04] LABS: Troponin I Only 0.025 NG/ML (0.00-0.045)
[2018-03-11 18:42] LABS: Troponin I Only 0.032 NG/ML (0.00-0.045)
[2018-03-11] MEDS: SODIUM CHLORIDE 0.9% 1,000 ML IV SCH (19:30)
[2018-03-11] MEDS: ASPIRIN EC 81 MG TABLET PO SCH (21:07)
[2018-03-11] MEDS: IMIPRAMINE 10 MG TABLET PO SCH (21:07)
[2018-03-11] MEDS: OMEGA 3 ACID ETHYL ESTERS 1 GM CAPSULE PO SCH (21:07)
[2018-03-11] MEDS: ROSUVASTATIN 20 MG TABLET PO SCH (21:07)
[2018-03-11] MEDS: BUDESONIDE/FORMOTEROL 80-4.5 INHALER 6.9 GM INH SCH (21:08)
[2018-03-12] MEDS: MEROPENEM 1,000 MG in SYRINGE 1 EACH IV SCH ×3 (02:08→17:48)
[2018-03-12] MEDS ORDERED: HYDROmorphone 2 MG/1 ML VIAL ONE (02:58)
[2018-03-12] MEDS ORDERED: NITROGLYCERIN 2% OINT 1 INCH/GM PACK TOP ONE ×2 (03:09→03:21)
[2018-03-12] MEDS ORDERED: AMIODARONE INJ 150 MG in DEXTROSE 5% 100 ML IV ONE (03:16)
[2018-03-12] MEDS: NITROGLYCERIN SL 0.4 MG TABLET SL PRN (03:26)
[2018-03-12] MEDS ORDERED: AMIODARONE INJ 450 MG in DEXTROSE 5% 241 ML IV SCH (03:30)
[2018-03-12 03:53] LABS: Basophils # 0.1 10*3/uL (0.0-0.2); Basophils % 0.6 % (0.0-0.8); Eosinophils # 0.2 10*3/uL (0.0-0.87); Eosinophils % 2.8 % (0.00-10.9); Hematocrit 34.3 VOL% (42.0-52.0); Hemoglobin 10.8 GM/DL (14.0-18.0); Immature Granulocytes % 0.5 %; Immature Granulocytes Absolute 0.04 #; Lymphocytes # 0.6 10*3/uL (1.4-4.0); Lymphocytes % 7.4 % (21.2-54.2); Mean Corpuscular HGB Conc 31.5 GM/DL (32-36); Mean Corpuscular Hemoglobin 31 PG (27-34); Mean Corpuscular Volume 98.6 FL (87-102); Mean Platelet Volume 10.3 FL (9.6-12.0); Monocytes # 0.8 10*3/uL (0.11-0.8); Monocytes % 9.2 % (1.7-12.7); Neutrophils # 6.9 10*3/uL (1.4-7.4); Neutrophils % 79.5 % (38.7-73.9); Platelet Count 271 T/CUMM (130-400); Red Blood Count 3.48 MC/CUMM (3.8-5.5); Red Cell Distribution Width 13.7 % (9.3-17.3); White Blood Count 8.6 T/CUMM (4-12)
[2018-03-12 04:13] LABS: Calcium 9.6 MG/DL (8.5-10.1); Osmolality,Calculated 276.8 MOS/KG (273-304); Potassium 4.6 MMOL/L (3.5-5.1)
[2018-03-12 06:14] LABS: Troponin I Only 0.031 NG/ML (0.00-0.045)
[2018-03-12] MEDS: SODIUM CHLORIDE 0.9% 1,000 ML IV SCH ×2 (07:00→16:35)
[2018-03-12 07:55] LABS: Calcium 8.7 MG/DL (8.5-10.1); Osmolality,Calculated 280.7 MOS/KG (273-304); Potassium 4.6 MMOL/L (3.5-5.1)
[2018-03-12] MEDS: FLUDROCORTISONE 0.1 MG TABLET PO SCH ×2 (08:52→21:11)
[2018-03-12] MEDS: MONTELUKAST 10 MG TABLET PO SCH (08:53)
[2018-03-12] MEDS: THYROID 60 MG TABLET PO SCH (08:54)
[2018-03-12] MEDS: CHOLECALCIFEROL 1,000 UNIT TABLET PO SCH (08:54)
[2018-03-12] MEDS: PANTOPRAZOLE 40 MG TABLET PO SCH (08:56)
[2018-03-12] MEDS: SPIRONOLACTONE 50 MG TABLET PO SCH (08:57)
[2018-03-12] MEDS: FOLIC ACID 1 MG TABLET PO SCH (08:57)
[2018-03-12] MEDS: CARVEDILOL 6.25 MG TABLET PO SCH (08:57)
[2018-03-12] MEDS ORDERED: CYANOCOBALAMIN 1000 MCG/1 ML VIAL IM SCH (09:00)
[2018-03-12] MEDS: SODIUM CHLORIDE/POTASSIUM CHLORIDE TABLET PO SCH ×2 (09:00→21:11)
[2018-03-12] MEDS: GABAPENTIN 100 MG CAPSULE PO SCH ×3 (09:01→21:11)
[2018-03-12] MEDS: FEXOFENADINE 180 MG TABLET PO SCH (09:02)
[2018-03-12] MEDS: sitaGLIPtin 25 MG TABLET PO SCH (09:02)
[2018-03-12] MEDS: CALCIUM (CARBONATE) 600 MG TABLET PO SCH (09:02)
[2018-03-12] MEDS: LISINOPRIL 5 MG TABLET PO SCH (09:04)
[2018-03-12] MEDS: AMIODARONE 200 MG TABLET PO SCH (09:04)
[2018-03-12] MEDS: LUBIPROSTONE 8 MCG CAPSULE PO PRN (09:16)
[2018-03-12] MEDS: FLUTICASONE 50 MCG NASAL SPRAY 16 GM BOTTLE BOTH NARES SCH ×2 (09:19→21:09)
[2018-03-12] MEDS: DIGOXIN 0.125 MG TABLET PO SCH (09:23)
[2018-03-12] MEDS: APIXABAN 2.5 MG TABLET PO SCH ×2 (09:23→21:12)
[2018-03-12] MEDS: INSULIN LISPRO 100 UNIT/ML SUBCUT SCH ×4 (09:23→21:12)
[2018-03-12] MEDS: POTASSIUM CHLORIDE 10 MEQ TABLET PO SCH ×2 (09:23→21:10)
[2018-03-12] MEDS: POLYETHYLENE GLYCOL POWDER 17 GM PACK PO SCH (09:24)
[2018-03-12] MEDS: cycloSPORINE OPH EMUL 1 VIAL BOTH EYES SCH ×2 (09:45→21:12)
[2018-03-12] MEDS: MEXILETINE 200 MG CAPSULE PO SCH ×2 (09:46→21:11)
[2018-03-12] MEDS: AMIODARONE INJ 450 MG in DEXTROSE 5% 241 ML IV SCH (10:00)
[2018-03-12] MEDS: LUBIPROSTONE 8 MCG CAPSULE PO SCH ×2 (10:03→21:11)
[2018-03-12 11:41] LABS: Troponin I Only 0.031 NG/ML (0.00-0.045)
[2018-03-12] MEDS: MAGNESIUM OXIDE 400 MG TABLET PO SCH (14:29)
[2018-03-12] MEDS: MULTIVITAMIN (INTRINSIC) CAPSULE PO SCH (14:30)
[2018-03-12 20:31] LABS: Troponin I Only 0.025 NG/ML (0.00-0.045)
[2018-03-12] MEDS: OMEGA 3 ACID ETHYL ESTERS 1 GM CAPSULE PO SCH (21:10)
[2018-03-12] MEDS: ROSUVASTATIN 20 MG TABLET PO SCH (21:11)
[2018-03-12] MEDS: ASPIRIN EC 81 MG TABLET PO SCH (21:11)
[2018-03-12] MEDS: CARVEDILOL 12.5 MG TABLET PO SCH (21:12)
[2018-03-12] MEDS: IMIPRAMINE 10 MG TABLET PO SCH (21:16)
[2018-03-12] MEDS: BUDESONIDE/FORMOTEROL 80-4.5 INHALER 6.9 GM INH SCH (21:31)
[2018-03-13] MEDS: AMIODARONE INJ 450 MG in DEXTROSE 5% 241 ML IV SCH (01:03)
[2018-03-13] MEDS: MEROPENEM 1,000 MG in SYRINGE 1 EACH IV SCH ×3 (01:04→20:50)
[2018-03-13] MEDS: SODIUM CHLORIDE 0.9% 1,000 ML IV SCH (03:00)
[2018-03-13 05:53] LABS: Calcium 9.1 MG/DL (8.5-10.1); Osmolality,Calculated 281.5 MOS/KG (273-304); Potassium 4.7 MMOL/L (3.5-5.1); Troponin I Only 0.026 NG/ML (0.00-0.045)
[2018-03-13] MEDS: THYROID 60 MG TABLET PO SCH (06:09)
[2018-03-13] MEDS: MONTELUKAST 10 MG TABLET PO SCH (09:00)
[2018-03-13] MEDS: LUBIPROSTONE 8 MCG CAPSULE PO SCH ×2 (09:00→20:49)
[2018-03-13] MEDS: DIGOXIN 0.125 MG TABLET PO SCH (09:01)
[2018-03-13] MEDS: AMIODARONE 200 MG TABLET PO SCH (09:02)
[2018-03-13] MEDS: SPIRONOLACTONE 50 MG TABLET PO SCH (09:04)
[2018-03-13] MEDS: SODIUM CHLORIDE/POTASSIUM CHLORIDE TABLET PO SCH ×2 (09:04→20:48)
[2018-03-13] MEDS: FOLIC ACID 1 MG TABLET PO SCH (09:05)
[2018-03-13] MEDS: CARVEDILOL 12.5 MG TABLET PO SCH ×2 (09:05→16:50)
[2018-03-13] MEDS: GABAPENTIN 100 MG CAPSULE PO SCH ×3 (09:05→20:48)
[2018-03-13] MEDS: FEXOFENADINE 180 MG TABLET PO SCH (09:06)
[2018-03-13] MEDS: CALCIUM (CARBONATE) 600 MG TABLET PO SCH (09:06)
[2018-03-13] MEDS: CHOLECALCIFEROL 1,000 UNIT TABLET PO SCH (09:07)
[2018-03-13] MEDS: FLUDROCORTISONE 0.1 MG TABLET PO SCH ×2 (09:07→20:49)
[2018-03-13] MEDS: PANTOPRAZOLE 40 MG TABLET PO SCH (09:08)
[2018-03-13] MEDS: LISINOPRIL 5 MG TABLET PO SCH (09:08)
[2018-03-13] MEDS: MEXILETINE 200 MG CAPSULE PO SCH ×2 (09:09→20:48)
[2018-03-13] MEDS: POLYETHYLENE GLYCOL POWDER 17 GM PACK PO SCH (09:09)
[2018-03-13] MEDS: POTASSIUM CHLORIDE 10 MEQ TABLET PO SCH ×2 (09:10→20:49)
[2018-03-13] MEDS: sitaGLIPtin 25 MG TABLET PO SCH (09:10)
[2018-03-13] MEDS: APIXABAN 2.5 MG TABLET PO SCH ×2 (09:10→20:48)
[2018-03-13] MEDS: FLUTICASONE 50 MCG NASAL SPRAY 16 GM BOTTLE BOTH NARES SCH ×2 (09:11→20:50)
[2018-03-13] MEDS: cycloSPORINE OPH EMUL 1 VIAL BOTH EYES SCH ×2 (09:11→20:47)
[2018-03-13] MEDS: INSULIN LISPRO 100 UNIT/ML SUBCUT SCH ×4 (09:11→20:49)
[2018-03-13] MEDS: MAGNESIUM OXIDE 400 MG TABLET PO SCH (12:11)
[2018-03-13] MEDS: MULTIVITAMIN (INTRINSIC) CAPSULE PO SCH (12:11)
[2018-03-13] MEDS: GENTAMICIN INJ 160 MG in SODIUM CHLORIDE 0.9% 100 ML IV SCH (14:45)
[2018-03-13] MEDS: MUPIROCIN 2% OINT 22 GM TUBE TOP SCH ×2 (14:46→20:50)
[2018-03-13] MEDS: IMIPRAMINE 10 MG TABLET PO SCH (20:48)
[2018-03-13] MEDS: ASPIRIN EC 81 MG TABLET PO SCH (20:48)
[2018-03-13] MEDS: OMEGA 3 ACID ETHYL ESTERS 1 GM CAPSULE PO SCH (20:49)
[2018-03-13] MEDS: ROSUVASTATIN 20 MG TABLET PO SCH (20:49)
[2018-03-13] MEDS: BUDESONIDE/FORMOTEROL 80-4.5 INHALER 6.9 GM INH SCH (20:50)
[2018-03-14] MEDS: GENTAMICIN INJ 160 MG in SODIUM CHLORIDE 0.9% 100 ML IV SCH ×2 (00:40→14:11)
[2018-03-14 05:04] LABS: Basophils % 0.3 % (0.0-0.8); Eosinophils # 0.2 10*3/uL (0.0-0.87); Eosinophils % 2.9 % (0.00-10.9); Hematocrit 34.1 VOL% (42.0-52.0); Hemoglobin 10.8 GM/DL (14.0-18.0); Immature Granulocytes % 0.4 %; Immature Granulocytes Absolute 0.03 #; Lymphocytes # 0.8 10*3/uL (1.4-4.0); Lymphocytes % 10.3 % (21.2-54.2); Mean Corpuscular HGB Conc 31.7 GM/DL (32-36); Mean Corpuscular Hemoglobin 31 PG (27-34); Mean Corpuscular Volume 97.4 FL (87-102); Mean Platelet Volume 10.5 FL (9.6-12.0); Monocytes # 0.7 10*3/uL (0.11-0.8); Monocytes % 9.3 % (1.7-12.7); NRBC # 0.03 10*3/uL; Neutrophils # 5.7 10*3/uL (1.4-7.4); Neutrophils % 76.8 % (38.7-73.9); Platelet Count 231 T/CUMM (130-400); Red Cell Distribution Width 13.8 % (9.3-17.3); White Blood Count 7.4 T/CUMM (4-12)
[2018-03-14 05:34] LABS: Calcium 9.1 MG/DL (8.5-10.1); Osmolality,Calculated 278.8 MOS/KG (273-304); Potassium 4.9 MMOL/L (3.5-5.1)
[2018-03-14] MEDS: THYROID 60 MG TABLET PO SCH (06:12)
[2018-03-14] MEDS: FEXOFENADINE 180 MG TABLET PO SCH (09:27)
[2018-03-14] MEDS: sitaGLIPtin 25 MG TABLET PO SCH (09:27)
[2018-03-14] MEDS: MONTELUKAST 10 MG TABLET PO SCH (09:27)
[2018-03-14] MEDS: INSULIN LISPRO 100 UNIT/ML SUBCUT SCH ×2 (09:27→11:47)
[2018-03-14] MEDS: POLYETHYLENE GLYCOL POWDER 17 GM PACK PO SCH (09:27)
[2018-03-14] MEDS: MEXILETINE 200 MG CAPSULE PO SCH (09:28)
[2018-03-14] MEDS: CHOLECALCIFEROL 1,000 UNIT TABLET PO SCH (09:28)
[2018-03-14] MEDS: FLUDROCORTISONE 0.1 MG TABLET PO SCH (09:28)
[2018-03-14] MEDS: LUBIPROSTONE 8 MCG CAPSULE PO SCH (09:28)
[2018-03-14] MEDS: FLUTICASONE 50 MCG NASAL SPRAY 16 GM BOTTLE BOTH NARES SCH (09:28)
[2018-03-14] MEDS: DIGOXIN 0.125 MG TABLET PO SCH (09:29)
[2018-03-14] MEDS: CALCIUM (CARBONATE) 600 MG TABLET PO SCH (09:29)
[2018-03-14] MEDS: APIXABAN 2.5 MG TABLET PO SCH (09:30)
[2018-03-14] MEDS: CARVEDILOL 12.5 MG TABLET PO SCH (09:30)
[2018-03-14] MEDS: MUPIROCIN 2% OINT 22 GM TUBE TOP SCH ×2 (09:30→14:51)
[2018-03-14] MEDS: AMIODARONE 200 MG TABLET PO SCH (09:30)
[2018-03-14] MEDS: POTASSIUM CHLORIDE 10 MEQ TABLET PO SCH (09:30)
[2018-03-14] MEDS: GABAPENTIN 100 MG CAPSULE PO SCH ×2 (09:30→14:51)
[2018-03-14] MEDS: SODIUM CHLORIDE/POTASSIUM CHLORIDE TABLET PO SCH (09:31)
[2018-03-14] MEDS: cycloSPORINE OPH EMUL 1 VIAL BOTH EYES SCH (09:31)
[2018-03-14] MEDS: PANTOPRAZOLE 40 MG TABLET PO SCH (09:31)
[2018-03-14] MEDS: SPIRONOLACTONE 50 MG TABLET PO SCH (09:31)
[2018-03-14] MEDS: LISINOPRIL 5 MG TABLET PO SCH (09:31)
[2018-03-14] MEDS: MEROPENEM 1,000 MG in SYRINGE 1 EACH IV SCH (09:31)
[2018-03-14] MEDS: FOLIC ACID 1 MG TABLET PO SCH (09:31)
[2018-03-14 11:13] VITALS: BP 93/55
[2018-03-14] MEDS: MAGNESIUM OXIDE 400 MG TABLET PO SCH (12:12)
[2018-03-14] MEDS: MULTIVITAMIN (INTRINSIC) CAPSULE PO SCH (12:12)
[2018-03-14] MEDS ORDERED: MEROPENEM 1,000 MG in SYRINGE 1 EACH IV ONE (14:00)
== END 2018-03-14 15:55 | disposition home health service (06) | DRG 689 ==
LOC: EDUNIT# → EDBD → N.ED 10:57 → N.EDINP 14:50 → SUATTDRO 14:50 → N.2E 17:43 → N.CC 03-12 03:10 → N.TELEN 03-13 12:44
PROVIDERS: ADMIT Internal Medicine; ATTEND Internal Medicine

== ENCOUNTER 2018-04-27 09:40 | Inpatient (IN) ==
[2018-04-27] MEDS ORDERED: SODIUM CHLORIDE 0.9% 500 ML IV STA (10:07)
[2018-04-27] MEDS ORDERED: ASPIRIN 325 MG TABLET PO STA (10:07)
[2018-04-27 10:26] LABS: Basophils % 0.2 % (0.0-0.8); Eosinophils # 0.1 10*3/uL (0.0-0.87); Hematocrit 33.8 VOL% (42.0-52.0); Hemoglobin 11.1 GM/DL (14.0-18.0); Immature Granulocytes % 0.7 %; Lymphocytes # 0.8 10*3/uL (1.4-4.0); Lymphocytes % 6.5 % (21.2-54.2); Mean Corpuscular HGB Conc 32.8 GM/DL (32-36); Mean Corpuscular Hemoglobin 31 PG (27-34); Mean Corpuscular Volume 94.2 FL (87-102); Mean Platelet Volume 9.6 FL (9.6-12.0); Monocytes # 0.9 10*3/uL (0.11-0.8); Monocytes % 7.5 % (1.7-12.7); Neutrophils # 10.1 10*3/uL (1.4-7.4); Neutrophils % 84.1 % (38.7-73.9); Platelet Count 233 T/CUMM (130-400); Red Blood Count 3.59 MC/CUMM (3.8-5.5); Red Cell Distribution Width 14.8 % (9.3-17.3)
[2018-04-27 10:27] LABS: Immature Granulocytes Absolute 0.08 #
[2018-04-27 10:35] LABS: INR 1.1; PT Patient Result 11.4 SECS; Partial Thromboplastin Time 30.6 SECS (0-40)
[2018-04-27] MEDS ORDERED: ONDANSETRON 4 MG/2 ML VIAL ONE (10:36)
[2018-04-27] MEDS ORDERED: ONDANSETRON 4 MG/2 ML VIAL IV STA (10:40)
[2018-04-27 11:05] LABS: Albumin 3.2 G/DL (3.4-5.0); Bilirubin,Total 0.4 MG/DL (0.2-1.0); Calcium 8.5 MG/DL (8.5-10.1); Osmolality,Calculated 267.5 MOS/KG (273-304); Potassium 4.3 MMOL/L (3.5-5.1); Total Protein 5.9 G/DL (6.4-8.3)
[2018-04-27 11:28] LABS: Amorphous Crystals,Urine Occasional /HPF (Few); Apearance,Urine Slightly Hazy (Clear); Bilirubin,Urine Negative (Negative); Blood, Urine Small mg/dL (Negative); Calcium Oxalate Crystals,Urine Occasional /HPF (Few); Glucose,Urine (UA) Negative (Negative); Ketones,Urine Negative (Negative); Nitrite,Urine Negative (Negative); Protein,Urine Negative; RBC,Urine 7 /HPF (0-4); Urine Color Yellow (Yellow); Urine Specific Gravity 1.008 (1.001-1.035); Urine Urobilinogen < 2.0 EU/DL (0.2-1.0); WBC,Urine 102 /HPF (0-6)
[2018-04-27] MEDS ORDERED: cefTRIAXone 1,000 MG in SODIUM CHLORIDE 0.9% 100 ML IV STA (12:26)
[2018-04-27] MEDS ORDERED: ACETAMINOPHEN 325 MG TABLET PO PRN (14:21)
[2018-04-27] MEDS ORDERED: ONDANSETRON 4 MG/2 ML VIAL IV PRN (14:21)
[2018-04-27] MEDS ORDERED: DOCUSATE SODIUM 100 MG CAPSULE PO PRN (14:21)
[2018-04-27] MEDS ORDERED: GLUCAGON 1 MG VIAL IM PRN (14:49)
[2018-04-27] MEDS ORDERED: DEXTROSE 50% 25 GM/50 ML VIAL IV PRN (14:49)
[2018-04-27] MEDS ORDERED: traMADol 50 MG TABLET PO PRN (14:54)
[2018-04-27] MEDS ORDERED: ALBUTEROL 2.5 MG/3 ML NEB RESP TX PRN (14:54)
[2018-04-27] MEDS ORDERED: LORazepam 1 MG TABLET PO PRN (14:54)
[2018-04-27] MEDS ORDERED: BUDESONIDE/FORMOTEROL 80-4.5 INHALER 6.9 GM INH PRN (14:54)
[2018-04-27] MEDS ORDERED: IPRATROPIUM 0.03% NASAL SPRAY 30 ML BOTTLE BOTH NARES PRN (14:54)
[2018-04-27] MEDS: GABAPENTIN 100 MG CAPSULE PO SCH ×2 (17:00→20:51)
[2018-04-27] MEDS: CARVEDILOL 6.25 MG TABLET PO SCH (17:00)
[2018-04-27] MEDS: MUPIROCIN 2% OINT 22 GM TUBE TOP SCH ×2 (17:05→20:53)
[2018-04-27] MEDS: INSULIN REGULAR 100 UNIT/ML SUBCUT SCH ×2 (17:59→21:26)
[2018-04-27] MEDS: ASPIRIN EC 81 MG TABLET PO SCH (20:49)
[2018-04-27] MEDS: AMIODARONE 200 MG TABLET PO SCH (20:49)
[2018-04-27] MEDS: FLUDROCORTISONE 0.1 MG TABLET PO SCH (20:50)
[2018-04-27] MEDS: IMIPRAMINE 10 MG TABLET PO SCH (20:51)
[2018-04-27] MEDS: FEXOFENADINE 180 MG TABLET PO SCH (20:51)
[2018-04-27] MEDS: ROSUVASTATIN 20 MG TABLET PO SCH (20:51)
[2018-04-27] MEDS: OMEGA 3 ACID ETHYL ESTERS 1 GM CAPSULE PO SCH (20:52)
[2018-04-27] MEDS: APIXABAN 2.5 MG TABLET PO SCH (20:52)
[2018-04-27] MEDS: cycloSPORINE OPH EMUL 1 VIAL BOTH EYES SCH (20:53)
[2018-04-27] MEDS: FLUTICASONE 50 MCG NASAL SPRAY 16 GM BOTTLE BOTH NARES SCH (21:11)
[2018-04-28 06:48] LABS: Basophils % 0.3 % (0.0-0.8); Eosinophils # 0.2 10*3/uL (0.0-0.87); Eosinophils % 1.6 % (0.00-10.9); Hemoglobin 11.4 GM/DL (14.0-18.0); Immature Granulocytes % 0.7 %; Immature Granulocytes Absolute 0.08 #; Lymphocytes # 0.8 10*3/uL (1.4-4.0); Lymphocytes % 6.7 % (21.2-54.2); Mean Corpuscular HGB Conc 33.5 GM/DL (32-36); Mean Corpuscular Hemoglobin 31 PG (27-34); Mean Corpuscular Volume 92.9 FL (87-102); Monocytes # 0.9 10*3/uL (0.11-0.8); Monocytes % 7.7 % (1.7-12.7); Neutrophils # 9.9 10*3/uL (1.4-7.4); Platelet Count 230 T/CUMM (130-400); Red Blood Count 3.66 MC/CUMM (3.8-5.5); White Blood Count 11.9 T/CUMM (4-12)
[2018-04-28 07:17] LABS: Osmolality,Calculated 272.1 MOS/KG (273-304); Potassium 4.1 MMOL/L (3.5-5.1)
[2018-04-28] MEDS: THYROID 60 MG TABLET PO SCH (07:19)
[2018-04-28] MEDS: INSULIN REGULAR 100 UNIT/ML SUBCUT SCH ×4 (08:26→21:43)
[2018-04-28] MEDS: POLYETHYLENE GLYCOL POWDER 17 GM PACK PO SCH (09:44)
[2018-04-28] MEDS: AMIODARONE 200 MG TABLET PO SCH ×2 (09:47→21:39)
[2018-04-28] MEDS: GABAPENTIN 100 MG CAPSULE PO SCH ×3 (09:47→21:40)
[2018-04-28] MEDS: APIXABAN 2.5 MG TABLET PO SCH ×2 (09:47→21:39)
[2018-04-28] MEDS: MONTELUKAST 10 MG TABLET PO SCH (09:47)
[2018-04-28] MEDS: CARVEDILOL 6.25 MG TABLET PO SCH ×2 (09:47→17:58)
[2018-04-28] MEDS: PANTOPRAZOLE 40 MG TABLET PO SCH (09:47)
[2018-04-28] MEDS: FLUDROCORTISONE 0.1 MG TABLET PO SCH ×2 (09:47→21:39)
[2018-04-28] MEDS: MUPIROCIN 2% OINT 22 GM TUBE TOP SCH ×3 (09:48→21:37)
[2018-04-28] MEDS: LISINOPRIL 2.5 MG TABLET PO SCH (09:48)
[2018-04-28] MEDS: cycloSPORINE OPH EMUL 1 VIAL BOTH EYES SCH ×2 (09:49→22:45)
[2018-04-28] MEDS: FLUTICASONE 50 MCG NASAL SPRAY 16 GM BOTTLE BOTH NARES SCH ×2 (09:49→21:42)
[2018-04-28] MEDS: DIGOXIN 0.125 MG TABLET PO SCH (12:48)
[2018-04-28] MEDS: MULTIVITAMIN (INTRINSIC) CAPSULE PO SCH (12:49)
[2018-04-28] MEDS: CALCIUM (CARBONATE) 600 MG TABLET PO SCH (12:49)
[2018-04-28] MEDS: CHOLECALCIFEROL 1,000 UNIT TABLET PO SCH (12:49)
[2018-04-28] MEDS: FOLIC ACID 1 MG TABLET PO SCH (12:49)
[2018-04-28] MEDS: MAGNESIUM OXIDE 400 MG TABLET PO SCH (12:49)
[2018-04-28] MEDS ORDERED: SODIUM CHLORIDE 0.9% 1,000 ML IV ONE (14:21)
[2018-04-28] MEDS: ASPIRIN EC 81 MG TABLET PO SCH (21:39)
[2018-04-28] MEDS: FEXOFENADINE 180 MG TABLET PO SCH (21:39)
[2018-04-28] MEDS: OMEGA 3 ACID ETHYL ESTERS 1 GM CAPSULE PO SCH (21:39)
[2018-04-28] MEDS: ROSUVASTATIN 20 MG TABLET PO SCH (21:39)
[2018-04-28] MEDS: IMIPRAMINE 10 MG TABLET PO SCH (23:55)
[2018-04-29 03:44] LABS: Basophils % 0.4 % (0.0-0.8); Eosinophils # 0.2 10*3/uL (0.0-0.87); Eosinophils % 1.7 % (0.00-10.9); Hematocrit 32.9 VOL% (42.0-52.0); Hemoglobin 10.5 GM/DL (14.0-18.0); Immature Granulocytes % 0.8 %; Immature Granulocytes Absolute 0.08 #; Lymphocytes # 0.7 10*3/uL (1.4-4.0); Lymphocytes % 6.7 % (21.2-54.2); Mean Corpuscular HGB Conc 31.9 GM/DL (32-36); Mean Corpuscular Hemoglobin 31 PG (27-34); Mean Corpuscular Volume 95.9 FL (87-102); Monocytes # 0.9 10*3/uL (0.11-0.8); Monocytes % 8.4 % (1.7-12.7); Neutrophils # 8.5 10*3/uL (1.4-7.4); Platelet Count 221 T/CUMM (130-400); Red Blood Count 3.43 MC/CUMM (3.8-5.5); Red Cell Distribution Width 15.2 % (9.3-17.3); White Blood Count 10.4 T/CUMM (4-12)
[2018-04-29 04:14] LABS: Calcium 8.7 MG/DL (8.5-10.1); Osmolality,Calculated 277.8 MOS/KG (273-304); Potassium 3.8 MMOL/L (3.5-5.1)
[2018-04-29] MEDS: THYROID 60 MG TABLET PO SCH (06:00)
[2018-04-29] MEDS: INSULIN REGULAR 100 UNIT/ML SUBCUT SCH ×4 (07:44→20:30)
[2018-04-29] MEDS ORDERED: cefTRIAXone 1,000 MG in SYRINGE 1 EACH IV SCH (08:30)
[2018-04-29] MEDS: GABAPENTIN 100 MG CAPSULE PO SCH ×3 (08:53→20:31)
[2018-04-29] MEDS: POLYETHYLENE GLYCOL POWDER 17 GM PACK PO SCH (08:53)
[2018-04-29] MEDS: AMIODARONE 200 MG TABLET PO SCH ×2 (08:54→20:31)
[2018-04-29] MEDS: LISINOPRIL 2.5 MG TABLET PO SCH (08:54)
[2018-04-29] MEDS: PANTOPRAZOLE 40 MG TABLET PO SCH (08:54)
[2018-04-29] MEDS: FLUDROCORTISONE 0.1 MG TABLET PO SCH ×2 (08:54→20:30)
[2018-04-29] MEDS: CARVEDILOL 6.25 MG TABLET PO SCH ×2 (08:54→16:38)
[2018-04-29] MEDS: APIXABAN 2.5 MG TABLET PO SCH ×2 (08:54→20:31)
[2018-04-29] MEDS: MONTELUKAST 10 MG TABLET PO SCH (08:54)
[2018-04-29] MEDS: FLUTICASONE 50 MCG NASAL SPRAY 16 GM BOTTLE BOTH NARES SCH ×2 (08:55→20:31)
[2018-04-29] MEDS: MUPIROCIN 2% OINT 22 GM TUBE TOP SCH ×3 (08:55→20:31)
[2018-04-29] MEDS: LUBIPROSTONE 8 MCG CAPSULE PO PRN ×2 (09:16→20:31)
[2018-04-29] MEDS: cycloSPORINE OPH EMUL 1 VIAL BOTH EYES SCH ×2 (09:16→20:33)
[2018-04-29] MEDS: DIGOXIN 0.125 MG TABLET PO SCH (12:38)
[2018-04-29] MEDS: MAGNESIUM OXIDE 400 MG TABLET PO SCH (12:38)
[2018-04-29] MEDS: FOLIC ACID 1 MG TABLET PO SCH (12:38)
[2018-04-29] MEDS: CHOLECALCIFEROL 1,000 UNIT TABLET PO SCH (12:38)
[2018-04-29] MEDS: MULTIVITAMIN (INTRINSIC) CAPSULE PO SCH (12:39)
[2018-04-29] MEDS: CALCIUM (CARBONATE) 600 MG TABLET PO SCH (12:39)
[2018-04-29] MEDS: FEXOFENADINE 180 MG TABLET PO SCH (20:30)
[2018-04-29] MEDS: OMEGA 3 ACID ETHYL ESTERS 1 GM CAPSULE PO SCH (20:30)
[2018-04-29] MEDS: IMIPRAMINE 10 MG TABLET PO SCH (20:30)
[2018-04-29] MEDS: ASPIRIN EC 81 MG TABLET PO SCH (20:31)
[2018-04-29] MEDS: ROSUVASTATIN 20 MG TABLET PO SCH (20:31)
[2018-04-30] MEDS: THYROID 60 MG TABLET PO SCH (06:10)
[2018-04-30] MEDS: INSULIN REGULAR 100 UNIT/ML SUBCUT SCH ×2 (08:12→12:01)
[2018-04-30] MEDS: MONTELUKAST 10 MG TABLET PO SCH (08:59)
[2018-04-30] MEDS: LISINOPRIL 2.5 MG TABLET PO SCH (08:59)
[2018-04-30] MEDS: PANTOPRAZOLE 40 MG TABLET PO SCH (08:59)
[2018-04-30] MEDS: AMIODARONE 200 MG TABLET PO SCH (08:59)
[2018-04-30] MEDS: CARVEDILOL 6.25 MG TABLET PO SCH (09:00)
[2018-04-30] MEDS: cycloSPORINE OPH EMUL 1 VIAL BOTH EYES SCH (09:00)
[2018-04-30] MEDS ORDERED: PIPERACILLIN/TAZOBACTAM 3,375 MG in SODIUM CHLORIDE 0.9% 100 ML IV SCH (09:00)
[2018-04-30] MEDS: APIXABAN 2.5 MG TABLET PO SCH (09:00)
[2018-04-30] MEDS: LUBIPROSTONE 8 MCG CAPSULE PO PRN (09:00)
[2018-04-30] MEDS: FLUDROCORTISONE 0.1 MG TABLET PO SCH (09:00)
[2018-04-30] MEDS: GABAPENTIN 100 MG CAPSULE PO SCH (09:00)
[2018-04-30] MEDS: MUPIROCIN 2% OINT 22 GM TUBE TOP SCH (09:00)
[2018-04-30] MEDS: POLYETHYLENE GLYCOL POWDER 17 GM PACK PO SCH (09:01)
[2018-04-30] MEDS: FLUTICASONE 50 MCG NASAL SPRAY 16 GM BOTTLE BOTH NARES SCH (09:01)
[2018-04-30 12:28] VITALS: BP 114/65
[2018-04-30] MEDS: MULTIVITAMIN (INTRINSIC) CAPSULE PO SCH (12:59)
[2018-04-30] MEDS: MAGNESIUM OXIDE 400 MG TABLET PO SCH (12:59)
[2018-04-30] MEDS: DIGOXIN 0.125 MG TABLET PO SCH (12:59)
[2018-04-30] MEDS: FOLIC ACID 1 MG TABLET PO SCH (13:00)
[2018-04-30] MEDS: CALCIUM (CARBONATE) 600 MG TABLET PO SCH (13:00)
[2018-04-30] MEDS: CHOLECALCIFEROL 1,000 UNIT TABLET PO SCH (13:00)
[2018-04-30] MEDS ORDERED: NON-FORMULARY MEDICATION (Alendronate Sodium [Alendronate Sodium] 35 MG) PO SCH (14:54)
[2018-05-01] MEDS ORDERED: CYANOCOBALAMIN 1000 MCG/1 ML VIAL IM SCH (09:00)
== END 2018-04-30 13:34 | disposition home health service (06) | DRG 641 ==
LOC: EDUNIT# → N.ED 09:40 → N.EDINP 09:40 → N.CC 18:30 → N.TELEN 04-28 14:26
PROVIDERS: ADMIT Internal Medicine Geriatric Medicine; ATTEND Internal Medicine Geriatric Medicine

== ENCOUNTER 2018-06-20 14:37 | Inpatient (IN) ==
[2018-06-20 15:56] LABS: Basophils % 0.3 % (0.0-0.8); Eosinophils # 0.1 10*3/uL (0.0-0.87); Eosinophils % 0.9 % (0.00-10.9); Hematocrit 32.3 VOL% (42.0-52.0); Hemoglobin 10.9 GM/DL (14.0-18.0); Immature Granulocytes % 0.6 %; Immature Granulocytes Absolute 0.04 #; Lymphocytes # 0.6 10*3/uL (1.4-4.0); Lymphocytes % 9.2 % (21.2-54.2); Mean Corpuscular HGB Conc 33.7 GM/DL (32-36); Mean Corpuscular Hemoglobin 30 PG (27-34); Mean Corpuscular Volume 90.2 FL (87-102); Mean Platelet Volume 10.6 FL (9.6-12.0); Monocytes # 0.5 10*3/uL (0.11-0.8); Monocytes % 7.2 % (1.7-12.7); Neutrophils # 5.2 10*3/uL (1.4-7.4); Neutrophils % 81.8 % (38.7-73.9); Platelet Count 99 T/CUMM (130-400); Red Blood Count 3.58 MC/CUMM (3.8-5.5); Red Cell Distribution Width 15.4 % (9.3-17.3); White Blood Count 6.4 T/CUMM (4-12)
[2018-06-20 16:13] LABS: Alanine Aminotransferase 274 U/L (16-61); Albumin 2.7 G/DL (3.4-5.0); Alkaline Phosphatase 84 U/L (45-117); Aspartate Amino Transferase 186 U/L (0-37); Blood Urea Nitrogen 16 MG/DL (7-18); Calcium 8.7 MG/DL (8.5-10.1); Glucose 118 MG/DL (74-106); Osmolality,Calculated 248.8 MOS/KG (273-304); Potassium 4.6 MMOL/L (3.5-5.1); Sodium 123 MMOL/L (136-145); Total Protein 5.9 G/DL (6.4-8.3)
[2018-06-20 16:17] LABS: Lactic Acid 2.1 MMOL/L (0.4-2.0)
[2018-06-20 17:11] LABS: Apearance,Urine CLEAR (Clear); Bilirubin,Urine Negative (Negative); Blood, Urine Negative (Negative); Glucose,Urine (UA) Negative (Negative); Hyaline Casts,Urine 1 /LPF (0-3); Ketones,Urine Negative (Negative); Nitrite,Urine Negative (Negative); Protein,Urine Negative; RBC,Urine 3 /HPF (0-4); Urine Color Yellow (Yellow); Urine Specific Gravity 1.009 (1.001-1.035); Urine Urobilinogen < 2.0 EU/DL (0.2-1.0); WBC,Urine 37 /HPF (0-6)
[2018-06-20 17:23] LABS: Hypochromasia Slight; Platelet Estimate Decreased
[2018-06-20] MEDS ORDERED: LEVOFLOXACIN INJ 500 MG in PREMIX 1 EACH IV STA (17:38)
[2018-06-20] MEDS ORDERED: IPRATROPIUM 0.03% NASAL SPRAY 30 ML BOTTLE BOTH NARES PRN (18:15)
[2018-06-20] MEDS ORDERED: BUDESONIDE/FORMOTEROL 80-4.5 INHALER 6.9 GM INH PRN (18:15)
[2018-06-20] MEDS ORDERED: traMADol 50 MG TABLET PO PRN (18:15)
[2018-06-20] MEDS ORDERED: ALBUTEROL 2.5 MG/3 ML NEB RESP TX PRN (18:15)
[2018-06-20] MEDS ORDERED: FLUTICASONE 50 MCG NASAL SPRAY 16 GM BOTTLE BOTH NARES PRN (18:15)
[2018-06-20] MEDS ORDERED: LORazepam 0.5 MG TABLET PO PRN (18:15)
[2018-06-20] MEDS ORDERED: LUBIPROSTONE 8 MCG CAPSULE PO PRN (18:15)
[2018-06-20] MEDS ORDERED: ACETAMINOPHEN 325 MG TABLET PO PRN ×2 (18:15)
[2018-06-20] MEDS ORDERED: SKIN HEALING OINT (AQUAPHOR) 50 GM TUBE TOP PRN (18:15)
[2018-06-20] MEDS ORDERED: IMIPRAMINE HCL 10 MG PO SCH (21:00)
[2018-06-20 21:10] LABS: Lactic Acid 2.4 MMOL/L (0.4-2.0)
[2018-06-20] MEDS: MEXILETINE 200 MG CAPSULE PO SCH (22:02)
[2018-06-20] MEDS: AMIODARONE 200 MG TABLET PO SCH (22:02)
[2018-06-20] MEDS: OMEGA 3 ACID ETHYL ESTERS 1 GM CAPSULE PO SCH (22:02)
[2018-06-20] MEDS: ASPIRIN EC 81 MG TABLET PO SCH (22:02)
[2018-06-20] MEDS: SODIUM CHLORIDE 1 GM TABLET PO SCH (22:02)
[2018-06-20] MEDS: GABAPENTIN 100 MG CAPSULE PO SCH (22:02)
[2018-06-20] MEDS: PIPERACILLIN/TAZOBACTAM 3,375 MG in SODIUM CHLORIDE 0.9% 100 ML IV SCH (22:02)
[2018-06-20] MEDS: APIXABAN 2.5 MG TABLET PO SCH (22:03)
[2018-06-20] MEDS: MUPIROCIN 2% OINT 22 GM TUBE TOP SCH (22:03)
[2018-06-20] MEDS: ROSUVASTATIN 20 MG TABLET PO SCH (22:03)
[2018-06-20] MEDS: FLUDROCORTISONE 0.1 MG TABLET PO SCH (22:03)
[2018-06-20] MEDS: cycloSPORINE OPH EMUL 1 VIAL BOTH EYES SCH (22:03)
[2018-06-20] MEDS: CARVEDILOL 3.125 MG TABLET PO SCH (22:03)
[2018-06-21 01:06] LABS: Basophils % 0.3 % (0.0-0.8); Eosinophils # 0.1 10*3/uL (0.0-0.87); Eosinophils % 0.7 % (0.00-10.9); Hematocrit 31.6 VOL% (42.0-52.0); Hemoglobin 10.4 GM/DL (14.0-18.0); Immature Granulocytes % 0.7 %; Immature Granulocytes Absolute 0.06 #; Lymphocytes # 0.6 10*3/uL (1.4-4.0); Lymphocytes % 6.5 % (21.2-54.2); Mean Corpuscular HGB Conc 32.9 GM/DL (32-36); Mean Corpuscular Hemoglobin 31 PG (27-34); Mean Corpuscular Volume 92.7 FL (87-102); Mean Platelet Volume 9.7 FL (9.6-12.0); Monocytes # 0.9 10*3/uL (0.11-0.8); Monocytes % 9.7 % (1.7-12.7); Neutrophils # 7.6 10*3/uL (1.4-7.4); Neutrophils % 82.1 % (38.7-73.9); Platelet Count 310 T/CUMM (130-400); Red Blood Count 3.41 MC/CUMM (3.8-5.5); Red Cell Distribution Width 15.3 % (9.3-17.3); White Blood Count 9.2 T/CUMM (4-12)
[2018-06-21 01:27] LABS: Albumin 2.5 G/DL (3.4-5.0); Bilirubin,Total 0.6 MG/DL (0.2-1.0); Calcium 8.6 MG/DL (8.5-10.1); Total Protein 5.9 G/DL (6.4-8.3)
[2018-06-21 01:28] LABS: Osmolality,Calculated 249.8 MOS/KG (273-304)
[2018-06-21] MEDS: PIPERACILLIN/TAZOBACTAM 3,375 MG in SODIUM CHLORIDE 0.9% 100 ML IV SCH ×3 (06:14→21:12)
[2018-06-21] MEDS: THYROID 60 MG TABLET PO SCH (06:17)
[2018-06-21] MEDS: POLYETHYLENE GLYCOL POWDER 17 GM PACK PO SCH (09:30)
[2018-06-21] MEDS: POTASSIUM CHLORIDE 10 MEQ TABLET PO SCH (09:36)
[2018-06-21] MEDS: FLUDROCORTISONE 0.1 MG TABLET PO SCH ×2 (09:36→21:12)
[2018-06-21] MEDS: metFORMIN 500 MG TABLET PO SCH ×2 (09:36→18:43)
[2018-06-21] MEDS: AMIODARONE 200 MG TABLET PO SCH ×2 (09:36→21:13)
[2018-06-21] MEDS: PANTOPRAZOLE 40 MG TABLET PO SCH (09:36)
[2018-06-21] MEDS: sitaGLIPtin 25 MG TABLET PO SCH (09:36)
[2018-06-21] MEDS: APIXABAN 2.5 MG TABLET PO SCH ×2 (09:37→21:13)
[2018-06-21] MEDS: SODIUM CHLORIDE 1 GM TABLET PO SCH ×3 (09:37→21:13)
[2018-06-21] MEDS: GABAPENTIN 100 MG CAPSULE PO SCH ×3 (09:37→21:13)
[2018-06-21] MEDS: CARVEDILOL 3.125 MG TABLET PO SCH ×2 (09:37→21:13)
[2018-06-21] MEDS: MONTELUKAST 10 MG TABLET PO SCH (09:37)
[2018-06-21] MEDS ORDERED: FUROSEMIDE 40 MG/4 ML VIAL IV ONE (10:27)
[2018-06-21] MEDS ORDERED: methylPREDNISolone SOD SUC 125 MG/2 ML VIAL IV SCH (10:30)
[2018-06-21] MEDS: FOLIC ACID 1 MG TABLET PO SCH (12:46)
[2018-06-21] MEDS: CHOLECALCIFEROL 1,000 UNIT TABLET PO SCH (12:46)
[2018-06-21] MEDS: SPIRONOLACTONE 50 MG TABLET PO SCH (12:47)
[2018-06-21] MEDS: CALCIUM (CARBONATE) 600 MG TABLET PO SCH (12:47)
[2018-06-21] MEDS: MULTIVITAMIN (INTRINSIC) CAPSULE PO SCH (12:47)
[2018-06-21] MEDS: MAGNESIUM OXIDE 400 MG TABLET PO SCH (12:47)
[2018-06-21] MEDS: methylPREDNISolone SOD SUC INJ 500 MG in SODIUM CHLORIDE 0.9% 100 ML IV SCH (12:48)
[2018-06-21] MEDS: cycloSPORINE OPH EMUL 1 VIAL BOTH EYES SCH ×2 (12:49→21:13)
[2018-06-21] MEDS: MUPIROCIN 2% OINT 22 GM TUBE TOP SCH ×3 (12:49→21:13)
[2018-06-21] MEDS: MEXILETINE 200 MG CAPSULE PO SCH ×2 (13:12→21:13)
[2018-06-21] MEDS ORDERED: ONDANSETRON 4 MG/2 ML VIAL IV PRN (13:14)
[2018-06-21] MEDS: DIGOXIN 0.125 MG TABLET PO SCH (15:28)
[2018-06-21] MEDS ORDERED: LEVOFLOXACIN INJ 750 MG in PREMIX 1 EACH IV SCH (18:00)
[2018-06-21] MEDS ORDERED: LEVOFLOXACIN INJ 500 MG in PREMIX 1 EACH IV SCH (18:00)
[2018-06-21] MEDS: metOLazone 2.5 MG TABLET PO SCH (18:49)
[2018-06-21] MEDS ORDERED: LORazepam 1 MG TABLET PO SCH (21:00)
[2018-06-21] MEDS: ROSUVASTATIN 20 MG TABLET PO SCH (21:13)
[2018-06-21] MEDS: OMEGA 3 ACID ETHYL ESTERS 1 GM CAPSULE PO SCH (21:13)
[2018-06-21] MEDS: ASPIRIN EC 81 MG TABLET PO SCH (21:13)
[2018-06-22] MEDS: PIPERACILLIN/TAZOBACTAM 3,375 MG in SODIUM CHLORIDE 0.9% 100 ML IV SCH (05:13)
[2018-06-22] MEDS: THYROID 60 MG TABLET PO SCH ×2 (05:21→07:18)
[2018-06-22 05:42] LABS: Hemoglobin 10.2 GM/DL (14.0-18.0); Immature Granulocytes % 0.7 %; Immature Granulocytes Absolute 0.05 #; Lymphocytes # 0.3 10*3/uL (1.4-4.0); Lymphocytes % 3.6 % (21.2-54.2); Mean Corpuscular HGB Conc 32.9 GM/DL (32-36); Mean Corpuscular Hemoglobin 30 PG (27-34); Mean Corpuscular Volume 92.3 FL (87-102); Mean Platelet Volume 9.8 FL (9.6-12.0); Monocytes # 0.1 10*3/uL (0.11-0.8); Monocytes % 1.6 % (1.7-12.7); Neutrophils # 6.5 10*3/uL (1.4-7.4); Neutrophils % 94.1 % (38.7-73.9); Platelet Count 288 T/CUMM (130-400); Red Blood Count 3.36 MC/CUMM (3.8-5.5); Red Cell Distribution Width 15.2 % (9.3-17.3); White Blood Count 6.9 T/CUMM (4-12)
[2018-06-22 05:58] LABS: Albumin 2.7 G/DL (3.4-5.0); Bilirubin,Total 0.8 MG/DL (0.2-1.0); Calcium 8.4 MG/DL (8.5-10.1); Osmolality,Calculated 263.1 MOS/KG (273-304); Potassium 3.2 MMOL/L (3.5-5.1); Total Protein 5.9 G/DL (6.4-8.3)
[2018-06-22 06:26] LABS: Band Neutrophils 1 % (0-10); Lymphocytes 5 % (20-55); Platelet Estimate Normal; Segmented Neutrophils 94 % (50-85); Total Cells Counted 100
[2018-06-22 06:27] LABS: Macrocytosis 1+
[2018-06-22] MEDS: SODIUM CHLORIDE 1 GM TABLET PO SCH ×3 (08:48→22:06)
[2018-06-22] MEDS: FLUDROCORTISONE 0.1 MG TABLET PO SCH ×2 (08:48→23:04)
[2018-06-22] MEDS: MEXILETINE 200 MG CAPSULE PO SCH ×2 (08:48→22:06)
[2018-06-22] MEDS: POLYETHYLENE GLYCOL POWDER 17 GM PACK PO SCH ×2 (08:49→08:51)
[2018-06-22] MEDS: metFORMIN 500 MG TABLET PO SCH ×2 (08:49→17:26)
[2018-06-22] MEDS: MONTELUKAST 10 MG TABLET PO SCH (08:49)
[2018-06-22] MEDS: PANTOPRAZOLE 40 MG TABLET PO SCH (08:49)
[2018-06-22] MEDS: GABAPENTIN 100 MG CAPSULE PO SCH ×3 (08:49→22:08)
[2018-06-22] MEDS: POTASSIUM CHLORIDE 10 MEQ TABLET PO SCH ×3 (08:49→22:07)
[2018-06-22] MEDS: AMIODARONE 200 MG TABLET PO SCH ×2 (08:49→22:09)
[2018-06-22] MEDS: sitaGLIPtin 25 MG TABLET PO SCH (08:49)
[2018-06-22] MEDS: APIXABAN 2.5 MG TABLET PO SCH ×2 (08:49→22:06)
[2018-06-22] MEDS: SPIRONOLACTONE 50 MG TABLET PO SCH (08:49)
[2018-06-22] MEDS: MUPIROCIN 2% OINT 22 GM TUBE TOP SCH ×3 (08:49→22:09)
[2018-06-22] MEDS: CARVEDILOL 3.125 MG TABLET PO SCH ×2 (08:49→22:08)
[2018-06-22] MEDS: cycloSPORINE OPH EMUL 1 VIAL BOTH EYES SCH ×2 (08:50→22:09)
[2018-06-22] MEDS: methylPREDNISolone SOD SUC INJ 500 MG in SODIUM CHLORIDE 0.9% 100 ML IV SCH (09:01)
[2018-06-22] MEDS ORDERED: FUROSEMIDE 20 MG/2 ML VIAL IV SCH (09:30)
[2018-06-22] MEDS: CHOLECALCIFEROL 1,000 UNIT TABLET PO SCH (12:14)
[2018-06-22] MEDS: FOLIC ACID 1 MG TABLET PO SCH (12:14)
[2018-06-22] MEDS: MAGNESIUM OXIDE 400 MG TABLET PO SCH (12:14)
[2018-06-22] MEDS: POTASSIUM CHLORIDE 20 MEQ TABLET PO SCH (12:14)
[2018-06-22] MEDS: CALCIUM (CARBONATE) 600 MG TABLET PO SCH (12:14)
[2018-06-22] MEDS: MULTIVITAMIN (INTRINSIC) CAPSULE PO SCH (12:14)
[2018-06-22] MEDS: DIGOXIN 0.125 MG TABLET PO SCH (12:16)
[2018-06-22] MEDS: AMPICILLIN INJ 1,000 MG in SODIUM CHLORIDE 0.9% 100 ML IV SCH (15:10)
[2018-06-22] MEDS: metOLazone 2.5 MG TABLET PO SCH ×2 (17:26→18:00)
[2018-06-22] MEDS: FUROSEMIDE 20 MG/2 ML VIAL IV SCH (17:26)
[2018-06-22] MEDS: OMEGA 3 ACID ETHYL ESTERS 1 GM CAPSULE PO SCH (22:06)
[2018-06-22] MEDS: ROSUVASTATIN 20 MG TABLET PO SCH (22:06)
[2018-06-22] MEDS: TOFRANIL PO SCH (22:09)
[2018-06-22] MEDS: ASPIRIN EC 81 MG TABLET PO SCH (23:07)
[2018-06-23] MEDS: AMPICILLIN INJ 1,000 MG in SODIUM CHLORIDE 0.9% 100 ML IV SCH ×2 (03:14→14:50)
[2018-06-23 04:21] LABS: Basophils % 0.1 % (0.0-0.8); Immature Granulocytes % 0.7 %; Immature Granulocytes Absolute 0.08 #; Lymphocytes # 0.3 10*3/uL (1.4-4.0); Lymphocytes % 2.7 % (21.2-54.2); Mean Corpuscular HGB Conc 33.3 GM/DL (32-36); Mean Corpuscular Hemoglobin 30 PG (27-34); Mean Corpuscular Volume 90.6 FL (87-102); Mean Platelet Volume 9.9 FL (9.6-12.0); Monocytes # 0.3 10*3/uL (0.11-0.8); Monocytes % 2.8 % (1.7-12.7); Neutrophils # 10.2 10*3/uL (1.4-7.4); Neutrophils % 93.7 % (38.7-73.9); Platelet Count 322 T/CUMM (130-400); Red Blood Count 3.31 MC/CUMM (3.8-5.5); Red Cell Distribution Width 15.5 % (9.3-17.3); White Blood Count 10.8 T/CUMM (4-12)
[2018-06-23 04:49] LABS: Lymphocytes 2 % (20-55); Platelet Estimate Adequate; Segmented Neutrophils 96 % (50-85); Total Cells Counted 100
[2018-06-23 04:50] LABS: Hypochromasia 1+; Macrocytosis Slight
[2018-06-23 05:01] LABS: Albumin 2.6 G/DL (3.4-5.0); Bilirubin,Total 0.6 MG/DL (0.2-1.0); Calcium 7.9 MG/DL (8.5-10.1); Osmolality,Calculated 268.1 MOS/KG (273-304); Potassium 3.2 MMOL/L (3.5-5.1); Total Protein 5.9 G/DL (6.4-8.3)
[2018-06-23] MEDS: THYROID 60 MG TABLET PO SCH (07:01)
[2018-06-23] MEDS: PANTOPRAZOLE 40 MG TABLET PO SCH (09:01)
[2018-06-23] MEDS: AMIODARONE 200 MG TABLET PO SCH ×2 (09:01→21:46)
[2018-06-23] MEDS: SODIUM CHLORIDE 1 GM TABLET PO SCH ×3 (09:01→21:51)
[2018-06-23] MEDS: POTASSIUM CHLORIDE 10 MEQ TABLET PO SCH ×3 (09:01→21:51)
[2018-06-23] MEDS: MONTELUKAST 10 MG TABLET PO SCH (09:01)
[2018-06-23] MEDS: GABAPENTIN 100 MG CAPSULE PO SCH ×3 (09:02→21:50)
[2018-06-23] MEDS: MEXILETINE 200 MG CAPSULE PO SCH ×2 (09:02→21:47)
[2018-06-23] MEDS: FUROSEMIDE 20 MG/2 ML VIAL IV SCH ×2 (09:02→17:47)
[2018-06-23] MEDS: FLUDROCORTISONE 0.1 MG TABLET PO SCH ×2 (09:02→21:45)
[2018-06-23] MEDS: sitaGLIPtin 25 MG TABLET PO SCH (09:02)
[2018-06-23] MEDS: APIXABAN 2.5 MG TABLET PO SCH ×2 (09:02→21:46)
[2018-06-23] MEDS: MUPIROCIN 2% OINT 22 GM TUBE TOP SCH ×3 (09:02→21:44)
[2018-06-23] MEDS: SPIRONOLACTONE 50 MG TABLET PO SCH (09:02)
[2018-06-23] MEDS: metFORMIN 500 MG TABLET PO SCH ×2 (09:02→17:47)
[2018-06-23] MEDS: CARVEDILOL 3.125 MG TABLET PO SCH ×2 (09:02→21:57)
[2018-06-23] MEDS: POLYETHYLENE GLYCOL POWDER 17 GM PACK PO SCH ×2 (09:03→14:51)
[2018-06-23] MEDS: FOLIC ACID 1 MG TABLET PO SCH (12:22)
[2018-06-23] MEDS: MAGNESIUM OXIDE 400 MG TABLET PO SCH (12:22)
[2018-06-23] MEDS: CALCIUM (CARBONATE) 600 MG TABLET PO SCH (12:23)
[2018-06-23] MEDS: CHOLECALCIFEROL 1,000 UNIT TABLET PO SCH (12:23)
[2018-06-23] MEDS: cycloSPORINE OPH EMUL 1 VIAL BOTH EYES SCH ×2 (12:23→21:52)
[2018-06-23] MEDS: POTASSIUM CHLORIDE 20 MEQ TABLET PO SCH (12:23)
[2018-06-23] MEDS: MULTIVITAMIN (INTRINSIC) CAPSULE PO SCH (12:23)
[2018-06-23] MEDS: DIGOXIN 0.125 MG TABLET PO SCH (14:51)
[2018-06-23] MEDS: metOLazone 2.5 MG TABLET PO SCH (17:47)
[2018-06-23] MEDS: TOFRANIL PO SCH (21:44)
[2018-06-23] MEDS: ASPIRIN EC 81 MG TABLET PO SCH (21:46)
[2018-06-23] MEDS: ROSUVASTATIN 20 MG TABLET PO SCH (21:46)
[2018-06-23] MEDS: OMEGA 3 ACID ETHYL ESTERS 1 GM CAPSULE PO SCH (21:50)
[2018-06-24] MEDS: AMPICILLIN INJ 1,000 MG in SODIUM CHLORIDE 0.9% 100 ML IV SCH ×3 (00:43→10:26)
[2018-06-24 05:43] LABS: Basophils % 0.1 % (0.0-0.8); Hematocrit 30.8 VOL% (42.0-52.0); Immature Granulocytes Absolute 0.15 #; Lymphocytes # 0.5 10*3/uL (1.4-4.0); Lymphocytes % 3.3 % (21.2-54.2); Mean Corpuscular HGB Conc 32.5 GM/DL (32-36); Mean Corpuscular Hemoglobin 30 PG (27-34); Mean Corpuscular Volume 93.6 FL (87-102); Mean Platelet Volume 9.6 FL (9.6-12.0); Monocytes # 1.1 10*3/uL (0.11-0.8); Monocytes % 7.7 % (1.7-12.7); Neutrophils % 87.9 % (38.7-73.9); Platelet Count 349 T/CUMM (130-400); Red Blood Count 3.29 MC/CUMM (3.8-5.5); Red Cell Distribution Width 15.3 % (9.3-17.3); White Blood Count 14.7 T/CUMM (4-12)
[2018-06-24 06:04] LABS: Albumin 2.6 G/DL (3.4-5.0); Bilirubin,Total 1.1 MG/DL (0.2-1.0); Calcium 8.1 MG/DL (8.5-10.1)
[2018-06-24 06:05] LABS: Osmolality,Calculated 271.7 MOS/KG (273-304); Potassium 3.5 MMOL/L (3.5-5.1)
[2018-06-24 06:06] LABS: Hypochromasia 1+; Lymphocytes 2 % (20-55); Platelet Estimate Adequate; Segmented Neutrophils 94 % (50-85); Total Cells Counted 100
[2018-06-24 06:07] LABS: Macrocytosis Slight
[2018-06-24] MEDS: THYROID 60 MG TABLET PO SCH (06:07)
[2018-06-24] MEDS: POTASSIUM CHLORIDE 20 MEQ TABLET PO SCH (08:15)
[2018-06-24] MEDS: sitaGLIPtin 25 MG TABLET PO SCH (08:16)
[2018-06-24] MEDS: GABAPENTIN 100 MG CAPSULE PO SCH ×3 (08:16→22:26)
[2018-06-24] MEDS: MEXILETINE 200 MG CAPSULE PO SCH ×2 (08:17→22:23)
[2018-06-24] MEDS: MONTELUKAST 10 MG TABLET PO SCH (08:17)
[2018-06-24] MEDS: metFORMIN 500 MG TABLET PO SCH ×2 (08:17→17:20)
[2018-06-24] MEDS: APIXABAN 2.5 MG TABLET PO SCH ×2 (08:17→22:26)
[2018-06-24] MEDS: SODIUM CHLORIDE 1 GM TABLET PO SCH ×3 (08:17→22:25)
[2018-06-24] MEDS: SPIRONOLACTONE 50 MG TABLET PO SCH (08:17)
[2018-06-24] MEDS: AMIODARONE 200 MG TABLET PO SCH ×2 (08:17→22:25)
[2018-06-24] MEDS: PANTOPRAZOLE 40 MG TABLET PO SCH (08:17)
[2018-06-24] MEDS: FLUDROCORTISONE 0.1 MG TABLET PO SCH ×2 (08:17→22:25)
[2018-06-24] MEDS: CARVEDILOL 3.125 MG TABLET PO SCH ×2 (08:17→22:28)
[2018-06-24] MEDS: cycloSPORINE OPH EMUL 1 VIAL BOTH EYES SCH ×2 (08:19→22:28)
[2018-06-24] MEDS: MUPIROCIN 2% OINT 22 GM TUBE TOP SCH ×3 (08:19→22:21)
[2018-06-24] MEDS: POLYETHYLENE GLYCOL POWDER 17 GM PACK PO SCH (08:19)
[2018-06-24] MEDS: POTASSIUM CHLORIDE 10 MEQ TABLET PO SCH ×3 (08:19→22:26)
[2018-06-24] MEDS: FUROSEMIDE 20 MG/2 ML VIAL IV SCH ×2 (08:20→16:27)
[2018-06-24] MEDS: CHOLECALCIFEROL 1,000 UNIT TABLET PO SCH (10:59)
[2018-06-24] MEDS: FOLIC ACID 1 MG TABLET PO SCH (10:59)
[2018-06-24] MEDS: MULTIVITAMIN (INTRINSIC) CAPSULE PO SCH (10:59)
[2018-06-24] MEDS: CALCIUM (CARBONATE) 600 MG TABLET PO SCH (10:59)
[2018-06-24] MEDS: MAGNESIUM OXIDE 400 MG TABLET PO SCH (11:02)
[2018-06-24] MEDS: DIGOXIN 0.125 MG TABLET PO SCH (14:18)
[2018-06-24] MEDS: metOLazone 2.5 MG TABLET PO SCH (18:05)
[2018-06-24] MEDS: OMEGA 3 ACID ETHYL ESTERS 1 GM CAPSULE PO SCH (22:24)
[2018-06-24] MEDS: ROSUVASTATIN 20 MG TABLET PO SCH (22:25)
[2018-06-24] MEDS: ASPIRIN EC 81 MG TABLET PO SCH (22:27)
[2018-06-24] MEDS: TOFRANIL PO SCH (22:30)
[2018-06-25] MEDS: THYROID 60 MG TABLET PO SCH (06:06)
[2018-06-25 06:37] LABS: Basophils % 0.1 % (0.0-0.8); Hematocrit 32.8 VOL% (42.0-52.0); Hemoglobin 10.4 GM/DL (14.0-18.0); Immature Granulocytes % 0.7 %; Immature Granulocytes Absolute 0.08 #; Lymphocytes # 0.7 10*3/uL (1.4-4.0); Mean Corpuscular HGB Conc 31.7 GM/DL (32-36); Mean Corpuscular Hemoglobin 30 PG (27-34); Mean Corpuscular Volume 93.4 FL (87-102); Mean Platelet Volume 9.6 FL (9.6-12.0); Monocytes % 8.3 % (1.7-12.7); Neutrophils # 9.7 10*3/uL (1.4-7.4); Neutrophils % 84.9 % (38.7-73.9); Platelet Count 322 T/CUMM (130-400); Red Blood Count 3.51 MC/CUMM (3.8-5.5); Red Cell Distribution Width 15.5 % (9.3-17.3); White Blood Count 11.4 T/CUMM (4-12)
[2018-06-25 07:05] LABS: Albumin 2.4 G/DL (3.4-5.0); Bilirubin,Total 0.4 MG/DL (0.2-1.0); Calcium 8.4 MG/DL (8.5-10.1); Osmolality,Calculated 273.4 MOS/KG (273-304); Potassium 3.6 MMOL/L (3.5-5.1); Total Protein 5.7 G/DL (6.4-8.3)
[2018-06-25] MEDS: SPIRONOLACTONE 50 MG TABLET PO SCH (08:09)
[2018-06-25] MEDS: MONTELUKAST 10 MG TABLET PO SCH (08:09)
[2018-06-25] MEDS: FUROSEMIDE 20 MG/2 ML VIAL IV SCH (08:09)
[2018-06-25] MEDS: metFORMIN 500 MG TABLET PO SCH ×2 (08:09→16:10)
[2018-06-25] MEDS: SODIUM CHLORIDE 1 GM TABLET PO SCH ×3 (08:09→21:13)
[2018-06-25] MEDS: CARVEDILOL 3.125 MG TABLET PO SCH ×2 (08:09→21:10)
[2018-06-25] MEDS: APIXABAN 2.5 MG TABLET PO SCH ×2 (08:09→21:11)
[2018-06-25] MEDS: POTASSIUM CHLORIDE 20 MEQ TABLET PO SCH (08:10)
[2018-06-25] MEDS: AMIODARONE 200 MG TABLET PO SCH ×2 (08:11→21:06)
[2018-06-25] MEDS: FLUDROCORTISONE 0.1 MG TABLET PO SCH ×2 (08:11→21:08)
[2018-06-25] MEDS: PANTOPRAZOLE 40 MG TABLET PO SCH (08:11)
[2018-06-25] MEDS: MEXILETINE 200 MG CAPSULE PO SCH ×2 (08:11→21:07)
[2018-06-25] MEDS: POTASSIUM CHLORIDE 10 MEQ TABLET PO SCH ×3 (08:11→21:08)
[2018-06-25] MEDS: sitaGLIPtin 25 MG TABLET PO SCH (08:11)
[2018-06-25] MEDS: POLYETHYLENE GLYCOL POWDER 17 GM PACK PO SCH (08:12)
[2018-06-25] MEDS: GABAPENTIN 100 MG CAPSULE PO SCH ×3 (08:12→21:11)
[2018-06-25] MEDS: MUPIROCIN 2% OINT 22 GM TUBE TOP SCH ×3 (08:14→21:07)
[2018-06-25] MEDS: cycloSPORINE OPH EMUL 1 VIAL BOTH EYES SCH ×2 (08:14→21:16)
[2018-06-25] MEDS: CHOLECALCIFEROL 1,000 UNIT TABLET PO SCH (11:11)
[2018-06-25] MEDS: MAGNESIUM OXIDE 400 MG TABLET PO SCH (11:12)
[2018-06-25] MEDS: FOLIC ACID 1 MG TABLET PO SCH (11:12)
[2018-06-25] MEDS: MULTIVITAMIN (INTRINSIC) CAPSULE PO SCH (11:12)
[2018-06-25] MEDS: CALCIUM (CARBONATE) 600 MG TABLET PO SCH (11:12)
[2018-06-25] MEDS: DIGOXIN 0.125 MG TABLET PO SCH (14:38)
[2018-06-25] MEDS: FUROSEMIDE 40 MG TABLET PO SCH (16:10)
[2018-06-25] MEDS ORDERED: NON-FORMULARY MEDICATION (Alendronate Sodium [Alendronate Sodium] 35 MG) PO SCH (18:15)
[2018-06-25] MEDS: metOLazone 2.5 MG TABLET PO SCH (18:29)
[2018-06-25] MEDS: ASPIRIN EC 81 MG TABLET PO SCH (21:10)
[2018-06-25] MEDS: ROSUVASTATIN 20 MG TABLET PO SCH (21:11)
[2018-06-25] MEDS: OMEGA 3 ACID ETHYL ESTERS 1 GM CAPSULE PO SCH (21:15)
[2018-06-25] MEDS: TOFRANIL PO SCH ×2 (21:16→21:21)
[2018-06-26 05:53] LABS: Basophils % 0.1 % (0.0-0.8); Eosinophils % 0.2 % (0.00-10.9); Hematocrit 32.3 VOL% (42.0-52.0); Hemoglobin 10.5 GM/DL (14.0-18.0); Immature Granulocytes % 0.7 %; Immature Granulocytes Absolute 0.08 #; Lymphocytes # 0.7 10*3/uL (1.4-4.0); Lymphocytes % 5.9 % (21.2-54.2); Mean Corpuscular HGB Conc 32.5 GM/DL (32-36); Mean Corpuscular Hemoglobin 30 PG (27-34); Mean Corpuscular Volume 91.8 FL (87-102); Mean Platelet Volume 9.8 FL (9.6-12.0); Monocytes # 0.9 10*3/uL (0.11-0.8); Monocytes % 7.3 % (1.7-12.7); NRBC # 0.02 10*3/uL; Neutrophils # 10.1 10*3/uL (1.4-7.4); Neutrophils % 85.8 % (38.7-73.9); Platelet Count 330 T/CUMM (130-400); Red Blood Count 3.52 MC/CUMM (3.8-5.5); Red Cell Distribution Width 15.6 % (9.3-17.3); White Blood Count 11.8 T/CUMM (4-12)
[2018-06-26 06:25] LABS: Albumin 2.5 G/DL (3.4-5.0); Bilirubin,Total 0.6 MG/DL (0.2-1.0); Calcium 8.9 MG/DL (8.5-10.1); Osmolality,Calculated 276.1 MOS/KG (273-304); Potassium 3.3 MMOL/L (3.5-5.1); Total Protein 5.9 G/DL (6.4-8.3)
[2018-06-26] MEDS: THYROID 60 MG TABLET PO SCH (07:00)
[2018-06-26] MEDS: SPIRONOLACTONE 50 MG TABLET PO SCH (09:10)
[2018-06-26] MEDS: SODIUM CHLORIDE 1 GM TABLET PO SCH ×3 (09:11→22:47)
[2018-06-26] MEDS: FLUDROCORTISONE 0.1 MG TABLET PO SCH ×2 (09:12→22:46)
[2018-06-26] MEDS: sitaGLIPtin 25 MG TABLET PO SCH (09:12)
[2018-06-26] MEDS: GABAPENTIN 100 MG CAPSULE PO SCH ×3 (09:13→22:47)
[2018-06-26] MEDS: metFORMIN 500 MG TABLET PO SCH ×2 (09:13→18:56)
[2018-06-26] MEDS: POTASSIUM CHLORIDE 20 MEQ TABLET PO SCH ×2 (09:13→22:47)
[2018-06-26] MEDS: AMIODARONE 200 MG TABLET PO SCH ×2 (09:13→22:47)
[2018-06-26] MEDS: FUROSEMIDE 40 MG TABLET PO SCH ×2 (09:13→15:14)
[2018-06-26] MEDS: MEXILETINE 200 MG CAPSULE PO SCH ×2 (09:14→22:46)
[2018-06-26] MEDS: POTASSIUM CHLORIDE 10 MEQ TABLET PO SCH ×2 (09:14→15:14)
[2018-06-26] MEDS: PANTOPRAZOLE 40 MG TABLET PO SCH (09:14)
[2018-06-26] MEDS: CARVEDILOL 3.125 MG TABLET PO SCH ×2 (09:14→22:47)
[2018-06-26] MEDS: APIXABAN 2.5 MG TABLET PO SCH ×2 (09:14→22:46)
[2018-06-26] MEDS: MONTELUKAST 10 MG TABLET PO SCH (09:14)
[2018-06-26] MEDS: MUPIROCIN 2% OINT 22 GM TUBE TOP SCH ×3 (09:15→22:48)
[2018-06-26] MEDS: cycloSPORINE OPH EMUL 1 VIAL BOTH EYES SCH ×2 (09:15→22:47)
[2018-06-26] MEDS: POLYETHYLENE GLYCOL POWDER 17 GM PACK PO SCH (09:15)
[2018-06-26] MEDS: FOLIC ACID 1 MG TABLET PO SCH (12:46)
[2018-06-26] MEDS: CALCIUM (CARBONATE) 600 MG TABLET PO SCH (12:46)
[2018-06-26] MEDS: MAGNESIUM OXIDE 400 MG TABLET PO SCH (12:46)
[2018-06-26] MEDS: CHOLECALCIFEROL 1,000 UNIT TABLET PO SCH (12:46)
[2018-06-26] MEDS: MULTIVITAMIN (INTRINSIC) CAPSULE PO SCH (12:46)
[2018-06-26] MEDS ORDERED: ONDANSETRON 4 MG TABLET PO PRN (14:51)
[2018-06-26] MEDS: DIGOXIN 0.125 MG TABLET PO SCH (15:13)
[2018-06-26] MEDS ORDERED: POTASSIUM CHLORIDE 20 MEQ TABLET PO ONE (16:16)
[2018-06-26] MEDS: ROSUVASTATIN 20 MG TABLET PO SCH (22:46)
[2018-06-26] MEDS: OMEGA 3 ACID ETHYL ESTERS 1 GM CAPSULE PO SCH (22:47)
[2018-06-26] MEDS: ASPIRIN EC 81 MG TABLET PO SCH (22:47)
[2018-06-26] MEDS: TOFRANIL PO SCH (22:49)
[2018-06-27 05:54] LABS: Basophils % 0.1 % (0.0-0.8); Eosinophils % 0.3 % (0.00-10.9); Hemoglobin 10.7 GM/DL (14.0-18.0); Immature Granulocytes % 0.6 %; Immature Granulocytes Absolute 0.07 #; Lymphocytes # 0.7 10*3/uL (1.4-4.0); Lymphocytes % 5.5 % (21.2-54.2); Mean Corpuscular HGB Conc 32.4 GM/DL (32-36); Mean Corpuscular Hemoglobin 30 PG (27-34); Mean Corpuscular Volume 92.4 FL (87-102); Mean Platelet Volume 9.5 FL (9.6-12.0); Monocytes # 0.9 10*3/uL (0.11-0.8); Monocytes % 7.1 % (1.7-12.7); Neutrophils # 10.9 10*3/uL (1.4-7.4); Neutrophils % 86.4 % (38.7-73.9); Platelet Count 331 T/CUMM (130-400); Red Blood Count 3.57 MC/CUMM (3.8-5.5); Red Cell Distribution Width 15.5 % (9.3-17.3); White Blood Count 12.6 T/CUMM (4-12)
[2018-06-27 06:26] LABS: Albumin 2.5 G/DL (3.4-5.0); Bilirubin,Total 0.7 MG/DL (0.2-1.0); Calcium 8.9 MG/DL (8.5-10.1); Potassium 3.9 MMOL/L (3.5-5.1)
[2018-06-27] MEDS: THYROID 60 MG TABLET PO SCH (06:38)
[2018-06-27] MEDS: POLYETHYLENE GLYCOL POWDER 17 GM PACK PO SCH (09:07)
[2018-06-27] MEDS: POTASSIUM CHLORIDE 20 MEQ TABLET PO SCH ×2 (09:07→21:10)
[2018-06-27] MEDS: MONTELUKAST 10 MG TABLET PO SCH (09:08)
[2018-06-27] MEDS: PANTOPRAZOLE 40 MG TABLET PO SCH (09:08)
[2018-06-27] MEDS: sitaGLIPtin 25 MG TABLET PO SCH (09:08)
[2018-06-27] MEDS: SODIUM CHLORIDE 1 GM TABLET PO SCH ×3 (09:08→21:10)
[2018-06-27] MEDS: MEXILETINE 200 MG CAPSULE PO SCH ×2 (09:08→21:09)
[2018-06-27] MEDS: AMIODARONE 200 MG TABLET PO SCH ×2 (09:08→21:10)
[2018-06-27] MEDS: APIXABAN 2.5 MG TABLET PO SCH ×2 (09:08→21:07)
[2018-06-27] MEDS: GABAPENTIN 100 MG CAPSULE PO SCH ×3 (09:08→21:09)
[2018-06-27] MEDS: FUROSEMIDE 40 MG TABLET PO SCH ×2 (09:08→16:05)
[2018-06-27] MEDS: metOLazone 5 MG TABLET PO SCH (09:08)
[2018-06-27] MEDS: FLUDROCORTISONE 0.1 MG TABLET PO SCH ×2 (09:08→21:06)
[2018-06-27] MEDS: metFORMIN 500 MG TABLET PO SCH ×2 (09:08→16:04)
[2018-06-27] MEDS: CARVEDILOL 3.125 MG TABLET PO SCH ×2 (09:08→21:06)
[2018-06-27] MEDS: SPIRONOLACTONE 50 MG TABLET PO SCH (09:08)
[2018-06-27] MEDS: MUPIROCIN 2% OINT 22 GM TUBE TOP SCH ×2 (09:09→16:05)
[2018-06-27] MEDS: cycloSPORINE OPH EMUL 1 VIAL BOTH EYES SCH ×2 (09:09→21:10)
[2018-06-27] MEDS: DIGOXIN 0.125 MG TABLET PO SCH (12:19)
[2018-06-27] MEDS: CALCIUM (CARBONATE) 600 MG TABLET PO SCH (12:19)
[2018-06-27] MEDS: FOLIC ACID 1 MG TABLET PO SCH (12:19)
[2018-06-27] MEDS: MAGNESIUM OXIDE 400 MG TABLET PO SCH (12:19)
[2018-06-27] MEDS: CHOLECALCIFEROL 1,000 UNIT TABLET PO SCH (12:19)
[2018-06-27] MEDS: MULTIVITAMIN (INTRINSIC) CAPSULE PO SCH (12:19)
[2018-06-27] MEDS: TOFRANIL PO SCH (21:06)
[2018-06-27] MEDS: ASPIRIN EC 81 MG TABLET PO SCH (21:07)
[2018-06-27] MEDS: ROSUVASTATIN 20 MG TABLET PO SCH (21:08)
[2018-06-27] MEDS: OMEGA 3 ACID ETHYL ESTERS 1 GM CAPSULE PO SCH (21:10)
[2018-06-27] MEDS ORDERED: PHENOL 1.4% THROAT SPRAY 177 ML BOTTLE PO PRN (23:54)
[2018-06-28] MEDS: MUPIROCIN 2% OINT 22 GM TUBE TOP SCH ×2 (00:28→09:10)
[2018-06-28 04:40] LABS: Basophils % 0.2 % (0.0-0.8); Eosinophils % 0.3 % (0.00-10.9); Hematocrit 34.7 VOL% (42.0-52.0); Immature Granulocytes % 0.5 %; Immature Granulocytes Absolute 0.07 #; Lymphocytes # 0.8 10*3/uL (1.4-4.0); Lymphocytes % 6.2 % (21.2-54.2); Mean Corpuscular HGB Conc 31.7 GM/DL (32-36); Mean Corpuscular Hemoglobin 29 PG (27-34); Mean Corpuscular Volume 92.8 FL (87-102); Mean Platelet Volume 9.8 FL (9.6-12.0); Monocytes % 7.3 % (1.7-12.7); Neutrophils # 11.6 10*3/uL (1.4-7.4); Neutrophils % 85.5 % (38.7-73.9); Platelet Count 342 T/CUMM (130-400); Red Blood Count 3.74 MC/CUMM (3.8-5.5); Red Cell Distribution Width 15.5 % (9.3-17.3); White Blood Count 13.6 T/CUMM (4-12)
[2018-06-28 05:07] LABS: Calcium 9.4 MG/DL (8.5-10.1); Osmolality,Calculated 279.8 MOS/KG (273-304); Potassium 3.7 MMOL/L (3.5-5.1)
[2018-06-28] MEDS: THYROID 60 MG TABLET PO SCH (05:53)
[2018-06-28 08:10] VITALS: BP 103/59
[2018-06-28] MEDS: PANTOPRAZOLE 40 MG TABLET PO SCH (09:08)
[2018-06-28] MEDS: MEXILETINE 200 MG CAPSULE PO SCH (09:09)
[2018-06-28] MEDS: sitaGLIPtin 25 MG TABLET PO SCH (09:09)
[2018-06-28] MEDS: CARVEDILOL 3.125 MG TABLET PO SCH (09:09)
[2018-06-28] MEDS: AMIODARONE 200 MG TABLET PO SCH (09:09)
[2018-06-28] MEDS: metFORMIN 500 MG TABLET PO SCH (09:09)
[2018-06-28] MEDS: metOLazone 5 MG TABLET PO SCH (09:09)
[2018-06-28] MEDS: GABAPENTIN 100 MG CAPSULE PO SCH (09:09)
[2018-06-28] MEDS: SPIRONOLACTONE 50 MG TABLET PO SCH (09:09)
[2018-06-28] MEDS: FUROSEMIDE 40 MG TABLET PO SCH (09:09)
[2018-06-28] MEDS: FLUDROCORTISONE 0.1 MG TABLET PO SCH (09:09)
[2018-06-28] MEDS: SODIUM CHLORIDE 1 GM TABLET PO SCH (09:09)
[2018-06-28] MEDS: APIXABAN 2.5 MG TABLET PO SCH (09:09)
[2018-06-28] MEDS: MONTELUKAST 10 MG TABLET PO SCH (09:09)
[2018-06-28] MEDS: cycloSPORINE OPH EMUL 1 VIAL BOTH EYES SCH (09:10)
[2018-06-28] MEDS: POLYETHYLENE GLYCOL POWDER 17 GM PACK PO SCH (09:10)
[2018-06-28] MEDS: POTASSIUM CHLORIDE 20 MEQ TABLET PO SCH (09:19)
[2018-06-28] MEDS ORDERED: POTASSIUM CHLORIDE 20 MEQ TABLET PO SCH (15:00)
== END 2018-06-28 12:05 | disposition home health service (06) | DRG 291 ==
LOC: EDBD → EDUNIT# → N.ED 14:37 → N.EDINP 19:00 → SUATTDRO 19:00 → N.5E 19:30
PROVIDERS: ADMIT Hospitalist; ATTEND Internal Medicine